=== PATIENT | female | born 1945 | race Caucasian/White ===

== ENCOUNTER 2024-04-27 20:01 | Inpatient (IN) | payer MEDICARE, OTHER, SELFPAY ==
[2024-04-27 20:09] VITALS: PULSE 136; RESP 18; O2SAT 96; BMI 25.0
[2024-04-27 20:11] VITALS: BP 181/94; PULSE 94; RESP 17; TEMP 37.2; O2SAT 99
--- NOTE | 2024-04-27 20:27 | XR_ITS ---
Examination: AP chest single view TECHNIQUE: AP portable chest single view. Examination time: April 27, 20242049 hours INDICATIONS: Shortness of breath today. FINDINGS: Normal heart size Mild hyperexpansion Accentuation of basilar bronchovascular markings Ectatic thoracic aorta. No lobar pneumonia or pulmonary edema Prominent osteopenia IMPRESSION: Basilar bronchitis pattern
--- NOTE | 2024-04-27 20:29 | PD.EDNV ---
Nausea/Vomit./Diarrhea-RME/HPI General Chief complaint: Nausea/Vomiting/Diarrhea Stated complaint: AFIB RVR Time Seen by Provider: 04/27/24 20:25 Source: patient and EMS Arrival date/time: 04/27/24 20:01 Mode of arrival: EMS Limitations: no limitations RME / HPI RME / HPI Narrative: Dr. Hoff?s Main ED Evaluation: The patient is a 78-year-old female with a medical history significant for cerebrovascular accident, peripheral neuropathy, hypertension, hypercholesterolemia, Crohn's disease, fibromyalgia, hypothyroidism, depression, anxiety, POTS, and lupus. She was brought to the emergency department by ambulance due to nausea, vomiting, and diarrhea, which began three days ago. The patient reports experiencing approximately four episodes of vomiting per day and notes associated generalized body aches. She has been unable to take her prescribed medications due to decreased oral intake and recurrent vomiting. She denies abdominal pain, chest pain, or any other symptoms at this time. EMS personnel reported that cardiac monitoring revealed atrial fibrillation with rapid ventricular response RVR, which the patient states is new to her. Related Data Home Medications ?Medication ?Instructions ?Recorded ?Confirmed gabapentin 100 mg capsule 600 mg PO BID PRN PAIN #0 caps 01/22/14 12/23/17 hydrocodone 10 mg-acetaminophen 1 tab PO TID PAIN #0 tabs 01/22/14 12/23/17 325 mg tablet raloxifene 60 mg tablet (Evista) 60 mg PO QDAY OSTEOPOROSIS #0 tabs 01/22/14 12/23/17 atorvastatin 20 mg tablet (Lipitor) 20 mg PO HS #0 tabs 02/26/17 12/23/17 duloxetine 60 mg capsule,delayed 60 mg PO QDAY #0 caps 02/26/17 12/23/17 release (Cymbalta) fludrocortisone 0.1 mg tablet 0.1 mg PO BID #0 tabs 02/26/17 12/23/17 hydroxychloroquine 200 mg tablet 400 mg PO QDAY #0 tabs 02/26/17 12/23/17 (Plaquenil) lisinopril 10 mg tablet 10 mg PO QDAY #0 tabs 02/26/17 12/23/17 metoprolol tartrate 25 mg tablet 25 mg PO BID #0 tabs 02/26/17 12/23/17 sertraline 100 mg tablet (Zoloft) 200 mg PO HS #0 tabs 02/26/17 12/23/17 azathioprine 50 mg tablet 25 mg PO QDAY 12/23/17 12/23/17 mesalamine 1.2 gram tablet,delayed 2.4 g PO QDAY 12/23/17 12/23/17 release (Lialda) sumatriptan succinate 100 mg tablet 100 mg PO Q2H PRN Migraine Headache 12/23/17 12/23/17 Previous Rx's ?Medication ?Instructions ?Recorded ondansetron HCl 8 mg tablet 8 mg PO TID PRN nausea and 10/07/18 (Zofran) vomiting #14 tabs loperamide 2 mg capsule (Imodium 2 mg PO Q4H PRN loose stool #20 05/12/21 A-D) caps Allergies Allergy/AdvReac Type Severity Reaction Status Date / Time Sulfa (Sulfonamide Allergy Severe FLUSHING, Verified 04/27/24 20:08 Antibiotics) VOMITING meloxicam Allergy Mild RASH Verified 04/27/24 20:08 Review of Systems Review of Systems Systems Reviewed: All systems reviewed, normal except as documented Past Medical History Past Medical History NEUROLOGIC: Positive Neurological Disorders, Cerebrovascular Accident, Peripheral Neuropathy and Migraine CARDIAC: Positive Cardiac Disorders, Hypercholesterolemia, Hypertension and Hypotension; Negative Congestive Heart Failure RESPIRATORY: Negative Chronic Obstructive Pulmonary Disease (COPD) GASTROINTESTINAL: Positive Crohn's Disease GENITOURINARY: Negative Renal Disease MUSCULOSKELETAL: Positive Fibromyalgia ENDOCRINE: Positive Hypothyroidism; Negative Diabetes Mellitus Type 1 or Diabetes Mellitus Type 2 PSYCHO/SOCIAL: Positive Psychiatric Problems, Depression and Anxiety Social History SMOKING STATUS: Never smoker SUBSTANCE USE: does not use ED Exam Narrative Physical exam: GENERAL APPEARANCE: alert and oriented x 4, well-developed, well-nourished, no acute distress VITALS: All vitals were reviewed and the pulse ox is 99% on room air, which is normal according to my interpretation. HEENT: Normocephalic, atraumatic; pupils equal, round, reactive to light; EOMI; mucous membranes pink, moist; oropharynx clear NECK: Supple LUNGS: CTABL; no wheezes, no rales, no rhonchi HEART: Regular rate, regular rhythm; normal S1, S2; no murmurs ABDOMEN: non distended; normal BS; soft, no tenderness, no guarding, no rebound; no masses, no organomegaly, no hernia BACK: no CVA tenderness EXTREMITIES: atraumatic; no edema NEUROLOGIC: awake; alert and oriented x4; cranial nerves II-XII grossly intact; no focal sensory or motor deficits PSYCHIATRIC: appropriate mood and affect SKIN: warm, dry, normal color; no rashes General Limitations: Present no limitations Course Course Course Narrative: CXR is ordered for determining etiology of shortness of breath. 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 Care 04/27/24 20:27 Active Continuous Pulse Oximetry STAT Care 04/27/24 20:27 Completed EKG (ED ONLY) *Do not use* NOW Care 04/27/24 20:16 Completed EKG (ED ONLY) *Do not use* NOW Care 04/28/24 00:28 Active Insert IV NOW Care 04/27/24 20:27 Active NPO STAT Care 04/27/24 20:27 Active Strict Intake and Output Routine Care 04/27/24 20:27 Ordered EKG (ED Only) Stat Exams 04/27/24 20:16 Ordered EKG (ED Only) Stat Exams 04/28/24 00:27 Ordered XR chest 1V portable Stat Exams 04/27/24 20:27 Completed Arterial Blood Gas Stat Lab 04/27/24 20:48 Completed B-Type Natriuretic Peptide Stat Lab 04/27/24 20:40 Completed CBC Stat Lab 04/27/24 20:40 Completed Comprehensive Metabolic Panel Stat Lab 04/27/24 20:40 Completed Free T4 (Free Thyroxine) Stat Lab 04/27/24 20:40 Completed LDH (Lactate Dehydrogenase) Stat Lab 04/27/24 20:40 Completed Lactate (Lactic Acid) Stat Lab 04/27/24 20:40 Completed Lipase Stat Lab 04/27/24 20:40 Completed Magnesium Stat Lab 04/27/24 20:40 Completed Partial Thromboplastin Time Stat Lab 04/27/24 20:40 Completed Phosphorous Stat Lab 04/27/24 20:40 Completed Procalcitonin Stat Lab 04/27/24 20:40 Completed Prothrombin Time with INR Stat Lab 04/27/24 20:40 Completed Troponin I Stat Lab 04/27/24 20:40 Completed Troponin I Stat Lab 04/28/24 00:40 Received Urinalysis Stat Lab 04/27/24 21:17 Completed Famotidine Inj [Pepcid Inj] Med 04/27/24 20:31 Discontinued 20 mg IVP X1 ONE Ondansetron Inj [Zofran Inj] Med 04/27/24 20:31 Discontinued 4 mg IV X1 ONE Ondansetron Inj [Zofran Inj] Med 04/27/24 20:31 Discontinued 4 mg IV X1 ONE POTASSIUM CHL 10 mEq IVPB [Kcl Ivpb] Med 04/27/24 22:16 Active 10 meq in 100 ml IV Q1H Potassium Chloride [K-Dur] Med 04/27/24 22:15 Discontinued 40 meq PO X1 ONE Sodium Chloride 0.9% 1000 ml [Ns] 1,779 ml Med 04/27/24 20:27 Discontinued IV 1,779 mls/hr Vital Signs Vital signs: Vital Signs Temperature 98.9 F 04/27/24 20:11 Pulse Rate 94 04/27/24 20:11 Respiratory Rate 17 04/27/24 20:11 Blood Pressure 181/94 H 04/27/24 20:11 Pulse Oximetry (%) 99 04/27/24 20:11 Oxygen Delivery Method Room Air 04/27/24 20:11 Nausea/Vomiting/Diarrhea MDM Narrative MDM Narrative:: Scribe Attestation: Duc Joe am scribing for and in the presence of Dr. Hoff. Provider Notation: Although this document has been carefully reviewed, there may still be some phonetic and other typographical errors. These errors are purely grammatical due to imperfections in the software program and should not be construed in any way to compromise the substance of the patient's medical care during this visit. Patient data External records reviewed:: [facility] previous records Clinical information provided by:: patient and EMS Social determinants that could affect healthcare access:: none Patient has the following chronic illnesses:: See PMH as above How is presenting disease/condition affected by chronic disease/condition?: caused by Evaluation data The following diagnostics were reviewed and interpreted by me:: lab results and EKG tracing(s) Lab and/or radiology exams considered but not ordered:: None Interpretation Summary: Patient's EKG at 20:23 demonstrates sinus tachycardia with a rate of 110 bpm, left axis deviation, and frequent premature atrial contractions (PACs). No evidence of acute ischemia is noted. QTc is 342. I personally reviewed the radiology data and agree with the radiologist's interpretation. Examination: AP chest single view TECHNIQUE: AP portable chest single view. Examination time: April 27, 2024 2050 hours INDICATIONS: Shortness of breath today. FINDINGS: Normal heart size Mild hyperexpansion Accentuation of basilar bronchovascular markings Ectatic thoracic aorta. No lobar pneumonia or pulmonary edema Prominent osteopenia IMPRESSION: Basilar bronchitis pattern Dictated By: Wallace Burden MD Medications / Prescriptions Medications / Prescriptions considered but not ordered:: None Medication administrations:: Medication Administration History Potassium Chloride (Kcl Ivpb) 10 meq in 100 mls @ 100 mls/hr IV Q1H ISAAC Stop: 04/28/24 01:15 Last Admin: 04/27/24 23:48 Dose: 100 mls/hr Documented By: Infusion: 04/27/24 23:37 Dose: Infused Documented By: Admin: 04/27/24 22:37 Dose: 100 mls/hr Documented By: KG Discontinued Medications Famotidine (Famotidine Inj 10 Mg/Ml Vial 2 Ml) 20 mg IVP X1 ONE Stop: 04/27/24 20:32 Last Admin: 04/27/24 20:38 Dose: 20 mg Documented By: MICAELA Sodium Chloride (Ns) 1,779 mls @ 1,779 mls/hr 30 ml/kg infuse over 60 min (1779 ml) IV .Q1H ONE Stop: 04/27/24 21:26 Last Infusion: 04/27/24 21:33 Dose: Infused Documented By: Admin: 04/27/24 20:38 Dose: 1,779 mls/hr Documented By: MICAELA Ondansetron HCl (Ondansetron Inj 2 Mg/Ml Inj 2 Ml) 4 mg IV X1 ONE; Protocol Stop: 04/27/24 20:32 Last Admin: 04/27/24 20:38 Dose: 4 mg Documented By: MICAELA Ondansetron HCl (Ondansetron Inj 2 Mg/Ml Inj 2 Ml) 4 mg IV X1 ONE; Protocol Stop: 04/27/24 20:32 Last Admin: 04/27/24 20:41 Dose: Not Given Documented By: GB Non-Admin Reason: Cancelled by Provider Potassium Chloride (Potassium Chloride 20 Meq Tabcr) 40 meq PO X1 ONE Stop: 04/27/24 22:16 As above, if any Consultations Consultation(s) initiated? (list below): Yes Consultation #1 (Physician, Specialty, Details): Discussed case with [Dr. Boss, attending Dr. Soriano] from Hospitalist service regarding admission. Discussed patients ED course, exam findings, labs, and radiology results. The Hospitalist [agrees] to accept the patient for admission. Time: 00:44 Diagnosis Nausea Differential Diagnosis: other (Viral gastroenteritis, DKA, hyperosmolar, Lupus crisis, sepsis, electrolyte abnormality) Most likely diagnosis given after review of the tests above:: See clinical impression below. Admission Indicated Admission indicated?: indicated Admission Request Was there a request for admission?: Yes Admission Attestation Admission request attestation: Discussed case with [] from Hospitalist service regarding admission. Discussed patients ED course, exam findings, labs, and radiology results. The Hospitalist [agrees,declines] to accept the patient for admission. Disposition Plan Disposition Plan: Admit Critical Care Time Critical Care Time Critical Care Time: Yes Total Critical Care Time (min.): 45 Attestation: The high probability of sudden, clinically significant deterioration in the patient?s condition required the highest level of my preparedness to intervene urgently. The services I provided to this patient were to treat and/or prevent clinically significant deterioration. Services included the following: chart data review, reviewing nursing notes and/or old charts, documentation time, forestry consultant collaboration regarding findings and treatment options, medication orders and management, direct patient care, vital sign assessments and ordering, interpreting and reviewing diagnostic studies and lab tests. Aggregate critical care time includes only time during which I was engaged in work directly related to the patient?s care, as described above, whether at bedside or elsewhere in the Emergency Department. It did not include time spent performing other reported procedures or the services of residents, students, nurses or physician assistants. Discharge Plan Plan Patient Disposition: Admit Acute Care w/in Hospital Prescriptions/Referrals Prescriptions/Med Rec: No Action hydrocodone-acetaminophen 10-325 mg Tablet 1 tab PO TID Qty: 0 raloxifene [Evista] 60 MG tablet 60 mg PO QDAY Qty: 0 gabapentin 100 MG capsule 600 mg PO BID PRN (Reason: PAIN) Qty: 0 atorvastatin [Lipitor] 20 MG tablet 20 mg PO HS Qty: 0 sertraline [Zoloft] 100 MG tablet 200 mg PO HS Qty: 0 lisinopril 10 MG tablet 10 mg PO QDAY Qty: 0 hydroxychloroquine [Plaquenil] 200 MG tablet 400 mg PO QDAY Qty: 0 fludrocortisone 0.1 mg Tablet 0.1 mg PO BID Qty: 0 metoprolol tartrate 25 MG tablet 25 mg PO BID Qty: 0 duloxetine [Cymbalta] 60 MG capsule,delayed release(DR/EC) 60 mg PO QDAY Qty: 0 azathioprine 50 mg Tablet 25 mg PO QDAY mesalamine [Lialda] 1.2 gram Tablet,Delayed Release (Dr/Ec) 2.4 g PO QDAY sumatriptan succinate 100 mg Tablet 100 mg PO Q2H PRN (Reason: Migraine Headache) ondansetron HCl [Zofran] 8 mg tablet 8 mg PO TID PRN (Reason: nausea and vomiting) Qty: 14 0RF loperamide [Imodium A-D] 2 mg capsule 2 mg PO Q4H PRN (Reason: loose stool) Qty: 20 0RF Rx Instructions: administer after each loose stool until symptoms controlled; do not exceed 8 mg per 24 hrs Referrals: No Primary/Family,Physician [Primary Care Provider] - In 1 week Problem List Clinical Impression: Acute hypokalemia, Non-ST elevation CA (NSTEMI) Patient/Caregiver Discharge Instructions Print Language: Togolese Stand Alone Forms: [facility] Award Info., Patient Portal Info Letter
[2024-04-27 20:30] VITALS: PULSE 110
[2024-04-27] MEDS: SODIUM CHLORIDE 0.9% 1000 ML 1,779 ML 1779 ML IV (20:38)
[2024-04-27] MEDS: FAMOTIDINE INJ 10 MG/ML VIAL 2 ML 20 MG IVP (20:38)
[2024-04-27] MEDS: ONDANSETRON INJ 2 MG/ML INJ 2 ML 4 MG IV (20:38)
[2024-04-27 20:51] LABS: Lactate (Lactic Acid) 1.7 mMol/L (0.4-2.0)
[2024-04-27 20:52] LABS: Base Excess 2 (-3-3); HCO3 24 mEq/L (20-26); Inspired Oxygen, FIO2 21 %; O2 Saturation 99 % (91-98); PCO2 28 mmHg (32.0-48.0); PO2 101 mmHg (83-108); Puncture Site Right Radial; pH, Arterial 7.54 (7.35-7.45)
[2024-04-27 20:53] LABS: Allen Test Performed/OK
[2024-04-27 21:02] LABS: Basophils % (Auto) 0 % (0-2.5); Eosinophils # (Auto) 0.1 Thou/mm3 (0.0-0.5); Eosinophils % (Auto) 1 % (0-10); Hematocrit 41.3 % (36.0-46.0); Immature Granulocytes % (Auto) 0 % (0-0); Immature Granulocytes Auto 0.01 Thou/mm3 (0.00-0.00); Lymphocytes # (Auto) 1.3 Thou/mm3 (1.0-4.8); Lymphocytes % (Auto) 19 % (10-50); Mean Corpuscular HGB Conc 33.9 g/dl (31.0-37.0); Mean Corpuscular Hemoglobin 30.8 pg (25.0-35.0); Mean Corpuscular Volume 91 fL (80-100); Monocytes # (Auto) 0.9 Thou/mm3 (0.0-0.8); Monocytes % (Auto) 13 % (0-12); Neutrophils # (Auto) 4.6 Thou/mm3 (1.8-7.7); Neutrophils % (Auto) 66 % (37-80); Nucleated Red Blood Cell % 0 /100 WBC (0); Platelet Count 233 Thou/mm3 (140-440); RDW Standard Deviation 46.3 fL (36.4-46.3); Red Blood Count 4.54 Miln/mm3 (4.00-5.20)
[2024-04-27 21:09] LABS: INR 1.1 (0.9-1.3); Partial Thromboplastin Time 27.6 Seconds (22.0-36.0); Prothrombin Time 11.6 Seconds (9.0-12.2)
[2024-04-27 21:21] LABS: Collection Type, Urine Clean Catch
[2024-04-27 21:22] LABS: Squamous Epithelial Cell,Urine 0 /hpf (0-5)
[2024-04-27 21:40] LABS: Bilirubin,Urine Negative (Negative); Blood,Urine Negative (Negative); Clarity,Urine Clear (Clear/Hazy); Color,Urine Colorless (Lt Yel-Yel); Glucose, Urine Negative (Negative); Ketones,Urine Trace (Negative); Leukocyte Esterase,Urine Negative (Negative); Nitrite,Urine Negative (Negative); Protein,Urine 1+ (Neg - Trace); RBC,Urine 1 /hpf (0-3); Specific Gravity,Urine 1.006 (1.001-1.035); Urobilinogen,Urine Negative mg/dL (0.0-1.0); WBC,Urine 4 /hpf (0-5)
[2024-04-27 21:51] LABS: B-Type Natriuretic Peptide 458 pg/mL (0-100)
[2024-04-27 21:53] LABS: Alanine Aminotransferase 20 U/L (10-49); Albumin, Serum 4.3 gm/dL (3.4-4.8); Albumin/Globulin Ratio 1.9 (1.2-2.2); Alkaline Phosphatase 73 U/L (46-116); Anion Gap 12 (7-16); Aspartate Amino Transferase 43 U/L (0-34); BUN/Creatinine Ratio 16 Ratio (12-20); Bilirubin,Total 0.5 mg/dL (0.3-1.2); Blood Urea Nitrogen 13 mg/dL (9-23); Calcium 9.6 mg/dL (8.3-10.6); Calcium (Corrected) 9.6 mg/dL (8.5-10.1); Carbon Dioxide 25.8 mMol/L (20.0-31.0); Chloride 105 mMol/L (98-107); Creatinine (Component) 0.8 mg/dL (0.6-1.3); Estimated Creatinine Clearance 55.1 mL/min (>60); Free T4 (Free Thyroxine) 1.48 ng/dL (0.89-1.76); Globulin 2.3 gm/dL (2.3-3.5); Glucose 109 mg/dL (74-106); LDH (Lactate Dehydrogenase) 335 U/L (120-246); Lipase 27 U/L (12-53); Magnesium 1.8 mg/dL (1.6-2.6); Osmolality,Calculated 286 (275-295); Phosphorous 2.8 mg/dL (2.4-5.1); Procalcitonin 0.09 ng/ml (0.0-0.49); Sodium 143 mMol/L (136-145); Total Protein 6.6 gm/dL (5.7-8.2); eGFR > 60 See Note
[2024-04-27 21:57] LABS: Potassium 2.6 mMol/L (3.4-5.1); Troponin I 0.142 ng/mL (0.0-0.045)
[2024-04-27] MEDS: POTASSIUM CHL 10 mEq IVPB 10 MEQ/100 ML BAG 100 MEQ IV ×2 (22:37→23:48)
[2024-04-27 22:45] VITALS: BP 170/89; PULSE 106; RESP 20; O2SAT 95
[2024-04-27 22:53] VITALS: BP 170/89; PULSE 105; RESP 20; O2SAT 94
[2024-04-28] VITALS (11 sets, daily range): BP systolic 130–179; BP diastolic 74–98; PULSE 63–114; RESP 17–96; TEMP 36.3–37.5; O2SAT 92–98
[2024-04-28] MEDS: POTASSIUM CHL 10 mEq IVPB 10 MEQ/100 ML BAG 100 MEQ IV ×5 (00:46→06:33)
--- NOTE | 2024-04-28 00:55 | XR_ITS ---
Examination: CT abdomen and pelvis without contrast. Coronal 3-D reconstructions. Sagittal 2-D reconstructions. Date and time of exam:April 28, 2024 0149 hours INDICATIONS: Nausea vomiting abdominal pain back pain beginning 4 days ago CTDI: vol (mGy): 6.90 DLP: (mGycm): 319 Technique: Axial images of the abdomen have been obtained, 3 mm slice thickness Intravenous contrast material has not been administered. Low dose protocols were performed. One or more of the following dose reduction techniques were used; automated exposure control, adjustment of the mA and/or KV according to patient size, use of iterative reconstruction technique. Findings: Accentuation interstitial markings at the lung bases Right lobe liver cysts No gallstones Spleen not enlarged No pancreatic mass No renal or ureteral calculi, no hydronephrosis Aortic calcification no aneurysmal dilatation Normal appendix Mild fluid distended small bowel loops Colonic diverticulosis, no diverticulitis Urinary bladder intact Diffuse advanced lumbar degenerative disc disease with prominent osteopenia IMPRESSION: Suspicious for basilar bronchitis pattern Mild small bowel ileus Normal appendix
[2024-04-28] MEDS: MORPHINE SULF INJ 10 MG/ML VIAL 2 MG IVP (01:43)
--- NOTE | 2024-04-28 02:01 | ESHP_ITS ---
<Statement entered by Alvarez Soriano MD - 04/28/24 14:01> I have discussed and was present for the essential components of the history, physical examination, diagnosis, and treatment plan with the resident. I agree with the patient's care as documented by the resident and amended herein by me. Alvarez Soriano MD FACP. Documentation for date of: 04/28/24 HPI History of Present Illness Chief complaint: Intractable Vomiting History of present illness: HPI: Patient is a 78-year-old female with a past medical history significant for essential hypertension, hyperlipidemia, Crohn's, fibromyalgia, migraines, hypothyroidism, lupus and POTS presenting with a chief complaint of vomiting. Follows up with program supervisor Dr. Keenan and inseam trimmer Dr. Lozoya. Patient stated that initially 5 days ago she had a migraine which was relieved after 2 rounds of sumatriptan. Subsequently the following day she began to experience irretractable vomiting. At least 10?15 episodes per day, initially food contents and eventually yellowish liquid. She also has not had any p.o. intake during this time. Denies any hematemesis, coffee-ground emesis, bile emesis, fecal emesis, melena, hematochezia and constipation. Of note patient also endorses a 2-day history of diarrhea prior to arrival approximately 6 episodes per day which has now subsided due to her not eating anything for the past 4 days. Patient's last colonoscopy was 2 years ago and reported by her as normal. Patient also had a nuclear stress test done last month and she reports that she had an adverse reaction to the dye. Currently she is still awaiting the results. ED course: BP 181/94, pulse 94, RR 17, temp 98.9 F, SpO2 99% on room air. Labs significant for NA 143, K2.6, Mg 1.8, Trop 0.142 --> 0.19, BNP 458. Urinalysis significant for 1+ protein and trace ketones EKG significant for sinus arrhythmia, rate 110, frequent PACs. No acute ST changes. Chest x-ray significant for hyperexpansion of lung watkins. Negative for consolidation, pulmonary edema or pleural effusion. In the ED patient received normal saline 1.7L IV fluid bolus, ondansetron 4 Mg IV x 1, famotidine 20 Mg IV x 1, KCl 30 mEq IV x 1 and morphine 2 Mg IV x 1. Patient will be admitted for workup and management of intractable vomiting and hypertensive urgency Review of Systems Review of Systems Narrative Review of Systems: GENERAL: Denies fever/chills or diaphoresis. HEENT: As Above Neuro: Denies unusual weakness or difficulty speaking. CARDIO: Denies chest pain or palpitations. PULM: Denies SOB, coughing or wheezing. GI: As above URO: Denies burning/itching/pain/urinary changes. MSK/EXT/SKIN: Denies joint/skeletal/muscle pain, issues/changes in upper or lower extremities, itchiness, or superficial pain. PSYCH: Cooperative, pleasant mood & affect. The rest of the review of systems is otherwise negative. Past Medical History Past Medical History Comments [facility] COMMENT: Past medical history: ? History of CVA 2013 ? Neuropathy ? Essential hypertension ? Hyperlipidemia ? Crohn's ? Fibromyalgia ? Hypothyroidism ? Migraines ? Depression ? Anxiety ? POTS ? Lupus Medication list: - Hydrocodone 7.5 Mg as needed ? Sertraline 200 Mg p.o. daily ? Atorvastatin 20 Mg p.o. at bedtime ? Hydroxy chloroquine 400 Mg p.o. daily ? Lyrica 75 Mg p.o. twice daily ? KCl 10 mEq p.o. twice daily ? Aspirin 81 Mg p.o. daily ? Levothyroxine 175 mcg p.o. daily ? Duloxetine 60 Mg p.o. daily ? Mesalamine 1.2 g p.o. daily ? Fludrocortisone 0.1 Mg p.o. daily ? Raloxifene 60 Mg p.o. daily ? Metoprolol tartrate 25 Mg p.o. twice daily ? Azathioprine 50 Mg p.o. daily ? Lisinopril 10 Mg p.o. daily ? Sumatriptan 100 Mg p.o. as needed Past surgical history: B/L knee replacement Left breast lumpectomy 40 years ago Allergies: Sulfa drugs?flushing, vomiting Meloxicam?rash Social history: Occupational History: Retired. 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 Education Level: Attended college Marital Status: Single. Has 3 kids Tobacco use: Denies. Exposure to second hand smoke from parents ETHO use: Denies Illicit drug use: Denies Social History Note: [place]. At Baseline patient ambulates with a cane and performs all ADLs independently Family History: Father?throat cancer Mother?COPD Brother?colorectal cancer Exam Vital Signs Temp Pulse Resp BP Pulse Ox O2 Del Method 98.9 F 105 H 20 170/89 H 94 L Room Air 04/27/24 20:11 04/27/24 22:53 04/27/24 22:53 04/27/24 22:53 04/27/24 22:53 04/27/24 22:53 Narrative Exam Constitutional Alert, oriented x 3 and comfortable. Elderly female HEENT Vision grossly intact. Patent nares. Trachea midline Respiratory Chest normal on inspection and decreased air entry at bases Cardiovascular S1 and S2 audible, RRR. No murmurs carotid bruit. No gross JVD. Abdominal Soft and tender to palpation in right upper quadrant and epigastrium. Bowel sounds present Genitourinary No bladder tenderness, no flank pain. Normal to palpation Musculoskeletal Extremities tone within normal limits. No LE edema. Neurological CN II - XII grossly intact. Extremity motor and sensation grossly intact. Skin Warm, dry and intact. No apparent lesions. Psychiatric Patient has good affect, is cooperative Results: Labs 04/27/24 20:40 04/27/24 20:40 Labs: Short CBC 04/27/24 Range/Units 20:40 WBC 7.0 (3.6-11.0) Thou/mm3 Hgb 14.0 (12.0-16.0) g/dL Hct 41.3 (36.0-46.0) % Plt Count 233 (140-440) Thou/mm3 BMP 04/27/24 20:40 Sodium 143 Potassium 2.6 L* Chloride 105 Carbon Dioxide 25.8 BUN 13 Creatinine 0.8 Glucose 109 H Calcium 9.6 Cardiac Enzymes 04/27/24 04/28/24 Range/Units 20:40 00:40 Troponin I 0.142 H* 0.190 H* (0.0-0.045) ng/mL Liver Function 04/27/24 Range/Units 20:40 Total Bilirubin 0.5 (0.3-1.2) mg/dL AST 43 H (0-34) U/L ALT 20 (10-49) U/L Alkaline Phosphatase 73 (46-116) U/L Albumin 4.3 (3.4-4.8) gm/dL Urine 04/27/24 Range/Units 21:17 Urine Color Colorless A (Lt Yel-Yel) Urine Clarity Clear (Clear/Hazy) Urine pH 7.0 (5.0-7.0) Ur Specific [place] 1.006 (1.001-1.035) Urine Protein 1+ A (Neg - Trace) Urine Glucose (UA) Negative (Negative) ABG Interpretation ABG results: 04/27/24 20:48 ABG pH 7.54 H ABG pCO2 28 L ABG pO2 101 ABG HCO3 24 ABG O2 Saturation 99 H ABG Base Excess 2 Quality Measures Quality Measures none Advance care planning discussed with:: patient Medications Home Medications and Allergies Home Medications ?Medication ?Instructions ?Recorded ?Confirmed ?Type gabapentin 100 mg capsule 600 mg PO BID PRN PAIN #0 ca ps 01/22/14 12/23/17 History hydrocodone 10 mg-acetaminophen 1 tab PO TID PAIN #0 t abs 01/22/14 12/23/17 History 325 mg tablet raloxifene 60 mg tablet (Evista) 60 mg PO QDAY OSTEOPO ROSIS #0 tabs 01/22/14 12/23/17 History atorvastatin 20 mg tablet (Lipitor) 20 mg PO HS #0 tab s 02/26/17 12/23/17 History duloxetine 60 mg capsule,delayed 60 mg PO QDAY #0 caps 02/26/17 12/23/17 History release (Cymbalta) fludrocortisone 0.1 mg tablet 0.1 mg PO BID #0 tabs 12/23/17 History hydroxychloroquine 200 mg tablet 400 mg PO QDAY #0 tab s 02/26/17 12/23/17 History (Plaquenil) lisinopril 10 mg tablet 10 mg PO QDAY #0 tabs 12/23/17 History metoprolol tartrate 25 mg tablet 25 mg PO BID #0 tabs 02/26/17 12/23/17 History sertraline 100 mg tablet (Zoloft) 200 mg PO HS #0 tabs 02/26/17 12/23/17 History azathioprine 50 mg tablet 25 mg PO QDAY 12/23/1712/23 History mesalamine 1.2 gram tablet,delayed 2.4 g PO QDAY 12/2312/23/17 History release (Lialda) sumatriptan succinate 100 mg tablet 100 mg PO Q2H PRN Migraine Headache 12/23/17 12/23/17 History Allergies Allergy/AdvReac Type Severity Reaction Status Date / Time Sulfa (Sulfonamide Allergy Severe FLUSHING, Verified 04/27/24 20:08 Antibiotics) VOMITING meloxicam Allergy Mild RASH Verified 04/27/24 20:08 Visit Medications Discontinued Medications Famotidine (Famotidine Inj 10 Mg/Ml Vial 2 Ml) 20 mg IVP X1 ONE Stop: 04/27/24 20:32 Last Admin: 04/27/24 20:38 Dose: 20 mg Sodium Chloride (Ns) 1,779 mls @ 1,779 mls/hr 30 ml/kg infuse over 60 min (1779 ml) IV .Q1H ONE Stop: 04/27/24 21:26 Last Infusion: 04/27/24 21:33 Dose: Infused Potassium Chloride (Kcl Ivpb) 10 meq in 100 mls @ 100 mls/hr IV Q1H ISAAC Stop: 04/28/24 01:15 Last Admin: 04/28/24 00:46 Dose: 100 mls/hr Morphine Sulfate (Morphine Sulf Inj 10 Mg/Ml Vial) 2 mg IVP X1 ONE Stop: 04/28/24 01:40 Last Admin: 04/28/24 01:43 Dose: 2 mg Ondansetron HCl (Ondansetron Inj 2 Mg/Ml Inj 2 Ml) 4 mg IV X1 ONE; Protocol Stop: 04/27/24 20:32 Last Admin: 04/27/24 20:38 Dose: 4 mg Ondansetron HCl (Ondansetron Inj 2 Mg/Ml Inj 2 Ml) 4 mg IV X1 ONE; Protocol Stop: 04/27/24 20:32 Last Admin: 04/27/24 20:41 Dose: Not Given Potassium Chloride (Potassium Chloride 20 Meq Tabcr) 40 meq PO X1 ONE Stop: 04/27/24 22:16 Assessment & Plan Plan Patient is a 78-year-old female with a past medical history significant for essential hypertension, hyperlipidemia, Crohn's, fibromyalgia, migraines, hypothyroidism, lupus and POTS presenting with a chief complaint of vomiting. Follows up with program supervisor Dr. Keenan and inseam trimmer Dr. Lozoya. Patient will be admitted for workup and management of intractable vomiting and hypertensive urgency. 1. Hypertensive urgency 2. Essential hypertension 3. Hyperlipidemia On admission BP 181/94 which reduced to 149/74 spontaneously Plan: ? Resumed home antihypertensive metoprolol tartrate 25 Mg p.o. twice daily ? Labetalol 10 Mg IV every 10 minutes for SBP greater than 180 ? Aim for 25% reduction of BP in first 24 hours 4. Intractable vomiting 5. Abdominal pain 6. Hypokalemia Patient presented with intractable vomiting for the past 3 days. On exam patient tender to palpation epigastrium and right upper quadrant. DDx: Cholecystitis, medication side effect, Crohn's/SLE flare, migraines, gastroparesis, SIBO Abdomen/pelvis CT pending K2.6, Mg 1.8 Plan: ? Clear liquid diet as tolerated ? Gallbladder ultrasound ? KCl 40 mEq IV x 1 ? Magnesium sulfate 2 g IV x 1 ? Ondansetron 4 Mg IV every 6 hourly as needed for nausea/vomiting ? Morphine 2 Mg IV Q4 hourly as needed for pain ? GI, Dr. Nevarez consulted and closely following the case. Appreciate recommendations 7. NSTEMI type I versus type II Patient denies any chest pain/pressure but has nausea and vomiting. Vomiting may present with atypical symptoms. EKG significant for sinus arrhythmia, rate 110, frequent PACs. No acute ST changes. Trop 0.142 --> 0.19, BNP 458 Plan: ? Telemetry monitoring ? Repeat troponin in the a.m. 8. Migraine headaches 9. Fibromyalgia Home medication sertraline 200 Mg p.o. daily, Lyrica 75 Mg p.o. twice daily, duloxetine 60 Mg p.o. daily Plan: ? Resumed home medication sertraline 200 Mg p.o. daily ? Resumed home medication Lyrica 75 Mg p.o. twice daily ? Resumed home medication duloxetine 60 Mg p.o. daily 10. Crohn's disease 11. Hypothyroidism 12. SLE Patient stated that her last colonoscopy was 2 years ago and reported that it was normal. Home medication mesalamine 1.2 g p.o. daily, azathioprine 50 Mg p.o. daily, hydroxychloroquine 400 Mg p.o. daily and levothyroxine 175 mcg p.o. daily. Plan: ? Resumed home medication mesalamine 1.2 g p.o. daily ? Resume home medication azathioprine 50 Mg p.o. daily ? Resumed home medication hydroxychloroquine to 500 Mg p.o. daily ? Resumed home medication L-thyroxine 125 Mg daily p.o. daily 13. POTS Home medication fludrocortisone 0.1 Mg p.o. daily Plan: ? Resume home medication fludrocortisone 0.1 Mg p.o. daily 14. History of CVA No residual deficits with patient reports memory problems since stroke in 2013 Plan: ? Resumed home medication aspirin 81 Mg p.o. daily Health maintenance: Disposition: IV antiemetics, blood pressure control, monitor gallbladder ultrasound. GI consult Diet: Clear liquid Lines: pIVs GI Prophylaxis: Pantoprazole Thrombo Prophylaxis: Heparin 5000 IU SC twice daily Code status: DNR Plan of care discussed with Attending Dr. oB Wilhelm MD PGY 1
[2024-04-28] MEDS: RINGERS LACTATED 1000 ML 1,000 ML 100 ML IV ×2 (03:00→16:58)
[2024-04-28] MEDS: Magnesium Sulfate 2 GM Ivpb 2 GM/50 ML BAG IV (03:00)
--- NOTE | 2024-04-28 03:11 | PRELIM_ITS ---
CT scan of the abdomen and pelvis without intravenous contrast (axial sections with sagittal and coronal reformats): April 28, 2024 at 0149 hours Clinical History: Nausea vomiting 4 days. Reference is made to the prior report dated October 12, 2018. Findings: There is heterogeneous attenuation of the visualized lungs with interstitial thickening. There is mild cardiomegaly. There are a few small cysts in the right lobe of the liver. The pancreas is unremarkable. The gallbladder, pancreas, spleen, kidneys and adrenals are unremarkable on this noncontrast study. There are fluid-filled small bowel loops, nonspecific. No evidence of bowel dilatation. The appendix is within normal limits. There are sigmoid colon diverticula without evidence of diverticulitis. Moderate amount of fecal material is present in the colon. The urinary bladder is unremarkable.There is no free fluid or free air. The aorta and its branches demonstrate atheromatous calcification without evidence of aneurysm. There is adenopathy. There are moderate degenerative changes in the hip joints and visualized spine. There is a mild degenerative anterolisthesis of L4 on L5. Impression: Findings suggestive of constipation. Chronic interstitial lung disease. No evidence of other acute intra-abdominal or pelvic pathology. Other findings as described above. Report Electronically Signed By: Alexander Pollock 04/28/2024 3:09:55 AM [EST]
[2024-04-28] MEDS: ONDANSETRON INJ 2 MG/ML INJ 2 ML 4 MG IV (03:47)
--- NOTE | 2024-04-28 04:26 | XR_ITS ---
Examination: Abdomen sonogram, Limited Date and time of exam: April 28, 2024 0733 hours INDICATIONS: Upper abdominal pain and vomiting beginning today Technique: Real-time hernandez scale transabdominal sonographic images of the upper abdomen obtained. Findings: Normal gallbladder Normal common bile duct 0.5 cm Pancreatic head 1.9 cm Liver 10.4 cm fatty infiltration no focal liver lesions Normal hepatopedal portal venous flow Patent IVC IMPRESSION: Normal gallbladder No common bile duct stones Liver 10.4 cm fatty infiltration no focal liver lesions
[2024-04-28 05:04] LABS: Basophils % (Auto) 1 % (0-2.5); Eosinophils # (Auto) 0.1 Thou/mm3 (0.0-0.5); Eosinophils % (Auto) 2 % (0-10); Hematocrit 35.6 % (36.0-46.0); Hemoglobin 11.6 g/dL (12.0-16.0); Immature Granulocytes % (Auto) 0 % (0-0); Immature Granulocytes Auto 0.02 Thou/mm3 (0.00-0.00); Lymphocytes # (Auto) 1.7 Thou/mm3 (1.0-4.8); Lymphocytes % (Auto) 26 % (10-50); Mean Corpuscular HGB Conc 32.6 g/dl (31.0-37.0); Mean Corpuscular Hemoglobin 30.8 pg (25.0-35.0); Mean Corpuscular Volume 94 fL (80-100); Monocytes # (Auto) 0.8 Thou/mm3 (0.0-0.8); Monocytes % (Auto) 13 % (0-12); Neutrophils # (Auto) 3.9 Thou/mm3 (1.8-7.7); Neutrophils % (Auto) 59 % (37-80); Nucleated Red Blood Cell % 0 /100 WBC (0); Platelet Count 193 Thou/mm3 (140-440); RDW Standard Deviation 48.7 fL (36.4-46.3); Red Blood Count 3.77 Miln/mm3 (4.00-5.20); White Blood Count 6.6 Thou/mm3 (3.6-11.0)
[2024-04-28 06:16] LABS: Alanine Aminotransferase 16 U/L (10-49); Albumin, Serum 3.6 gm/dL (3.4-4.8); Albumin/Globulin Ratio 1.6 (1.2-2.2); Alkaline Phosphatase 60 U/L (46-116); Anion Gap 9 (7-16); Aspartate Amino Transferase 34 U/L (0-34); BUN/Creatinine Ratio 17 Ratio (12-20); Bilirubin,Total 0.4 mg/dL (0.3-1.2); Blood Urea Nitrogen 12 mg/dL (9-23); Calcium 8.9 mg/dL (8.3-10.6); Calcium (Corrected) 9.2 mg/dL (8.5-10.1); Chloride 109 mMol/L (98-107); Creatinine (Component) 0.7 mg/dL (0.6-1.3); Globulin 2.2 gm/dL (2.3-3.5); Glucose 100 mg/dL (74-106); Magnesium 2.3 mg/dL (1.6-2.6); Osmolality,Calculated 290 (275-295); Potassium 3.3 mMol/L (3.4-5.1); Sodium 146 mMol/L (136-145); Thyroid Stimulating Hormone 4.02 uIU/mL (0.55-4.78); Total Protein 5.8 gm/dL (5.7-8.2); eGFR > 60 See Note
[2024-04-28] MEDS: LEVOTHYROXINE SODIUM 25 MCG TABLET 175 MCG PO (06:19)
[2024-04-28 06:20] LABS: Troponin I 0.171 ng/mL (0.0-0.045)
[2024-04-28] MEDS: HEPARIN SOD INJ 5000 UNIT/ML VIAL SC ×2 (08:38→20:39)
[2024-04-28] MEDS: ASPIRIN EC 81 MG TABEC PO (08:38)
[2024-04-28] MEDS: Lisinopril 2.5 MG TABLET 10 MG PO (08:39)
[2024-04-28] MEDS: FLUDROCORTISONE ACETATE 0.1 MG TABLET PO (08:39)
[2024-04-28] MEDS: METOPROLOL TARTRATE 25 MG TABLET PO ×2 (08:41→20:38)
[2024-04-28] MEDS: PREGABALIN 75 MG CAPSULE PO ×2 (08:41→20:38)
[2024-04-28] MEDS: HYDROXYCHLOROQUINE 200 MG TABLET 400 MG PO (08:42)
[2024-04-28] MEDS: DULoxetine HCL 30 MG CAPSULE 60 MG PO (08:43)
[2024-04-28] MEDS: MESALAMINE 400 MG CAPSULE.DR 1200 MG PO (08:44)
[2024-04-28] MEDS: PANTOPRAZOLE INJ 40 MG VIAL IVP (08:48)
--- NOTE | 2024-04-28 10:00 | PC.NURSE ---
SPOKE TO DR. VELIZ AND MADE AWARE PT TAKES NORCO AT HOME WITH DOSE OF 7.5/325. PT'S CURRENT NORCO ORDERS 5/325. RN CLARIFIED IF MD ABLE TO CHANGE ORDER FOR PT'S NORCO FROM 5/325 TO 7.5/325. PER DR. SHABAZZ, WILL CHANGE PT'S NORCO ORDERS SOON.
--- NOTE | 2024-04-28 10:05 | PC.NURSE ---
SPOKE TO DR. VELIZ AND CLARIFIED IF MD WANTS TO GIVE ADDITIONAL POTASSIUM IVPB MEDICATIONS; PT ALREADY RECEIVED 7 BAGS OF IV POTASSIUM WITH A TOTAL DOSE OF [address] VELIZ, HOLD OFF ON POTASSIUM FOR NOW AND REDRAW PT'S CMP PANEL.
--- NOTE | 2024-04-28 10:50 | PC.CC ---
Pt Maria Elena Damian is a 78 yr old female admitted to hospitalist services for hypertensive urgency, essential hypertension, intractable vomiting, abd pain and hypokalemia. ASW met with pt at bedside to complete initial assessment. At time of encounter pt is noted to be alert and oriented to person, place and situation. Pt expressed being hard of hearing. Pt expressed understanding admission order. Pt able to confirm all demographic information. Pt is from [address] Per pt she lives in her home alone. Pt identifies her daughter Shanelle Astorga [phone] as her surrogate DM. At baseline pt reports using a cane and 4-wheel rollator to support ambulation. Pt reports being independent with her ADLs. Pt reports she does not require any supplemental O2 in the home. Pt is not diabetic and is not on dialysis. Pt is followed by Dr. Rae in [place] for primary care. Pt also followed by specialty providers for rheumatology, GI and cardiology. At time of D/c pt reports she will return home with family supporting with transport. Pt is a DNR status.
[2024-04-28 10:52] LABS: Alanine Aminotransferase 18 U/L (10-49); Albumin, Serum 3.7 gm/dL (3.4-4.8); Albumin/Globulin Ratio 1.8 (1.2-2.2); Alkaline Phosphatase 63 U/L (46-116); Anion Gap 6 (7-16); Aspartate Amino Transferase 40 U/L (0-34); BUN/Creatinine Ratio 16 Ratio (12-20); Bilirubin,Total 0.5 mg/dL (0.3-1.2); Blood Urea Nitrogen 11 mg/dL (9-23); Calcium 8.9 mg/dL (8.3-10.6); Calcium (Corrected) 9.1 mg/dL (8.5-10.1); Carbon Dioxide 27.6 mMol/L (20.0-31.0); Chloride 111 mMol/L (98-107); Creatinine (Component) 0.7 mg/dL (0.6-1.3); Globulin 2.1 gm/dL (2.3-3.5); Glucose 101 mg/dL (74-106); Osmolality,Calculated 288 (275-295); Potassium 4.3 mMol/L (3.4-5.1); Sodium 145 mMol/L (136-145); Total Protein 5.8 gm/dL (5.7-8.2); eGFR > 60 See Note
[2024-04-28] MEDS: HYDROcodone/APAP 5/325 TABLET 1 TAB PO (11:30)
--- NOTE | 2024-04-28 12:30 | PC.NURSE ---
PT GIVEN LUNCH TRAY. PT EATING AT THIS TIME.
--- NOTE | 2024-04-28 13:11 | PC.NURSE ---
RN ATTEMPTED REPORT AT THIS TIME; FLOOR RN NOT AVAILABLE AT THIS TIME.
[2024-04-28] MEDS: METOCLOPRAMIDE INJ 5 MG/ML VIAL 2 ML IVP (15:20)
[2024-04-28] MEDS: predniSONE 20 MG TABLET 40 MG PO (15:21)
--- NOTE | 2024-04-28 15:33 | PD.RESPRO ---
Documentation for date of: 04/28/24 Senior resident attestation: Patient is a 78-year-old female past medical history of hypertension, hyperlipidemia Crohn's disease, fibromyalgia migraines and hypothyroidism, lupus, POTS, previously managed at [facility], who presented to ER with a chief complaint of intractable nausea and vomiting, unable to keep food or water, even medications down, admitted for IV fluids and IV antiemetics, GI consult Dr. Nevarez is placed. Noted hypokalemia hypomagnesemia initially, IV replacement of electrolytes ordered. #Intractable nausea vomiting ?IV ondansetron as needed, continue to have nausea, was given p.o. erythromycin but patient unable to tolerate, continue IV fluids. #Crohn's disease #SLE ? Resume home medications mesalamine, azathioprine, hydroxychloroquine, started on prednisone 40 mg daily for acute flareup of chronic disease. #History of POTS ? On fludrocortisone 0.1 mg/day, will hold fludrocortisone as patient started on prednisone 40 mg daily. Patient evaluated and examined at the bedside, plan of care discussed with rest of the team including my attending physician, except as noted. Quresh PGY2 Subjective Subjective Interval history: Patient seen at bedside fine awake, alert, oriented x 3. No overnight events reported. Continues to report abdominal pain. Patient fludrocortisone was switched to prednisone 40 mg daily. Abdominal pain likely secondary to Crohn's disease flare. Exam Vital Signs Temp Pulse Resp BP Pulse Ox O2 Del Method 99.5 F 82 18 156/85 H 92 L Room Air 04/28/24 10:13 04/28/24 14:31 04/28/24 14:31 04/28/24 14:31 04/28/24 14:31 04/28/24 14:31 Narrative Exam Physical Exam GENERAL: NAD, AAOx3 HEENT: Moist mucosa. Eyes open, symmetrical, & clear CARDIO: Heart RRR, no obvious murmurs PULM: No noted coughing/dyspnea CTA B/L, no R/W/R GI: Abdomen soft, nondistended, pain on palpation, bowel sounds noted SKIN/MSK/EXT: No wounds/rashes/edema/amputations, no pain on palpation. Pedal pulses present B/L NEURO: AAOx3, no focal neuro deficits, able to move all 4 extremities Objective Labs 04/28/24 04:34 04/28/24 10:20 Labs: Laboratory Results - last 24 hr 04/27/24 04/27/24 04/27/24 20:40 20:48 21:17 WBC 7.0 RBC 4.54 Hgb 14.0 Hct 41.3 MCV 91 MCH 30.8 MCHC 33.9 RDW Std Deviation 46.3 Plt Count 233 Neut % (Auto) 66 Lymph % (Auto) 19 [place] % (Auto) 13 H Eos % (Auto) 1 Baso % (Auto) 0 Neut # (Auto) 4.6 Lymph # (Auto) 1.3 [place] # (Auto) 0.9 H Eos # (Auto) 0.1 Baso # (Auto) 0.0 Immature Gran # (Auto) 0.01 H Absolute Nucleated RBC 0.00 Immature Gran % 0 Nucleated RBC % 0 PT 11.6 INR 1.1 APTT 27.6 Puncture Site Right Radial ABG pH 7.54 H ABG pCO2 28 L ABG pO2 101 ABG HCO3 24 ABG O2 Saturation 99 H ABG Base Excess 2 FiO2 21 Sodium 143 Potassium 2.6 L* Chloride 105 Carbon Dioxide 25.8 Anion Gap 12 BUN 13 Creatinine 0.8 Estim Creat Clear Calc 55.1 L eGFR > 60 BUN/Creatinine Ratio 16 Glucose 109 H Calculated Osmolality 286 Lactic Acid 1.7 Calcium 9.6 Corrected Calcium 9.6 Phosphorus 2.8 Magnesium 1.8 Total Bilirubin 0.5 AST 43 H ALT 20 Alkaline Phosphatase 73 Lactate Dehydrogenase 335 H Troponin I 0.142 H* B-Natriuretic Peptide 458 H* Total Protein 6.6 Albumin 4.3 Globulin 2.3 Albumin/Globulin Ratio 1.9 Lipase 27 Procalcitonin 0.09 TSH Free T4 1.48 Ur Collection Type Clean Catch Urine Color Colorless A Urine Clarity Clear Urine pH 7.0 Ur Specific [place] 1.006 Urine Protein 1+ A Urine Glucose (UA) Negative Urine Ketones Trace Urine Blood Negative Urine Nitrite Negative Urine Bilirubin Negative Urine Urobilinogen (Auto) Negative Ur Leukocyte Esterase Negative Urine RBC 1 Urine WBC 4 Ur Squamous Epith Cells 0 Urine Bacteria None 04/28/24 04/28/24 04/28/24 00:40 04:34 10:20 WBC 6.6 RBC 3.77 L Hgb 11.6 L D Hct 35.6 L MCV 94 MCH 30.8 MCHC 32.6 RDW Std Deviation 48.7 H Plt Count 193 D Neut % (Auto) 59 Lymph % (Auto) 26 [place] % (Auto) 13 H Eos % (Auto) 2 Baso % (Auto) 1 Neut # (Auto) 3.9 Lymph # (Auto) 1.7 [place] # (Auto) 0.8 Eos # (Auto) 0.1 Baso # (Auto) 0.0 Immature Gran # (Auto) 0.02 H Absolute Nucleated RBC 0.00 Immature Gran % 0 Nucleated RBC % 0 PT INR APTT Puncture Site ABG pH ABG pCO2 ABG pO2 ABG HCO3 ABG O2 Saturation ABG Base Excess FiO2 Sodium 146 H 145 Potassium 3.3 L D 4.3 D Chloride 109 H 111 H Carbon Dioxide 28.0 27.6 Anion Gap 9 6 L BUN 12 11 Creatinine 0.7 0.7 Estim Creat Clear Calc 63.0 63.0 eGFR > 60 > 60 BUN/Creatinine Ratio 17 16 Glucose 100 101 Calculated Osmolality 290 288 Lactic Acid Calcium 8.9 8.9 Corrected Calcium 9.2 9.1 Phosphorus Magnesium 2.3 Total Bilirubin 0.4 0.5 AST 34 40 H ALT 16 18 Alkaline Phosphatase 60 63 Lactate Dehydrogenase Troponin I 0.190 H* 0.171 H* B-Natriuretic Peptide Total Protein 5.8 5.8 Albumin 3.6 D 3.7 Globulin 2.2 L 2.1 L Albumin/Globulin Ratio 1.6 1.8 Lipase Procalcitonin TSH 4.02 Free T4 Ur Collection Type Urine Color Urine Clarity Urine pH Ur Specific [place] Urine Protein Urine Glucose (UA) Urine Ketones Urine Blood Urine Nitrite Urine Bilirubin Urine Urobilinogen (Auto) Ur Leukocyte Esterase Urine RBC Urine WBC Ur Squamous Epith Cells Urine Bacteria ABG Interpretation ABG results: 04/27/24 20:48 ABG pH 7.54 H ABG pCO2 28 L ABG pO2 101 ABG HCO3 24 ABG O2 Saturation 99 H ABG Base Excess 2 Quality Measures Quality Measures none Advance care planning discussed with:: patient Assessment & Plan Assessment Current Active Medications: Generic Name Dose Route Start Last Admin Trade Name Freq PRN Reason Stop Dose Admin Acetaminophen 650 mg 04/28/24 02:02 Acetaminophen 325 Mg Tablet PO 05/28/24 02:01 Q6H PRN Fever >100.3 or pain Hydrocodone Bitart/Acetaminophen 1 tab 04/28/24 02:07 04/28/24 11:30 Hydrocodone/Apap 5/325 Tablet PO 05/03/24 02:06 1 tab Q4HR PRN Administration PAIN SCALE 4-10(Mod-Sev Albuterol/Ipratropium 3 ml 04/28/24 02:02 Albuterol/Ipratropium (Duoneb) Rt Dorcas 3 Ml Nebu INH 05/28/24 02:01 Q4HR PRN SHORTNESS OF BREATH OR WHEEZE Aspirin 81 mg 04/28/24 09:00 04/28/24 08:38 Aspirin Ec 81 Mg Tabec PO 05/28/24 08:59 81 mg QDAY ISAAC Administration Atorvastatin Calcium 20 mg 04/28/24 21:00 Atorvastatin Calcium 20 Mg Tablet PO 05/28/24 20:59 HS ISAAC Azathioprine 50 mg 04/28/24 09:00 04/28/24 14:43 Azathioprine 50 Mg Tablet PO 05/28/24 08:59 Not Given DAILY ISAAC Duloxetine HCl 60 mg 04/28/24 09:00 04/28/24 08:43 Duloxetine Hcl 30 Mg Capsule PO 05/28/24 08:59 60 mg QDAY ISAAC Administration Fludrocortisone Acetate 0.1 mg 04/28/24 09:00 04/28/24 08:39 Fludrocortisone Acetate 0.1 Mg Tablet PO 05/28/24 08:59 0.1 mg QDAY ISAAC Administration Heparin Sodium (Porcine) 5,000 unit 04/28/24 21:00 Heparin Sod Inj 5000 Unit/Ml Vial SC 05/12/24 02:14 BID ISAAC Hydroxychloroquine Sulfate 400 mg 04/28/24 09:00 04/28/24 08:42 Hydroxychloroquine 200 Mg Tablet PO 05/05/24 08:59 400 mg QDAY ISAAC Administration Lactated Ringer's 1,000 mls @ 100 mls/hr 04/28/24 02:11 04/28/24 03:00 Lactated Ringers IV 05/28/24 02:10 100 mls/hr .Q10H ISAAC Administration Labetalol HCl 10 mg 04/28/24 02:19 Labetalol Inj 5 Mg/Ml Vial 20 Ml IVP 05/28/24 02:29 Q10MIN PRN SBP > 180 Levothyroxine Sodium 125 mcg/ 175 mcg 04/29/24 06:00 Levothyroxine Sodium 50 mcg PO 05/29/24 05:59 ACBR ISAAC Lisinopril 10 mg 04/28/24 09:00 04/28/24 08:39 Lisinopril 2.5 Mg Tablet PO 05/28/24 08:59 10 mg QDAY ISAAC Administration Mesalamine 1,200 mg 04/28/24 09:00 04/28/24 08:44 Mesalamine 400 Mg Capsule.Dr PO 05/28/24 08:59 1,200 mg DAILY ISAAC Administration Metoclopramide HCl 5 mg 04/28/24 11:15 04/28/24 15:20 Metoclopramide Inj 5 Mg/Ml Vial 2 Ml IVP 05/28/24 11:14 5 mg Q6H ISAAC Administration Protocol Metoprolol Tartrate 25 mg 04/28/24 09:00 04/28/24 08:41 Metoprolol Tartrate 25 Mg Tablet PO 05/28/24 08:59 25 mg BID ISAAC Administration Morphine Sulfate 2 mg 04/28/24 02:07 Morphine Sulf Inj 10 Mg/Ml Vial IVP 05/03/24 02:06 Q4HR PRN BREAKTHROUGH PAIN Ondansetron HCl 4 mg 04/28/24 02:02 04/28/24 03:47 Ondansetron Inj 2 Mg/Ml Inj 2 Ml IV 05/28/24 02:01 4 mg Q6H PRN Administration NAUSEA OR VOMITING Protocol Pantoprazole Sodium 40 mg 04/28/24 09:00 04/28/24 08:48 Pantoprazole Inj 40 Mg Vial IVP 05/28/24 08:59 40 mg QDAY ISAAC Administration Prednisone 40 mg 04/28/24 14:00 04/28/24 15:21 Prednisone 20 Mg Tablet PO 05/03/24 13:59 40 mg QDAY ISAAC Administration Pregabalin 75 mg 04/28/24 09:00 04/28/24 08:41 Pregabalin 75 Mg Capsule PO 05/28/24 08:59 75 mg BID ISAAC Administration Sertraline HCl 200 mg 04/28/24 21:00 Sertraline Hcl 25 Mg Tablet PO 05/28/24 20:59 HS ISAAC Plan 78-year-old female with a past medical history significant for essential hypertension, hyperlipidemia, Crohn's, fibromyalgia, migraines, hypothyroidism, lupus and POTS presenting with a chief complaint of vomiting. 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 Keenan and telephone sterilizer Dr. Lozoya. Patient will be admitted for workup and management of intractable vomiting and hypertensive urgency. #Hypertensive urgency-resolved #Essential hypertension #Hyperlipidemia On admission BP 181/94 which reduced to 149/74 spontaneously ? Resumed home antihypertensive metoprolol tartrate 25 Mg p.o. twice daily ? Labetalol 10 Mg IV every 10 minutes for SBP greater than 180 ? Aim for 25% reduction of BP in first 24 hours #Intractable vomiting #Abdominal pain #Hypokalemia-resolved Patient presented with intractable vomiting for the past 3 days. On exam patient tender to palpation epigastrium and right upper quadrant. DDx: Cholecystitis, medication side effect, Crohn's/SLE flare, migraines, gastroparesis, SIBO Abdomen/pelvis CT Suspicious for basilar bronchitis pattern, Mild small bowel ileus, Normal appendix K2.6, Mg 1.8 Gallbladder ultrasound showed Normal gallbladder, No common bile duct stones, Liver 10.4 cm fatty infiltration no focal liver lesions ? Clear liquid diet as tolerated ? Ondansetron 4 Mg IV every 6 hourly as needed for nausea/vomiting ? Morphine 2 Mg IV Q4 hourly as needed for pain ? GI, Dr. Nevarez consulted and closely following the case. Appreciate recommendations #NSTEMI type I versus type II Patient denies any chest pain/pressure but has nausea and vomiting. Vomiting may present with atypical symptoms. EKG significant for sinus arrhythmia, rate 110, frequent PACs. No acute ST changes. Trop 0.142 --> 0.19-->0.17, BNP 458 ?Troponins peaked no need to trend #Migraine headaches #Fibromyalgia Home medication sertraline 200 Mg p.o. daily, Lyrica 75 Mg p.o. twice daily, duloxetine 60 Mg p.o. daily ? Resumed home medication sertraline 200 Mg p.o. daily ? Resumed home medication Lyrica 75 Mg p.o. twice daily ? Resumed home medication duloxetine 60 Mg p.o. daily #Crohn's disease #Hypothyroidism #SLE Patient stated that her last colonoscopy was 2 years ago and reported that it was normal. Home medication mesalamine 1.2 g p.o. daily, azathioprine 50 Mg p.o. daily, hydroxychloroquine 400 Mg p.o. daily and levothyroxine 175 mcg p.o. daily. ? Resumed home medication mesalamine 1.2 g p.o. daily ? Resume home medication azathioprine 50 Mg p.o. daily ? Resumed home medication hydroxychloroquine to 500 Mg p.o. daily ? Resumed home medication L-thyroxine 125 Mg daily p.o. daily ? Prednisone 40 mg daily ?POTS Home medication fludrocortisone 0.1 Mg p.o. daily ?Fludrocortisone discontinued and started on prednisone 40 mg daily #History of CVA No residual deficits with patient reports memory problems since stroke in 2013 ? Resumed home medication aspirin 81 Mg p.o. daily Case discussed with my senior PGY-[address] Farhan Suero MD PGY-1 Disposition: Telemetry Fluids: None Feeding: Clear liquid Thrombo prophylaxis: Heparin Gastric Ulcer prophylaxis: Pantoprazole CODE STATUS: Full code Attending Provider Attestation/Addendum Aide Joe, DO, attest that I was physically present for the dawson portions of the service and evaluated the patient with the resident and I reviewed and discussed the case with the resident and agree with the resident's findings and plans of care as documented above Patient seen and eval this a.m. She states that she has been having pain in her shoulder and hips, along with ulcerations in her mouth. There are no visible ulcers on exam. However, patient states that she often has similar symptoms with her lupus flares. She has not had a flare since [place] time. She endorses having a lot of stress due to moving her home. She endorses having diarrhea as well. Patient was started on Reglan this morning and states that her nausea and vomiting has improved. However, she has been having her migraines which she endorses improvement with sumatriptan and. She also receives Botox injections for her headaches. Will give patient 1 dose of sumatriptan. Will continue with Reglan and start patient on steroids. Will hold fludrocortisone at this time. Will advance diet as tolerated.
[2024-04-28] MEDS: SUMAtriptan INJ 6 MG/0.5 ML VIAL SC (16:03)
--- NOTE | 2024-04-28 20:13 | PD.IMCONS ---
HPI Data of Consult Requesting Physician: Alvarez Soriano MD Primary Care Provider: Physician No Primary/Family Consult Narrative Reason for consult: Nausea vomiting diarrhea History of present illness: 78 years old female presented the emergency room with 2-day history of nausea vomiting and diarrhea at least 6-7 stools a day and about 4-6 episodes of vomiting Initially it was food contents then became bilious Patient does have a history of Crohn's disease and taking azathioprine and mesalamine No hematemesis melena or hematochezia CT scan of the abdomen pelvis without contrast showed ileus pattern no clear small bowel obstruction Patient does have a history of POTS syndrome previous CVA peripheral neuropathy hypertension hyperlipidemia fibromyalgia's hypothyroidism depression bilateral total knee replacement and left breast lump cc:: cc: Alvarez Soriano MD Review of Systems Review of Systems Systems Reviewed: All systems reviewed, normal except as documented Past Medical History Surgical History OTHER SURGICAL HX: As in the history of present illness Meds Home Medications and Allergies Home Medications ?Medication ?Instructions ?Recorded ?Confirmed ?Type gabapentin 100 mg capsule 600 mg PO BID PRN PAIN #0 caps 01/22/14 04/28/24 History hydrocodone 10 mg-acetaminophen 1 tab PO TID PAIN #0 tabs 01/22/14 04/28/24 History 325 mg tablet raloxifene 60 mg tablet (Evista) 60 mg PO QDAY OSTEOPOROSIS #0 tabs 01/22/14 04/28/24 History atorvastatin 20 mg tablet (Lipitor) 20 mg PO HS #0 tabs 02/26/17 04/28/24 History duloxetine 60 mg capsule,delayed 60 mg PO QDAY #0 caps 02/26/17 04/28/24 History release (Cymbalta) fludrocortisone 0.1 mg tablet 0.1 mg PO BID #0 tabs 02/26/17 04/28/24 History hydroxychloroquine 200 mg tablet 400 mg PO QDAY #0 tabs 02/26/17 04/28/24 History (Plaquenil) lisinopril 10 mg tablet 10 mg PO QDAY #0 tabs 02/26/17 04/28/24 History metoprolol tartrate 25 mg tablet 25 mg PO BID #0 tabs 02/26/17 04/28/24 History sertraline 100 mg tablet (Zoloft) 200 mg PO HS #0 tabs 02/26/17 04/28/24 History azathioprine 50 mg tablet 50 mg PO QDAY 12/23/17 04/28/24 History mesalamine 1.2 gram tablet,delayed 2.4 g PO QDAY 12/23/17 04/28/24 History release (Lialda) sumatriptan succinate 100 mg tablet 100 mg PO Q2H PRN Migraine Headache 12/23/17 04/28/24 History aspirin 81 mg tablet,delayed 81 mg PO DAILY 04/28/24 04/28/24 History release hydrocodone 7.5 mg-acetaminophen 1 tab PO Q6H PRN PAIN 04/28/24 04/28/24 History 325 mg tablet levothyroxine 175 mcg tablet 175 mcg PO DAILY 04/28/24 04/28/24 History Allergies Allergy/AdvReac Type Severity Reaction Status Date / Time Sulfa (Sulfonamide Allergy Severe FLUSHING, Verified 04/27/24 20:08 Antibiotics) VOMITING meloxicam Allergy Mild RASH Verified 04/27/24 20:08 Exam Vital Signs Temp Pulse Resp BP Pulse Ox O2 Del Method 98.1 F 81 18 130/85 H 95 Room Air 04/28/24 16:00 04/28/24 16:00 04/28/24 16:00 04/28/24 16:00 04/28/24 16:00 04/28/24 16:00 Constitutional Comments: Chronically ill-appearing Routine Respiratory Exam Comments: Normal to auscultation Routine Abdominal Exam Comments: Positive bowel sounds Results Labs 04/28/24 04:34 04/28/24 10:20 Labs: Short CBC 04/27/24 04/28/24 Range/Units 20:40 04:34 WBC 7.0 6.6 (3.6-11.0) Thou/mm3 Hgb 14.0 11.6 L D (12.0-16.0) g/dL Hct 41.3 35.6 L (36.0-46.0) % Plt Count 233 193 D (140-440) Thou/mm3 BMP 04/27/24 04/28/24 04/28/24 20:40 04:34 10:20 Sodium 143 146 H 145 Potassium 2.6 L* 3.3 L D 4.3 D Chloride 105 109 H 111 H Carbon Dioxide 25.8 28.0 27.6 BUN 13 12 11 Creatinine 0.8 0.7 0.7 Glucose 109 H 100 101 Calcium 9.6 8.9 8.9 Cardiac Enzymes 04/27/24 04/28/24 04/28/24 Range/Units 20:40 00:40 04:34 Troponin I 0.142 H* 0.190 H* 0.171 H* (0.0-0.045) ng/mL Liver Function 04/27/24 04/28/24 04/28/24 Range/Units 20:40 04:34 10:20 Total Bilirubin 0.5 0.4 0.5 (0.3-1.2) mg/dL AST 43 H 34 40 H (0-34) U/L ALT 20 16 18 (10-49) U/L Alkaline Phosphatase 73 60 63 (46-116) U/L Albumin 4.3 3.6 D 3.7 (3.4-4.8) gm/dL Urine 04/27/24 Range/Units 21:17 Urine Color Colorless A (Lt Yel-Yel) Urine Clarity Clear (Clear/Hazy) Urine pH 7.0 (5.0-7.0) Ur Specific [place] 1.006 (1.001-1.035) Urine Protein 1+ A (Neg - Trace) Urine Glucose (UA) Negative (Negative) ABG Interpretation ABG results: 04/27/24 20:48 ABG pH 7.54 H ABG pCO2 28 L ABG pO2 101 ABG HCO3 24 ABG O2 Saturation 99 H ABG Base Excess 2 Assessment and Plan Additional Assessment & Plan Additional Plan: # Nausea vomiting diarrhea most likely an acute exacerbation of the underlying Crohn's disease No evidence of small bowel obstruction Suggestions Fecal calprotectin ANCA antibody CRP Patient already on p.o. prednisone Start the mesalamine Colonoscopy 2 years ago was supposedly negative Will hold off doing any invasive GI workup Complete stool panel with C. difficile by PCR as well as culture and sensitivity and Gram stain Will follow the patient Other medical problems include Fibromyalgia's hypothyroidism CVA POTS Essential hypertension history of CVA A-fib with RVR Bilateral total knee replacement Left breast lumpectomy Thank you very much for the opportunity to participate in care of this patient
[2024-04-28] MEDS: ATORVASTATIN CALCIUM 20 MG TABLET PO (20:38)
[2024-04-28] MEDS: SERTRALINE HCL 25 MG TABLET 200 MG PO (20:38)
[2024-04-28] MEDS: ACETAMINOPHEN 325 MG TABLET 650 MG PO (20:46)
[2024-04-29] VITALS (13 sets, daily range): BP systolic 116–161; BP diastolic 74–81; PULSE 70–92; RESP 16–98; TEMP 36.1–36.7; O2SAT 95–98; BMI 26.2; BMI 26.0
[2024-04-29] MEDS: METOCLOPRAMIDE INJ 5 MG/ML VIAL 2 ML IVP ×5 (00:22→23:52)
[2024-04-29] MEDS: RINGERS LACTATED 1000 ML 1,000 ML 100 ML IV (03:24)
[2024-04-29] MEDS: LEVOTHYROXINE SODIUM 125 MCG, LEVOTHYROXINE SODIUM 50 MCG 175 MCG PO (05:16)
[2024-04-29 06:05] LABS: Basophils % (Auto) 0 % (0-2.5); Eosinophils % (Auto) 1 % (0-10); Hematocrit 32.8 % (36.0-46.0); Hemoglobin 10.8 g/dL (12.0-16.0); Immature Granulocytes % (Auto) 0 % (0-0); Immature Granulocytes Auto 0.01 Thou/mm3 (0.00-0.00); Lymphocytes % (Auto) 20 % (10-50); Mean Corpuscular HGB Conc 32.9 g/dl (31.0-37.0); Mean Corpuscular Hemoglobin 30.9 pg (25.0-35.0); Mean Corpuscular Volume 94 fL (80-100); Monocytes # (Auto) 0.5 Thou/mm3 (0.0-0.8); Monocytes % (Auto) 10 % (0-12); Neutrophils # (Auto) 3.5 Thou/mm3 (1.8-7.7); Neutrophils % (Auto) 69 % (37-80); Nucleated Red Blood Cell % 0 /100 WBC (0); Platelet Count 177 Thou/mm3 (140-440); RDW Standard Deviation 47.8 fL (36.4-46.3); White Blood Count 5.2 Thou/mm3 (3.6-11.0)
[2024-04-29 06:33] LABS: Alanine Aminotransferase 27 U/L (10-49); Albumin, Serum 3.3 gm/dL (3.4-4.8); Albumin/Globulin Ratio 1.7 (1.2-2.2); Alkaline Phosphatase 57 U/L (46-116); Anion Gap 8 (7-16); Aspartate Amino Transferase 40 U/L (0-34); BUN/Creatinine Ratio 16 Ratio (12-20); Bilirubin,Total 0.4 mg/dL (0.3-1.2); Blood Urea Nitrogen 11 mg/dL (9-23); C-Reactive Protein 1.2 mg/dL (0.0-0.9); Calcium 9.2 mg/dL (8.3-10.6); Calcium (Corrected) 9.8 mg/dL (8.5-10.1); Carbon Dioxide 28.8 mMol/L (20.0-31.0); Chloride 108 mMol/L (98-107); Creatinine (Component) 0.7 mg/dL (0.6-1.3); Estimated Creatinine Clearance 69.1 mL/min (>60); Glucose 96 mg/dL (74-106); Magnesium 1.9 mg/dL (1.6-2.6); Osmolality,Calculated 288 (275-295); Phosphorous 3.4 mg/dL (2.4-5.1); Potassium 3.7 mMol/L (3.4-5.1); Sodium 145 mMol/L (136-145); Total Protein 5.3 gm/dL (5.7-8.2); eGFR > 60 See Note
[2024-04-29 06:51] LABS: Sed Rate (ESR) 3 mm/hr (0-30)
[2024-04-29] MEDS: PANTOPRAZOLE INJ 40 MG VIAL IVP (08:46)
[2024-04-29] MEDS: HEPARIN SOD INJ 5000 UNIT/ML VIAL SC ×2 (08:46→20:16)
[2024-04-29] MEDS: METOPROLOL TARTRATE 25 MG TABLET PO ×2 (08:48→20:16)
[2024-04-29] MEDS: Lisinopril 2.5 MG TABLET 10 MG PO (08:49)
[2024-04-29] MEDS: ASPIRIN EC 81 MG TABEC PO (08:49)
[2024-04-29] MEDS: predniSONE 20 MG TABLET 40 MG PO (08:49)
[2024-04-29] MEDS: DULoxetine HCL 30 MG CAPSULE 60 MG PO (08:49)
[2024-04-29] MEDS: PREGABALIN 75 MG CAPSULE PO ×2 (09:35→20:16)
[2024-04-29] MEDS: Magnesium Sulfate 1 gm Ivpb 1 GM/100 ML BAG IV (09:35)
[2024-04-29] MEDS: POTASSIUM CHLORIDE 20 mEq TABCR 40 MEQ PO (09:35)
--- NOTE | 2024-04-29 10:19 | ESPR_ITS ---
<Statement entered by Vitaly Oconnell MD - 04/29/24 16:52> Agree with plan and examination finding on the note below. Patient seen and examined at bedside today. Labs and imaging reviewed. Patient care discussed with my attending and co-resident Dr. Wilhelm. Documentation for date of: 04/29/24 Subjective Subjective Interval history: Patient was seen and examined at bedside this AM. No acute exents overnight. Patient tolerating clear liquid diet, adequate urine output and mentation is at baseline. Patient endorses no further episodes of vomiting and has not had a bowel movement since admission. Will advance her diet to cardiac, low residue from lunch. Patient also endorses a postnasal drip, will start her on Flonase nasal spray. Of note patient said she had a DEXA scan done in the past which showed osteoporosis. Her home medication is raloxifene and calcium supplements. Patient's home dose of mesalamine is 2.4 g p.o. daily, currently she is on 1.2 g p.o. daily. Will increase to her home dose. Increased Lisinopril to 20mg po daily from 10mg po daily Day 2 prednisone 40 Mg p.o. daily Exam Vital Signs Temp Pulse Resp BP Pulse Ox O2 Del Method 98.0 F 80 20 144/74 H 97 Room Air 04/29/24 08:00 04/29/24 08:49 04/29/24 08:11 04/29/24 08:49 04/29/24 08:00 04/29/24 08:00 Narrative Exam Constitutional Alert, oriented x 3 and comfortable. Elderly female on room air HEENT Vision grossly intact. Patent nares. Trachea midline Respiratory Chest normal on inspection and clear auscultation bilaterally Cardiovascular S1 and S2 audible, RRR. No murmurs carotid bruit. No gross JVD. Abdominal Soft and non tender to palpation in all quadrants. BS + Genitourinary No bladder tenderness, no flank pain. Normal to palpation Musculoskeletal Extremities tone within normal limits. No LE edema. Neurological CN II - XII grossly intact. Extremity motor and sensation grossly intact. Skin Warm, dry and intact. No apparent lesions. Psychiatric Patient has good affect, is cooperative Objective Labs 04/29/24 05:01 04/29/24 05:01 Labs: Laboratory Results - last 24 hr 04/28/24 04/29/24 10:20 05:01 WBC 5.2 RBC 3.50 L Hgb 10.8 L Hct 32.8 L MCV 94 MCH 30.9 MCHC 32.9 RDW Std Deviation 47.8 H Plt Count 177 Neut % (Auto) 69 Lymph % (Auto) 20 [place] % (Auto) 10 Eos % (Auto) 1 Baso % (Auto) 0 Neut # (Auto) 3.5 Lymph # (Auto) 1.0 [place] # (Auto) 0.5 Eos # (Auto) 0.0 Baso # (Auto) 0.0 Immature Gran # (Auto) 0.01 H Absolute Nucleated RBC 0.00 Immature Gran % 0 Nucleated RBC % 0 ESR 3 Sodium 145 145 Potassium 4.3 D 3.7 D Chloride 111 H 108 H Carbon Dioxide 27.6 28.8 Anion Gap 6 L 8 BUN 11 11 Creatinine 0.7 0.7 Estim Creat Clear Calc 63.0 69.1 eGFR > 60 > 60 BUN/Creatinine Ratio 16 16 Glucose 101 96 Calculated Osmolality 288 288 Calcium 8.9 9.2 Corrected Calcium 9.1 9.8 Phosphorus 3.4 Magnesium 1.9 Total Bilirubin 0.5 0.4 AST 40 H 40 H ALT 18 27 Alkaline Phosphatase 63 57 C-Reactive Prot, Quant 1.2 H Total Protein 5.8 5.3 L Albumin 3.7 3.3 L Globulin 2.1 L 2.0 L Albumin/Globulin Ratio 1.8 1.7 ABG Interpretation ABG results: 04/27/24 20:48 ABG pH 7.54 H ABG pCO2 28 L ABG pO2 101 ABG HCO3 24 ABG O2 Saturation 99 H ABG Base Excess 2 Quality Measures Quality Measures none Advance care planning discussed with:: patient Assessment & Plan Assessment Current Active Medications: Generic Name Dose Route Start Last Admin Trade Name Freq PRN Reason Stop Dose Admin Acetaminophen 650 mg 04/29/24 09:25 Acetaminophen 325 Mg Tablet PO 05/28/24 02:01 Q6H PRN Fever >100.3 or pain 1-3 Hydrocodone Bitart/Acetaminophen 1 tab 04/28/24 02:07 04/28/24 11:30 Hydrocodone/Apap 5/325 Tablet PO 05/03/24 02:06 1 tab Q4HR PRN Administration PAIN SCALE 4-10(Mod-Sev Albuterol/Ipratropium 3 ml 04/28/24 02:02 Albuterol/Ipratropium (Duoneb) Rt Dorcas 3 Ml Nebu INH 05/28/24 02:01 Q4HR PRN SHORTNESS OF BREATH OR WHEEZE Aspirin 81 mg 04/28/24 09:00 04/29/24 08:49 Aspirin Ec 81 Mg Tabec PO 05/28/24 08:59 81 mg QDAY ISAAC Administration Atorvastatin Calcium 20 mg 04/28/24 21:00 04/28/24 20:38 Atorvastatin Calcium 20 Mg Tablet PO 05/28/24 20:59 20 mg HS ISAAC Administration Azathioprine 50 mg 04/28/24 09:00 04/28/24 14:43 Azathioprine 50 Mg Tablet PO 05/28/24 08:59 Not Given DAILY ISAAC Duloxetine HCl 60 mg 04/28/24 09:00 04/29/24 08:49 Duloxetine Hcl 30 Mg Capsule PO 05/28/24 08:59 60 mg QDAY ISAAC Administration Fludrocortisone Acetate 0.1 mg 04/28/24 09:00 04/28/24 08:39 Fludrocortisone Acetate 0.1 Mg Tablet PO 05/28/24 08:59 0.1 mg QDAY ISAAC Administration Fluticasone Propionate 1 spray 04/29/24 10:00 Fluticasone [place] 0.05% 16 Gm Btl NASAL 05/29/24 09:59 QDAY ISAAC Heparin Sodium (Porcine) 5,000 unit 04/28/24 21:00 04/29/24 08:46 Heparin Sod Inj 5000 Unit/Ml Vial SC 05/12/24 02:14 5,000 unit BID ISAAC Administration Hydroxychloroquine Sulfate 400 mg 04/28/24 09:00 04/28/24 08:42 Hydroxychloroquine 200 Mg Tablet PO 05/05/24 08:59 400 mg QDAY ISAAC Administration Labetalol HCl 10 mg 04/28/24 02:19 Labetalol Inj 5 Mg/Ml Vial 20 Ml IVP 05/28/24 02:29 Q10MIN PRN SBP > 180 Levothyroxine Sodium 125 mcg/ 175 mcg 04/29/24 06:00 04/29/24 05:16 Levothyroxine Sodium 50 mcg PO 05/29/24 05:59 175 mcg ACBR ISAAC Administration Lisinopril 20 mg 04/30/24 09:00 Lisinopril 20 Mg Tablet PO 05/30/24 08:59 QDAY ISAAC Mesalamine 1,200 mg 04/28/24 09:00 04/28/24 08:44 Mesalamine 400 Mg Capsule.Dr CHAVARRIA 05/28/24 08:59 1,200 mg DAILY ISAAC Administration Metoclopramide HCl 5 mg 04/28/24 11:15 04/29/24 05:16 Metoclopramide Inj 5 Mg/Ml Vial 2 Ml IVP 05/28/24 11:14 5 mg Q6H ISAAC Administration Protocol Metoprolol Tartrate 25 mg 04/28/24 09:00 04/29/24 08:48 Metoprolol Tartrate 25 Mg Tablet PO 05/28/24 08:59 25 mg BID ISAAC Administration Morphine Sulfate 2 mg 04/28/24 02:07 Morphine Sulf Inj 10 Mg/Ml Vial IVP 05/03/24 02:06 Q4HR PRN BREAKTHROUGH PAIN Ondansetron HCl 4 mg 04/28/24 02:02 04/28/24 03:47 Ondansetron Inj 2 Mg/Ml Inj 2 Ml IV 05/28/24 02:01 4 mg Q6H PRN Administration NAUSEA OR VOMITING Protocol Pantoprazole Sodium 40 mg 04/28/24 09:00 04/29/24 08:46 Pantoprazole Inj 40 Mg Vial IVP 05/28/24 08:59 40 mg QDAY ISAAC Administration Prednisone 40 mg 04/28/24 14:00 04/29/24 08:49 Prednisone 20 Mg Tablet PO 05/03/24 13:59 40 mg QDAY ISAAC Administration Pregabalin 75 mg 04/28/24 09:00 04/29/24 09:35 Pregabalin 75 Mg Capsule PO 05/28/24 08:59 75 mg BID ISAAC Administration Sertraline HCl 200 mg 04/28/24 21:00 04/28/24 20:38 Sertraline Hcl 25 Mg Tablet PO 05/28/24 20:59 200 mg HS ISAAC Administration Plan 78-year-old female with a past medical history significant for essential hypertension, hyperlipidemia, Crohn's, fibromyalgia, migraines, hypothyroidism, lupus and POTS presenting with a chief complaint of vomiting. Follows up with switch maker Dr. Keenan and basketballs and footballs reverser Dr. Lozoya at [facility]. Patient will be admitted for workup and management of intractable vomiting and hypertensive urgency. #Intractable vomiting likely secondary to Crohn's flare?resolved #Abdominal pain?resolved #Hypokalemia-resolved Patient presented with intractable vomiting for the past 3 days. On exam patient tender to palpation epigastrium and right upper quadrant. DDx: Cholecystitis, medication side effect, Crohn's/SLE flare, migraines, gastroparesis, SIBO Abdomen/pelvis CT Suspicious for basilar bronchitis pattern, Mild small bowel ileus, Normal appendix Gallbladder ultrasound showed Normal gallbladder, No common bile duct stones, Liver 10.4 cm fatty infiltration no focal liver lesions K3.7, Mg 1.9 ESR?3, CRP 1.2 Plan: ? Will advance diet to cardiac, low residue from lunch ? Discontinued Ringer's lactate IV fluids ? D2 prednisone 40 Mg p.o. daily ? Ondansetron 4 Mg IV every 6 hourly as needed for nausea/vomiting ? Morphine 2 Mg IV Q4 hourly as needed for pain - Customer Development Representative, Dr. Nevarez assessed the patient and agrees with diagnosis of Crohn's flare and treatment with steroids. ? GI, Dr. Nevarez consulted and closely following the case. Appreciate recommendations #Hypertensive urgency-resolved #Essential hypertension #Hyperlipidemia On admission BP 181/94 which reduced to 149/74 spontaneously Plan: ? Continue home antihypertensive metoprolol tartrate 25 Mg p.o. twice daily ? Labetalol 10 Mg IV every 10 minutes for SBP greater than 180 #NSTEMI type I versus type II Patient denies any chest pain/pressure but has nausea and vomiting. Vomiting may present with atypical symptoms. EKG significant for sinus arrhythmia, rate 110, frequent PACs. No acute ST changes. Trop 0.142 --> 0.19-->0.17, BNP 458 ?Troponins peaked no need to trend Likely type II NSTEMI due to severe vomiting. # History of migraine headaches #Fibromyalgia Home medication sertraline 200 Mg p.o. daily, Lyrica 75 Mg p.o. twice daily, duloxetine 60 Mg p.o. daily Plan: ? Continue home medication sertraline 200 Mg p.o. daily ? Continue home medication Lyrica 75 Mg p.o. twice daily ? Continue home medication duloxetine 60 Mg p.o. daily #Crohn's disease #Hypothyroidism #SLE Patient stated that her last colonoscopy was 2 years ago and reported that it was normal. Home medication mesalamine 2.4 g p.o. daily, azathioprine 50 Mg p.o. daily, hydroxychloroquine 400 Mg p.o. daily and levothyroxine 175 mcg p.o. daily. Plan: ? Continue home medication mesalamine 1.2 g p.o. daily ? Continue home medication azathioprine 50 Mg p.o. daily ? Continue home medication hydroxychloroquine to 500 Mg p.o. daily ? Continue home medication L-thyroxine 125 Mg daily p.o. daily ? D2 Prednisone 40 mg daily for Crohn's flare #POTS Home medication fludrocortisone 0.1 Mg p.o. daily Plan: ?Fludrocortisone discontinued as patinet on prednisone 40 mg daily #History of CVA No residual deficits with patient reports memory problems since stroke in 2013 Plan: ? Continue home medication aspirin 81 Mg p.o. daily #Osteoporosis Patient stated that she had a new DEXA scan done in the past which showed osteoporosis. Home medication raloxifene 60 Mg p.o. daily and calcium supplement Plan: ? Upon discharge resume home medication of raloxifene and calcium supplementations Health maintenance: Disposition: Advancing diet Diet: Cardiac/low residue Lines: pIVs GI Prophylaxis: Pantoprazole Thrombo Prophylaxis: Heparin 5000 IU SC twice daily Code status: DNR Plan of care discussed with Attending Dr. José Miguel Wilhelm MD PGY 1 Attending Provider Attestation/Addendum 78-year-old female with POTS, SLE, Crohn's disease, history of CVA, migraine, hypothyroidism was admitted for nausea vomiting diarrhea. Patient was seen by Dr. Nevarez from GI. Patient is being treated as Crohn's flare. Patient is on mesalamine,we will increase to her usual dose. The patient is also on azathioprine.
[2024-04-29] MEDS: HYDROXYCHLOROQUINE 200 MG TABLET 400 MG PO (10:24)
[2024-04-29] MEDS: MESALAMINE 400 MG CAPSULE.DR 1200 MG PO ×2 (10:25→17:06)
[2024-04-29] MEDS: azaTHIOprine 50 MG TABLET PO (10:25)
[2024-04-29] MEDS: FLUTICASONE NAS SPRAY 0.05% 16 GM BTL 1 SPRAY NASAL (12:02)
[2024-04-29] MEDS: HYDROcodone/APAP 5/325 TABLET 1 TAB PO ×2 (14:14→20:33)
--- NOTE | 2024-04-29 16:31 | ESPR_ITS ---
Documentation for date of: 04/29/24 Subjective Subjective Interval history: Patient evaluated hemoglobin hematocrit 10 point and 32.8 Exam Vital Signs Temp Pulse Resp BP Pulse Ox O2 Del Method 97.8 F 74 18 140/78 H 95 Room Air 04/29/24 12:00 04/29/24 12:00 04/29/24 12:00 04/29/24 12:00 04/29/24 12:00 04/29/24 12:00 Objective Labs 04/29/24 05:01 04/29/24 05:01 Labs: Laboratory Results - last 24 hr 04/29/24 05:01 WBC 5.2 RBC 3.50 L Hgb 10.8 L Hct 32.8 L MCV 94 MCH 30.9 MCHC 32.9 RDW Std Deviation 47.8 H Plt Count 177 Neut % (Auto) 69 Lymph % (Auto) 20 [place] % (Auto) 10 Eos % (Auto) 1 Baso % (Auto) 0 Neut # (Auto) 3.5 Lymph # (Auto) 1.0 [place] # (Auto) 0.5 Eos # (Auto) 0.0 Baso # (Auto) 0.0 Immature Gran # (Auto) 0.01 H Absolute Nucleated RBC 0.00 Immature Gran % 0 Nucleated RBC % 0 ESR 3 Sodium 145 Potassium 3.7 D Chloride 108 H Carbon Dioxide 28.8 Anion Gap 8 BUN 11 Creatinine 0.7 Estim Creat Clear Calc 69.1 eGFR > 60 BUN/Creatinine Ratio 16 Glucose 96 Calculated Osmolality 288 Calcium 9.2 Corrected Calcium 9.8 Phosphorus 3.4 Magnesium 1.9 Total Bilirubin 0.4 AST 40 H ALT 27 Alkaline Phosphatase 57 C-Reactive Prot, Quant 1.2 H Total Protein 5.3 L Albumin 3.3 L Globulin 2.0 L Albumin/Globulin Ratio 1.7 Impressions Impression: # Crohn's disease # nausea vomiting improving # Diarrhea secondary to acute exacerbation of the underlying Crohn's disease Continue current management ABG Interpretation ABG results: 04/27/24 20:48 ABG pH 7.54 H ABG pCO2 28 L ABG pO2 101 ABG HCO3 24 ABG O2 Saturation 99 H ABG Base Excess 2 Assessment & Plan A&P Narrative # Nausea vomiting diarrhea most likely an acute exacerbation of the underlying Crohn's disease No evidence of small bowel obstruction Suggestions Fecal calprotectin ANCA antibody CRP Patient already on p.o. prednisone Start the mesalamine Colonoscopy 2 years ago was supposedly negative Will hold off doing any invasive GI workup Complete stool panel with C. difficile by PCR as well as culture and sensitivity and Gram stain Will follow the patient Other medical problems include Fibromyalgia's hypothyroidism CVA POTS Essential hypertension history of CVA A-fib with RVR Bilateral total knee replacement Left breast lumpectomy Thank you very much for the opportunity to participate in care of this patient Time Spent With Patient Time: Total time spent is greater than 50% in coordination of care (as documented) at patient's floor/unit and/or counseling patient:
[2024-04-29] MEDS: ATORVASTATIN CALCIUM 20 MG TABLET PO (20:16)
[2024-04-29] MEDS: SERTRALINE HCL 25 MG TABLET 200 MG PO (20:17)
[2024-04-30] VITALS (10 sets, daily range): BP systolic 116–145; BP diastolic 64–91; PULSE 64–107; RESP 13–97; TEMP 36.1–37.1; O2SAT 92–98
[2024-04-30] MEDS: LEVOTHYROXINE SODIUM 125 MCG, LEVOTHYROXINE SODIUM 50 MCG 175 MCG PO (05:33)
[2024-04-30] MEDS: METOCLOPRAMIDE INJ 5 MG/ML VIAL 2 ML IVP ×3 (05:33→16:31)
[2024-04-30 06:07] LABS: Basophils % (Auto) 0 % (0-2.5); Eosinophils # (Auto) 0.2 Thou/mm3 (0.0-0.5); Eosinophils % (Auto) 3 % (0-10); Hematocrit 34.1 % (36.0-46.0); Hemoglobin 11.1 g/dL (12.0-16.0); Immature Granulocytes % (Auto) 0 % (0-0); Immature Granulocytes Auto 0.01 Thou/mm3 (0.00-0.00); Lymphocytes # (Auto) 2.2 Thou/mm3 (1.0-4.8); Lymphocytes % (Auto) 33 % (10-50); Mean Corpuscular HGB Conc 32.6 g/dl (31.0-37.0); Mean Corpuscular Hemoglobin 30.9 pg (25.0-35.0); Mean Corpuscular Volume 95 fL (80-100); Monocytes # (Auto) 0.5 Thou/mm3 (0.0-0.8); Monocytes % (Auto) 8 % (0-12); Neutrophils # (Auto) 3.8 Thou/mm3 (1.8-7.7); Neutrophils % (Auto) 56 % (37-80); Nucleated Red Blood Cell % 0 /100 WBC (0); Platelet Count 206 Thou/mm3 (140-440); RDW Standard Deviation 49.2 fL (36.4-46.3); Red Blood Count 3.59 Miln/mm3 (4.00-5.20); White Blood Count 6.8 Thou/mm3 (3.6-11.0)
[2024-04-30 06:40] LABS: Alanine Aminotransferase 33 U/L (10-49); Albumin, Serum 3.6 gm/dL (3.4-4.8); Albumin/Globulin Ratio 1.6 (1.2-2.2); Alkaline Phosphatase 64 U/L (46-116); Anion Gap 6 (7-16); Aspartate Amino Transferase 45 U/L (0-34); BUN/Creatinine Ratio 19 Ratio (12-20); Bilirubin,Total 0.4 mg/dL (0.3-1.2); Blood Urea Nitrogen 15 mg/dL (9-23); Calcium 9.1 mg/dL (8.3-10.6); Calcium (Corrected) 9.4 mg/dL (8.5-10.1); Carbon Dioxide 28.9 mMol/L (20.0-31.0); Chloride 107 mMol/L (98-107); Creatinine (Component) 0.8 mg/dL (0.6-1.3); Estimated Creatinine Clearance 61.3 mL/min (>60); Globulin 2.2 gm/dL (2.3-3.5); Glucose 92 mg/dL (74-106); Osmolality,Calculated 283 (275-295); Phosphorous 4.1 mg/dL (2.4-5.1); Sodium 142 mMol/L (136-145); Total Protein 5.8 gm/dL (5.7-8.2); eGFR > 60 See Note
[2024-04-30] MEDS: DULoxetine HCL 30 MG CAPSULE 60 MG PO (09:01)
[2024-04-30] MEDS: predniSONE 20 MG TABLET 40 MG PO (09:01)
[2024-04-30] MEDS: METOPROLOL TARTRATE 25 MG TABLET PO ×2 (09:02→20:41)
[2024-04-30] MEDS: ASPIRIN EC 81 MG TABEC PO (09:02)
[2024-04-30] MEDS: PANTOPRAZOLE INJ 40 MG VIAL IVP (09:02)
[2024-04-30] MEDS: Lisinopril 20 MG TABLET PO (09:02)
[2024-04-30] MEDS: HYDROXYCHLOROQUINE 200 MG TABLET 400 MG PO (09:03)
[2024-04-30] MEDS: PREGABALIN 75 MG CAPSULE PO ×2 (09:03→20:41)
[2024-04-30] MEDS: azaTHIOprine 50 MG TABLET PO (09:03)
[2024-04-30] MEDS: HEPARIN SOD INJ 5000 UNIT/ML VIAL SC ×2 (09:05→20:42)
[2024-04-30] MEDS: HYDROcodone/APAP 5/325 TABLET 1 TAB PO ×3 (09:25→19:30)
[2024-04-30] MEDS: FLUTICASONE NAS SPRAY 0.05% 16 GM BTL 1 SPRAY NASAL (09:51)
[2024-04-30] MEDS: MESALAMINE 400 MG CAPSULE.DR 2400 MG PO (09:52)
--- NOTE | 2024-04-30 12:59 | PC.SS ---
CLIPPER MACHINE met with pt for IMM and pt decided to appeal and called [facility]
--- NOTE | 2024-04-30 13:06 | PD.RESDS ---
Planned Discharge Date 04/30/24 DS: Providers Provider Date of admission: 04/28/24 02:02 Primary care physician: Physician No Primary/Family Admitting Provider: Alvarez Soriano MD Attending Provider on Admission: Alvarez Soriano MD Consults: 04/28/24 04:54 Consult to Gastroenterology Routine Comment: Intractable vomiting Consulting Provider: Maldonado Nevarez 04/28/24 15:44 Referral Registered Dietitian Routine Comment: Attending Provider on DC: Gerald Dwyer MD Discharging Provider: Gerald Dwyer MD DS: Diagnosis Problem List Completed Was Problem List Reviewed/Reconciled?: Yes Hospital Course Hospital Course Hospital course: 78-year-old female with past medical history of essential hypertension, hyperlipidemia, Crohn's, fibromyalgia, migraines, hypothyroidism, lupus, POTS presenting to the ED on 04/28 with chief complaint of intractable vomiting. In the ED, patient had electrolyte abnormalities along with a mildly elevated troponin, EKG showed sinus arrhythmia with frequent PACs but no acute ST changes. In the ED, patient received 1.7 L of IV fluids along with antiemetics, electrolyte replacement and IV morphine for pain management. Elevated troponin was likely secondary to NSTEMI type II due to excessive vomiting and hypovolemic status. Dr. Nevarez, gastroenterology, was consulted for possible Crohn's disease flare; CT scan of the abdomen showed ileus pattern with no small bowel obstruction. Recommendations by gastroenterology were to discharge the patient on a prednisone taper when she was clinically stable. On 04/30/2024, patient symptoms largely improved, she was tolerating diet and she will be discharged with the following strict instructions. Please take prednisone taper; start with 15mg PO BID (twice a week) for 1 week, followed by 10mg PO BID for 1 week, followed by 5mg PO BID for 1 week, followed by 5mg PO daily for 1 week. Please follow-up with your PCP within 1 week Please follow-up with Dr. Nevarez (Gastroenterology) within 2-3 weeks If your symptoms worsen or if you develop new shortness of breath, severe abdominal pain, bloody stools or vomiting please come back to the ED. Hospital Diagnosis: #Intractable vomiting likely secondary to Crohn's flare?resolved #Abdominal pain?resolved #Hypokalemia-resolved #Hypertensive urgency-resolved #Essential hypertension #Hyperlipidemia #NSTEMI type I versus type II #History of migraine headaches #Fibromyalgia #Crohn's disease #Hypothyroidism #SLE #POTS #History of CVA #Osteoporosis Gerald Dwyer, PGY-1 Senior resident attestation: Patient evaluated and examined at the bedside, plan of care discussed with rest of the team including my attending physician, except as noted. Quresh PGY2 Status at Discharge Overall status at discharge: patient is progressing back to baseline Time Spent with Patient Time attestation: Total time spent providing and/or coordinating discharge services: 45 minutes Exam Vital Signs Temp Pulse Resp BP Pulse Ox O2 Del Method 97.0 F 75 23 H 145/90 H 92 L Room Air 04/30/24 08:00 04/30/24 09:02 04/30/24 08:00 04/30/24 09:02 04/30/24 08:00 04/30/24 08:00 Narrative Exam Constitutional Alert, oriented x 3 and comfortable. Elderly female on room air HEENT Vision grossly intact. Patent nares. Trachea midline Respiratory Chest normal on inspection and clear auscultation bilaterally Cardiovascular S1 and S2 audible, RRR. No murmurs carotid bruit. No gross JVD. Abdominal Soft and non tender to palpation in all quadrants. BS + Genitourinary No bladder tenderness, no flank pain. Normal to palpation Musculoskeletal Extremities tone within normal limits. No LE edema. Neurological CN II - XII grossly intact. Extremity motor and sensation grossly intact. Skin Warm, dry and intact. No apparent lesions. Psychiatric Patient has good affect, is cooperative Discharge Plan Plan Patient Disposition: [place] [facility] [facility] [place] Patient condition on transfer: Stable Care Plan Goals: -You have been started on a steroid Taper. Take Prednisone 15 mg twice a day for 4 more days, Then 10 mg twice a day for 7 days , then 5mg twice a day for 7 days and then 5mg once a day for 7 days. Then Stop - Please take the rest of your Home medications as before. - Please Follow up with your PCP within 1 week,. - Please Follow up with Gi, Dr. Nevarez within 2-3 weeks of discharge. - If you experience any new, worsening or persistent symptoms either call your PCP, diall 911 or present to the emergency department Prescriptions/Referrals Prescriptions/Med Rec: New prednisone 20 mg tablet See Taper PO BID Qty: 49 0RF Taper: Prednisone Taper 15 mg TWICE A DAY for 7 Days and 0 Hour 10 mg TWICE A DAY for 7 Days and 0 Hour 5 mg TWICE A DAY for 7 Days and 0 Hour 5 mg DAILY for 7 Days Continued raloxifene [Evista] 60 MG tablet 60 mg PO QDAY Qty: 0 atorvastatin [Lipitor] 20 MG tablet 20 mg PO HS Qty: 0 sertraline [Zoloft] 100 MG tablet 200 mg PO HS Qty: 0 lisinopril 10 MG tablet 10 mg PO QDAY Qty: 0 hydroxychloroquine [Plaquenil] 200 MG tablet 400 mg PO QDAY Qty: 0 metoprolol tartrate 25 MG tablet 25 mg PO BID Qty: 0 duloxetine [Cymbalta] 60 MG capsule,delayed release(DR/EC) 60 mg PO QDAY Qty: 0 azathioprine 50 mg Tablet 50 mg PO QDAY mesalamine [Lialda] 1.2 gram Tablet,Delayed Release (Dr/Ec) 2.4 g PO QDAY sumatriptan succinate 100 mg Tablet 100 mg PO Q2H PRN (Reason: Migraine Headache) hydrocodone-acetaminophen 7.5-325 mg tablet 1 tab PO Q6H PRN (Reason: PAIN) levothyroxine 175 mcg tablet 175 mcg PO DAILY aspirin 81 mg tablet,delayed release (DR/EC) 81 mg PO DAILY potassium chloride [Klor-Con 10] 10 mEq tablet extended release 20 meq PO DAILY Patient Comments: TAKE 2 TABLETS BY MOUTH DAILY DIRECTED pregabalin 75 mg capsule 75 mg PO QDAY Discontinued hydrocodone-acetaminophen 10-325 mg Tablet 1 tab PO TID Qty: 0 gabapentin 100 MG capsule 600 mg PO BID PRN (Reason: PAIN) Qty: 0 fludrocortisone 0.1 mg Tablet 0.1 mg PO BID Qty: 0 Referrals: No Primary/Family,Physician [Primary Care Provider] - Patient/Caregiver Discharge Instructions Other Discharge Activity Instructions:: Please take prednisone taper; start with 15mg PO BID (twice a week) for 1 week, followed by 10mg PO BID for 1 week, followed by 5mg PO BID for 1 week, followed by 5mg PO daily for 1 week. Please follow-up with your PCP within 1 week Please follow-up with Dr. Nevaerz (Gastroenterology) within 2-3 weeks If your symptoms worsen or if you develop new shortness of breath, severe abdominal pain, bloody stools or vomiting please come back to the ED. Other Discharge Diet Instructions: AVOID High-fiber foods: raw fruits and vegetables, whole grains Fatty foods: fried foods, processed meats Spicy foods Caffeine and alcohol Dairy products OK TO EAT: Lean protein sources: chicken, fish, eggs. Fruits and vegetables: steamed, baked, or mashed Low-fiber grains: white rice, white bread, potatoes. Dairy products (if tolerated): yogurt, cheese Smooth, bland foods: applesauce, bananas Education Materials: What Is Crohn's Disease, Crohn Disease Lifestyle Manage Print Language: Maori Stand Alone Forms: Cherie Award Info., Patient Portal Info Letter Discharge Order Discharge Orders: Discharge (Routine); Ordered 05/02/24 Ordered By: Gerald Dwyer Quality Discharge Quality Measures VTE prophylaxis Attestestation Attestation I discussed with and supervised the resident physician who took care of this patient. I agree with the assessment and discharge plan as above.
--- NOTE | 2024-04-30 15:34 | PC.SS ---
SS submitted all appropriate documentation to [employer] via online portal.
--- NOTE | 2024-04-30 16:38 | PD.IMPROG ---
Documentation for date of: 04/30/24 Subjective Subjective Interval history: Patient evaluated Will follow the patient as an outpatient Case discussed with the internal medicine team Exam Vital Signs Temp Pulse Resp BP Pulse Ox O2 Del Method 98.8 F 68 19 116/66 98 Room Air 04/30/24 12:00 04/30/24 16:24 04/30/24 16:24 04/30/24 12:00 04/30/24 16:24 04/30/24 08:00 Objective Labs 04/30/24 05:44 04/30/24 05:44 Labs: Laboratory Results - last 24 hr 04/30/24 05:44 WBC 6.8 RBC 3.59 L Hgb 11.1 L Hct 34.1 L MCV 95 MCH 30.9 MCHC 32.6 RDW Std Deviation 49.2 H Plt Count 206 Neut % (Auto) 56 Lymph % (Auto) 33 [place] % (Auto) 8 Eos % (Auto) 3 Baso % (Auto) 0 Neut # (Auto) 3.8 Lymph # (Auto) 2.2 [place] # (Auto) 0.5 Eos # (Auto) 0.2 Baso # (Auto) 0.0 Immature Gran # (Auto) 0.01 H Absolute Nucleated RBC 0.00 Immature Gran % 0 Nucleated RBC % 0 Sodium 142 Potassium 4.0 Chloride 107 Carbon Dioxide 28.9 Anion Gap 6 L BUN 15 Creatinine 0.8 Estim Creat Clear Calc 61.3 eGFR > 60 BUN/Creatinine Ratio 19 Glucose 92 Calculated Osmolality 283 Calcium 9.1 Corrected Calcium 9.4 Phosphorus 4.1 Magnesium 2.0 Total Bilirubin 0.4 AST 45 H ALT 33 Alkaline Phosphatase 64 Total Protein 5.8 Albumin 3.6 Globulin 2.2 L Albumin/Globulin Ratio 1.6 Impressions Impression: # Acute exacerbation of the underlying inflammatory bowel disease/Crohn's disease/ulcerative colitis outpatient follow-up okay to discharge patient on the current medshome ABG Interpretation ABG results: 04/27/24 20:48 ABG pH 7.54 H ABG pCO2 28 L ABG pO2 101 ABG HCO3 24 ABG O2 Saturation 99 H ABG Base Excess 2 Assessment & Plan A&P Narrative # Nausea vomiting diarrhea most likely an acute exacerbation of the underlying Crohn's disease No evidence of small bowel obstruction Suggestions Fecal calprotectin ANCA antibody CRP Patient already on p.o. prednisone Start the mesalamine Colonoscopy 2 years ago was supposedly negative Will hold off doing any invasive GI workup Complete stool panel with C. difficile by PCR as well as culture and sensitivity and Gram stain Will follow the patient Other medical problems include Fibromyalgia's hypothyroidism CVA POTS Essential hypertension history of CVA A-fib with RVR Bilateral total knee replacement Left breast lumpectomy Thank you very much for the opportunity to participate in care of this patient Time Spent With Patient Time: Total time spent is greater than 50% in coordination of care (as documented) at patient's floor/unit and/or counseling patient:
--- NOTE | 2024-04-30 19:46 | PC.NURSE ---
PT STATING THAT SHE HAD DIFFICULTY FALLING ASLEEP LAST NIGHT AND IS REQUESTING A SLEEPING AID. STATES MELATONIN DOESN'T HELP HER. SHE OCCASIONALLY TAKES A LOW DOSE OF ANTI -ANXIETY MEDICATION . SPOKE WITH DR. ROMO REGARDING ISSUE. STATES HE WILL ORDER SEROQUEL FOR TONIGHT.
[2024-04-30] MEDS: SERTRALINE HCL 25 MG TABLET 200 MG PO (20:41)
[2024-04-30] MEDS: ATORVASTATIN CALCIUM 20 MG TABLET PO (20:41)
[2024-04-30] MEDS: QUEtiapine FUMARATE 25 MG TABLET PO (20:44)
[2024-05-01] VITALS (12 sets, daily range): BP systolic 122–165; BP diastolic 71–89; PULSE 66–96; RESP 14–21; TEMP 36–37.2; O2SAT 93–96
[2024-05-01] MEDS: LEVOTHYROXINE SODIUM 125 MCG, LEVOTHYROXINE SODIUM 50 MCG 175 MCG PO (05:56)
[2024-05-01] MEDS: METOCLOPRAMIDE INJ 5 MG/ML VIAL 2 ML IVP ×2 (05:56→16:58)
[2024-05-01] MEDS: HYDROcodone/APAP 5/325 TABLET 1 TAB PO (06:01)
[2024-05-01 06:16] LABS: Basophils % (Auto) 0 % (0-2.5); Eosinophils # (Auto) 0.1 Thou/mm3 (0.0-0.5); Eosinophils % (Auto) 1 % (0-10); Hematocrit 35.7 % (36.0-46.0); Hemoglobin 11.6 g/dL (12.0-16.0); Immature Granulocytes % (Auto) 0 % (0-0); Immature Granulocytes Auto 0.02 Thou/mm3 (0.00-0.00); Lymphocytes # (Auto) 2.3 Thou/mm3 (1.0-4.8); Lymphocytes % (Auto) 28 % (10-50); Mean Corpuscular HGB Conc 32.5 g/dl (31.0-37.0); Mean Corpuscular Volume 96 fL (80-100); Monocytes # (Auto) 0.6 Thou/mm3 (0.0-0.8); Monocytes % (Auto) 7 % (0-12); Neutrophils # (Auto) 5.3 Thou/mm3 (1.8-7.7); Neutrophils % (Auto) 64 % (37-80); Nucleated Red Blood Cell % 0 /100 WBC (0); Platelet Count 200 Thou/mm3 (140-440); RDW Standard Deviation 49.4 fL (36.4-46.3); Red Blood Count 3.74 Miln/mm3 (4.00-5.20); White Blood Count 8.4 Thou/mm3 (3.6-11.0)
[2024-05-01 06:50] LABS: Alanine Aminotransferase 31 U/L (10-49); Albumin, Serum 3.8 gm/dL (3.4-4.8); Albumin/Globulin Ratio 1.7 (1.2-2.2); Alkaline Phosphatase 66 U/L (46-116); Anion Gap 7 (7-16); Aspartate Amino Transferase 34 U/L (0-34); BUN/Creatinine Ratio 24 Ratio (12-20); Bilirubin,Total 0.4 mg/dL (0.3-1.2); Blood Urea Nitrogen 17 mg/dL (9-23); Calcium 9.3 mg/dL (8.3-10.6); Calcium (Corrected) 9.5 mg/dL (8.5-10.1); Carbon Dioxide 31.3 mMol/L (20.0-31.0); Chloride 108 mMol/L (98-107); Creatinine (Component) 0.7 mg/dL (0.6-1.3); Estimated Creatinine Clearance 70.2 mL/min (>60); Globulin 2.2 gm/dL (2.3-3.5); Glucose 90 mg/dL (74-106); Magnesium 1.9 mg/dL (1.6-2.6); Osmolality,Calculated 292 (275-295); Phosphorous 3.7 mg/dL (2.4-5.1); Potassium 3.6 mMol/L (3.4-5.1); Sodium 146 mMol/L (136-145); eGFR > 60 See Note
[2024-05-01] MEDS: predniSONE 20 MG TABLET 40 MG PO (08:08)
[2024-05-01] MEDS: DULoxetine HCL 30 MG CAPSULE 60 MG PO (08:08)
[2024-05-01] MEDS: PREGABALIN 75 MG CAPSULE PO ×2 (08:09→21:49)
[2024-05-01] MEDS: ASPIRIN EC 81 MG TABEC PO (08:09)
[2024-05-01] MEDS: POTASSIUM CHLORIDE 20 mEq TABCR 40 MEQ PO (08:09)
[2024-05-01] MEDS: Lisinopril 20 MG TABLET PO (08:09)
[2024-05-01] MEDS: FLUTICASONE NAS SPRAY 0.05% 16 GM BTL 1 SPRAY NASAL (08:10)
[2024-05-01] MEDS: PANTOPRAZOLE INJ 40 MG VIAL IVP (08:10)
[2024-05-01] MEDS: MESALAMINE 400 MG CAPSULE.DR 2400 MG PO (08:11)
[2024-05-01] MEDS: azaTHIOprine 50 MG TABLET PO (08:11)
[2024-05-01] MEDS: HYDROXYCHLOROQUINE 200 MG TABLET 400 MG PO (08:12)
[2024-05-01] MEDS: METOPROLOL TARTRATE 25 MG TABLET PO ×2 (08:13→21:49)
[2024-05-01] MEDS: HEPARIN SOD INJ 5000 UNIT/ML VIAL SC ×2 (08:13→21:50)
[2024-05-01] MEDS: MORPHINE SULF INJ 10 MG/ML VIAL 2 MG IVP ×2 (10:45→21:47)
--- NOTE | 2024-05-01 10:50 | ESPR_ITS ---
Documentation for date of: 05/01/24 Subjective Subjective Interval history: Clinically patient doing much better She wants to go to SNF to get stronger before she goes home MD internal medicine team is working on it Nausea vomiting diarrhea improved Exam Vital Signs Temp Pulse Resp BP Pulse Ox O2 Del Method 98.9 F 69 18 137/82 H 94 L Room Air 05/01/24 08:00 05/01/24 08:13 05/01/24 08:00 05/01/24 08:13 05/01/24 08:00 05/01/24 08:00 Constitutional Comments: Alert oriented Routine Respiratory Exam Comments: Normal to auscultation Routine Abdominal Exam Comments: Soft nontender positive bowel sounds Objective Labs 05/01/24 05:27 05/01/24 05:27 Labs: Laboratory Results - last 24 hr 05/01/24 05:27 WBC 8.4 RBC 3.74 L Hgb 11.6 L Hct 35.7 L MCV 96 MCH 31.0 MCHC 32.5 RDW Std Deviation 49.4 H Plt Count 200 Neut % (Auto) 64 Lymph % (Auto) 28 [place] % (Auto) 7 Eos % (Auto) 1 Baso % (Auto) 0 Neut # (Auto) 5.3 Lymph # (Auto) 2.3 [place] # (Auto) 0.6 Eos # (Auto) 0.1 Baso # (Auto) 0.0 Immature Gran # (Auto) 0.02 H Absolute Nucleated RBC 0.00 Immature Gran % 0 Nucleated RBC % 0 Sodium 146 H Potassium 3.6 Chloride 108 H Carbon Dioxide 31.3 H Anion Gap 7 BUN 17 Creatinine 0.7 Estim Creat Clear Calc 70.2 eGFR > 60 BUN/Creatinine Ratio 24 H Glucose 90 Calculated Osmolality 292 Calcium 9.3 Corrected Calcium 9.5 Phosphorus 3.7 Magnesium 1.9 Total Bilirubin 0.4 AST 34 ALT 31 Alkaline Phosphatase 66 Total Protein 6.0 Albumin 3.8 Globulin 2.2 L Albumin/Globulin Ratio 1.7 Impressions Impression: # Nausea vomiting improved # Acute exacerbation of the underlying inflammatory bowel disease Continue current management ABG Interpretation ABG results: 04/27/24 20:48 ABG pH 7.54 H ABG pCO2 28 L ABG pO2 101 ABG HCO3 24 ABG O2 Saturation 99 H ABG Base Excess 2 Assessment & Plan A&P Narrative # Nausea vomiting diarrhea most likely an acute exacerbation of the underlying Crohn's disease No evidence of small bowel obstruction Suggestions Fecal calprotectin ANCA antibody CRP Patient already on p.o. prednisone Start the mesalamine Colonoscopy 2 years ago was supposedly negative Will hold off doing any invasive GI workup Complete stool panel with C. difficile by PCR as well as culture and sensitivity and Gram stain Will follow the patient Other medical problems include Fibromyalgia's hypothyroidism CVA POTS Essential hypertension history of CVA A-fib with RVR Bilateral total knee replacement Left breast lumpectomy Thank you very much for the opportunity to participate in care of this patient Time Spent With Patient Time: Total time spent is greater than 50% in coordination of care (as documented) at patient's floor/unit and/or counseling patient:
--- NOTE | 2024-05-01 11:20 | PC.SS ---
PUBLIC HEALTH TEACHER met with patient at bedside. Patient informed PUBLIC HEALTH TEACHER of request for short term SNF placement due to current level of weakness. No preferred SNF identified. PUBLIC HEALTH TEACHER to submit referral on [employer] platform.
--- NOTE | 2024-05-01 11:27 | PC.SS ---
PASSR completed. Patient meets Level II criteria. PASSR follow up pending.
--- NOTE | 2024-05-01 11:33 | PC.SS ---
SNF referrals submitted on [employer] [facility] platform.
--- NOTE | 2024-05-01 14:14 | ESPR_ITS ---
Documentation for date of: 05/01/24 Subjective Subjective Interval history: Patient was seen and examined at bedside this AM. Overnight patient had insomnia and was given Seroquel 25 Mg p.o. x 1 Patient tolerating diet, adequate urine output and mentation is at baseline. Patient endorses improvement of her neck pain. Patient would wish to go to SNF upon discharge. Pending authorization currently. Patient was medically discharged yesterday but appealed. Exam Vital Signs Temp Pulse Resp BP Pulse Ox O2 Del Method 98.7 F 71 16 147/84 H 94 L Room Air 05/01/24 12:00 05/01/24 12:00 05/01/24 12:00 05/01/24 12:00 05/01/24 12:00 05/01/24 12:00 Narrative Exam Constitutional Alert, oriented x 3 and comfortable. Elderly female on room air HEENT Vision grossly intact. Patent nares. Trachea midline Respiratory Chest normal on inspection and clear auscultation bilaterally Cardiovascular S1 and S2 audible, RRR. No murmurs carotid bruit. No gross JVD. Abdominal Soft and non tender to palpation in all quadrants. BS + Genitourinary No bladder tenderness, no flank pain. Normal to palpation Musculoskeletal Extremities tone within normal limits. No LE edema. Neurological CN II - XII grossly intact. Extremity motor and sensation grossly intact. Skin Warm, dry and intact. No apparent lesions. Psychiatric Patient has good affect, is cooperative Objective Labs 05/02/24 04:46 05/02/24 04:46 Labs: Laboratory Results - last 24 hr 05/01/24 05:27 WBC 8.4 RBC 3.74 L Hgb 11.6 L Hct 35.7 L MCV 96 MCH 31.0 MCHC 32.5 RDW Std Deviation 49.4 H Plt Count 200 Neut % (Auto) 64 Lymph % (Auto) 28 [place] % (Auto) 7 Eos % (Auto) 1 Baso % (Auto) 0 Neut # (Auto) 5.3 Lymph # (Auto) 2.3 [place] # (Auto) 0.6 Eos # (Auto) 0.1 Baso # (Auto) 0.0 Immature Gran # (Auto) 0.02 H Absolute Nucleated RBC 0.00 Immature Gran % 0 Nucleated RBC % 0 Sodium 146 H Potassium 3.6 Chloride 108 H Carbon Dioxide 31.3 H Anion Gap 7 BUN 17 Creatinine 0.7 Estim Creat Clear Calc 70.2 eGFR > 60 BUN/Creatinine Ratio 24 H Glucose 90 Calculated Osmolality 292 Calcium 9.3 Corrected Calcium 9.5 Phosphorus 3.7 Magnesium 1.9 Total Bilirubin 0.4 AST 34 ALT 31 Alkaline Phosphatase 66 Total Protein 6.0 Albumin 3.8 Globulin 2.2 L Albumin/Globulin Ratio 1.7 ABG Interpretation ABG results: 04/27/24 20:48 ABG pH 7.54 H ABG pCO2 28 L ABG pO2 101 ABG HCO3 24 ABG O2 Saturation 99 H ABG Base Excess 2 Quality Measures Quality Measures VTE prophylaxis Advance care planning discussed with:: patient Assessment & Plan Assessment Current Active Medications: Generic Name Dose Route Start Last Admin Trade Name Freq PRN Reason Stop Dose Admin Acetaminophen 650 mg 04/29/24 09:25 Acetaminophen 325 Mg Tablet PO 05/28/24 02:01 Q6H PRN Fever >100.3 or pain 1-3 Hydrocodone Bitart/Acetaminophen 1 tab 04/28/24 02:07 05/01/24 06:01 Hydrocodone/Apap 5/325 Tablet PO 05/03/24 02:06 1 tab Q4HR PRN Administration PAIN SCALE 4-10(Mod-Sev Albuterol/Ipratropium 3 ml 04/28/24 02:02 Albuterol/Ipratropium (Duoneb) Rt Dorcas 3 Ml Nebu INH 05/28/24 02:01 Q4HR PRN SHORTNESS OF BREATH OR WHEEZE Aspirin 81 mg 04/28/24 09:00 05/01/24 08:09 Aspirin Ec 81 Mg Tabec PO 05/28/24 08:59 81 mg QDAY ISAAC Administration Atorvastatin Calcium 20 mg 04/28/24 21:00 04/30/24 20:41 Atorvastatin Calcium 20 Mg Tablet PO 05/28/24 20:59 20 mg HS ISAAC Administration Azathioprine 50 mg 04/28/24 09:00 05/01/24 08:11 Azathioprine 50 Mg Tablet PO 05/28/24 08:59 50 mg DAILY ISAAC Administration Duloxetine HCl 60 mg 04/28/24 09:00 05/01/24 08:08 Duloxetine Hcl 30 Mg Capsule PO 05/28/24 08:59 60 mg QDAY ISAAC Administration Fludrocortisone Acetate 0.1 mg 04/28/24 09:00 04/28/24 08:39 Fludrocortisone Acetate 0.1 Mg Tablet PO 05/28/24 08:59 0.1 mg QDAY ISAAC Administration Fluticasone Propionate 1 spray 04/29/24 10:00 05/01/24 08:10 Fluticasone Jose Anton 0.05% 16 Gm Btl NASAL 05/29/24 09:59 1 spray QDAY ISAAC Administration Heparin Sodium (Porcine) 5,000 unit 04/28/24 21:00 05/01/24 08:13 Heparin Sod Inj 5000 Unit/Ml Vial SC 05/12/24 02:14 5,000 unit BID ISAAC Administration Hydroxychloroquine Sulfate 400 mg 04/28/24 09:00 05/01/24 08:12 Hydroxychloroquine 200 Mg Tablet PO 05/05/24 08:59 400 mg QDAY ISAAC Administration Labetalol HCl 10 mg 04/28/24 02:19 Labetalol Inj 5 Mg/Ml Vial 20 Ml IVP 05/28/24 02:29 Q10MIN PRN SBP > 180 Levothyroxine Sodium 125 mcg/ 175 mcg 04/29/24 06:00 05/01/24 05:56 Levothyroxine Sodium 50 mcg PO 05/29/24 05:59 175 mcg ACBR ISAAC Administration Lisinopril 20 mg 04/30/24 09:00 05/01/24 08:09 Lisinopril 20 Mg Tablet PO 05/30/24 08:59 20 mg QDAY ISAAC Administration Mesalamine 2,400 mg 04/30/24 09:00 05/01/24 08:11 Mesalamine 400 Mg Capsule.Dr PO 05/30/24 08:59 2,400 mg DAILY ISAAC Administration Metoclopramide HCl 5 mg 04/28/24 11:15 05/01/24 11:47 Metoclopramide Inj 5 Mg/Ml Vial 2 Ml IVP 05/28/24 11:14 Not Given Q6H ISAAC Protocol Metoprolol Tartrate 25 mg 04/28/24 09:00 05/01/24 08:13 Metoprolol Tartrate 25 Mg Tablet PO 05/28/24 08:59 25 mg BID ISAAC Administration Morphine Sulfate 2 mg 05/01/24 10:15 05/01/24 10:45 Morphine Sulf Inj 10 Mg/Ml Vial IVP 05/03/24 02:06 2 mg Q4HR PRN Administration BREAKTHROUGH PAIN Protocol Ondansetron HCl 4 mg 04/28/24 02:02 04/28/24 03:47 Ondansetron Inj 2 Mg/Ml Inj 2 Ml IV 05/28/24 02:01 4 mg Q6H PRN Administration NAUSEA OR VOMITING Protocol Pantoprazole Sodium 40 mg 05/02/24 09:00 Pantoprazole 40 Mg Tablet PO 05/28/24 08:59 QDAY ISAAC Prednisone 40 mg 04/28/24 14:00 05/01/24 08:08 Prednisone 20 Mg Tablet PO 05/03/24 13:59 40 mg QDAY ISAAC Administration Pregabalin 75 mg 04/28/24 09:00 05/01/24 08:09 Pregabalin 75 Mg Capsule PO 05/28/24 08:59 75 mg BID ISAAC Administration Sertraline HCl 200 mg 04/28/24 21:00 04/30/24 20:41 Sertraline Hcl 25 Mg Tablet PO 05/28/24 20:59 200 mg HS ISAAC Administration Plan 78-year-old female with a past medical history significant for essential hypertension, hyperlipidemia, Crohn's, fibromyalgia, migraines, hypothyroidism, lupus and POTS presenting with a chief complaint of vomiting. Follows up with broadcast supervisor Dr. Keenan and coding specialist home health Dr. Lozoya at [facility]. Patient will be admitted for workup and management of intractable vomiting and hypertensive urgency. #Intractable vomiting likely secondary to Crohn's flare?resolved #Abdominal pain?resolved #Hypokalemia-resolved Patient presented with intractable vomiting for the past 3 days. On exam patient tender to palpation epigastrium and right upper quadrant. DDx: Cholecystitis, medication side effect, Crohn's/SLE flare, migraines, gastroparesis, SIBO Abdomen/pelvis CT Suspicious for basilar bronchitis pattern, Mild small bowel ileus, Normal appendix Gallbladder ultrasound showed Normal gallbladder, No common bile duct stones, Liver 10.4 cm fatty infiltration no focal liver lesions K3.7, Mg 1.9 ESR?3, CRP 1.2 Plan: ? Continue cardiac, low residue diet ? Ondansetron 4 Mg IV every 6 hourly as needed for nausea/vomiting ? Morphine 2 Mg IV Q4 hourly as needed for pain ? Discontinued prednisone 40 Mg p.o. daily and started on prednisone 15 Mg p.o. twice daily ? Upon discharge to start patient on 4-week prednisone taper as per GI recommendations ? GI, Dr. Nevarez consulted and closely following the case. Appreciate recommendations #Hypertensive urgency-resolved #Essential hypertension #Hyperlipidemia On admission BP 181/94 which reduced to 149/74 spontaneously Plan: ? Continue home antihypertensive metoprolol tartrate 25 Mg p.o. twice daily ? Labetalol 10 Mg IV every 10 minutes for SBP greater than 180 #NSTEMI type I versus type II Patient denies any chest pain/pressure but has nausea and vomiting. Vomiting may present with atypical symptoms. EKG significant for sinus arrhythmia, rate 110, frequent PACs. No acute ST changes. Trop 0.142 --> 0.19-->0.17, BNP 458 ?Troponins peaked no need to trend Likely type II NSTEMI due to severe vomiting. # History of migraine headaches #Fibromyalgia Home medication sertraline 200 Mg p.o. daily, Lyrica 75 Mg p.o. twice daily, duloxetine 60 Mg p.o. daily Plan: ? Continue home medication sertraline 200 Mg p.o. daily ? Continue home medication Lyrica 75 Mg p.o. twice daily ? Continue home medication duloxetine 60 Mg p.o. daily #Crohn's disease #Hypothyroidism #SLE Patient stated that her last colonoscopy was 2 years ago and reported that it was normal. Home medication mesalamine 2.4 g p.o. daily, azathioprine 50 Mg p.o. daily, hydroxychloroquine 400 Mg p.o. daily and levothyroxine 175 mcg p.o. daily. Plan: ? Continue home medication mesalamine 2.4 g p.o. daily ? Continue home medication azathioprine 50 Mg p.o. daily ? Continue home medication hydroxychloroquine to 500 Mg p.o. daily ? Continue home medication L-thyroxine 125 Mg daily p.o. daily #POTS Home medication fludrocortisone 0.1 Mg p.o. daily Plan: ?Fludrocortisone discontinued as patinet on prednisone 40 mg daily #History of CVA No residual deficits with patient reports memory problems since stroke in 2013 Plan: ? Continue home medication aspirin 81 Mg p.o. daily #Osteoporosis Patient stated that she had a new DEXA scan done in the past which showed osteoporosis. Home medication raloxifene 60 Mg p.o. daily and calcium supplement Plan: ? Upon discharge resume home medication of raloxifene and calcium supplementations Health maintenance: Disposition: Pending authorization for SNF Diet: Cardiac/low residue Lines: pIVs GI Prophylaxis: Pantoprazole Thrombo Prophylaxis: Heparin 5000 IU SC twice daily Code status: DNR Plan of care discussed with Attending Dr. Silke Wilhelm MD PGY 1 Attending Provider Attestation/Addendum I have discussed and was present for the essential components of the history, physical examination, diagnosis, and treatment plan with the resident. I agree with the patient's care as documented by the resident and amended herein by me. Bhaskar Edouard DO. Although this document has been carefully reviewed, there may still be some phonetic and other typographical errors. These errors are purely grammatical due to imperfections in the software program and should not be construed in any way to compromise the substance of the patient's medical care during this visit.
[2024-05-01] MEDS: SERTRALINE HCL 25 MG TABLET 200 MG PO (21:48)
[2024-05-01] MEDS: predniSONE 5 MG TABLET 15 MG PO (21:48)
[2024-05-01] MEDS: ATORVASTATIN CALCIUM 20 MG TABLET PO (21:49)
[2024-05-02] VITALS (7 sets, daily range): BP systolic 125–158; BP diastolic 67–87; PULSE 67–96; RESP 15–18; TEMP 36.2–37.2; O2SAT 95–98; BMI 27.0
[2024-05-02] MEDS: HYDROcodone/APAP 5/325 TABLET 1 TAB PO ×2 (00:04→09:50)
[2024-05-02] MEDS: METOCLOPRAMIDE INJ 5 MG/ML VIAL 2 ML IVP ×3 (00:04→12:25)
[2024-05-02] MEDS: LEVOTHYROXINE SODIUM 125 MCG, LEVOTHYROXINE SODIUM 50 MCG 175 MCG PO (05:11)
[2024-05-02 06:18] LABS: Basophils % (Auto) 0 % (0-2.5); Eosinophils % (Auto) 0 % (0-10); Hematocrit 36.7 % (36.0-46.0); Hemoglobin 11.9 g/dL (12.0-16.0); Immature Granulocytes % (Auto) 0 % (0-0); Immature Granulocytes Auto 0.03 Thou/mm3 (0.00-0.00); Lymphocytes # (Auto) 0.8 Thou/mm3 (1.0-4.8); Lymphocytes % (Auto) 11 % (10-50); Mean Corpuscular HGB Conc 32.4 g/dl (31.0-37.0); Mean Corpuscular Hemoglobin 31.2 pg (25.0-35.0); Mean Corpuscular Volume 96 fL (80-100); Monocytes # (Auto) 0.5 Thou/mm3 (0.0-0.8); Monocytes % (Auto) 7 % (0-12); Neutrophils # (Auto) 6.1 Thou/mm3 (1.8-7.7); Neutrophils % (Auto) 82 % (37-80); Nucleated Red Blood Cell % 0 /100 WBC (0); Platelet Count 222 Thou/mm3 (140-440); RDW Standard Deviation 49.4 fL (36.4-46.3); Red Blood Count 3.82 Miln/mm3 (4.00-5.20); White Blood Count 7.5 Thou/mm3 (3.6-11.0)
[2024-05-02 06:37] LABS: Alanine Aminotransferase 27 U/L (10-49); Albumin, Serum 3.9 gm/dL (3.4-4.8); Albumin/Globulin Ratio 1.8 (1.2-2.2); Alkaline Phosphatase 72 U/L (46-116); Anion Gap 8 (7-16); Aspartate Amino Transferase 30 U/L (0-34); BUN/Creatinine Ratio 25 Ratio (12-20); Bilirubin,Total 0.5 mg/dL (0.3-1.2); Blood Urea Nitrogen 20 mg/dL (9-23); Calcium 9.6 mg/dL (8.3-10.6); Calcium (Corrected) 9.7 mg/dL (8.5-10.1); Carbon Dioxide 29.6 mMol/L (20.0-31.0); Chloride 105 mMol/L (98-107); Creatinine (Component) 0.8 mg/dL (0.6-1.3); Estimated Creatinine Clearance 61.4 mL/min (>60); Globulin 2.2 gm/dL (2.3-3.5); Glucose 91 mg/dL (74-106); Magnesium 1.7 mg/dL (1.6-2.6); Osmolality,Calculated 287 (275-295); Phosphorous 4.5 mg/dL (2.4-5.1); Potassium 4.3 mMol/L (3.4-5.1); Sodium 143 mMol/L (136-145); Total Protein 6.1 gm/dL (5.7-8.2); eGFR > 60 See Note
[2024-05-02] MEDS: FLUTICASONE NAS SPRAY 0.05% 16 GM BTL 1 SPRAY NASAL ×2 (08:47→08:50)
[2024-05-02] MEDS: DULoxetine HCL 30 MG CAPSULE 60 MG PO (08:48)
[2024-05-02] MEDS: PREGABALIN 75 MG CAPSULE PO (08:48)
[2024-05-02] MEDS: predniSONE 5 MG TABLET 15 MG PO (08:48)
[2024-05-02] MEDS: Magnesium Sulfate 2 GM Ivpb 2 GM/50 ML BAG IV (08:49)
[2024-05-02] MEDS: ASPIRIN EC 81 MG TABEC PO (08:49)
[2024-05-02] MEDS: METOPROLOL TARTRATE 25 MG TABLET PO (08:49)
[2024-05-02] MEDS: PANTOPRAZOLE 40 MG TABLET PO (08:49)
[2024-05-02] MEDS: MESALAMINE 400 MG CAPSULE.DR 2400 MG PO (08:49)
[2024-05-02] MEDS: Lisinopril 20 MG TABLET PO (08:49)
[2024-05-02] MEDS: HEPARIN SOD INJ 5000 UNIT/ML VIAL SC (08:54)
[2024-05-02] MEDS: HYOSCYAMINE SULF 0.125 MG TAB.SUBL PO (09:41)
[2024-05-02] MEDS: azaTHIOprine 50 MG TABLET PO (09:41)
[2024-05-02] MEDS: HYDROXYCHLOROQUINE 200 MG TABLET 400 MG PO (09:42)
--- NOTE | 2024-05-02 10:42 | PC.SS ---
INTERNSHIP COORDINATOR contacted [facility] staff, [place]; to obtain update on patient's appeal. INTERNSHIP COORDINATOR informed that patient's appeal has been denied. INTERNSHIP COORDINATOR to update patient. Plan is for patient to d/c to SNF.
--- NOTE | 2024-05-02 10:43 | PC.SS ---
SCHOOL COMMISSIONER informed patient of [facility] denial. Patient confirmed d/c plan to transition to SNF. David preferred SNF. Patient pending PASSR closure.
--- NOTE | 2024-05-02 10:54 | PC.SS ---
CREDIT PRODUCT ANALYST conducted bedside contact with the patient to inform patient of [facility] denial. Patient acknowledged denial. Patient confirmed plan to d/c to SNF. Preferred choice [facility]. [facility]acement booked on [facility]
--- NOTE | 2024-05-02 10:55 | PC.SS ---
FRONT END SOFTWARE ENGINEER received call from PASSR staff, Willie Vance. PASSR Level II to be closed out. On line closure pending.
--- NOTE | 2024-05-02 13:53 | ESDS_ITS ---
<Statement entered by Vitaly Oconnell MD - 05/02/24 16:06> Agree with plan and examination finding on the note below. Patient seen and examined at bedside today. Labs and imaging reviewed. Patient care discussed with my attending and co-resident . Planned Discharge Date 05/02/24 DS: Providers Provider Date of admission: 04/28/24 02:02 Primary care physician: Physician No Primary/Family Admitting Provider: Alvarez Soriano MD Attending Provider on Admission: Nicola Edouard DO Consults: 04/28/24 04:54 Consult to Gastroenterology Routine Comment: Intractable vomiting Consulting Provider: Maldonado Nevarez 04/28/24 15:44 Referral Registered Dietitian Routine Comment: Attending Provider on DC: Teo Wilhelm MD Discharging Provider: Teo Wilhelm MD DS: Diagnosis Problem List Completed Was Problem List Reviewed/Reconciled?: Yes Hospital Course Hospital Course Hospital course: 78-year-old female with a past medical history significant for essential hypertension, hyperlipidemia, Crohn's, fibromyalgia, migraines, hypothyroidism, lupus and POTS presenting with a chief complaint of vomiting. Follows up with telecommunications facility examiner Dr. Keenan and supervisor hardboard Dr. Lozoya at [facility]. Patient will be admitted for workup and management of intractable vomiting and hypertensive urgency. With regards to her intractable vomiting etiology was determined to be likely secondary to a Crohn's flare. Faculty Head, Dr. Nevarez was consulted and recommended a high-dose prednisone taper over 4 weeks. Patient's hypokalemia was also repleted while in hospital. Upon discharge patient had no further episodes of vomiting or diarrhea and is tolerating a low residue diet. Patient is hypertensive urgency on admission of 181/94 spontaneously resolved. During hospitalization patient's blood pressures were elevated with SBP's ranging in the 150s?160s. Her home dose of lisinopril was increased to lisinopril 20 Mg daily from lisinopril 10 Mg p.o. daily. For her NSTEMI type I versus type II, etiology was deemed to be most likely type II secondary to severe vomiting. Troponin initially elevated at 0.142, peaked at 0.19 and down trended to 0.17. Patient denied any ACS symptoms. Patient was on home medication fludrocortisone 0.1 Mg p.o. daily for POTS which was subsequently put on hold due to treatment with high-dose prednisone. Patient will follow-up with a primary care for resumption after completing prednisone course. All patient's labs are now returning to baseline. Patient is now clinically stable and fit for discharge to SNF. Discharge diagnoses: 1. Intractable vomiting secondary to Crohn's flare?resolved 2. Abdominal pain 3. Hypokalemia?resolved 4. Hypertensive urgency?resolved 5. Essential hypertension 6. Hyperlipidemia 7. NSTEMI type II 8. History of migraine headaches 9. Fibromyalgia 10. Crohn's disease 11. Hypothyroidism 12. SLE 13. POTS 14. History of CVA 15. Osteoporosis Discharge plan: ? Please take prednisone taper; start with 15mg PO BID (twice a week) for 1 week, followed by 10mg PO BID for 1 week, followed by 5mg PO BID for 1 week, followed by 5mg PO daily for 1 week. ?Please follow-up with your PCP within 1 week ?Please follow-up with Dr. Nevarez (Gastroenterology) within 2-3 weeks ?If your symptoms worsen or if you develop new shortness of breath, severe abdominal pain, bloody stools or vomiting please come back to the ED. We are grateful to be able to participate in Ms. Damian's care. We wish her the best. Plan of care discussed with Attending Dr. Edouard and PGY3 Dr. Anish Wilhelm MD PGY 1 Time Spent with Patient Time attestation: Total time spent providing and/or coordinating discharge services: Time spent: Greater than 30 minutes (36) Exam Vital Signs Temp Pulse Resp BP Pulse Ox O2 Del Method 97.1 F 67 18 157/79 H 96 Ambu-Bag 05/02/24 12:00 05/02/24 12:05/02/24 12:00 05/02/24 12:00 05/02/24 12:05/02/24 12:00 Narrative Exam Constitutional Alert, oriented x 3 and comfortable. Elderly female on room air HEENT Vision grossly intact. Patent nares. Trachea midline Respiratory Chest normal on inspection and clear auscultation bilaterally Cardiovascular S1 and S2 audible, RRR. No murmurs carotid bruit. No gross JVD. Abdominal Soft and non tender to palpation in all quadrants. BS + Genitourinary No bladder tenderness, no flank pain. Normal to palpation Musculoskeletal Extremities tone within normal limits. No LE edema. Neurological CN II - XII grossly intact. Extremity motor and sensation grossly intact. Skin Warm, dry and intact. No apparent lesions. Psychiatric Patient has good affect, is cooperative Discharge Plan Plan Patient Disposition: Xfer Skilled Nsg Fac (SNF) Patient condition on transfer: Stable Care Plan Goals: -You have been started on a steroid Taper. Take Prednisone 15 mg twice a day for 4 more days, Then 10 mg twice a day for 7 days , then 5mg twice a day for 7 days and then 5mg once a day for 7 days. Then Stop - Please take the rest of your Home medications as before. - Please Follow up with your PCP within 1 week,. - Please Follow up with Gi, Dr. Nevaerz within 2-3 weeks of discharge. - If you experience any new, worsening or persistent symptoms either call your PCP, diall 911 or present to the emergency department Prescriptions/Referrals Prescriptions/Med Rec: New prednisone 20 mg tablet See Taper PO BID Qty: 49 0RF Taper: Prednisone Taper 15 mg TWICE A DAY for 7 Days and 0 Hour 10 mg TWICE A DAY for 7 Days and 0 Hour 5 mg TWICE A DAY for 7 Days and 0 Hour 5 mg DAILY for 7 Days Continued raloxifene [Evista] 60 MG tablet 60 mg PO QDAY Qty: 0 atorvastatin [Lipitor] 20 MG tablet 20 mg PO HS Qty: 0 sertraline [Zoloft] 100 MG tablet 200 mg PO HS Qty: 0 lisinopril 10 MG tablet 10 mg PO QDAY Qty: 0 hydroxychloroquine [Plaquenil] 200 MG tablet 400 mg PO QDAY Qty: 0 metoprolol tartrate 25 MG tablet 25 mg PO BID Qty: 0 duloxetine [Cymbalta] 60 MG capsule,delayed release(DR/EC) 60 mg PO QDAY Qty: 0 azathioprine 50 mg Tablet 50 mg PO QDAY mesalamine [Lialda] 1.2 gram Tablet,Delayed Release (Dr/Ec) 2.4 g PO QDAY sumatriptan succinate 100 mg Tablet 100 mg PO Q2H PRN (Reason: Migraine Headache) hydrocodone-acetaminophen 7.5-325 mg tablet 1 tab PO Q6H PRN (Reason: PAIN) levothyroxine 175 mcg tablet 175 mcg PO DAILY aspirin 81 mg tablet,delayed release (DR/EC) 81 mg PO DAILY potassium chloride [Klor-Con 10] 10 mEq tablet extended release 20 meq PO DAILY Patient Comments: TAKE 2 TABLETS BY MOUTH DAILY DIRECTED pregabalin 75 mg capsule 75 mg PO QDAY Discontinued hydrocodone-acetaminophen 10-325 mg Tablet 1 tab PO TID Qty: 0 gabapentin 100 MG capsule 600 mg PO BID PRN (Reason: PAIN) Qty: 0 fludrocortisone 0.1 mg Tablet 0.1 mg PO BID Qty: 0 Referrals: No Primary/Family,Physician [Primary Care Provider] - Patient/Caregiver Discharge Instructions Other Discharge Activity Instructions:: Please take prednisone taper; start with 15mg PO BID (twice a week) for 1 week, followed by 10mg PO BID for 1 week, followed by 5mg PO BID for 1 week, followed by 5mg PO daily for 1 week. Please follow-up with your PCP within 1 week Please follow-up with Dr. Nevarez (Gastroenterology) within 2-3 weeks If your symptoms worsen or if you develop new shortness of breath, severe abdominal pain, bloody stools or vomiting please come back to the ED. Other Discharge Diet Instructions: AVOID High-fiber foods: raw fruits and vegetables, whole grains Fatty foods: fried foods, processed meats Spicy foods Caffeine and alcohol Dairy products OK TO EAT: Lean protein sources: chicken, fish, eggs. Fruits and vegetables: steamed, baked, or mashed Low-fiber grains: white rice, white bread, potatoes. Dairy products (if tolerated): yogurt, cheese Smooth, bland foods: applesauce, bananas Education Materials: What Is Crohn's Disease, Crohn Disease Lifestyle Manage Print Language: Singaporean Stand Alone Forms: Cherie Award Info., Patient Portal Info Letter Discharge Order Discharge Orders: Discharge (Routine); Ordered 05/02/24 Ordered By: Gerald Dwyer Quality Discharge Quality Measures VTE prophylaxis (Heparin) Attestestation MD Attestation I have discussed and was present for the essential components of the discharge history, physical examination, diagnosis, and discharge treatment plan with the resident. I agree with the patient's discharge care as documented by the resident and amended herein by me. Bhaskar Edouard DO. The patient understood all discharge instructions, all questions were answered satisfactorily. The patient was instructed to return to the Emergency Department is symptoms worsened or persisted. Patient was stable, afebrile and tolerating p.o. intake at time of discharge. Patient will need a prednisone taper for gastroenterology listed above on discharge summary for suspected acute Crohn's flare., details on discharge instructions above. Patient will also need close follow-up with her PCP and supervisor hardboard upon discharge. Although this document has been carefully reviewed, there may still be some p honetic and other typographical errors. These errors are purely grammatical due to imperfections in the software program and should not be construed in any way to compromise the substance of the patient's medical care during this visit.
--- NOTE | 2024-05-02 15:05 | PC.SS ---
Transport via [facility] scheduled for 4:30 pm today. ASSEMBLY LINE ROBOT OPERATOR updated SNF, bedside nurse, patient and patient's daughter.
--- NOTE | 2024-05-02 23:15 | ESPR_ITS ---
Documentation for date of: 05/02/24 Subjective Subjective Interval history: Late entry for the note Case discussed with internal medicine team okay to discharge patient I will follow the patient as an outpatient Exam Vital Signs Temp Pulse Resp BP Pulse Ox O2 Del Method 98.9 F 73 18 125/67 95 Room Air 05/02/24 16:00 05/02/24 16:00 05/02/24 16:00 05/02/24 16:00 05/02/24 16:00 05/02/24 16:00 Objective Labs 05/02/24 04:46 05/02/24 04:46 Labs: Laboratory Results - last 24 hr 05/02/24 04:46 WBC 7.5 RBC 3.82 L Hgb 11.9 L Hct 36.7 MCV 96 MCH 31.2 MCHC 32.4 RDW Std Deviation 49.4 H Plt Count 222 Neut % (Auto) 82 H Lymph % (Auto) 11 [place] % (Auto) 7 Eos % (Auto) 0 Baso % (Auto) 0 Neut # (Auto) 6.1 Lymph # (Auto) 0.8 L [place] # (Auto) 0.5 Eos # (Auto) 0.0 Baso # (Auto) 0.0 Immature Gran # (Auto) 0.03 H Absolute Nucleated RBC 0.00 Immature Gran % 0 Nucleated RBC % 0 Sodium 143 Potassium 4.3 D Chloride 105 Carbon Dioxide 29.6 Anion Gap 8 BUN 20 Creatinine 0.8 Estim Creat Clear Calc 61.4 eGFR > 60 BUN/Creatinine Ratio 25 H Glucose 91 Calculated Osmolality 287 Calcium 9.6 Corrected Calcium 9.7 Phosphorus 4.5 Magnesium 1.7 Total Bilirubin 0.5 AST 30 ALT 27 Alkaline Phosphatase 72 Total Protein 6.1 Albumin 3.9 Globulin 2.2 L Albumin/Globulin Ratio 1.8 Impressions Impression: # Nausea vomiting improved # acute exacerbation of the underlying inflammatory bowel disease improving As under HPI ABG Interpretation ABG results: 04/27/24 20:48 ABG pH 7.54 H ABG pCO2 28 L ABG pO2 101 ABG HCO3 24 ABG O2 Saturation 99 H ABG Base Excess 2 Assessment & Plan A&P Narrative # Nausea vomiting diarrhea most likely an acute exacerbation of the underlying Crohn's disease No evidence of small bowel obstruction Suggestions Fecal calprotectin ANCA antibody CRP Patient already on p.o. prednisone Start the mesalamine Colonoscopy 2 years ago was supposedly negative Will hold off doing any invasive GI workup Complete stool panel with C. difficile by PCR as well as culture and sensitivity and Gram stain Will follow the patient Other medical problems include Fibromyalgia's hypothyroidism CVA POTS Essential hypertension history of CVA A-fib with RVR Bilateral total knee replacement Left breast lumpectomy Thank you very much for the opportunity to participate in care of this patient Time Spent With Patient Time: Total time spent is greater than 50% in coordination of care (as documented) at patient's floor/unit and/or counseling patient:
[2024-05-09 06:48] LABS: Myeloperoxidase Ab <1.0 AI (<1.0); Proteinase-3 Ab <1.0 AI (<1.0)
--- NOTE | 2024-05-10 16:10 | PC.SS ---
[employer] received phone call from discharged patient requesting information for meals on wheels. [employer] provided informiation. Patient discharged to SNF on 05-02-24 to SNF. Patient has since returned home. Patient's number [phone].
== END 2024-05-02 16:52 | disposition skilled nursing facility (03) | DRG 281 ==
LOC: SERX 04-28 00:45 → SERHOLD 04-28 02:41 → S2NX 04-28 14:57
PROVIDERS: Specialist; Student in an Organized Health Care Education/Training Program; Admitting Provider Internal Medicine; Emergency Provider Emergency Medicine; Visit Provider Student in an Organized Health Care Education/Training Program
DX: I16.0 Hypertensive urgency (principal); K50.918 Crohn's disease, unspecified, with other complication; I21.A1 Myocardial infarction type 2; I48.91 Unspecified atrial fibrillation; G62.9 Polyneuropathy, unspecified; F41.9 Anxiety disorder, unspecified; F32.A Depression, unspecified; G90.A Postural orthostatic tachycardia syndrome [POTS]; M32.9 Systemic lupus erythematosus, unspecified; M79.7 Fibromyalgia; E87.6 Hypokalemia; I10 Essential (primary) hypertension; E03.9 Hypothyroidism, unspecified; E78.5 Hyperlipidemia, unspecified; G43.909 Migraine, unspecified, not intractable, without status migrainosus; E83.42 Hypomagnesemia; E86.1 Hypovolemia; G47.00 Insomnia, unspecified; M81.0 Age-related osteoporosis without current pathological fracture; Z86.73 Personal history of transient ischemic attack (TIA), and cerebral infarction without residual deficits; Z66 Do not resuscitate; Z96.653 Presence of artificial knee joint, bilateral; Z79.52 Long term (current) use of systemic steroids; Z79.890 Hormone replacement therapy; Z79.82 Long term (current) use of aspirin; Z79.624 Long term (current) use of inhibitors of nucleotide synthesis; Z79.899 Other long term (current) drug therapy; Z88.2 Allergy status to sulfonamides; Z88.6 Allergy status to analgesic agent
CPT/HCPCS: 36415; 36600; 71045; 74176; 76705; 80053; 81001; 82803; 83605; 83615; 83690; 83735; 83880; 83993; 84100; 84145; 84439; 84443; 84484; 85025; 85610; 85652; 85730; 86021; 86036; 86140; 87015; 87045; 87046; 87205; 87329; 87400; 87493; 87811; 87899; 93005; 94664; 96361; 96365; 96367; 96368; 96372; 96375; 99291; J1643; J2270; J2405; J2470; J2765; J3030; J3475; J3480; J3490; J7030; J7120; J7500; J7512; A9270

== ENCOUNTER 2024-08-14 12:26 | Inpatient (IN) | payer MEDICARE, OTHER, SELFPAY ==
[2024-08-14] VITALS (12 sets, daily range): BP systolic 136–170; BP diastolic 64–105; PULSE 85–143; RESP 16–95; TEMP 36.4–37.8; O2SAT 94–99; BMI 24.2
--- NOTE | 2024-08-14 12:36 | EKG_ITS ---
[facility] Test Date: 2024-08-14 Pat Name: HARPER DIEGO Department: Room: - Gender: Female [employer] Internship: : 1945 Requested By: Sourav García Order Number: [id number] Reading MD: Sourav García Measurements Intervals [place] Rate: 131 P: [place]: QRS: -5 QRSD: 101 T: 140 QT: 336 QTc: 498 Interpretive Statements ATRIAL FIBRILLATION WITH RAPID VENTRICULAR RESPONSE POSSIBLE LEFT VENTRICULAR HYPERTROPHY [VOLTAGE CRITERIA PLUS LAE OR QRS WIDENING] ST DEVIATION AND MODERATE T-WAVE ABNORMALITY, CONSIDER LATERAL ISCHEMIA [-0.1+ mV T-WAVE IN I/aVL/V5/V6] Compared to ECG 12/23/2023 15:30:21 T-wave abnormality now present Possible ischemia now present Sinus rhythm no longer present Sinus arrhythmia no longer present ST (T wave) deviation no longer present /store/S0/[id number]
--- NOTE | 2024-08-14 12:37 | PD.EDADULT ---
ED General RME/HPI General Chief complaint: Abdominal Pain Stated complaint: ABD PAIN N/V Time Seen by Provider: 08/14/24 12:30 Arrival date/time: 08/14/24 12:26 CC: Epigastric pain HPI ongoing for the past 4 days admits to nausea vomiting and diarrhea states she has not been able to keep anything down. EMS report borderline tachycardia otherwise stable vital signs. Patient is writhing with closed eyes, no active vomiting. Patient in obvious discomfort, Related Data Home Medications ?Medication ?Instructions ?Recorded ?Confirmed raloxifene 60 mg tablet (Evista) 60 mg PO QDAY OSTEOPOROSIS #0 tabs 01/22/14 04/28/24 atorvastatin 20 mg tablet (Lipitor) 20 mg PO HS #0 tabs 02/26/17 08/14/24 duloxetine 60 mg capsule,delayed 60 mg PO QDAY #0 caps 02/26/17 08/14/24 release (Cymbalta) hydroxychloroquine 200 mg tablet 400 mg PO QDAY #0 tabs 02/26/17 04/28/24 (Plaquenil) lisinopril 10 mg tablet 10 mg PO QDAY #0 tabs 02/26/17 04/28/24 metoprolol tartrate 25 mg tablet 25 mg PO BID #0 tabs 02/26/17 04/28/24 sertraline 100 mg tablet (Zoloft) 200 mg PO HS #0 tabs 02/26/17 08/14/24 azathioprine 50 mg tablet 50 mg PO QDAY 12/23/17 04/28/24 mesalamine 1.2 gram tablet,delayed 2.4 g PO QDAY 12/23/17 04/28/24 release (Lialda) sumatriptan succinate 100 mg tablet 100 mg PO Q2H PRN Migraine Headache 12/23/17 04/28/24 aspirin 81 mg tablet,delayed 81 mg PO DAILY 04/28/24 08/14/24 release hydrocodone 7.5 mg-acetaminophen 1 tab PO Q6H PRN PAIN 04/28/24 04/28/24 325 mg tablet levothyroxine 175 mcg tablet 175 mcg PO DAILY 04/28/24 08/14/24 potassium chloride 10 mEq 20 meq PO DAILY 04/29/24 04/29/24 tablet,extended release (Klor-Con) pregabalin 75 mg capsule 75 mg PO QDAY 05/02/24 05/02/24 topiramate 25 mg tablet (Topamax) 25 mg PO BID MIGRAINE 08/14/24 08/14/24 Previous Rx's ?Medication ?Instructions ?Recorded prednisone 20 mg tablet See Taper PO BID #49 tabs 04/30/24 Allergies Allergy/AdvReac Type Severity Reaction Status Date / Time Sulfa (Sulfonamide Allergy Severe FLUSHING, Verified 04/27/24 20:08 Antibiotics) VOMITING meloxicam Allergy Mild RASH Verified 04/27/24 20:08 Review of Systems Review of Systems Narrative Review of Systems: GEN: No fever, no chills, no weight loss EYES: No discharge, no visual changes, no pain HEENT: No ear pain, no congestion, no sore throat PULM: No shortness of breath, no cough, no congestion CV: No chest pain, no dyspnea on exertion, no palpitations GI: + nausea, + vomiting, + diarrhea, + pain, no constipation : No frequency, no urgency, no dysuria MUSC/SKEL: No joint pain, no back pain SKIN: No rash PSYCH: No hallucinations, no depression HEME/LYMPH: No easy bleeding or bruising tendencies NEURO: No weakness, no headache ED Exam Narrative Physical exam: [General: Thin but not emaciated. In moderate discomfort but not in any acute distress Head normocephalic HEENT: Eyes: Pupils are PERRLA EOMs are intact. Mouth pale dry membranes. Uvula is midline swallow symmetrical normal phonation. All the subsystems of HEENT within acceptable limits Neck is supple nontender Chest equal chest rise nontender to palpation Respiratory: Clear to auscultation no wheezes crackles or rubs CV: Rate rhythm is regular no murmurs rubs or clicks Abdomen flat, soft, with exquisite tenderness in the epigastrium reflexive guarding no rebound tenderness. No lower abdominal tenderness Back: No CVA tenderness no spinous process tenderness from cervical spine thoracic and lumbar spine Skin: Intact no petechiae rash induration ulceration or crepitus Extremities: Moving all extremity against resistance cap refill less than 2 seconds neurosensory intact Neuro: Awake alert oriented x3 Glascow coma 15 no focal deficits] Course Course Course Narrative: At 1400 patient continues to be very anxious and admits that she is not taking any of her medications the last 3 to 4 days secondary to nausea and vomiting. Patient will be restarted on her antianxiety medicine gabapentin pain medication antihypertensives and depression medication. Patient needs to be admitted for transition out of hypokalemia without additional cardiac irritation would like to admit the patient I suspect this is all withdrawal symptoms and not related to Crohn's disease. Patient's case discussed at length with Dr. Rodgers of [place] who gave me an authorization number of [id number] for admission at this facility. At 1822, patient is noted to be continued tachycardic repeat EKG shows a flutter will administer labetalol to decrease the rate. Quality Measures none Orders Category Date Time Status Police Inspector Q4H START 00 Care 08/14/24 19:26 Active EKG (ED ONLY) *Do not use* NOW Care 08/14/24 12:36 Completed EKG (ED ONLY) *Do not use* NOW Care 08/14/24 17:57 Completed In and Out Catheter X1 Care 08/14/24 18:21 Completed Saline [Insert IV] NOW Care 08/14/24 12:[address] abdomen pelvis wo con Stat Exams 08/14/24 14:59 Completed EKG (ED Only) Stat Exams 08/14/24 12:36 Draft EKG (ED Only) Stat Exams 08/14/24 17:56 Draft B-Type Natriuretic Peptide Stat Lab 08/14/24 13:09 Completed CBC Stat Lab 08/14/24 13:09 Completed CMP [Comprehensive Metabolic Panel] Stat Lab 08/14/24 19:49 Completed Comprehensive Metabolic Panel Stat Lab 08/14/24 13:09 Completed Drug Screen,Urine Stat Lab 08/14/24 16:00 Completed Lipase Stat Lab 08/14/24 13:09 Completed Magnesium Stat Lab 08/14/24 13:09 Completed Partial Thromboplastin Time Stat Lab 08/14/24 13:09 Completed Prothrombin Time with INR Stat Lab 08/14/24 13:09 Completed Urinalysis Stat Lab 08/14/24 16:00 Completed Diltiazem Inj [Cardizem Inj] Med 08/14/24 20:33 Discontinued 15 mg IV X1 ONE Diltiazem Inj [Cardizem Inj] Med 08/14/24 18:20 Discontinued 20 mg IV X1 ONE KCL 10% Liq UDC 15 ML Med 08/14/24 14:16 Discontinued 20 meq PO X1 ONE KCL 10% Liq UDC 15 ML Med 08/14/24 14:11 Discontinued 40 meq GT X1 ONE KCL 10% Liq UDC 15 ML Med 08/14/24 14:19 Discontinued 40 meq PO X1 ONE LORazepam [Ativan Inj] Med 08/14/24 13:21 Discontinued 1 mg IVP X1 ONE LORazepam [Ativan Inj] Med 08/14/24 19:07 Discontinued 1 mg IVP X1 ONE Metoprolol Tartrate [Lopressor] Med 08/14/24 20:33 Discontinued 25 mg PO X1 ONE Ondansetron Inj [Zofran Inj] Med 08/14/24 12:36 Discontinued 4 mg IV X1 ONE POTASSIUM CHL 10 mEq IVPB [Kcl Ivpb] Med 08/14/24 14:12 Discontinued 10 meq in 100 ml IV Q1H Pantoprazole Inj [Protonix Inj] Med 08/14/24 12:36 Discontinued 40 mg IVP X1 ONE Sodium Chloride 0.9% 1000 ml [Ns] 1,000 ml Med 08/14/24 14:24 Active IV 40 mls/hr Sodium Chloride 0.9% 1000 ml [Ns] 1,000 ml Med 08/14/24 12:36 Discontinued IV 999 mls/hr hydrALAZINE INJ [Apresoline Inj] Med 08/14/24 14:46 Discontinued 10 mg IV X1 ONE Vital Signs Vital signs: Vital Signs Temperature 100.1 F 08/14/24 12:34 Pulse Rate 99 08/14/24 12:34 Respiratory Rate 19 08/14/24 12:34 Blood Pressure 155/86 H 08/14/24 12:34 Pulse Oximetry (%) 99 08/14/24 12:34 Oxygen Delivery Method Room Air 08/14/24 12:34 Discharge Plan Plan Patient Disposition: Other Care w/in Hosp ([facility]) Patient condition on transfer: Stable Problem List Clinical Impression: Hypertensive urgency, Abdominal pain, Nausea & vomiting, Tachycardia, Anxiety, Noncompliance with medication regimen LILIANA/ANGLE Supervising Physician LILIANA/COORDINATOR OF [employer]ARY [employer] Supervising Physician: Sourav Johnson ENP [facility] Clinical Information Provided by: patient and EMS Medical Records reviewed EMS Meds/Rx considered, not ordered None Labs/Rad/Tests considered, not ordered None Chronic Illness/Social Conditions Explain: Hypertension hypothyroidism hyperlipidemia Labs Lab(s) Interpretation(s): EKG performed at 1259 shows a ventricular 131 QRS 101 QTc of 413 this is multifocal atrial tachycardia. Second EKG performed at 1813 shows a ventricular rate of 139 QRS of 88 QTc of 375 this is a flutter tachycardia with RVR. Medication Administration(s) Medication Administration History Acetaminophen (Acetaminophen 325 Mg Tablet) 650 mg PO Q6H PRN PRN Reason: PAIN 1-3 OR FEVER > 101 Stop: 09/13/24 20:52 Hydrocodone Bitart/Acetaminophen (Hydrocodone/Apap 7.5/325 Tablet) 1 tab PO Q6H PRN PRN Reason: PAIN SCALE 4-10(Mod-Sev Stop: 08/19/24 21:02 Aspirin (Aspirin Ec 81 Mg Tabec) 81 mg PO DAILY ISAAC Stop: 09/14/24 08:59 Atorvastatin Calcium (Atorvastatin Calcium 20 Mg Tablet) 20 mg PO HS ISAAC Stop: 09/14/24 20:59 Duloxetine HCl (Duloxetine Hcl 30 Mg Capsule) 60 mg PO QDAY ISAAC Stop: 09/14/24 08:59 Hydroxychloroquine Sulfate (Hydroxychloroquine 200 Mg Tablet) 400 mg PO QDAY ISAAC Stop: 08/22/24 08:59 Sodium Chloride (Ns) 1,000 mls @ 40 mls/hr IV .Q24H ONE Stop: 08/15/24 14:23 Last Admin: 08/14/24 14:49 Dose: 40 mls/hr Documented By: NATALIA Levothyroxine Sodium (Levothyroxine Sodium 25 Mcg Tablet) 50 mcg PO ACBR ISAAC Stop: 09/14/24 05:59 Levothyroxine Sodium (Levothyroxine Sodium 125 Mcg Tablet) 125 mcg PO ACBR ISAAC Stop: 09/14/24 05:59 Metoprolol Tartrate (Metoprolol Tartrate 25 Mg Tablet) 25 mg PO BID ISAAC Stop: 09/14/24 08:59 Non-Formulary Medication (Mesalamine [Lialda]) 2.4 gm PO QDAY ISAAC Stop: 09/14/24 08:59 Ondansetron HCl (Ondansetron Inj 2 Mg/Ml Inj 2 Ml) 4 mg IV Q6H PRN; Protocol PRN Reason: NAUSEA OR VOMITING Stop: 09/13/24 20:52 Prednisone (Prednisone 20 Mg Tablet) 20 mg PO BID [facility] Stop: 09/14/24 08:59 Sennosides (Senna Tablet) 2 tab PO BID PRN; Protocol PRN Reason: CONSTIPATION Stop: 09/13/24 20:52 Sumatriptan Succinate (Sumatriptan 25 Mg Tablet) 100 mg PO Q2H PRN PRN Reason: Migraine Headache Stop: 09/13/24 21:02 Topiramate (Topiramate 25 Mg Tablet) 25 mg PO BID ISAAC Stop: 09/14/24 08:59 Discontinued Medications Diltiazem HCl (Diltiazem Inj 5 Mg/Ml Vial 5 Ml) 20 mg IV X1 ONE Stop: 08/14/24 18:21 Last Admin: 08/14/24 18:40 Dose: 20 mg Documented By: NATALIA Diltiazem HCl (Diltiazem Inj 5 Mg/Ml Vial 5 Ml) 15 mg IV X1 ONE Stop: 08/14/24 20:34 Last Admin: 08/14/24 21:09 Dose: 15 mg Documented By: ANA Hydralazine HCl (Hydralazine Inj 20 Mg/Ml Vial) 10 mg IV X1 ONE Stop: 08/14/24 14:47 Last Admin: 08/14/24 17:09 Dose: Not Given Documented By: NATALIA Non-Admin Reason: Change of Condition Comments: PER [employer]ESS TENDER ERIK, DAPHNEY MED Hydrocortisone Sodium Succinate (Hydrocortisone Sod Succ Inj 100 Mg Vial) 100 mg IV X1 ONE Stop: 08/14/24 21:16 Last Admin: 08/14/24 21:49 Dose: 100 mg Documented By: ANA Sodium Chloride (Ns) 1,000 mls @ 999 mls/hr IV .Q1H1M ONE Stop: 08/14/24 13:36 Last Infusion: 08/14/24 14:54 Dose: Infused Documented By: Admin: 08/14/24 13:34 Dose: 999 mls/hr Documented By: NATALIA Potassium Chloride (Kcl Ivpb) 10 meq in 100 mls @ 100 mls/hr IV Q1H ISAAC Stop: 08/14/24 18:11 Last Infusion: 08/14/24 21:15 Dose: Infused Documented By: Admin: 08/14/24 19:24 Dose: 80 mls/hr Documented By: Infusion: 08/14/24 19:23 Dose: Infused Documented By: Admin: 08/14/24 18:08 Dose: 80 mls/hr Documented By: Infusion: 08/14/24 18:04 Dose: Infused Documented By: Admin: 08/14/24 16:49 Dose: 80 mls/hr Documented By: Infusion: 08/14/24 16:45 Dose: Infused Documented By: Admin: 08/14/24 14:50 Dose: 100 mls/hr Documented By: NATALIA Lorazepam (Lorazepam 2 Mg/Ml Vial) 1 mg IVP X1 ONE Stop: 08/14/24 13:22 Last Admin: 08/14/24 13:29 Dose: 1 mg Documented By: NATALIA Lorazepam (Lorazepam 2 Mg/Ml Vial) 1 mg IVP X1 ONE Stop: 08/14/24 19:08 Last Admin: 08/14/24 19:22 Dose: 1 mg Documented By: ANA Metoprolol Tartrate (Metoprolol Tartrate 25 Mg Tablet) 25 mg PO X1 ONE Stop: 08/14/24 20:34 Last Admin: 08/14/24 21:09 Dose: 25 mg Documented By: ANA Ondansetron HCl (Ondansetron Inj 2 Mg/Ml Inj 2 Ml) 4 mg IV X1 ONE; Protocol Stop: 08/14/24 12:37 Last Admin: 08/14/24 13:31 Dose: 4 mg Documented By: NATALIA Pantoprazole Sodium (Pantoprazole Inj 40 Mg Vial) 40 mg IVP X1 ONE Stop: 08/14/24 12:37 Last Admin: 08/14/24 13:32 Dose: 40 mg Documented By: NATALIA Potassium Chloride (Potassium Chloride 10% 20 Meq/15 Ml Udc) 40 meq GT X1 ONE Stop: 08/14/24 14:12 Last Admin: 08/14/24 14:20 Dose: Not Given Documented By: NATALIA Non-Admin Reason: Cancelled by Provider Potassium Chloride (Potassium Chloride 10% 20 Meq/15 Ml Udc) 20 meq PO X1 ONE Stop: 08/14/24 14:17 Last Admin: 08/14/24 14:20 Dose: Not Given Documented By: NATALIA Non-Admin Reason: Cancelled by Provider Potassium Chloride (Potassium Chloride 10% 20 Meq/15 Ml Udc) 40 meq PO X1 ONE Stop: 08/14/24 14:20 Last Admin: 08/14/24 14:46 Dose: 40 meq Documented By: NATALIA
[2024-08-14 13:27] LABS: Basophils % (Auto) 1 % (0-2.5); Eosinophils # (Auto) 0.1 Thou/mm3 (0.0-0.5); Eosinophils % (Auto) 2 % (0-10); Hematocrit 42.9 % (36.0-46.0); Hemoglobin 15.3 g/dL (12.0-16.0); Immature Granulocytes % (Auto) 0 % (0-0); Immature Granulocytes Auto 0.01 Thou/mm3 (0.00-0.00); Lymphocytes # (Auto) 1.4 Thou/mm3 (1.0-4.8); Lymphocytes % (Auto) 21 % (10-50); Mean Corpuscular HGB Conc 35.7 g/dl (31.0-37.0); Mean Corpuscular Hemoglobin 31.2 pg (25.0-35.0); Mean Corpuscular Volume 87 fL (80-100); Monocytes # (Auto) 0.8 Thou/mm3 (0.0-0.8); Monocytes % (Auto) 13 % (0-12); Neutrophils % (Auto) 63 % (37-80); Nucleated Red Blood Cell % 0 /100 WBC (0); Platelet Count 206 Thou/mm3 (140-440); RDW Standard Deviation 44.7 fL (36.4-46.3); Red Blood Count 4.91 Miln/mm3 (4.00-5.20); White Blood Count 6.3 Thou/mm3 (3.6-11.0)
[2024-08-14] MEDS: LORazepam 2 MG/ML VIAL 1 MG IVP ×2 (13:29→19:22)
[2024-08-14] MEDS: ONDANSETRON INJ 2 MG/ML INJ 2 ML 4 MG IV (13:31)
[2024-08-14] MEDS: PANTOPRAZOLE INJ 40 MG VIAL IVP (13:32)
[2024-08-14] MEDS: SODIUM CHLORIDE 0.9% 1000 ML 1,000 ML 999 ML IV (13:34)
[2024-08-14 13:38] LABS: INR 1.1 (0.9-1.3); Partial Thromboplastin Time 26.8 Seconds (22.0-36.0); Prothrombin Time 11.6 Seconds (9.0-12.2)
[2024-08-14 13:59] LABS: Alanine Aminotransferase 21 U/L (10-49); Albumin, Serum 4.5 gm/dL (3.4-4.8); Albumin/Globulin Ratio 1.9 (1.2-2.2); Alkaline Phosphatase 99 U/L (46-116); Anion Gap 16 (7-16); Aspartate Amino Transferase 57 U/L (0-34); BUN/Creatinine Ratio 17 Ratio (12-20); Bilirubin,Total 0.8 mg/dL (0.3-1.2); Blood Urea Nitrogen 19 mg/dL (9-23); Calcium 9.8 mg/dL (8.3-10.6); Calcium (Corrected) 9.8 mg/dL (8.5-10.1); Carbon Dioxide 23.3 mMol/L (20.0-31.0); Chloride 100 mMol/L (98-107); Creatinine (Component) 1.1 mg/dL (0.6-1.3); Estimated Creatinine Clearance 40.1 mL/min (>60); Globulin 2.4 gm/dL (2.3-3.5); Glucose 123 mg/dL (74-106); Lipase 35 U/L (12-53); Magnesium 1.8 mg/dL (1.6-2.6); Osmolality,Calculated 280 (275-295); Sodium 139 mMol/L (136-145); Total Protein 6.9 gm/dL (5.7-8.2); eGFR 52 See Note
[2024-08-14 14:07] LABS: Potassium 2.6 mMol/L (3.4-5.1)
[2024-08-14 14:30] LABS: B-Type Natriuretic Peptide 550 pg/mL (0-100)
--- NOTE | 2024-08-14 14:36 | PC.CC ---
CARMINA Carver was informed by drum operator Guillaume that pt is a [facility] pt and that she will call [facility] to inform them that pt will be admitted. CARMINA Provided the [facility] phone number and updated RN of the questions that will be asked by [facility].
[2024-08-14] MEDS: POTASSIUM CHLORIDE 10% 20 MEQ/15 ML UDC 40 MEQ PO (14:46)
[2024-08-14] MEDS: SODIUM CHLORIDE 0.9% 1000 ML 1,000 ML 40 ML IV (14:49)
[2024-08-14] MEDS: POTASSIUM CHL 10 mEq IVPB 10 MEQ/100 ML BAG 100 MEQ IV (14:50)
--- NOTE | 2024-08-14 14:50 | PC.NURSE ---
[facility] CONTACTED. INFORMED THAT PT WILL NEED ADMISSION TO HOSPITAL. STATES THEY WILL CALL BACK WITH
--- NOTE | 2024-08-14 14:59 | XR_ITS ---
Examination: CT abdomen and pelvis without contrast. Coronal 3-D reconstructions. Sagittal 2-D reconstructions. Date and time of exam:August 14, 2024 1536 hours Comparison April 28, 2024 INDICATIONS: Generalized abdominal pain today CTDI: vol (mGy): 5.85 DLP: (mGycm): 294 Technique: Axial images of the abdomen have been obtained, 3 mm slice thickness Intravenous contrast material has not been administered. Low dose protocols were performed. One or more of the following dose reduction techniques were used; automated exposure control, adjustment of the mA and/or KV according to patient size, use of iterative reconstruction technique. Findings: No focal liver or splenic lesions excepting small benign liver cyst Normal gallbladder Normal pancreas Spleen not enlarged No renal or ureteral calculi, no hydronephrosis Normal appendix No bowel obstruction Colonic diverticulosis, no diverticulitis Air and stool distended rectum Contracted urinary bladder Diffuse advanced lumbar degenerative disc disease IMPRESSION: No renal or ureteral calculi, no hydronephrosis Normal appendix Colonic diverticulosis, no diverticulitis
[2024-08-14] MEDS: POTASSIUM CHL 10 mEq IVPB 10 MEQ/100 ML BAG 80 MEQ IV ×3 (16:49→19:24)
--- NOTE | 2024-08-14 17:17 | PC.NURSE ---
[facility] RETURNED CALL WITH APPROVAL #[id number]
--- NOTE | 2024-08-14 17:50 | EVENTNT_ITS ---
Documentation for date of: 08/14/24 Event Note Event Note: 08/14/2024: Called by ED for admission regarding 78F with past medical history of essential hypertension, hyperlipidemia, Crohn's, fibromyalgia, migraines, hypothyroidism, lupus and POTS presenting to the ED with abdominal pain and vomiting. Patient denies any fever/chills, sick contacts, changes to diet, hematemesis, melena or hematochezia. Patient also denies taking any new medications but does state that she has not been able keep food down. She was previously seen by a GI specialist for Crohn's but denies following up recently. On exam, vitals are pertinent for BP 140/80s, HR of 130-140s, satting 98 on room air. Patient does not have conjunctival pallor, heart and lung exam is unremarkable and abdomen is non-tender/non-distended with normal bowel sounds. Laboratory findings include WBC of 6.3, Hgb of 15.3, Potassium of 2.6, Cr 1.1, BUN 19, AST 57, ALT 21, ALk Phos 99, BNP 550. CT Abd/P shows Colonic diverticulosis, no diverticulitis. A/P #Dehydration due to vomiting #Sinus tachycardia #Electrolyte Abnormalities #Hypokalemia #Hypomagnesemia Plan: Recommendation is to complete IVF resusitation for dehydration secondary to emesis which is most likely contributing to the patient having tachycardia Replete electrolytes potassium and magnesium; as potassium will not improve without magnesium repletion Follow-up with repeat renal panel Discharge with anti-emetic and follow-up with PCP for referral to GI specialist If patient's electrolytes or tachycardia do not resolve after the following interventions; will reassess patient for possible admission Patient seen and discussed case with my attending Dr. Overton and senior resident Dr. Hai Dwyer, PGY-1 Patient was examined with the team including attending physician. Note reviewed, I agree with the recommendations as documented. - Chris Valles MD PGY2 Disclaimer: The document may contain phonetic/typographic errors due to voice recognition software. These errors are purely due to imperfections in the software program and should not be misconstrued in any way to compromise the substance of the patient's medical care during this visit.
--- NOTE | 2024-08-14 17:56 | EKG_ITS ---
[facility] Test Date: 2024-08-14 Pat Name: HARPER DIEGO Department: Room: - Gender: Female Personal Care Aid: : 1945 Requested By: Sourav García Order Number: [id number] Reading MD: Sourav García Measurements Intervals [place] Rate: 139 P: [place]: QRS: -8 QRSD: 88 T: 152 QT: 294 QTc: 448 Interpretive Statements ATRIAL FLUTTER/TACHYCARDIA WITH RAPID VENTRICULAR RESPONSE NONSPECIFIC ST & T-WAVE ABNORMALITY Compared to ECG 08/14/2024 12:59:20 Atrial fibrillation no longer present Possible ischemia no longer present T-wave abnormality still present /store/S0/[id number]
[2024-08-14 18:17] LABS: Collection Type, Urine Clean Catch; Squamous Epithelial Cell,Urine 0 /hpf (0-5)
[2024-08-14 18:26] LABS: Bilirubin,Urine Negative (Negative); Blood,Urine Negative (Negative); Clarity,Urine Clear (Clear/Hazy); Color,Urine Yellow (Lt Yel-Yel); Glucose, Urine Negative (Negative); Hyaline Casts,Urine < 1 /hpf (0-1); Ketones,Urine Trace (Negative); Leukocyte Esterase,Urine Negative (Negative); Nitrite,Urine Negative (Negative); PH,Urine 6.5 (5.0-7.0); Protein,Urine 1+ (Neg - Trace); RBC,Urine 1 /hpf (0-3); Specific Gravity,Urine 1.016 (1.001-1.035); Urobilinogen,Urine Negative mg/dL (0.0-1.0); WBC,Urine 2 /hpf (0-5)
[2024-08-14 18:36] LABS: Amphetamine/Methamp Scrn,U Negative (Negative); Barbiturate Screen,Urine Negative (Negative); Benzodiazepines Screen,Urine Positive (Negative); Benzoylecgonine Screen, Ur Negative (Negative); Fentanyl Screen,Urine Negative (Negative); Opiate Screen,Urine Positive (Negative); THC Screen,Urine Negative (Negative)
[2024-08-14] MEDS: DILTIAZEM INJ 5 MG/ML VIAL 5 ML 20 MG IV (18:40)
[2024-08-14 20:36] LABS: Alanine Aminotransferase 19 U/L (10-49); Albumin, Serum 3.9 gm/dL (3.4-4.8); Albumin/Globulin Ratio 1.9 (1.2-2.2); Alkaline Phosphatase 84 U/L (46-116); Anion Gap 10 (7-16); Aspartate Amino Transferase 54 U/L (0-34); BUN/Creatinine Ratio 16 Ratio (12-20); Bilirubin,Total 0.7 mg/dL (0.3-1.2); Blood Urea Nitrogen 16 mg/dL (9-23); Calcium 8.9 mg/dL (8.3-10.6); Chloride 106 mMol/L (98-107); Estimated Creatinine Clearance 44.1 mL/min (>60); Globulin 2.1 gm/dL (2.3-3.5); Glucose 111 mg/dL (74-106); Osmolality,Calculated 281 (275-295); Potassium 3.8 mMol/L (3.4-5.1); Sodium 140 mMol/L (136-145); eGFR 58 See Note
--- NOTE | 2024-08-14 20:53 | ESHP_ITS ---
<Statement entered by Alvarez Soriano MD - 08/15/24 13:25> I have discussed and was present for the essential components of the history, physical examination, diagnosis, and treatment plan with the resident. I agree with the patient's care as documented by the resident and amended herein by me. Alvarez Soriano MD FACP. Documentation for date of: 08/14/24 HPI History of Present Illness History of present illness: Patient is a 78-year-old female with a past medical history of POTS , atrial fibrillation/flutter, Crohn's disease, SLE, hyperlipidemia, hypertension, hypothyroidism and migraine who presents to the ER, accompanied by her daughter, complaining of vomiting and diarrhea. Associated with generalized weakness, the patient is unable to keep any food down for the past few days. Patient also ran out of her medications, she is trying to switch from [facility] to [facility], unable to refill her medications . Follows with GI in [place]. The patient denied any fever, chest pain or shortness of breath. Complaining of severe headache, states that is consistent with her migraines. In the ER patient was found to be hypokalemic, hypomagnesemic and tachycardic, heart rate in the 140s, A-fib RVR, in the ER patient received IV fluids and diltiazem ivp x 2, was given 1 dose of p.o. metoprolol [address] abdomen pelvis showed colonic diverticulosis, no diverticulitis. Past medical history: POTS, A-fib/flutter, Crohn's disease, SLE, hyperlipidemia, hypertension and hypothyroidism and migraine. Past surgical history: B/L knee replacement, Left breast lumpectomy 40 years ago Social history: denies smoking or drinking Review of Systems Review of Systems Systems Reviewed: All systems reviewed, normal except as documented Past Medical History Past Medical History NEUROLOGIC: Positive Neurological Disorders, Cerebrovascular Accident, Peripheral Neuropathy and Migraine; Negative Transient Ischemic Attacks (TIA), Dementia, Alzheimer's Disease, Parkinson's Disease, Brain Tumor, Meningitis, Seizures, Epilepsy, Multiple Sclerosis, Cerebral Palsy, Amyotrophic Lateral Sclerosis (ALS/Cari Gehrig's), Guillain-[place] Syndrome, Spina Bifida, Paralysis, Farrell's Palsy, Subdural Hematoma, Head Trauma, Spinal Cord Injury or Traumatic Brain Injury CARDIAC: Positive Cardiac Disorders, Atrial Fibrillation, Hypercholesterolemia, Hypertension and Hypotension; Negative Myocardial Infarction, Cardiac Arrhythmia, Angina, Heart Murmur, Coronary Artery Disease, Atherosclerotic Heart Disease, Peripheral Vascular Disease, Aneurysm, Congestive Heart Failure, Congenital Heart Disease, Valvular Heart Disease, Rheumatic Fever, Cardiomyopathy, Edema, Pericarditis, Cellulitis, Deep Vein Thrombosis or Varicose Veins RESPIRATORY: Positive Asthma, Bronchitis and Pneumonia; Negative Chronic Obstructive Pulmonary Disease (COPD), Emphysema, Pulmonary Fibrosis, Cystic Fibrosis, Tuberculosis, Pulmonary Embolism, Pulmonary Edema or Sleep Apnea GASTROINTESTINAL: Positive Gastrointestinal Disorders, Crohn's Disease and Gastroesophageal Reflux Disease; Negative Hepatitis, Cirrhosis, Pancreatitis, Celiac Disease, Gall Bladder Disease, Gastrointestinal Bleed, Esophageal Varices, Hurley's Esophagus, Colitis, Ulcerative Colitis, Diverticulitis, Diverticulosis, Ulcer, Colorectal Cancer, Irritable Bowel, Obstructive Bowel, Hiatal Hernia, Hemorrhoids or Obesity GENITOURINARY: Negative Genitourinary Disorders, Renal Disease, Kidney Stones, Polycystic Kidney Disease, Neurogenic Bladder, Inguinal Hernia, Dialysis or Prostate Cancer REPRODUCTIVE: Negative Breast Cancer, Endometriosis, Genital Herpes, Gonorrhea, Pelvic Inflammatory Disease, Previous Pregnancies, Syphilis or Uterine Prolapse MUSCULOSKELETAL: Positive Musculoskeletal Disorders, Arthritis, Degenerative Disk Disease, Fibromyalgia, Fractures and Degenerative Joint Disease; Negative Muscular Dystrophy, Myasthenia Gravis, Marfan's Syndrome, Bone Cancer, Osteoporosis, Carpal Tunnel Syndrome, Osteomyelitis or Poliovirus ENT: Negative Cataracts, Glaucoma, Blind, Ear Infection, Deafness, Head Trauma or Eye Prosthesis ENDOCRINE: Positive Endocrine Disorders, Hypothyroidism and Systemic Lupus Erythematosus; Negative Diabetes Mellitus Type 1, Diabetes Mellitus Type 2, Hypoglycemia, [place]'s Syndrome, Curtis's Disease, Hyperthyroidism, Parathyroid Disease, Pituitary Disease, Syndrome of Inappropriate Antidiuretic Hormone (SIADH), Adrenal Disease or Graves' Disease HEMATOLOGIC: Positive Blood Disorders and Anemia; Negative Leukemia, Hemophilia, Thalassemia, Sickle Cell Disease or Clotting Problems PSYCHO/SOCIAL: Positive Psychiatric Problems, Depression and Anxiety; Negative Schizophrenia, Recreational Drug Use, Bipolar Disorder, Behavior Problems, Self-Mutilation, Attention Deficit Disorder, Attention Deficit Hyperactivity Disorder, Depression, Post Traumatic Stress Disorder or Eating Disorder OTHER HISTORY: Positive Hospitalization, Falls, Measles and Mumps; Negative Autoimmune Disease, Down Syndrome, Autism, Developmental Delay, Shingles, Blood Transfusions, Blood Transfusion Reaction, Anesthesia Reactions, Organ Transplant, Chemotherapy, Radiation Therapy, Hyperbaric Therapy, MRSA, VRSA, Vancomycin-Resistant Enterococci, Human Immunodeficiency Virus (HIV), Chicken Pox, Rubella ([place] Measles), Pertussis, Clostridium Difficile, Breast Cancer, Cervical Cancer, Colorectal Cancer, Lung Cancer, Ovarian Cancer or Prostate Cancer Family History FAMILY HISTORY: Negative Family Psychiatric Problems, Family Respiratory Disorders, Family Cardiac Disorders, Family Gastrointestinal Problems, Family Cancer, Family Surgery or Family Anesthesia Reaction Surgical History SURGICAL: Positive Hysterectomy; Negative Cardiac Surgery, Open Heart Surgery, Coronary Artery Bypass Graft, Valve Replacement, Vascular Surgery, Coronary Stent, Cardiac Catheterization, Pacemaker, Angiogram, Auto Implanted Cardiovert Defib, Carotid Endarterectomy, Endocrine Surgery, Thyroidectomy, Ear Surgery, Tympanostomy Tube, Eye Surgery, Nose Surgery, Oral Surgery, Tonsillectomy, Adenoidectomy, Cochlear Implant, Corneal Transplant, Throat Surgery, Abdominal Surgery, Tracheostomy, Gastric Bypass Surgery, Gastrostomy, Bowel Surgery, Nephrectomy, Transurethral Resection, Joint Replacement, Amputation, Open Reduction Internal Fixation, Arthroscopy, Neurologic Surgery, Brain Shunt, Mastectomy, Lumpectomy, Tubal Ligation, Section or Organ Transplant Social History SMOKING STATUS: Never smoker SUBSTANCE USE: does not use Exam Vital Signs Temp Pulse Resp BP Pulse Ox O2 Del Method 99.4 F 113 H 22 H 144/64 H 96 Room Air 08/14/24 19:39 08/14/24 19:39 08/14/24 19:39 08/14/24 19:39 08/14/24 19:39 08/14/24 19:39 Narrative Exam Physical Exam GENERAL: NAD, AAOx3 , mildly anxious, HEENT: Moist mucosa. Eyes open, symmetrical, & clear CARDIO: Heart RRR, no obvious murmurs PULM: No noted coughing/dyspnea CTA B/L, no R/W/R GI: Abdomen soft, nondistended, pain on palpation, bowel sounds noted SKIN/MSK/EXT: No wounds/rashes/edema/amputations, no pain on palpation. Pedal pulses present B/L NEURO: AAOx3, no focal neuro deficits, able to move all 4 extremities Results: Labs 08/14/24 13:09 08/14/24 19:49 Labs: Short CBC 08/14/24 Range/Units 13:09 WBC 6.3 (3.6-11.0) Thou/mm3 Hgb 15.3 (12.0-16.0) g/dL Hct 42.9 (36.0-46.0) % Plt Count 206 (140-440) Thou/mm3 BMP 08/14/24 08/14/24 13:09 19:49 Sodium 139 140 Potassium 2.6 L* 3.8 D Chloride 100 106 Carbon Dioxide 23.3 24.0 BUN 19 16 Creatinine 1.1 1.0 Glucose 123 H 111 H Calcium 9.8 8.9 Liver Function 08/14/24 08/14/24 Range/Units 13:09 19:49 Total Bilirubin 0.8 0.7 (0.3-1.2) mg/dL AST 57 H 54 H (0-34) U/L ALT 21 19 (10-49) U/L Alkaline Phosphatase 99 84 (46-116) U/L Albumin 4.5 3.9 D (3.4-4.8) gm/dL Urine 08/14/24 Range/Units 16:00 Urine Color Yellow (Lt Yel-Yel) Urine Clarity Clear (Clear/Hazy) Urine pH 6.5 (5.0-7.0) Ur Specific Gerber 1.016 (1.001-1.035) Urine Protein 1+ A (Neg - Trace) Urine Glucose (UA) Negative (Negative) Quality Measures Quality Measures VTE prophylaxis Advance care planning discussed with:: patient Medications Home Medications and Allergies Home Medications ?Medication ?Instructions ?Recorded ?Confirmed ?Type raloxifene 60 mg tablet (Evista) 60 mg PO QDAY OSTEOPO ROSIS #0 tabs 01/22/14 04/28/24 History atorvastatin 20 mg tablet (Lipitor) 20 mg PO HS #0 tab s 02/26/17 08/14/24 History duloxetine 60 mg capsule,delayed 60 mg PO QDAY #0 caps 02/26/17 08/14/24 History release (Cymbalta) hydroxychloroquine 200 mg tablet 400 mg PO QDAY #0 tab s 02/26/17 04/28/24 History (Plaquenil) lisinopril 10 mg tablet 10 mg PO QDAY #0 tabs 04/28/24 History metoprolol tartrate 25 mg tablet 25 mg PO BID #0 tabs 02/26/17 04/28/24 History sertraline 100 mg tablet (Zoloft) 200 mg PO HS #0 tabs 02/26/17 08/14/24 History azathioprine 50 mg tablet 50 mg PO QDAY 12/23/1704/28 History mesalamine 1.2 gram tablet,delayed 2.4 g PO QDAY 12/2304/28/24 History release (Lialda) sumatriptan succinate 100 mg tablet 100 mg PO Q2H PRN Migraine Headache 12/23/17 04/28/24 History aspirin 81 mg tablet,delayed 81 mg PO DAILY 04/28/24 0 08/14/24 History release hydrocodone 7.5 mg-acetaminophen 1 tab PO Q6H PRN PAIN 04/28/24 04/28/24 History 325 mg tablet levothyroxine 175 mcg tablet 175 mcg PO DAILY 04/28/24 08/14/24 History potassium chloride 10 mEq 20 meq PO DAILY 04/29/2404/22 History tablet,extended release (Klor-Con) pregabalin 75 mg capsule 75 mg PO QDAY 05/02/2405/02 History topiramate 25 mg tablet (Topamax) 25 mg PO BID MIGRAIN E 08/14/24 08/14/24 History Allergies Allergy/AdvReac Type Severity Reaction Status Date / Time Sulfa (Sulfonamide Allergy Severe FLUSHING, Verified 04/27/24 20:08 Antibiotics) VOMITING meloxicam Allergy Mild RASH Verified 04/27/24 20:08 Visit Medications Sodium Chloride (Ns) 1,000 mls @ 40 mls/hr IV .Q24H ONE Stop: 08/15/24 14:23 Last Admin: 08/14/24 14:49 Dose: 40 mls/hr Discontinued Medications Diltiazem HCl (Diltiazem Inj 5 Mg/Ml Vial 5 Ml) 20 mg IV X1 ONE Stop: 08/14/24 18:21 Last Admin: 08/14/24 18:40 Dose: 20 mg Diltiazem HCl (Diltiazem Inj 5 Mg/Ml Vial 5 Ml) 15 mg IV X1 ONE Stop: 08/14/24 20:34 Hydralazine HCl (Hydralazine Inj 20 Mg/Ml Vial) 10 mg IV X1 ONE Stop: 08/14/24 14:47 Last Admin: 08/14/24 17:09 Dose: Not Given Sodium Chloride (Ns) 1,000 mls @ 999 mls/hr IV .Q1H1M ONE Stop: 08/14/24 13:36 Last Infusion: 08/14/24 14:54 Dose: Infused Potassium Chloride (Kcl Ivpb) 10 meq in 100 mls @ 100 mls/hr IV Q1H ISAAC Stop: 08/14/24 18:11 Last Admin: 08/14/24 19:24 Dose: 80 mls/hr Lorazepam (Lorazepam 2 Mg/Ml Vial) 1 mg IVP X1 ONE Stop: 08/14/24 13:22 Last Admin: 08/14/24 13:29 Dose: 1 mg Lorazepam (Lorazepam 2 Mg/Ml Vial) 1 mg IVP X1 ONE Stop: 08/14/24 19:08 Last Admin: 08/14/24 19:22 Dose: 1 mg Metoprolol Tartrate (Metoprolol Tartrate 25 Mg Tablet) 25 mg PO X1 ONE Stop: 08/14/24 20:34 Ondansetron HCl (Ondansetron Inj 2 Mg/Ml Inj 2 Ml) 4 mg IV X1 ONE; Protocol Stop: 08/14/24 12:37 Last Admin: 08/14/24 13:31 Dose: 4 mg Pantoprazole Sodium (Pantoprazole Inj 40 Mg Vial) 40 mg IVP X1 ONE Stop: 08/14/24 12:37 Last Admin: 08/14/24 13:32 Dose: 40 mg Potassium Chloride (Potassium Chloride 10% 20 Meq/15 Ml Udc) 40 meq GT X1 ONE Stop: 08/14/24 14:12 Last Admin: 08/14/24 14:20 Dose: Not Given Potassium Chloride (Potassium Chloride 10% 20 Meq/15 Ml Udc) 20 meq PO X1 ONE Stop: 08/14/24 14:17 Last Admin: 08/14/24 14:20 Dose: Not Given Potassium Chloride (Potassium Chloride 10% 20 Meq/15 Ml Udc) 40 meq PO X1 ONE Stop: 08/14/24 14:20 Last Admin: 08/14/24 14:46 Dose: 40 meq Assessment & Plan Plan Patient is a 78-year-old female with a past medical history of POTS , atrial fibrillation/flutter, Crohn's disease, SLE, hyperlipidemia, hypertension, hypothyroidism and migraine who presents to the ER, accompanied by her daughter, complaining of vomiting and diarrhea. #Vomiting #Diarrhea #History of POTS #History of Crohn's disease ? Zofran as needed ? Started on BRRAT diet ? IV fluids maintenance @ 75cc/hr - Stool culture, stool WBC #A-fib RVR Heart rate in the 140'2 intitally requiring Diltiazim ivp x2, hoem medication includes metoprolol , but unable to refill meds. CHADSVASC 2, HasBled 1 - Resume Metoprolol T 25mg BID for rate control - Resume Aspirin 81mg qday, consider anticoagulation for usp stroke prevention #Hypokalemia #Hypomagnesemia - replete as indicated . #History of Crohn's disease #History of SLE #History of hypothyroidism #History of hypertension #History of Migraine - resume home meds - Resume Prednisone 20mg BID, will give hydrocrtisone 100mg x1 to prevent addisonian crisis - Resume mesalamine Plan of care discussed with attending Dr. Bo Bowman PGY2
[2024-08-14] MEDS: DILTIAZEM INJ 5 MG/ML VIAL 5 ML 15 MG IV (21:09)
[2024-08-14] MEDS: METOPROLOL TARTRATE 25 MG TABLET PO (21:09)
[2024-08-14] MEDS: HYDROCORTISONE SOD SUCC INJ 100 MG VIAL IV (21:49)
[2024-08-14] MEDS: ACETAMINOPHEN 325 MG TABLET 650 MG PO (23:58)
[2024-08-15] VITALS (14 sets, daily range): BP systolic 126–158; BP diastolic 72–92; PULSE 70–94; RESP 14–99; TEMP 36.6–36.9; O2SAT 94–98; BMI 23.0
[2024-08-15] MEDS: SODIUM CHLORIDE 0.9% 1000 ML 1,000 ML 75 ML IV (04:46)
[2024-08-15] MEDS: LEVOTHYROXINE SODIUM 125 MCG TABLET PO (05:23)
[2024-08-15] MEDS: LEVOTHYROXINE SODIUM 25 MCG TABLET 50 MCG PO (05:24)
[2024-08-15 05:34] LABS: Basophils % (Auto) 0 % (0-2.5); Eosinophils % (Auto) 0 % (0-10); Hematocrit 35.9 % (36.0-46.0); Hemoglobin 12.3 g/dL (12.0-16.0); Immature Granulocytes % (Auto) 0 % (0-0); Immature Granulocytes Auto 0.01 Thou/mm3 (0.00-0.00); Lymphocytes # (Auto) 0.6 Thou/mm3 (1.0-4.8); Lymphocytes % (Auto) 12 % (10-50); Mean Corpuscular HGB Conc 34.3 g/dl (31.0-37.0); Mean Corpuscular Hemoglobin 31.3 pg (25.0-35.0); Mean Corpuscular Volume 91 fL (80-100); Monocytes # (Auto) 0.2 Thou/mm3 (0.0-0.8); Monocytes % (Auto) 4 % (0-12); Neutrophils # (Auto) 4.4 Thou/mm3 (1.8-7.7); Neutrophils % (Auto) 84 % (37-80); Nucleated Red Blood Cell % 0 /100 WBC (0); Platelet Count 166 Thou/mm3 (140-440); RDW Standard Deviation 48.8 fL (36.4-46.3); Red Blood Count 3.93 Miln/mm3 (4.00-5.20); White Blood Count 5.3 Thou/mm3 (3.6-11.0)
[2024-08-15 05:56] LABS: Alanine Aminotransferase 17 U/L (10-49); Albumin, Serum 3.7 gm/dL (3.4-4.8); Alkaline Phosphatase 79 U/L (46-116); Anion Gap 7 (7-16); Aspartate Amino Transferase 50 U/L (0-34); BUN/Creatinine Ratio 23 Ratio (12-20); Bilirubin,Direct 0.2 mg/dL (0.0-0.3); Bilirubin,Total 0.6 mg/dL (0.3-1.2); Blood Urea Nitrogen 18 mg/dL (9-23); Calcium 8.5 mg/dL (8.3-10.6); Carbon Dioxide 25.4 mMol/L (20.0-31.0); Cardiac Risk Estimate 2.6 RATIO (3.7-5.6); Chloride 111 mMol/L (98-107); Cholesterol 165 mg/dL (132-200); Creatinine (Component) 0.8 mg/dL (0.6-1.3); Estimated Creatinine Clearance 55.1 mL/min (>60); Glucose 135 mg/dL (74-106); HDL Cholesterol 63 mg/dL (40-60); LDL Cholesterol,Calculated 91 mg/dL (0-130); Magnesium 1.7 mg/dL (1.6-2.6); Osmolality,Calculated 288 (275-295); Phosphorous 3.1 mg/dL (2.4-5.1); Potassium 3.9 mMol/L (3.4-5.1); Sodium 143 mMol/L (136-145); Thyroid Stimulating Hormone 4.52 uIU/mL (0.55-4.78); Total Protein 5.7 gm/dL (5.7-8.2); Triglycerides 53 mg/dL (30-150); eGFR > 60 See Note
[2024-08-15 06:29] LABS: INR 1.1 (0.9-1.3); Prothrombin Time 11.5 Seconds (9.0-12.2)
--- NOTE | 2024-08-15 07:50 | PD.RESPRO ---
Documentation for date of: 08/15/24 Subjective Subjective Interval history: Patient was seen and examined at bedside this AM. No acute exents overnight. Patient tolerating diet, adequate urine output and mentation is at baseline. Patient endorses improvement of vomiting. Still has nausea but is able to tolerate liquids. On telemetry review rhythm fluctuates between sinus and A-fib overnight. Rates in the 80s?90s. K3.9, Mg 1.7. Patient treated with magnesium sulfate 4 g IV x 1 and KCl 20 Mg IV x 1 [id number] [age, sex, HTN, stroke, vascular] and HAS-Bled ; 3 points. Discussed risks versus benefits of anticoagulation with patient and daughter at bedside, she wishes to be started on Eliquis. Exam Vital Signs Temp Pulse Resp BP Pulse Ox O2 Del Method 97.8 F 78 16 146/85 H 98 Room Air 08/15/24 05:05 08/15/24 04:00 08/15/24 04:00 08/15/24 04:00 08/15/24 04:00 08/15/24 04:00 Narrative Exam Constitutional Alert, oriented x 3 and comfortable. Elderly female HEENT Vision grossly intact. Patent nares. Trachea midline Respiratory Chest normal on inspection and clear auscultation bilaterally Cardiovascular S1 and S2 audible, RRR. No murmurs carotid bruit. No gross JVD. Abdominal Soft and non tender to palpation in all quadrants. BS + Genitourinary No bladder tenderness, no flank pain. Normal to palpation Musculoskeletal Extremities tone within normal limits. No LE edema. Neurological CN II - XII grossly intact. Extremity motor and sensation grossly intact. Skin Warm, dry and intact. No apparent lesions. Psychiatric Patient has good affect, is cooperative Objective Labs 08/15/24 04:28 08/15/24 04:28 Labs: Laboratory Results - last 24 hr 08/14/24 08/14/24 08/14/24 13:09 16:00 19:49 WBC 6.3 RBC 4.91 Hgb 15.3 Hct 42.9 MCV 87 MCH 31.2 MCHC 35.7 RDW Std Deviation 44.7 Plt Count 206 Neut % (Auto) 63 Lymph % (Auto) 21 [place] % (Auto) 13 H Eos % (Auto) 2 Baso % (Auto) 1 Neut # (Auto) 4.0 Lymph # (Auto) 1.4 [place] # (Auto) 0.8 Eos # (Auto) 0.1 Baso # (Auto) 0.0 Immature Gran # (Auto) 0.01 H Absolute Nucleated RBC 0.00 Immature Gran % 0 Nucleated RBC % 0 PT 11.6 INR 1.1 APTT 26.8 Sodium 139 140 Potassium 2.6 L* 3.8 D Chloride 100 106 Carbon Dioxide 23.3 24.0 Anion Gap 16 10 BUN 19 16 Creatinine 1.1 1.0 Estim Creat Clear Calc 40.1 L 44.1 L eGFR 52 L 58 L BUN/Creatinine Ratio 17 16 Glucose 123 H 111 H Calculated Osmolality 280 281 Calcium 9.8 8.9 Corrected Calcium 9.8 9.0 Phosphorus Magnesium 1.8 Total Bilirubin 0.8 0.7 Direct Bilirubin AST 57 H 54 H ALT 21 19 Alkaline Phosphatase 99 84 B-Natriuretic Peptide 550 H* Total Protein 6.9 6.0 Albumin 4.5 3.9 D Globulin 2.4 2.1 L Albumin/Globulin Ratio 1.9 1.9 Triglycerides Cholesterol LDL Cholesterol, Calc HDL Cholesterol Cholesterol/HDL Ratio Lipase 35 TSH Ur Collection Type Clean Catch Urine Color Yellow Urine Clarity Clear Urine pH 6.5 Ur Specific [place] 1.016 Urine Protein 1+ A Urine Glucose (UA) Negative Urine Ketones Trace Urine Blood Negative Urine Nitrite Negative Urine Bilirubin Negative Urine Urobilinogen (Auto) Negative Ur Leukocyte Esterase Negative Urine RBC 1 Urine WBC 2 Ur Squamous Epith Cells 0 Urine Bacteria None Hyaline Casts < 1 Urine Opiates Screen Positive A Urine Fentanyl Screen Negative Ur Barbiturates Screen Negative U Amphetamin/Meth Scrn Negative U Benzodiazepines Scrn Positive A U Cocaine Metab Screen Negative U Marijuana (THC) Screen Negative 08/15/24 04:28 WBC 5.3 RBC 3.93 L Hgb 12.3 D Hct 35.9 L MCV 91 MCH 31.3 MCHC 34.3 RDW Std Deviation 48.8 H Plt Count 166 D Neut % (Auto) 84 H Lymph % (Auto) 12 [place] % (Auto) 4 Eos % (Auto) 0 Baso % (Auto) 0 Neut # (Auto) 4.4 Lymph # (Auto) 0.6 L [place] # (Auto) 0.2 Eos # (Auto) 0.0 Baso # (Auto) 0.0 Immature Gran # (Auto) 0.01 H Absolute Nucleated RBC 0.00 Immature Gran % 0 Nucleated RBC % 0 PT 11.5 INR 1.1 APTT Sodium 143 Potassium 3.9 Chloride 111 H Carbon Dioxide 25.4 Anion Gap 7 BUN 18 Creatinine 0.8 Estim Creat Clear Calc 55.1 L eGFR > 60 BUN/Creatinine Ratio 23 H Glucose 135 H Calculated Osmolality 288 Calcium 8.5 Corrected Calcium Phosphorus 3.1 Magnesium 1.7 Total Bilirubin 0.6 Direct Bilirubin 0.2 AST 50 H ALT 17 Alkaline Phosphatase 79 B-Natriuretic Peptide Total Protein 5.7 Albumin 3.7 Globulin Albumin/Globulin Ratio Triglycerides 53 Cholesterol 165 LDL Cholesterol, Calc 91 HDL Cholesterol 63 H Cholesterol/HDL Ratio 2.6 L Lipase TSH 4.52 Ur Collection Type Urine Color Urine Clarity Urine pH Ur Specific [place] Urine Protein Urine Glucose (UA) Urine Ketones Urine Blood Urine Nitrite Urine Bilirubin Urine Urobilinogen (Auto) Ur Leukocyte Esterase Urine RBC Urine WBC Ur Squamous Epith Cells Urine Bacteria Hyaline Casts Urine Opiates Screen Urine Fentanyl Screen Ur Barbiturates Screen U Amphetamin/Meth Scrn U Benzodiazepines Scrn U Cocaine Metab Screen U Marijuana (THC) Screen Quality Measures Quality Measures VTE prophylaxis Advance care planning discussed with:: patient Assessment & Plan Assessment Current Active Medications: Generic Name Dose Route Start Last Admin Trade Name Freq PRN Reason Stop Dose Admin Acetaminophen 650 mg 08/14/24 20:53 08/14/24 23:58 Acetaminophen 325 Mg Tablet PO 09/13/24 20:52 650 mg Q6H PRN Administration PAIN 1-3 OR FEVER > 101 Hydrocodone Bitart/Acetaminophen 1 tab 08/14/24 21:03 Hydrocodone/Apap 7.5/325 Tablet PO 08/19/24 21:02 Q6H PRN PAIN SCALE 4-10(Mod-Sev Aspirin 81 mg 08/15/24 09:00 Aspirin Ec 81 Mg Tabec PO 09/14/24 08:59 DAILY ISAAC Atorvastatin Calcium 20 mg 08/15/24 21:00 Atorvastatin Calcium 20 Mg Tablet PO 09/14/24 20:59 HS ISAAC Duloxetine HCl 60 mg 08/15/24 09:00 Duloxetine Hcl 30 Mg Capsule PO 09/14/24 08:59 QDAY ISAAC Enoxaparin Sodium 40 mg 08/15/24 09:00 Enoxaparin Sod Inj 40 Mg/0.4 Ml Syringe SC 08/29/24 08:59 QDAY [facility] Hydroxychloroquine Sulfate 400 mg 08/15/24 09:00 Hydroxychloroquine 200 Mg Tablet PO 08/22/24 08:59 QDAY ISAAC Magnesium Sulfate 4 gm in 50 mls @ 12.5 mls/hr 08/15/24 07:45 Magnesium Sulfate Ivpb IV 08/15/24 11:44 X1 ONE Levothyroxine Sodium 50 mcg 08/15/24 06:00 08/15/24 05:24 Levothyroxine Sodium 25 Mcg Tablet PO 09/14/24 05:59 50 mcg ACBR ISAAC Administration Levothyroxine Sodium 125 mcg 08/15/24 06:00 08/15/24 05:23 Levothyroxine Sodium 125 Mcg Tablet PO 09/14/24 05:59 125 mcg ACBR ISAAC Administration Metoprolol Tartrate 25 mg 08/15/24 09:00 Metoprolol Tartrate 25 Mg Tablet PO 09/14/24 08:59 BID ISAAC Non-Formulary Medication 2.4 gm 08/15/24 09:00 Mesalamine [Lialda] PO 09/14/24 08:59 QDAY ISAAC Ondansetron HCl 4 mg 08/14/24 20:53 Ondansetron Inj 2 Mg/Ml Inj 2 Ml IV 09/13/24 20:52 Q6H PRN NAUSEA OR VOMITING Protocol Prednisone 20 mg 08/15/24 09:00 Prednisone 20 Mg Tablet PO 09/14/24 08:59 BID ISAAC Sennosides 2 tab 08/14/24 20:53 Senna Tablet PO 09/13/24 20:52 BID PRN CONSTIPATION Protocol Sumatriptan Succinate 100 mg 08/14/24 21:03 Sumatriptan 25 Mg Tablet PO 09/13/24 21:02 Q2H PRN Migraine Headache Topiramate 25 mg 08/15/24 09:00 Topiramate 25 Mg Tablet PO 09/14/24 08:59 BID ISAAC Plan Patient is a 78-year-old female with a past medical history of POTS , atrial fibrillation/flutter, Crohn's disease, SLE, hyperlipidemia, hypertension, hypothyroidism and migraine who presents to the ER, accompanied by her daughter, complaining of vomiting and diarrhea. Intractable vomiting?resolving Diarrhea?resolving Patient presented with 1 week history of nausea and vomiting along with diarrhea. On exam abdomen nontender to palpation CT scan showed diverticulosis, negative for diverticulitis. DDx: Viral gastroenteritis, Crohn's flare Plan: ? Continue BRRAT diet ?Continue Zofran as needed ?Discontinue IV fluids maintenance as patient is now tolerating oral - Pending stool culture, C. difficile, stool for WBCs ? Gastroenterology, Dr. Nevarez consulted and closely following the case. Appreciate recommendations Atrial fibrillation?paroxysmal Patient diagnosed with A-fib in February at [facility]. 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 On admission patient was in A-fib with RVR heart rates in 130s from EKG. On telemetry review rhythm fluctuates between sinus and A-fib overnight. Rates in the 80s?90s. K3.9, Mg 1.7. Patient treated with magnesium sulfate 4 g IV x 1 and KCl 20 Mg IV x 1 [id number] [age, sex, HTN, stroke, vascular] and HAS-Bled ; 3 points. Discussed risks versus benefits of anticoagulation with patient and daughter at bedside, she wishes to be started on Eliquis. Plan: ? Continue telemetry every ? Continue rate control with metoprolol tartrate 25 Mg p.o. twice daily ? Discontinued enoxaparin 40 Mg SC daily ? Started on Eliquis 5 Mg p.o. twice daily from tomorrow as patient already received dose of enoxaparin today ? Continue aspirin 81 Mg p.o. daily for stroke prophylaxis ? Due to has bled of 3, patient is high risk of bleeding. Will consider risk versus benefit of continuing aspirin prior to discharge. ? Request to obtain medical records from [facility] regarding her echocardiogram results and GI notes made. History of Crohn's disease History of SLE History of hypothyroidism History of hypertension History of Migraine Currently stable on home medication. Will resume after med rec. Plan: ? Continue mesalamine 2.4 g p.o. daily ? Continue prednisone 20 Mg p.o. twice daily - Continue sumatriptan 100 Mg p.o. every 2 hourly as needed ? Continue levothyroxine 137 mcg p.o. AC BR ? To consider restarting fludrocortisone tomorrow ? Awaiting GI recommendations prior to restarting azathioprine ? Resumed home medication lisinopril 10 Mg p.o. daily Osteoporosis Patient on raloxifene at home. She states that her last DEXA scan however has been many years ago [greater than 2 years] Patient stated that 2 days ago she developed left jaw pain which has now subsided. Will consider x-ray of the jaw if symptoms return. Plan: ? Home medication, raloxifene on hold for now Health maintenance: Disposition: Pending stool cultures, C. difficile. GI consult Diet: BRRAT Lines: pIVs GI Prophylaxis: Pantoprazole Thrombo Prophylaxis: Apixaban Code status: FULL CODE Plan of care discussed with Attending Dr. Silke Wilhelm MD PGY 1 Disclaimer: This note was dictated by speech recognition. Minor errors in language asst may be present due to voice recognition software. Attending Provider Attestation/Addendum I have discussed and was present for the essential components of the history, physical examination, diagnosis, and treatment plan with the resident. I agree with the patient's care as documented by the resident and amended herein by me. Bhaskar Edouard, DO. Patient seen and evaluated this AM. No acute events overnight, vital signs stable, patient afebrile, CBC large unremarkable, BMP also largely unremarkable. Patient able to tolerate small sips of water this morning, gastroenterology was consulted for her intractable nausea and vomiting prior to admission in setting of Crohn's disease, recommendations appreciated. As far as the patient's atrial fibrillation with RVR is concerned, she was NSR at time of bedside visit however has been out of atrial fibrillation, she had an echo within 6 months she stated, last being at [facility] in [place] hence a records query has been placed. [id number] score 3, has bled 2 with the information we have at present however again we will follow-up with records from [place] and speak with the patient about possible anticoagulation.. Patient has been continued on her prednisone and mesalamine, will continue to monitor closely. Although this document has been carefully reviewed, there may still be some phonetic and other typographical errors. These errors are purely grammatical due to imperfections in the software program and should not be construed in any way to compromise the substance of the patient's medical care during this visit.
[2024-08-15] MEDS: Magnesium Sulfate 4 GM Ivpb 4 GM/50 ML BAG IV (09:17)
[2024-08-15] MEDS: POTASSIUM CHL 10 mEq IVPB 10 MEQ/100 ML BAG 100 MEQ IV ×2 (09:18→11:26)
[2024-08-15] MEDS: DULoxetine HCL 30 MG CAPSULE 60 MG PO (09:18)
[2024-08-15] MEDS: ASPIRIN EC 81 MG TABEC PO (09:19)
[2024-08-15] MEDS: HYDROXYCHLOROQUINE 200 MG TABLET 400 MG PO (09:19)
[2024-08-15] MEDS: TOPIRAMATE 25 MG TABLET PO ×2 (09:19→20:54)
[2024-08-15] MEDS: predniSONE 20 MG TABLET PO ×2 (09:19→20:54)
[2024-08-15] MEDS: METOPROLOL TARTRATE 25 MG TABLET PO ×2 (09:20→20:55)
[2024-08-15] MEDS: ENOXAPARIN SOD INJ 40 MG/0.4 ML SYRINGE SC (09:20)
--- NOTE | 2024-08-15 09:48 | PC.SS ---
Update: Patient is receiving IV medication at current time.
--- NOTE | 2024-08-15 10:23 | ECHO_ITS ---
Transthoracic Echo Report Ht (in): 66 Wt (lb): 142 Exam Location: Echo Lab Status: Inpatient Health Screener: Kellie Euceda Indications: Procedure Performed: BP: 155 / 87 HR: 77 Technical Quality: Technically difficult study MEASUREMENTS (Male / Female) Normal Values 2D ECHO LV Diastolic Diameter PLAX 4.4 cm 4.2 - 5.9 / 3.9 - 5.3 cm LV Systolic Diameter PLAX 3.6 cm IVS Diastolic Thickness 1.1 cm 0.6 - 1.0 / 0.6 - 0.9 cm LVPW Diastolic Thickness 1.1 cm 0.6 - 1.0 / 0.6 - 0.9 cm LV Relative Wall Thickness 0.5 LVOT Diameter 1.5 cm Aortic Root Diameter 2.5 cm LA Volume Index 36.2 cm?/m? 16 - 28 cm?/m? DOPPLER AV Peak Velocity 136.0 cm/s AV Peak Gradient 7.4 mmHg AV Mean Gradient 4.0 mmHg AV Velocity Time Integral 27.9 cm LVOT Peak Velocity 99.0 cm/s LVOT Peak Gradient 3.9 mmHg LVOT Velocity Time Integral 21.4 cm LVOT Cardiac Index 1677.3 cm?/min?m? AV Area Cont Eq vti 1.4 cm? AV Area Cont Eq pk 1.3 cm? MV Area PHT 4.2 cm? MR Peak Velocity 558.7 cm/s MR Peak Gradient 124.8 mmHg Mitral E Point Velocity 105.0 cm/s Mitral A Point Velocity 84.9 cm/s Mitral E to A Ratio 1.2 LV E' Lateral Velocity 6.7 cm/s Mitral E to LV E' Lateral Ratio 15.6 LV E' Septal Velocity 5.4 cm/s Mitral E to LV E' Septal Ratio 19.3 TR Peak Velocity 316.5 cm/s TR Peak Gradient 40.1 mmHg FINDINGS Left Ventricle Normal left ventricular size. Mild LVH.there is grade II diastolic dysfunction of the left ventricle (pseudonormal filling pattern). Global left ventricular systolic function is moderately decreased. The ejection fraction is visually estimated at 35-40%. Right Ventricle The right ventricle is normal in size and systolic function. The estimated right ventricular systolic pressure, 43 mmHg. RAP 15. Left Atrium Mildly increased left atrial volume 36.2 mL/m?. Right Atrium The right atrium is normal by two-dimensional imaging, color flow and Doppler imaging with no structural abnormalities, no thrombus formation present. Atrial Septum The interatrial septum appears normal with no evidence of a shunt. Aorta The aorta is normal by two-dimensional, color flow and Doppler interrogation. Mitral Valve [id number] mitral regurgitation. Aortic Valve The aortic valve is trileaflet and normal by two-dimensional, color flow and Doppler interrogation. There is no significant aortic valve regurgitation. Tricuspid Valve There is mild tricuspid valve regurgitation. Pulmonic Valve The pulmonic valve is not well visualized. There is no significant pulmonic valve regurgitation. Vessels The pulmonary artery appears normal. The inferior vena cava pulmonary and hepatic veins appear normal. Pericardium The pericardium is normal by two-dimensional imaging. There is no significant pericardial effusion. CONCLUSIONS Indication: Afib Normal LV size. Mild LVH.there is grade II diastolic dysfunction. Global LV systolic function is moderately decreased. Estimated EF 35-40%. The RV is normal in size and systolic function. Estimated RVSP moderately elevated, 43 mmHg. RAP 15. Mildly increased LA volume 36.2 mL/m?. [id number] MR. Mild TR. Moderate MAC Mild Aortic valve sclerosis without stenosis. No pericardial effusion. Jeremias Tellez (Electronically Signed) Final Date: 16 Aug 2024 07:13
[2024-08-15 11:07] LABS: Glucose Estimated Average 91 mg/dL (80-131); Hemoglobin A1C 4.8 % Hgb (4.8-6.0)
[2024-08-15 11:25] LABS: Collection Type, Urine Clean Catch
[2024-08-15] MEDS: ONDANSETRON INJ 2 MG/ML INJ 2 ML 4 MG IV (11:26)
[2024-08-15 11:31] LABS: Bilirubin,Urine Negative (Negative); Blood,Urine Negative (Negative); Clarity,Urine Clear (Clear/Hazy); Color,Urine Yellow (Lt Yel-Yel); Glucose, Urine Negative (Negative); Hyaline Casts,Urine < 1 /hpf (0-1); Ketones,Urine Negative (Negative); Leukocyte Esterase,Urine Positive (Negative); Nitrite,Urine Negative (Negative); Protein,Urine 1+ (Neg - Trace); RBC,Urine 1 /hpf (0-3); Specific Gravity,Urine 1.024 (1.001-1.035); Squamous Epithelial Cell,Urine < 1 /hpf (0-5); Urobilinogen,Urine Negative mg/dL (0.0-1.0); WBC,Urine 17 /hpf (0-5)
[2024-08-15] MEDS: SUMAtriptan 25 MG TABLET 100 MG PO (14:55)
--- NOTE | 2024-08-15 17:07 | PC.SS ---
PROTOHISTORIAN conducted bedside contact with the patient conduct initial assessment and to discuss discharge planning.? Patient confirmed demographic information.? Patient resides alone at home.? Patient has access to a private caregiver.? Patient utilizes a walker to assist with ambulation.? Patient does not utilize home oxygen.? Patient reports ability to complete ADL?s independently.? Patient identified daughter, Shanelle Maldonado ; as surrogate medical decision maker.? Patient?s PCP is Dr. Keenan, [facility].? Patient utilizes [facility] for medication services.? Patient identified barrier with optioning medications.? PROTOHISTORIAN will reach out to care integration pharmacist to discuss issue with patient.? Discharge plan is for the patient to return home.? If home health recommended patient receptive to resource.? No preferred agency identified.? Family will provide transportation on behalf of the patient. ?No further discharge needs identified by the patient.? No further intervention required at this time, social media assistant will be available to address any further concerns.? Next of Kin: Shanelle Anthonybrian D/C Plan: Home
--- NOTE | 2024-08-15 17:09 | PC.SS ---
EDUCATIONAL TECHNOLOGY COORDINATOR submitted request for care integration pharmacist to meet with patient in attempt to rectify barrier interfering with patient's ability to access prescribed medication . Patient utilizes [facility] for medication services.
--- NOTE | 2024-08-15 17:35 | PD.IMCONS ---
HPI Data of Consult Requesting Physician: Sahara Overton MD Primary Care Provider: Physician No Primary/Family Consult Narrative Reason for consult: Nausea vomiting, diarrhea weakness History of present illness: 78 years old female evaluated at the request of the ER physician/physician assistant professor in family studies With clinical presentation nausea vomiting and diarrhea for the last 4 days Her daughter brought her to the ER In the emergency room she was found to be hypokalemic hypomagnesemic atrial fibrillation flutter with a heart rate in the 140s received Cardizem as well as 1 dose of metoprolol and admitted to telemetry Patient does have history of Crohn's disease being followed by gastroenterology in [place] , Patient has a history of chronic atrial fibrillation SLE Crohn's disease hyperlipidemia hypertension hypothyroidism and migraine headaches cc:: cc: Sahara Overton MD Review of Systems Review of Systems Systems Reviewed: All systems reviewed, normal except as documented Past Medical History Surgical History OTHER SURGICAL HX: As in the history of present illness Meds Home Medications and Allergies Home Medications ?Medication ?Instructions ?Recorded ?Confirmed ?Type raloxifene 60 mg tablet (Evista) 60 mg PO QDAY OSTEOPOROSIS #0 tabs 01/22/14 08/15/24 History atorvastatin 20 mg tablet (Lipitor) 20 mg PO HS #0 tabs 02/26/17 08/14/24 History duloxetine 60 mg capsule,delayed 60 mg PO QDAY #0 caps 02/26/17 08/14/24 History release (Cymbalta) hydroxychloroquine 200 mg tablet 400 mg PO QDAY #0 tabs 02/26/17 08/15/24 History (Plaquenil) lisinopril 10 mg tablet 10 mg PO QDAY #0 tabs 02/26/17 08/15/24 History metoprolol tartrate 25 mg tablet 25 mg PO BID #0 tabs 02/26/17 08/15/24 History sertraline 100 mg tablet (Zoloft) 200 mg PO HS #0 tabs 02/26/17 08/14/24 History azathioprine 50 mg tablet 50 mg PO QDAY 12/23/17 08/15/24 History mesalamine 1.2 gram tablet,delayed 2.4 g PO QDAY 12/23/17 08/15/24 History release (Lialda) sumatriptan succinate 100 mg tablet 100 mg PO Q2H PRN Migraine Headache 12/23/17 08/15/24 History aspirin 81 mg tablet,delayed 81 mg PO DAILY 04/28/24 08/14/24 History release hydrocodone 7.5 mg-acetaminophen 1 tab PO Q6H PRN PAIN 04/28/24 08/15/24 History 325 mg tablet levothyroxine 175 mcg tablet 175 mcg PO DAILY 04/28/24 08/14/24 History pregabalin 75 mg capsule 75 mg PO BID 05/02/24 08/15/24 History topiramate 25 mg tablet (Topamax) 25 mg PO BID MIGRAINE 08/14/24 08/14/24 History fludrocortisone 0.1 mg tablet 0.1 mg PO BID 08/15/24 08/15/24 History Allergies Allergy/AdvReac Type Severity Reaction Status Date / Time Sulfa (Sulfonamide Allergy Severe FLUSHING, Verified 04/27/24 20:08 Antibiotics) VOMITING meloxicam Allergy Mild RASH Verified 04/27/24 20:08 Exam Vital Signs Temp Pulse Resp BP Pulse Ox O2 Del Method 97.9 F 94 22 H 158/90 H 97 Room Air 08/15/24 16:00 08/15/24 16:00 08/15/24 16:00 08/15/24 16:00 08/15/24 16:00 08/15/24 16:00 Constitutional Comments: Chronically ill-appearing Routine Respiratory Exam Comments: Normal to auscultation Routine Abdominal Exam Comments: Soft nontender Results Labs 08/15/24 04:28 08/15/24 04:28 Labs: Short CBC 08/15/24 Range/Units 04:28 WBC 5.3 (3.6-11.0) Thou/mm3 Hgb 12.3 D (12.0-16.0) g/dL Hct 35.9 L (36.0-46.0) % Plt Count 166 D (140-440) Thou/mm3 BMP 08/14/24 08/15/24 19:49 04:28 Sodium 140 143 Potassium 3.8 D 3.9 Chloride 106 111 H Carbon Dioxide 24.0 25.4 BUN 16 18 Creatinine 1.0 0.8 Glucose 111 H 135 H Calcium 8.9 8.5 Liver Function 08/14/24 08/15/24 Range/Units 19:49 04:28 Total Bilirubin 0.7 0.6 (0.3-1.2) mg/dL Direct Bilirubin 0.2 (0.0-0.3) mg/dL AST 54 H 50 H (0-34) U/L ALT 19 17 (10-49) U/L Alkaline Phosphatase 84 79 (46-116) U/L Albumin 3.9 D 3.7 (3.4-4.8) gm/dL Urine 08/14/24 08/15/24 Range/Units 16:00 11:10 Urine Color Yellow Yellow (Lt Yel-Yel) Urine Clarity Clear Clear (Clear/Hazy) Urine pH 6.5 6.0 (5.0-7.0) Ur Specific [place] 1.016 1.024 (1.001-1.035) Urine Protein 1+ A 1+ A (Neg - Trace) Urine Glucose (UA) Negative Negative (Negative) Assessment and Plan Additional Assessment & Plan Additional Plan: # Nausea vomiting with diarrhea With a CT scan of the abdomen pelvis without contrast showing only colonic diverticulosis It appears that most likely the cause of infectious enterocolitis and not an acute exacerbation of the underlying Crohn's disease which is being followed at gastroenterology group in [place] Suggestions Stool culture and sensitivity Stool ova and parasite Stool Gram stain Giardia antigen Fecal calprotectin Stool C. difficile Will follow the patient Not planning any invasive GI workup at least at the moment Other medical problems include A-fib RVR controlled with metoprolol POTS syndrome Crohn's disease SLE Hyperlipidemia Hypertension Migraine headaches Thank you very much for the opportunity to participate in the care of this patient
[2024-08-15] MEDS: ALPRazoLAM 0.25 MG TABLET 0.5 MG PO (18:08)
[2024-08-15] MEDS: PANTOPRAZOLE INJ 40 MG VIAL IVP (19:38)
[2024-08-15] MEDS: Lisinopril 2.5 MG TABLET 10 MG PO (19:39)
[2024-08-15] MEDS: SERTRALINE HCL 25 MG TABLET 200 MG PO (20:53)
[2024-08-15] MEDS: ACETAMINOPHEN 325 MG TABLET 650 MG PO (20:54)
[2024-08-15] MEDS: ATORVASTATIN CALCIUM 20 MG TABLET PO (20:54)
[2024-08-16] VITALS (11 sets, daily range): BP systolic 108–152; BP diastolic 72–85; PULSE 62–86; RESP 11–98; TEMP 36–36.6; O2SAT 95–98; BMI 24.0; BMI 13.0
[2024-08-16] MEDS: LEVOTHYROXINE SODIUM 25 MCG TABLET 50 MCG PO (05:08)
[2024-08-16] MEDS: LEVOTHYROXINE SODIUM 125 MCG TABLET PO (05:08)
[2024-08-16 05:56] LABS: Basophils % (Auto) 0 % (0-2.5); Eosinophils % (Auto) 0 % (0-10); Hematocrit 33.1 % (36.0-46.0); Hemoglobin 11.1 g/dL (12.0-16.0); Immature Granulocytes % (Auto) 0 % (0-0); Immature Granulocytes Auto 0.01 Thou/mm3 (0.00-0.00); Lymphocytes # (Auto) 0.5 Thou/mm3 (1.0-4.8); Lymphocytes % (Auto) 11 % (10-50); Mean Corpuscular HGB Conc 33.5 g/dl (31.0-37.0); Mean Corpuscular Hemoglobin 30.7 pg (25.0-35.0); Mean Corpuscular Volume 91 fL (80-100); Monocytes # (Auto) 0.2 Thou/mm3 (0.0-0.8); Monocytes % (Auto) 4 % (0-12); Neutrophils # (Auto) 4.1 Thou/mm3 (1.8-7.7); Neutrophils % (Auto) 85 % (37-80); Nucleated Red Blood Cell % 0 /100 WBC (0); Platelet Count 156 Thou/mm3 (140-440); RDW Standard Deviation 49.4 fL (36.4-46.3); Red Blood Count 3.62 Miln/mm3 (4.00-5.20); White Blood Count 4.8 Thou/mm3 (3.6-11.0)
[2024-08-16 06:15] LABS: Anion Gap 8 (7-16); BUN/Creatinine Ratio 19 Ratio (12-20); Blood Urea Nitrogen 15 mg/dL (9-23); C-Reactive Protein < 0.5 mg/dL (0.0-0.9); Calcium 8.5 mg/dL (8.3-10.6); Carbon Dioxide 26.9 mMol/L (20.0-31.0); Chloride 110 mMol/L (98-107); Creatinine (Component) 0.8 mg/dL (0.6-1.3); Estimated Creatinine Clearance 55.1 mL/min (>60); Glucose 121 mg/dL (74-106); Magnesium 2.2 mg/dL (1.6-2.6); Osmolality,Calculated 290 (275-295); Phosphorous 3.6 mg/dL (2.4-5.1); Potassium 4.3 mMol/L (3.4-5.1); Sodium 145 mMol/L (136-145); eGFR > 60 See Note
[2024-08-16 06:18] LABS: Sed Rate (ESR) 3 mm/hr (0-30)
[2024-08-16 08:15] LABS: Stool for WBCs Negative (Negative)
--- NOTE | 2024-08-16 08:48 | PC.SS ---
Update: Dr. Nevarez consulting. Cardiology clearance is pending.
[2024-08-16] MEDS: HYDROXYCHLOROQUINE 200 MG TABLET 400 MG PO (09:15)
[2024-08-16] MEDS: DULoxetine HCL 30 MG CAPSULE 60 MG PO (09:18)
[2024-08-16] MEDS: METOPROLOL TARTRATE 25 MG TABLET PO (09:18)
[2024-08-16] MEDS: Lisinopril 2.5 MG TABLET 10 MG PO (09:18)
[2024-08-16] MEDS: APIXABAN 2.5 MG TABLET 5 MG PO ×2 (09:18→20:42)
[2024-08-16] MEDS: TOPIRAMATE 25 MG TABLET PO ×2 (09:19→20:47)
[2024-08-16] MEDS: ASPIRIN EC 81 MG TABEC PO (09:19)
[2024-08-16] MEDS: predniSONE 20 MG TABLET PO ×2 (09:19→20:42)
[2024-08-16] MEDS: PANTOPRAZOLE INJ 40 MG VIAL IVP (09:20)
[2024-08-16] MEDS: Mesalamine [Lialda] 1.2 gram Tablet,Delayed Release PO (09:20)
[2024-08-16] MEDS: HYDROcodone/APAP 7.5/325 TABLET 1 TAB PO ×2 (09:24→18:40)
[2024-08-16 10:29] LABS: Clostridium Difficile PCR Negative (Negative)
--- NOTE | 2024-08-16 11:20 | PD.RESPRO ---
Documentation for date of: 08/16/24 Subjective Subjective Interval history: Patient was seen and examined at bedside today. She reported that she still has some episodes of diarrhea however she does not have any vomiting. She mentions that it is yellow stool with no blood. She also complaining of headache and right-sided jaw pain seems to be TMJ pain. Patient was given [place] I will continue to monitor. Today her vitals are within normal limits, labs no significant changes. Her stool studies are pending, Dr. Nevarez ordered for the patient ANCA, antiproteinase, antimyeloperoxidase, for pending stool study results to start the patient on Crohn's flare treatment. Echo was done that showed ejection fraction of 35% upon talking to the patient it appears that the patient is unaware of her having heart failure however in review of her medication it seems that she is in goal-directed medical therapy however it is missing spironolactone and SGLT. For that reason we consulted the commercial sales specialist Dr. Ovalles for further recommendations. Exam Vital Signs Temp Pulse Resp BP Pulse Ox O2 Del Method 97.7 F 67 19 137/72 H 95 Room Air 08/16/24 08:00 08/16/24 09:18 08/16/24 08:00 08/16/24 09:18 08/16/24 08:00 08/16/24 08:00 Narrative Exam GEN: AOx3, able to speak full sentences HEENT: NC/AC, PERRLA, oral mucosa moist, neck supple CVS: RRR, S1-S2 present, no murmurs appreciated RESP: CTAB GI: soft,non distended, mild discomfort on examination however no rigidity and no clear tenderness., NBS MSK: able to move all 4 limbs, no lower extremity edema SKIN: warm and dry CONTRACT IMPLEMENTATION ANALYST: CN II-XII and Sensation grossly intact. Objective Labs 08/16/24 05:07 08/16/24 05:07 Labs: Laboratory Results - last 24 hr 08/15/24 08/15/24 08/16/24 11:10 20:40 05:07 WBC 4.8 RBC 3.62 L Hgb 11.1 L Hct 33.1 L MCV 91 MCH 30.7 MCHC 33.5 RDW Std Deviation 49.4 H Plt Count 156 Neut % (Auto) 85 H Lymph % (Auto) 11 [place] % (Auto) 4 Eos % (Auto) 0 Baso % (Auto) 0 Neut # (Auto) 4.1 Lymph # (Auto) 0.5 L [place] # (Auto) 0.2 Eos # (Auto) 0.0 Baso # (Auto) 0.0 Immature Gran # (Auto) 0.01 H Absolute Nucleated RBC 0.00 Immature Gran % 0 Nucleated RBC % 0 ESR 3 Sodium 145 Potassium 4.3 Chloride 110 H Carbon Dioxide 26.9 Anion Gap 8 BUN 15 Creatinine 0.8 Estim Creat Clear Calc 55.1 L eGFR > 60 BUN/Creatinine Ratio 19 Glucose 121 H Calculated Osmolality 290 Calcium 8.5 Phosphorus 3.6 Magnesium 2.2 C-Reactive Prot, Quant < 0.5 Ur Collection Type Clean Catch Urine Color Yellow Urine Clarity Clear Urine pH 6.0 Ur Specific [place] 1.024 Urine Protein 1+ A Urine Glucose (UA) Negative Urine Ketones Negative Urine Blood Negative Urine Nitrite Negative Urine Bilirubin Negative Urine Urobilinogen (Auto) Negative Ur Leukocyte Esterase Positive Urine RBC 1 Urine WBC 17 H Ur Squamous Epith Cells < 1 Urine Bacteria None Hyaline Casts < 1 Stool for White Cells Negative Stl C. diff Tox B Gene Negative Quality Measures Quality Measures VTE prophylaxis Advance care planning discussed with:: patient Assessment & Plan Assessment Current Active Medications: Generic Name Dose Route Start Last Admin Trade Name Freq PRN Reason Stop Dose Admin Acetaminophen 650 mg 08/14/24 20:53 08/15/24 20:54 Acetaminophen 325 Mg Tablet PO 09/13/24 20:52 650 mg Q6H PRN Administration PAIN 1-3 OR FEVER > 101 Hydrocodone Bitart/Acetaminophen 1 tab 08/14/24 21:03 08/16/24 09:24 Hydrocodone/Apap 7.5/325 Tablet PO 08/19/24 21:02 1 tab Q6H PRN Administration PAIN SCALE 4-10(Mod-Sev Apixaban 5 mg 08/16/24 09:00 08/16/24 09:18 Apixaban 2.5 Mg Tablet PO 09/15/24 08:59 5 mg BID ISAAC Administration Aspirin 81 mg 08/15/24 09:00 08/16/24 09:19 Aspirin Ec 81 Mg Tabec PO 09/14/24 08:59 81 mg DAILY ISAAC Administration Atorvastatin Calcium 20 mg 08/15/24 21:00 08/15/24 20:54 Atorvastatin Calcium 20 Mg Tablet PO 09/14/24 20:59 20 mg HS ISAAC Administration Mesalamine [Lialda] 0 ea 08/16/24 09:00 08/16/24 09:20 1.2 Gram Tablet, PO 09/15/24 08:59 2 tablet Delayed Release QDAY ISAAC Administration Duloxetine HCl 60 mg 08/15/24 09:00 08/16/24 09:18 Duloxetine Hcl 30 Mg Capsule PO 09/14/24 08:59 60 mg QDAY ISAAC Administration Hydroxychloroquine Sulfate 400 mg 08/15/24 09:00 08/16/24 09:15 Hydroxychloroquine 200 Mg Tablet PO 08/22/24 08:59 400 mg QDAY ISAAC Administration Levothyroxine Sodium 50 mcg 08/15/24 06:00 08/16/24 05:08 Levothyroxine Sodium 25 Mcg Tablet PO 09/14/24 05:59 50 mcg ACBR ISAAC Administration Levothyroxine Sodium 125 mcg 08/15/24 06:00 08/16/24 05:08 Levothyroxine Sodium 125 Mcg Tablet PO 09/14/24 05:59 125 mcg ACBR ISAAC Administration Lisinopril 10 mg 08/15/24 18:30 08/16/24 09:18 Lisinopril 2.5 Mg Tablet PO 09/14/24 18:29 10 mg QDAY ISAAC Administration Metoprolol Tartrate 25 mg 08/15/24 09:00 08/16/24 09:18 Metoprolol Tartrate 25 Mg Tablet PO 09/14/24 08:59 25 mg BID ISAAC Administration Ondansetron HCl 4 mg 08/14/24 20:53 08/15/24 11:26 Ondansetron Inj 2 Mg/Ml Inj 2 Ml IV 09/13/24 20:52 4 mg Q6H PRN Administration NAUSEA OR VOMITING Protocol Pantoprazole Sodium 40 mg 08/17/24 09:00 Pantoprazole 40 Mg Tablet PO 09/16/24 08:59 QDAY ISAAC Protocol Prednisone 20 mg 08/15/24 09:00 08/16/24 09:19 Prednisone 20 Mg Tablet PO 09/14/24 08:59 20 mg BID ISAAC Administration Sennosides 2 tab 08/14/24 20:53 Senna Tablet PO 09/13/24 20:52 BID PRN CONSTIPATION Protocol Sertraline HCl 200 mg 08/15/24 21:00 08/15/24 20:53 Sertraline Hcl 25 Mg Tablet PO 09/14/24 20:59 200 mg HS ISAAC Administration Protocol Sumatriptan Succinate 100 mg 08/14/24 21:03 08/15/24 14:55 Sumatriptan 25 Mg Tablet PO 09/13/24 21:02 100 mg Q2H PRN Administration Migraine Headache Topiramate 25 mg 08/15/24 09:00 08/16/24 09:19 Topiramate 25 Mg Tablet PO 09/14/24 08:59 25 mg BID ISAAC Administration Plan Patient is a 78-year-old female with a past medical history of POTS , atrial fibrillation/flutter, Crohn's disease, SLE, hyperlipidemia, hypertension, hypothyroidism and migraine who presents to the ER, accompanied by her daughter, complaining of vomiting and diarrhea. Intractable vomiting?resolving Diarrhea?resolving Patient presented with 1 week history of nausea and vomiting along with diarrhea. On exam abdomen nontender to palpation CT scan showed diverticulosis, negative for diverticulitis. DDx: Viral gastroenteritis, Crohn's flare Plan: ? Continue BRRAT diet ?Continue Zofran as needed ?Discontinue IV fluids maintenance as patient is now tolerating oral - Pending stool culture, C. difficile, stool for WBCs, ?Follow-up on the ANCA, antiperoxidase, antimyeloperoxidase ? Gastroenterology, Dr. Nevarez consulted and closely following the case. Appreciate recommendations Atrial fibrillation?paroxysmal HFrEF ejection fraction of 35% Patient diagnosed with A-fib in February at [facility]. Had implantable loop recorder for 1 month which did not show any further episodes, therefore she stated her commercial sales specialist did not start her on anticoagulation. On admission patient was in A-fib with RVR heart rates in 130s from EKG. On telemetry review rhythm fluctuates between sinus and A-fib overnight. Rates in the 80s?90s. K3.9, Mg 1.7. Patient treated with magnesium sulfate 4 g IV x 1 and KCl 20 Mg IV x 1 [id number] [age, sex, HTN, stroke, vascular] and HAS-Bled ; 3 points. Discussed risks versus benefits of anticoagulation with patient and daughter at bedside, she wishes to be started on Eliquis. Echocardiogram was done which showed Mild LVH.there is grade II diastolic dysfunction. Global LV systolic function is moderately decreased. Estimated EF 35-40%. At this time patient does not seem to be fluid overloaded, no JVD, no lower extremity edema, no orthopnea. Patient has multiple episodes of diarrhea for that reason we will not start the patient at this time on diuretics unless recommended by the commercial sales specialist. Plan: ?Consult cardiology for further recommendations ? Continue telemetry every ? Continue patient on lisinopril 10 mg p.o. daily ? Strict in and out ?Cardiac diet ? Consider starting the patient on Lasix as fluid overloaded ? Continue rate control with metoprolol tartrate 25 Mg p.o. twice daily ? Discontinued enoxaparin 40 Mg SC daily ? Started on Eliquis 5 Mg p.o. twice daily from tomorrow as patient already received dose of enoxaparin today ? Continue aspirin 81 Mg p.o. daily for stroke prophylaxis ? Due to has bled of 3, patient is high risk of bleeding. Will consider risk versus benefit of continuing aspirin prior to discharge. History of Crohn's disease History of SLE History of hypothyroidism History of hypertension History of Migraine Currently stable on home medication. Will resume after med rec. Plan: ? Continue mesalamine 2.4 g p.o. daily ? Continue prednisone 20 Mg p.o. twice daily - Continue sumatriptan 100 Mg p.o. every 2 hourly as needed ? Continue levothyroxine 137 mcg p.o. AC BR ? To consider restarting fludrocortisone tomorrow ? Awaiting GI recommendations prior to restarting azathioprine ? Resumed home medication lisinopril 10 Mg p.o. daily Osteoporosis Patient on raloxifene at home. She states that her last DEXA scan however has been many years ago [greater than 2 years] Patient stated that 2 days ago she developed left jaw pain which has now subsided. Will consider x-ray of the jaw if symptoms return. Plan: ? Home medication, raloxifene on hold for now Health maintenance: Disposition: Pending stool cultures, C. difficile. GI consult Diet: BRRAT Lines: pIVs GI Prophylaxis: Pantoprazole Thrombo Prophylaxis: Apixaban Code status: FULL CODE - Patient's plan and care discussed with my attending, Dr. Silke Acosta MD Internal Medicine PGY-2 Disclaimer: This note was dictated by speech recognition. Minor errors in card room manager may be present due to voice recognition software. Attending Provider Attestation/Addendum I have discussed and was present for the essential components of the history, physical examination, diagnosis, and treatment plan with the resident. I agree with the patient's care as documented by the resident and amended herein by me. Bhaskar Edouard DO. Patient seen and evaluated this AM. No acute events overnight, patient is still had several episodes of diarrhea however her vital signs of remained stable., CBC largely unremarkable, BMP okay. Patient did have an echocardiogram performed on 08/15 which demonstrated normal LV size, mild LVH, grade 2 diastolic dysfunction, moderate global LV systolic dysfunction and an estimated EF of 35 to 40%. RVSP 43, right atrial pressure 15. The patient had no idea if she had heart failure, she follows with her primary doctor and stated she followed with a commercial sales specialist in the past done at [address] however this was new information for her. She is on metoprolol tartrate and BAILEY at home. Cardiology has been consulted for further recommendations considering heart failure is in setting of atrial fibrillation. The patient has been started on Eliquis 5 mg p.o. twice daily considering high chads Vasc. Gastroenterology also consulted for the patient's nausea vomiting and diarrhea, patient scheduled for EGD later today. Will continue to monitor closely while she is here. Although this document has been carefully reviewed, there may still be some phonetic and other typographical errors. These errors are purely grammatical due to imperfections in the software program and should not be construed in any way to compromise the substance of the patient's medical care during this visit.
--- NOTE | 2024-08-16 11:31 | PC.CC ---
Addendum entered and electronically signed by Soumya Eubanks [facility] 08/16/24 14:54: Met w/ patient at bedside. She reports she is having difficulty obtaining [place], which she uses for dorsalgia and migraine. She has [employer] insurance and is restricted to their providers and pharmacies. There are several barriers including medication availability, poor communication with the pharmacy and distance/transportation. She also has difficulty obtaining pregabalin for similar reasons. Cautioned patient that problematic [place] availability is a persistent issue and is widespread. Recommended patient confirm that her prescription is ready to be picked up before leaving home, as well as requesting her fills of [place] and pregabalin to be synced. Also provided possible alternatives to [place] including APAP/codeine, Percocet and Oxy IR that she may discuss with her provider. Upon discussion with patient, made aware Eliquis was initiated for AFib. Provided Eliquis Free Trial card to patient in anticipation of Rx at discharge. Original Note: Request from CLARITA Wiseman, to s/w patient RE medication she has been unable to obtain. Attempted to see patient, however, she was asleep. Will follow-up.
--- NOTE | 2024-08-16 14:28 | PC.SS ---
Update: GI recommendations are pending.
--- NOTE | 2024-08-16 18:15 | PD.RESCONSUL ---
HPI Data of Consult Requesting Physician: Nicola Edouard DO Admitting Provider: Alvarez Soriano MD Attending Provider: Nicola Edouard DO Primary Care Provider: Physician No Primary/Family Consult Narrative History of present illness: 78-year-old female with PMHx of A-fib/flutter, HLD, HTN, hypothyroidism, SLE, Crohn's disease, POTS syndrome, and migraines presenting to the ER with a chief complaint of vomiting and diarrhea. Reports few days of generalized weakness, inability food down secondary to nausea and vomiting. She has [place] [facility] in [facility], currently in the process of switching insurances, has been unable to fill her medications. She has a GI doctor in [place] which she follows regularly, currently trying to switch to a provider in [place]. In addition, she complained of severe headache, and she has a history of migraine, headache is consistent with her migraine episodes, same intensity and characteristic. Denied fever, chills, visual changes, dizziness, lightheadedness, LOC, syncope or presyncope, fall or trauma, chest pain, palpitation, shortness of breath, cough, abdominal pain, dysuria, hematuria or changes in urinary frequency or urgency. On presentation, Tmax 100.1, BP 155/86, HR 95, satting 99% on room air. CHEM panel significant for potassium 2.6, CR 1.1 (baseline 0.8), BUN 19, GLUCOSE 123, AST 57, ALT 21, BNP 550. Magnesium was 1.8. Abdominal CT showed colonic diverticulosis, no diverticulitis, no renal or ureteral calculi, no hydronephrosis, normal appendix. EKG showed atrial fibrillation with RVR, heart rate 131,, possible LVH, ST deviation and moderate T wave abnormalities suggesting possible lateral ischemia. She remained hemodynamically stable, without complaints of chest pain or shortness of breath or palpitations. Echo was done showing EF 35-40%, normal LV size, mild LVH, grade 2 diastolic dysfunction, global LV systolic function moderately decreased, normal RV size and function, estimated RVSP moderately elevated at 43 mmHg, RAP 15, mildly increased LA volume of 36.2, moderate to mild MR, mild TR, moderate MAC, mild aortic sclerosis without stenosis, no pericardial effusion. She follows up with cardiology at [place] however unaware of having heart failure. Past medical history: POTS, A-fib/flutter, Crohn's disease, SLE, hyperlipidemia, hypertension and hypothyroidism and migraine. Past surgical history: B/L knee replacement, Left breast lumpectomy 40 years ago. 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 Denies smoking or drinking. She was admitted for management of intractable vomiting and diarrhea, GI team is following. Cardiology was consulted for atrial fibrillation and heart failure management. Currently she is not showing any signs of CHF exacerbation, no lower extremity edema, on room air satting well, no lung crackles bilaterally. Although BNP is elevated, echo showing EF 35-40%, finding suggestive of acute CHF in settings of A-fib. Denies symptoms of shortness of breath, orthopnea, or lower extremity swelling. Will continue with ELIQUIS based on her [id number] being high, continue METOPROLOL SUCCINATE 50 mg daily, discontinued LISINOPRIL. Will initiate ENTRESTO to start 36 hours after stopping LISINOPRIL. No indication for diuresis at this time given euvolemic status. Will need complete GDMT optimization. cc:: cc: Nicola Edouard, DO Review of Systems Review of Systems Narrative Review of Systems: 12 point system review negative except for above mentioned. Exam Vital Signs Temp Pulse Resp BP Pulse Ox O2 Del Method 97.8 F 67 17 140/73 H 97 Room Air 08/16/24 16:00 08/16/24 16:00 08/16/24 16:00 08/16/24 16:00 08/16/24 16:00 08/16/24 16:00 Narrative Exam GENERAL Normal appearing elderly female, NAD, on room air, satting well HEENT NCAT.?HAILEY. Oral mucosa is moist. Patent Nares NECK Supple, nontender, no thyromegaly, no meningismus, no JVD, no step offs CHEST RRR, 3/6 aortic and mitral systolic murmur, no gallops or rubs. CTAB, no w/r/r. Symmetrical chest rise. No intercostal subcostal retraction Atraumatic, nontender, no crepitus, symmetrical expansion. ABDOMEN Soft, flat, nontender. No guarding/rebound tenderness/masses. Bowel sounds presents EXTREMITIES No edema/cyanosis.? SKIN Warm and dry, no jaundice/rashes. NEUROMUSCULAR No lumbar or midline, no CVA, no paraspinal muscle spasm or tenderness. Moves all 4 extremities well, with full ROM and good CSM. PEREZ x4, CN II-XII grossly intact. No focal neurologic deficits. PSYCHIATRY Normal mood and affect, cooperative, no SI or HI or hallucinations. Results Labs 08/16/24 05:07 08/16/24 05:07 Labs: Short CBC 08/16/24 Range/Units 05:07 WBC 4.8 (3.6-11.0) Thou/mm3 Hgb 11.1 L (12.0-16.0) g/dL Hct 33.1 L (36.0-46.0) % Plt Count 156 (140-440) Thou/mm3 BMP 08/16/24 05:07 Sodium 145 Potassium 4.3 Chloride 110 H Carbon Dioxide 26.9 BUN 15 Creatinine 0.8 Glucose 121 H Calcium 8.5 Quality Measures Quality Measures VTE prophylaxis Advance care planning discussed with:: patient Medications Home Medications and Allergies Home Medications ?Medication ?Instructions ?Recorded ?Confirmed ?Type raloxifene 60 mg tablet (Evista) 60 mg PO QDAY OSTEOPOROSIS #0 tabs 01/22/14 08/15/24 History atorvastatin 20 mg tablet (Lipitor) 20 mg PO HS #0 tabs 02/26/17 08/14/24 History duloxetine 60 mg capsule,delayed 60 mg PO QDAY #0 caps 02/26/17 08/14/24 History release (Cymbalta) hydroxychloroquine 200 mg tablet 400 mg PO QDAY #0 tabs 02/26/17 08/15/24 History (Plaquenil) lisinopril 10 mg tablet 10 mg PO QDAY #0 tabs 02/26/17 08/15/24 History metoprolol tartrate 25 mg tablet 25 mg PO BID #0 tabs 02/26/17 08/15/24 History sertraline 100 mg tablet (Zoloft) 200 mg PO HS #0 tabs 02/26/17 08/14/24 History azathioprine 50 mg tablet 50 mg PO QDAY 12/23/17 08/15/24 History mesalamine 1.2 gram tablet,delayed 2.4 g PO QDAY 12/23/17 08/15/24 History release (Lialda) sumatriptan succinate 100 mg tablet 100 mg PO Q2H PRN Migraine Headache 12/23/17 08/15/24 History aspirin 81 mg tablet,delayed 81 mg PO DAILY 04/28/24 08/14/24 History release hydrocodone 7.5 mg-acetaminophen 1 tab PO Q6H PRN PAIN 04/28/24 08/15/24 History 325 mg tablet levothyroxine 175 mcg tablet 175 mcg PO DAILY 04/28/24 08/14/24 History pregabalin 75 mg capsule 75 mg PO BID 05/02/24 08/15/24 History topiramate 25 mg tablet (Topamax) 25 mg PO BID MIGRAINE 08/14/24 08/14/24 History fludrocortisone 0.1 mg tablet 0.1 mg PO BID 08/15/24 08/15/24 History Allergies Allergy/AdvReac Type Severity Reaction Status Date / Time Sulfa (Sulfonamide Allergy Severe FLUSHING, Verified 04/27/24 20:08 Antibiotics) VOMITING meloxicam Allergy Mild RASH Verified 04/27/24 20:08 Visit Medications Acetaminophen (Acetaminophen 325 Mg Tablet) 650 mg PO Q6H PRN PRN Reason: PAIN 1-3 OR FEVER > 101 Stop: 09/13/24 20:52 Last Admin: 08/15/24 20:54 Dose: 650 mg Hydrocodone Bitart/Acetaminophen (Hydrocodone/Apap 7.5/325 Tablet) 1 tab PO Q6H PRN PRN Reason: PAIN SCALE 4-10(Mod-Sev Stop: 08/19/24 21:02 Last Admin: 08/16/24 09:24 Dose: 1 tab Apixaban (Apixaban 2.5 Mg Tablet) 5 mg PO BID ISACA Stop: 09/15/24 08:59 Last Admin: 08/16/24 09:18 Dose: 5 mg Aspirin (Aspirin Ec 81 Mg Tabec) 81 mg PO DAILY ISAAC Stop: 09/14/24 08:59 Last Admin: 08/16/24 09:19 Dose: 81 mg Atorvastatin Calcium (Atorvastatin Calcium 20 Mg Tablet) 20 mg PO HS ISAAC Stop: 09/14/24 20:59 Last Admin: 08/15/24 20:54 Dose: 20 mg Mesalamine [Lialda] 1.2 Gram Tablet, Delayed Release 0 ea PO QDAY ISAAC Stop: 09/15/24 08:59 Last Admin: 08/16/24 09:20 Dose: 2 tablet Duloxetine HCl (Duloxetine Hcl 30 Mg Capsule) 60 mg PO QDAY [facility] Stop: 09/14/24 08:59 Last Admin: 08/16/24 09:18 Dose: 60 mg Hydroxychloroquine Sulfate (Hydroxychloroquine 200 Mg Tablet) 400 mg PO QDAY [facility] Stop: 08/22/24 08:59 Last Admin: 08/16/24 09:15 Dose: 400 mg Levothyroxine Sodium (Levothyroxine Sodium 25 Mcg Tablet) [facility]cg [facility] Stop: 09/14/24 05:59 Last Admin: 08/16/24 05:08 Dose: 50 mcg Levothyroxine Sodium (Levothyroxine Sodium 125 Mcg Tablet) 125 mcg PO [facility] Stop: 09/14/24 05:59 Last Admin: 08/16/24 05:08 Dose: 125 mcg Metoprolol Succinate (Metoprolol Succinate Xl 25 Mg Tabcr) 50 mg PO [facility] Stop: 09/15/24 20:59 Ondansetron HCl (Ondansetron Inj 2 Mg/Ml Inj 2 Ml) 4 mg IV Q6H PRN; Protocol PRN Reason: NAUSEA OR VOMITING Stop: 09/13/24 20:52 Last Admin: 08/15/24 11:26 Dose: 4 mg Pantoprazole Sodium (Pantoprazole 40 Mg Tablet) 40 mg PO QDAY [facility]; Protocol Stop: 09/16/24 08:59 Prednisone (Prednisone 20 Mg Tablet) 20 mg PO BID [facility] Stop: 09/14/24 08:59 Last Admin: 08/16/24 09:19 Dose: 20 mg Sacubitril/Valsartan (Sacubitril 24 Mg/Valsartan 26 Mg Tablet) 1 tab PO BID [facility] Stop: 09/16/24 20:59 Sennosides (Senna Tablet) 2 tab PO BID PRN; Protocol PRN Reason: CONSTIPATION Stop: 09/13/24 20:52 Sertraline HCl (Sertraline Hcl 25 Mg Tablet) 200 mg PO [facility]; Protocol Stop: 09/14/24 20:59 Last Admin: 08/15/24 20:53 Dose: 200 mg Sumatriptan Succinate (Sumatriptan 25 Mg Tablet) 100 mg PO Q2H PRN PRN Reason: Migraine Headache Stop: 09/13/24 21:02 Last Admin: 08/15/24 14:55 Dose: 100 mg Topiramate (Topiramate 25 Mg Tablet) 25 mg PO BID ISAAC Stop: 09/14/24 08:59 Last Admin: 08/16/24 09:19 Dose: 25 mg Discontinued Medications Alprazolam (Alprazolam 0.25 Mg Tablet) 0.5 mg PO X1 ONE Stop: 08/15/24 17:28 Last Admin: 08/15/24 18:08 Dose: 0.5 mg Diltiazem HCl (Diltiazem Inj 5 Mg/Ml Vial 5 Ml) 20 mg IV X1 ONE Stop: 08/14/24 18:21 Last Admin: 08/14/24 18:40 Dose: 20 mg Diltiazem HCl (Diltiazem Inj 5 Mg/Ml Vial 5 Ml) 15 mg IV X1 ONE Stop: 08/14/24 20:34 Last Admin: 08/14/24 21:09 Dose: 15 mg Enoxaparin Sodium (Enoxaparin Sod Inj 40 Mg/0.4 Ml Syringe) 40 mg SC QDAY ISAAC Stop: 08/29/24 08:59 Last Admin: 08/15/24 09:20 Dose: 40 mg Hydralazine HCl (Hydralazine Inj 20 Mg/Ml Vial) 10 mg IV X1 ONE Stop: 08/14/24 14:47 Last Admin: 08/14/24 17:09 Dose: Not Given Hydrocortisone Sodium Succinate (Hydrocortisone Sod Succ Inj 100 Mg Vial) 100 mg IV X1 ONE Stop: 08/14/24 21:16 Last Admin: 08/14/24 21:49 Dose: 100 mg Sodium Chloride (Ns) 1,000 mls @ 999 mls/hr IV .Q1H1M ONE Stop: 08/14/24 13:36 Last Infusion: 08/14/24 14:54 Dose: Infused Potassium Chloride (Kcl Ivpb) 10 meq in 100 mls @ 100 mls/hr IV Q1H ISAAC Stop: 08/14/24 18:11 Last Infusion: 08/14/24 21:15 Dose: Infused Sodium Chloride (Ns) 1,000 mls @ 40 mls/hr IV .Q24H ONE Stop: 08/15/24 14:23 Last Admin: 08/14/24 14:49 Dose: 40 mls/hr Sodium Chloride (Ns) 1,000 mls @ 75 mls/hr IV .[id number] ONE Stop: 08/15/24 03:43 Last Admin: 08/15/24 04:46 Dose: 75 mls/hr Magnesium Sulfate (Magnesium Sulfate Ivpb) 4 gm in 50 mls @ 12.5 mls/hr IV X1 ONE Stop: 08/15/24 11:44 Last Admin: 08/15/24 09:17 Dose: 12.5 mls/hr Potassium Chloride (Kcl Ivpb) 10 meq in 100 mls @ 100 mls/hr IV Q1H ISAAC Stop: 08/15/24 10:03 Last Admin: 08/15/24 11:26 Dose: 100 mls/hr Lisinopril (Lisinopril 2.5 Mg Tablet) 10 mg PO QDAY ISAAC Stop: 09/14/24 18:29 Last Admin: 08/16/24 09:18 Dose: 10 mg Lorazepam (Lorazepam 2 Mg/Ml Vial) 1 mg IVP X1 ONE Stop: 08/14/24 13:22 Last Admin: 08/14/24 13:29 Dose: 1 mg Lorazepam (Lorazepam 2 Mg/Ml Vial) 1 mg IVP X1 ONE Stop: 08/14/24 19:08 Last Admin: 08/14/24 19:22 Dose: 1 mg Metoprolol Tartrate (Metoprolol Tartrate 25 Mg Tablet) 25 mg PO X1 ONE Stop: 08/14/24 20:34 Last Admin: 08/14/24 21:09 Dose: 25 mg Metoprolol Tartrate (Metoprolol Tartrate 25 Mg Tablet) 25 mg PO BID ISAAC Stop: 09/14/24 08:59 Last Admin: 08/16/24 09:18 Dose: 25 mg Ondansetron HCl (Ondansetron Inj 2 Mg/Ml Inj 2 Ml) 4 mg IV X1 ONE; Protocol Stop: 08/14/24 12:37 Last Admin: 08/14/24 13:31 Dose: 4 mg Pantoprazole Sodium (Pantoprazole Inj 40 Mg Vial) 40 mg IVP X1 ONE Stop: 08/14/24 12:37 Last Admin: 08/14/24 13:32 Dose: 40 mg Pantoprazole Sodium (Pantoprazole Inj 40 Mg Vial) 40 mg IVP QDAY ISAAC Stop: 09/14/24 18:44 Last Admin: 08/16/24 09:20 Dose: 40 mg Mesalamine [Lialda] 1.2 Gram Tablet, Delayed Release 2 ea PO QDAY ISAAC Stop: 09/14/24 08:59 Last Admin: 08/15/24 09:24 Dose: Not Given Potassium Chloride (Potassium Chloride 10% 20 Meq/15 Ml Udc) 40 meq GT X1 ONE Stop: 08/14/24 14:12 Last Admin: 08/14/24 14:20 Dose: Not Given Potassium Chloride (Potassium Chloride 10% 20 Meq/15 Ml Udc) 20 meq PO X1 ONE Stop: 08/14/24 14:17 Last Admin: 08/14/24 14:20 Dose: Not Given Potassium Chloride (Potassium Chloride 10% 20 Meq/15 Ml Udc) 40 meq PO X1 ONE Stop: 08/14/24 14:20 Last Admin: 08/14/24 14:46 Dose: 40 meq Assessment & Plan Plan 78-year-old female with PMHx of A-fib/flutter, HLD, HTN, hypothyroidism, SLE, Crohn's disease, POTS syndrome, and migraines presenting to the ER with a chief complaint of vomiting and diarrhea, admitted for workup, GI team is following. Cardiology was consulted for management of acute CHF in settings of A-fib with RVR. A-fib with RVR Likely paroxysmal A-fib EKG showed atrial fibrillation with RVR, heart rate 131,, possible LVH, ST deviation and moderate T wave abnormalities suggesting possible lateral ischemia. Heart rate controlled after DILTIAZEM pushes. She is on home METOPROLOL, tartrate 25 BID, not anticoagulated.. Currently rate controlled. [id number] high 4.0, HASBLED 1 low. Cholesterol 165, LDL 91, HDL 63, TG 53. TSH 4.52, A1c 4.8. ? Continue METOPROLOL 50 mg XL daily ? Continue ELIQUIS ? Continue home ASPIRIN 81 mg daily ? Maintain K > 4.0 and Mg > 2.0 HFrEF, EF 35-40% No previous echo on file. Unaware of having history of CHF. Not on home DIURETICS. Denies symptoms of SOB, orthopnea, or lower extremity swelling. No findings of volume overload on exam. Lab findings suggestive of low volume status given borderline elevated sodium and chloride, along with history of vomiting and poor oral intake. Echo showed EF 35-40%, detailed exam as above. BMP 550 and chronically elevated, BNP 458 from 04/27/2024. Most likely she has new onset CHF in settings of A-fib with RVR. ? Will need GDMT on or after discharge. ? Will need repeat echo in 3 months to reevaluate heart function. ? No indication for diuresis at this time, asymptomatic, without signs of fluid overload. ? Discontinued home LISINOPRIL ? Will initiate ENTRESTO daily, scheduled to start 36 hours after stopping LISINOPRIL. ? Will continue with METOPROLOL XL as above ? Recommending maintaining euglycemic state Vomiting Diarrhea History of POTS History of Crohn's disease Hypokalemia Hypomagnesemia History of Crohn's disease History of SLE History of hypothyroidism History of hypertension History of Migraine Management of rest of the medical conditions as per primary team and other consultants. Thank you for the consult and allowing me to participate in the care of the patient. Cardiology will continue to follow. Case was discussed with attending, Dr. Tellez. Naila Anglin DO PGYI
--- NOTE | 2024-08-16 19:31 | ESPR_ITS ---
Documentation for date of: 08/16/24 Subjective Subjective Interval history: No nausea vomiting Diarrhea has improved A lot of other issues at this patient Exam Vital Signs Temp Pulse Resp BP Pulse Ox O2 Del Method 97.8 F 67 17 140/73 H 97 Room Air 08/16/24 16:00 08/16/24 16:00 08/16/24 16:00 08/16/24 16:00 08/16/24 16:00 08/16/24 16:00 Objective Labs 08/16/24 05:07 08/16/24 05:07 Labs: Laboratory Results - last 24 hr 08/15/24 08/16/24 20:40 05:07 WBC 4.8 RBC 3.62 L Hgb 11.1 L Hct 33.1 L MCV 91 MCH 30.7 MCHC 33.5 RDW Std Deviation 49.4 H Plt Count 156 Neut % (Auto) 85 H Lymph % (Auto) 11 [place] % (Auto) 4 Eos % (Auto) 0 Baso % (Auto) 0 Neut # (Auto) 4.1 Lymph # (Auto) 0.5 L [place] # (Auto) 0.2 Eos # (Auto) 0.0 Baso # (Auto) 0.0 Immature Gran # (Auto) 0.01 H Absolute Nucleated RBC 0.00 Immature Gran % 0 Nucleated RBC % 0 ESR 3 Sodium 145 Potassium 4.3 Chloride 110 H Carbon Dioxide 26.9 Anion Gap 8 BUN 15 Creatinine 0.8 Estim Creat Clear Calc 55.1 L eGFR > 60 BUN/Creatinine Ratio 19 Glucose 121 H Calculated Osmolality 290 Calcium 8.5 Phosphorus 3.6 Magnesium 2.2 C-Reactive Prot, Quant < 0.5 Stool for White Cells Negative Stl C. diff Tox B Gene Negative Impressions Impression: Nausea vomiting resolved Diarrhea in the setting of Crohn's disease improved Lab workup pending Will continue to monitor Assessment & Plan A&P Narrative # Nausea vomiting with diarrhea With a CT scan of the abdomen pelvis without contrast showing only colonic diverticulosis It appears that most likely the cause of infectious enterocolitis and not an acute exacerbation of the underlying Crohn's disease which is being followed at gastroenterology group in [facility] Stool culture and sensitivity Stool ova and parasite Stool Gram stain Giardia antigen Fecal calprotectin Stool C. difficile Will follow the patient Not planning any invasive GI workup at least at the moment Other medical problems include A-fib RVR controlled with metoprolol POTS syndrome Crohn's disease SLE Hyperlipidemia Hypertension Migraine headaches Thank you very much for the opportunity to participate in the care of this patient Time Spent With Patient Time: Total time spent is greater than 50% in coordination of care (as documented) at patient's floor/unit and/or counseling patient:
[2024-08-16] MEDS: ATORVASTATIN CALCIUM 20 MG TABLET PO (20:42)
[2024-08-16] MEDS: SERTRALINE HCL 25 MG TABLET 200 MG PO (20:43)
[2024-08-16] MEDS: METOPROLOL SUCCINATE XL 25 MG TABCR 50 MG PO (20:45)
[2024-08-17] VITALS (10 sets, daily range): BP systolic 121–144; BP diastolic 47–76; PULSE 63–89; RESP 16–98; TEMP 36.1–36.8; O2SAT 97–99; BMI 23.6
[2024-08-17] MEDS: HYDROcodone/APAP 7.5/325 TABLET 1 TAB PO ×3 (00:24→20:36)
[2024-08-17 05:55] LABS: Basophils % (Auto) 0 % (0-2.5); Eosinophils % (Auto) 0 % (0-10); Hematocrit 35.5 % (36.0-46.0); Immature Granulocytes % (Auto) 1 % (0-0); Immature Granulocytes Auto 0.05 Thou/mm3 (0.00-0.00); Lymphocytes # (Auto) 0.5 Thou/mm3 (1.0-4.8); Lymphocytes % (Auto) 9 % (10-50); Mean Corpuscular HGB Conc 33.8 g/dl (31.0-37.0); Mean Corpuscular Hemoglobin 31.3 pg (25.0-35.0); Mean Corpuscular Volume 92 fL (80-100); Monocytes # (Auto) 0.2 Thou/mm3 (0.0-0.8); Monocytes % (Auto) 4 % (0-12); Neutrophils # (Auto) 4.8 Thou/mm3 (1.8-7.7); Neutrophils % (Auto) 86 % (37-80); Nucleated Red Blood Cell % 0 /100 WBC (0); Platelet Count 165 Thou/mm3 (140-440); RDW Standard Deviation 49.1 fL (36.4-46.3); Red Blood Count 3.84 Miln/mm3 (4.00-5.20); White Blood Count 5.6 Thou/mm3 (3.6-11.0)
[2024-08-17] MEDS: LEVOTHYROXINE SODIUM 25 MCG TABLET 50 MCG PO (05:58)
[2024-08-17] MEDS: LEVOTHYROXINE SODIUM 125 MCG TABLET PO (05:58)
[2024-08-17 06:12] LABS: Anion Gap 10 (7-16); BUN/Creatinine Ratio 16 Ratio (12-20); Blood Urea Nitrogen 13 mg/dL (9-23); Carbon Dioxide 25.7 mMol/L (20.0-31.0); Chloride 106 mMol/L (98-107); Creatinine (Component) 0.8 mg/dL (0.6-1.3); Estimated Creatinine Clearance 55.1 mL/min (>60); Glucose 125 mg/dL (74-106); Osmolality,Calculated 284 (275-295); Phosphorous 3.7 mg/dL (2.4-5.1); Potassium 4.4 mMol/L (3.4-5.1); Sodium 142 mMol/L (136-145); eGFR > 60 See Note
[2024-08-17] MEDS: PANTOPRAZOLE 40 MG TABLET PO (08:13)
[2024-08-17] MEDS: DULoxetine HCL 30 MG CAPSULE 60 MG PO (08:14)
[2024-08-17] MEDS: predniSONE 20 MG TABLET PO ×2 (08:14→20:34)
[2024-08-17] MEDS: TOPIRAMATE 25 MG TABLET PO ×2 (08:14→20:33)
[2024-08-17] MEDS: APIXABAN 2.5 MG TABLET 5 MG PO ×2 (08:16→20:34)
[2024-08-17] MEDS: HYDROXYCHLOROQUINE 200 MG TABLET 400 MG PO (08:16)
[2024-08-17] MEDS: Mesalamine [Lialda] 1.2 gram Tablet,Delayed Release PO (08:17)
[2024-08-17] MEDS: PREGABALIN 75 MG CAPSULE PO ×2 (09:32→20:34)
[2024-08-17] MEDS: FLUDROCORTISONE ACETATE 0.1 MG TABLET PO ×2 (09:32→20:33)
[2024-08-17] MEDS: azaTHIOprine 50 MG TABLET PO (09:32)
--- NOTE | 2024-08-17 11:37 | PC.SS ---
Addendum entered by CLARITA Young 08/17/24 15:53: SS follow up: patient d/c was cancelled. Per patient, her daughter Shanelle currently at hospital in [place] and patient informs she will be unable to get into her home today as her daughter has her home keys. Bed side nurse and medical team updated. Original Note: SS follow up: met with patient at bed side to confirm the d/c plan home. Patient agreeable with home health service. No preferred agency. Patient provided with community resource handout and pharmacy free trial provided with pharmacist. Patient was receptive to the information and resources. Patient is aware she is a possible discharge for today and informs her daughter, Shanelle will transport home at time of discharge as her daughter has her home keys.
[2024-08-17] MEDS: ONDANSETRON INJ 2 MG/ML INJ 2 ML 4 MG IV (12:15)
--- NOTE | 2024-08-17 14:19 | PD.RESDS ---
Planned Discharge Date 08/17/24 DS: Providers Provider Date of admission: 08/14/24 20:53 Primary care physician: Physician No Primary/Family Admitting Provider: Alvarez Soriano MD Attending Provider on Admission: Nicola Edouard DO Consults: 08/15/24 10:23 Consult to Gastroenterology Routine Comment: crohns Consulting Provider: Maldonado Nevarez 08/15/24 18:37 Health Equity Referral - Utilities Routine Comment: Positive screening for utility assistance needs. 08/16/24 12:02 Referral Physical Therapy Routine Comment: Physician Instructions: 08/16/24 12:28 Consult to Cardiology Stat Comment: EF of 35% this admission Consulting Provider: Jeremias Tellez Attending Provider on DC: Nicola Edouard DO Discharging Provider: Teo Wilhelm MD Hospital Course Hospital Course Hospital course: No nausea vomiting Diarrhea has improved A lot of other issues at this patient Time Spent with Patient Time attestation: Total time spent providing and/or coordinating discharge services: Home Health Home Health Referral Orders: 08/15/24 20:02 Home Health Referral Routine Reason For Exam: debility Home-Bound The patient must either because of illness or injury, need the aid of supportive devices such as crutches, canes, wheelchairs, and walkers; the use of special transportation; or the assistance of another person in order to leave their place of residence; OR have a condition such that leaving his or her home is medically contraindicated. In addition, the patient also meets the following criteria: patient is normally unable to leave the home and leaving home requires considerable taxing effort. Addendum to Home Health Certification Practitioner's Certification: I certify that the patient has been under my care in the hospital and the care of attending physician (see below). We had a [id number] encounter on (see date below). My clinical findings indicate that the patient is home bound per the above criteria and the Home Health Services noted in these orders are medically necessary. The primary reason for the [id number] encounter is related to the fact that the patient requires home health services. Date Certifying Srfu-lu-Gitu Physician Encounter: 08/14/24 Physician's Name who will Assume Oversight for HH Services: Zhang Keenan Physician's Phone No.who will Assume Oversight Service: ALHAJI PLODDING OPERATOR - Community Resources: No PT to Evaluate: No PT to evaluate and provide a treatmnet plan to increase patient's mobility and strength. Wound Care: No IV Therapy: No Discontinue PICC Line Once Treatment Complete: No RN Safety Evaluation: Yes RN to evaluate and create a plan of care that will produce positive outcomes. Palliative Treatment: No Palliative treatment and evaluate the need for hospice. Home Health Aide - Personal Care: No Home Health Aide to assist with any ADL's. Exam Vital Signs Temp Pulse Resp BP Pulse Ox O2 Del Method 97.0 F 71 19 144/73 H 99 Room Air 08/17/24 12:00 08/17/24 12:00 08/17/24 12:00 08/17/24 12:08/17/24 12:00 08/17/24 12:00 Discharge Plan Plan Patient Disposition: Home w/HOME HEALTH Patient condition on transfer: Stable and Benefits outweigh risks Care Plan Goals: ? You have been started on a medication Eliquis to prevent strokes from your atrial fibrillation. Take 1 tablet twice a day. ? Monitor for any signs of bleeding including bleeding gums, blood in the urine and stool and bruising over your body. If you experience any of these immediately call your PCP for further steps. ? We have discontinued your medication lisinopril. If you have any extra close at home please discard. ? We have stopped your medication metoprolol tartrate. ? We have put a hold on new medication raloxifene until you see your primary care doctor. If you still experience left jaw pain, present to the emergency department or urgent care for an x-ray. ? You have been started on a medication Entresto. Take the first dose tonight and 1 tablet twice a day from tomorrow. ? Open started on a medication metoprolol succinate. Take 2 tablets once a day at night. ? You have been started on medication pantoprazole for nausea/acid reflux. Take 1 tablet once a day. ? Continue the rest of your home medication as before. ? You will have to restrict your daily liquid intake to 1.5 Litres / 50 ounces per day. This includes water, teas, coffees and soups. ? You will have to follow a low salt diet for the rest of your life. This means no [place] food or fast food. ? You will have to take your weight daily. If your weight increases by more than3-5 pounds in 1-2 days, take an extra water pill that day. ? You will have to measure your blood pressure daily. If the top number is less than 100, do not take your blood pressure medications that day. ? Keep a log of your blood pressures to take to your primary doctor and project control manager. - Follow up with your project control manager or project control manager, Dr. Tellez outpatient. His office number is [phone]. Please see a project control manager within 1-2 weeks of discharge - Follow up with your primary care physician within 1 week of discharge. If you do not have a primary care physician, please follow up with the [facility] clinic ([phone]) ? If you experience any new, worsening or persistent symptoms either call your primary doctor, or dial 911 or present to the emergency department. Prescriptions/Referrals Prescriptions/Med Rec: New Eliquis 2.5 mg Tablet 5 mg PO BID 30 Days Qty: 120 0RF Entresto 24-26 mg Tablet 1 tab PO BID 14 Days Qty: 28 0RF pantoprazole 40 mg Tablet,Delayed Release (Dr/Ec) 40 mg PO QDAY 30 Days Qty: 30 0RF metoprolol succinate 25 mg Tablet Extended Release 24 Hr 50 mg PO HS 30 Days Qty: 60 0RF hydrocodone-acetaminophen 7.5-325 mg tablet 1 tab PO Q6H MDD PRN (Reason: pain) 5 Days Qty: 20 0RF Continued atorvastatin [Lipitor] 20 MG tablet 20 mg PO HS Qty: 0 sertraline [Zoloft] 100 MG tablet 200 mg PO HS Qty: 0 hydroxychloroquine [Plaquenil] 200 MG tablet 400 mg PO QDAY Qty: 0 duloxetine [Cymbalta] 60 MG capsule,delayed release(DR/EC) 60 mg PO QDAY Qty: 0 azathioprine 50 mg Tablet 50 mg PO QDAY mesalamine [Lialda] 1.2 gram Tablet,Delayed Release (Dr/Ec) 2.4 g PO QDAY sumatriptan succinate 100 mg Tablet 100 mg PO Q2H PRN (Reason: Migraine Headache) levothyroxine 175 mcg tablet 175 mcg PO DAILY aspirin 81 mg tablet,delayed release (DR/EC) 81 mg PO DAILY prednisone 20 mg tablet See Taper PO BID Qty: 49 0RF Taper: Prednisone Taper 15 mg TWICE A DAY for 7 Days and 0 Hour 10 mg TWICE A DAY for 7 Days and 0 Hour 5 mg TWICE A DAY for 7 Days and 0 Hour 5 mg DAILY for 7 Days topiramate [Topamax] 25 mg tablet 25 mg PO BID Patient Comments: TAKE 2 TAB PO IN THE MORNING AND 3 TAB IN THE EVENINGS FOR MIGRAINE PREVENTION fludrocortisone 0.1 mg tablet 0.1 mg PO BID hydrocodone-acetaminophen 7.5-325 mg tablet 1 tab PO Q6H PRN (Reason: PAIN) 5 Days Qty: 20 0RF pregabalin 75 mg capsule 75 mg PO BID 30 Days Qty: 60 2RF Held raloxifene [Evista] 60 MG tablet 60 mg PO QDAY Qty: 0 Hold Instructions: Resume on 08/24/24. Hold until you see your PCP. If you continue to have jaw pain, call your PCP or go to urgent care for an Xray Discontinued lisinopril 10 MG tablet 10 mg PO QDAY Qty: 0 metoprolol tartrate 25 MG tablet 25 mg PO BID Qty: 0 Referrals: Jeremias Tellez MD [Physician] - Maldonado Nevarez MD [Physician] - No Primary/Family,Physician [Primary Care Provider] - Teo Wilhelm MD [Resident] - Patient/Caregiver Discharge Instructions Education Materials: Eliquis Oral Tablet 2.5 mg, ED Atrial Fibrillation, ED Vomiting (Adult) Print Language: Iraqi Stand Alone Forms: Cherie Award Info., Patient Portal Info Letter Discharge Order Discharge Orders: Discharge (Routine); Ordered 08/17/24 Ordered By: Teo Wilhelm
--- NOTE | 2024-08-17 14:35 | ESPR_ITS ---
Documentation for date of: 08/17/24 Subjective Subjective Interval history: No acute overnight events. Denies new symptoms or worsening of symptoms. Denies fever, chills, headaches, chest pain, sob, cough, GI or urinary symptoms. BP 144/73, HR 71, satting well on room air. Neurology unremarkable. WBC 5.6, Hgb 12.0, PLT 165. Will continue METOPROLOL XL 50 mg daily, LISINOPRIL was discontinued yesterday, ENTRESTO to start at 9 PM today which will likely improve her blood pressure. Recommended follow-up with cardiology within 1 week of discharge, repeat echocardiogram after 3 months. Exam Vital Signs Temp Pulse Resp BP Pulse Ox O2 Del Method 97.0 F 71 19 144/73 H 99 Room Air 08/17/24 12:00 08/17/24 12:00 08/17/24 12:00 08/17/24 12:00 08/17/24 12:00 08/17/24 12:00 Narrative Exam GENERAL * Normal appearing elderly female, NAD, on room air, satting well HEENT * NCAT.?HAILEY. Oral mucosa is moist. Patent Nares NECK * Supple, nontender, no thyromegaly, no meningismus, no JVD, no step offs CHEST * RRR, 3/6 aortic and mitral systolic murmur, no gallops or rubs. * CTAB, no w/r/r. Symmetrical chest rise. No intercostal subcostal retraction * Atraumatic, nontender, no crepitus, symmetrical expansion. ABDOMEN * Soft, flat, nontender. No guarding/rebound tenderness/masses. * Bowel sounds presents EXTREMITIES * No edema/cyanosis.? SKIN * Warm and dry, no jaundice/rashes. NEUROMUSCULAR * No lumbar or midline, no CVA, no paraspinal muscle spasm or tenderness. * Moves all 4 extremities well, with full ROM and good CSM. * PEREZ x4, CN II-XII grossly intact. * No focal neurologic deficits. PSYCHIATRY * Normal mood and affect, cooperative, no SI or HI or hallucinations. Objective Labs 08/17/24 05:14 08/17/24 05:14 Labs: Laboratory Results - last 24 hr 08/17/24 05:14 WBC 5.6 RBC 3.84 L Hgb 12.0 Hct 35.5 L MCV 92 MCH 31.3 MCHC 33.8 RDW Std Deviation 49.1 H Plt Count 165 Neut % (Auto) 86 H Lymph % (Auto) 9 L [place] % (Auto) 4 Eos % (Auto) 0 Baso % (Auto) 0 Neut # (Auto) 4.8 Lymph # (Auto) 0.5 L [place] # (Auto) 0.2 Eos # (Auto) 0.0 Baso # (Auto) 0.0 Immature Gran # (Auto) 0.05 H Absolute Nucleated RBC 0.00 Immature Gran % 1 H Nucleated RBC % 0 Sodium 142 Potassium 4.4 Chloride 106 Carbon Dioxide 25.7 Anion Gap 10 BUN 13 Creatinine 0.8 Estim Creat Clear Calc 55.1 L eGFR > 60 BUN/Creatinine Ratio 16 Glucose 125 H Calculated Osmolality 284 Calcium 9.0 Phosphorus 3.7 Magnesium 2.0 Quality Measures Quality Measures VTE prophylaxis Advance care planning discussed with:: patient Assessment & Plan Assessment Current Active Medications: Generic Name Dose Route Start Last Admin Trade Name Freq PRN Reason Stop Dose Admin Acetaminophen 650 mg 08/14/24 20:53 08/15/24 20:54 Acetaminophen 325 Mg Tablet PO 09/13/24 20:52 650 mg Q6H PRN Administration PAIN 1-3 OR FEVER > 101 Hydrocodone Bitart/Acetaminophen 1 tab 08/14/24 21:03 08/17/24 12:14 Hydrocodone/Apap 7.5/325 Tablet PO 08/19/24 21:02 1 tab Q6H PRN Administration PAIN SCALE 4-10(Mod-Sev Apixaban 5 mg 08/16/24 09:00 08/17/24 08:16 Apixaban 2.5 Mg Tablet PO 09/15/24 08:59 5 mg BID ISAAC Administration Aspirin 81 mg 08/15/24 09:00 08/17/24 08:16 Aspirin Ec 81 Mg Tabec PO 09/14/24 08:59 Not Given DAILY ISAAC Atorvastatin Calcium 20 mg 08/15/24 21:00 08/16/24 20:42 Atorvastatin Calcium 20 Mg Tablet PO 09/14/24 20:59 20 mg HS ISAAC Administration Azathioprine 50 mg 08/17/24 09:00 08/17/24 09:32 Azathioprine 50 Mg Tablet PO 09/16/24 08:59 50 mg QDAY ISAAC Administration Mesalamine [Lialda] 0 ea 08/16/24 09:00 08/17/24 08:17 1.2 Gram Tablet, PO 09/15/24 08:59 1 tablet Delayed Release QDAY ISAAC Administration Duloxetine HCl 60 mg 08/15/24 09:00 08/17/24 08:14 Duloxetine Hcl 30 Mg Capsule PO 09/14/24 08:59 60 mg QDAY ISAAC Administration Fludrocortisone Acetate 0.1 mg 08/17/24 09:00 08/17/24 09:32 Fludrocortisone Acetate 0.1 Mg Tablet PO 09/16/24 08:59 0.1 mg BID ISAAC Administration Hydroxychloroquine Sulfate 400 mg 08/15/24 09:00 08/17/24 08:16 Hydroxychloroquine 200 Mg Tablet PO 08/22/24 08:59 400 mg QDAY ISAAC Administration Levothyroxine Sodium 50 mcg 08/15/24 06:00 08/17/24 05:58 Levothyroxine Sodium 25 Mcg Tablet PO 09/14/24 05:59 50 mcg ACBR ISAAC Administration Levothyroxine Sodium 125 mcg 08/15/24 06:00 08/17/24 05:58 Levothyroxine Sodium 125 Mcg Tablet PO 09/14/24 05:59 125 mcg ACBR ISAAC Administration Metoprolol Succinate 50 mg 08/16/24 21:00 08/16/24 20:45 Metoprolol Succinate Xl 25 Mg Tabcr PO 09/15/24 20:59 50 mg HS ISAAC Administration Ondansetron HCl 4 mg 08/14/24 20:53 08/17/24 12:15 Ondansetron Inj 2 Mg/Ml Inj 2 Ml IV 09/13/24 20:52 4 mg Q6H PRN Administration NAUSEA OR VOMITING Protocol Pantoprazole Sodium 40 mg 08/17/24 09:00 08/17/24 08:13 Pantoprazole 40 Mg Tablet PO 09/16/24 08:59 40 mg QDAY ISAAC Administration Protocol Prednisone 20 mg 08/15/24 09:00 08/17/24 08:14 Prednisone 20 Mg Tablet PO 09/14/24 08:59 20 mg BID ISAAC Administration Pregabalin 75 mg 08/17/24 09:00 08/17/24 09:32 Pregabalin 75 Mg Capsule PO 09/16/24 08:59 75 mg BID ISAAC Administration Sacubitril/Valsartan 1 tab 08/17/24 21:00 Sacubitril 24 Mg/Valsartan 26 Mg Tablet PO 09/16/24 20:59 BID ISAAC Sennosides 2 tab 08/14/24 20:53 Senna Tablet PO 09/13/24 20:52 BID PRN CONSTIPATION Protocol Sertraline HCl 200 mg 08/15/24 21:00 08/16/24 20:43 Sertraline Hcl 25 Mg Tablet PO 09/14/24 20:59 200 mg HS ISAAC Administration Protocol Sumatriptan Succinate 100 mg 08/14/24 21:03 08/15/24 14:55 Sumatriptan 25 Mg Tablet PO 09/13/24 21:02 100 mg Q2H PRN Administration Migraine Headache Topiramate 25 mg 08/15/24 09:00 08/17/24 08:14 Topiramate 25 Mg Tablet PO 09/14/24 08:59 25 mg BID ISAAC Administration Plan 78-year-old female with PMHx of A-fib/flutter, HLD, HTN, hypothyroidism, SLE, Crohn's disease, POTS syndrome, and migraines presenting to the ER with a chief complaint of vomiting and diarrhea, admitted for workup, GI team is following. Cardiology was consulted for management of acute CHF in settings of A-fib with RVR. A-fib with RVR Likely paroxysmal A-fib EKG showed atrial fibrillation with RVR, heart rate 131,, possible LVH, ST deviation and moderate T wave abnormalities suggesting possible lateral ischemia. Heart rate controlled after DILTIAZEM pushes. She is on home METOPROLOL, tartrate 25 BID, not anticoagulated.. Currently rate controlled. [id number] high 4.0, HASBLED 1 low. Cholesterol 165, LDL 91, HDL 63, TG 53. TSH 4.52, A1c 4.8. ? Continue METOPROLOL 50 mg XL daily ? Continue ELIQUIS ? Continue home ASPIRIN 81 mg daily ? Maintain K > 4.0 and Mg > 2.0 HFrEF, EF 35-40% No previous echo on file. Unaware of having history of CHF. Not on home DIURETICS. Denies symptoms of SOB, orthopnea, or lower extremity swelling. No findings of volume overload on exam. Lab findings suggestive of low volume status given borderline elevated sodium and chloride, along with history of vomiting and poor oral intake. Echo showed EF 35-40%, detailed exam as above. BMP 550 and chronically elevated, BNP 458 from 04/27/2024. Most likely she has new onset CHF in settings of A-fib with RVR. ? Will need GDMT on or after discharge. ? Will need repeat echo in 3 months to reevaluate heart function. ? No indication for diuresis at this time, asymptomatic, without signs of fluid overload. ? Discontinued home LISINOPRIL ? ENTRESTO to start today at 21:00 which is 36 hours after stopping LISINOPRIL. ? Will continue with METOPROLOL XL as above ? Recommended maintaining euglycemic state ? Recommended cardiology follow-up withing 1 week of discharge. HTN BP slightly elevated after d/c LISINOPRIL. Anticipate will improve after ENTRESTO. Vomiting Diarrhea History of POTS History of Crohn's disease Hypokalemia Hypomagnesemia History of Crohn's disease History of SLE History of hypothyroidism History of hypertension History of Migraine Management of rest of the medical conditions as per primary team and other consultants. Thank you for the consult and allowing me to participate in the care of the patient. Cardiology will continue to follow. Case was discussed with attending, Dr. Tellez. Naila Anglin, DO PGYI Attending Provider Attestation/Addendum I have personally seen and examined the patient separately on the above date of service and discussed the plan of care with the resident. I reviewed the resident Dr. Naila Anglin consultation progress note and agree with the resident findings and plan in the note above and have also edited the documentation to reflect my findings and plan. Jeremias Tellez M.D. Interventional Cardiology
--- NOTE | 2024-08-17 15:45 | ESPR_ITS ---
Documentation for date of: 08/17/24 Subjective Subjective Interval history: Patient was seen and examined at bedside this AM. No acute exents overnight. Patient tolerating diet, adequate urine output and mentation is at baseline. Patient endorses improvement of nausea. Currently tolerating meals without any seizures. On Patient currently on GDMT with metoprolol, Entresto to start from tonight. Recommended by cardiology to follow-up for repeat echo in 3 months. Patient clinically stable for discharge, however her daughter is currently hospitalized at [facility] and she has the patient's house keys. Will hold on discharge for today. Exam Vital Signs Temp Pulse Resp BP Pulse Ox O2 Del Method 97.0 F 71 19 144/73 H 99 Room Air 08/17/24 12:00 08/17/24 12:00 08/17/24 12:00 08/17/24 12:00 08/17/24 12:00 08/17/24 12:00 Narrative Exam Constitutional Alert, oriented x 3 and comfortable. Elderly female HEENT Vision grossly intact. Patent nares. Trachea midline Respiratory Chest normal on inspection and clear auscultation bilaterally Cardiovascular S1 and S2 audible, RRR. No murmurs carotid bruit. No gross JVD. Abdominal Soft and non tender to palpation in all quadrants. BS + Genitourinary No bladder tenderness, no flank pain. Normal to palpation Musculoskeletal Extremities tone within normal limits. No LE edema. Neurological CN II - XII grossly intact. Extremity motor and sensation grossly intact. Skin Warm, dry and intact. No apparent lesions. Psychiatric Patient has good affect, is cooperative Objective Labs 08/17/24 05:14 08/17/24 05:14 Labs: Laboratory Results - last 24 hr 08/17/24 05:14 WBC 5.6 RBC 3.84 L Hgb 12.0 Hct 35.5 L MCV 92 MCH 31.3 MCHC 33.8 RDW Std Deviation 49.1 H Plt Count 165 Neut % (Auto) 86 H Lymph % (Auto) 9 L [place] % (Auto) 4 Eos % (Auto) 0 Baso % (Auto) 0 Neut # (Auto) 4.8 Lymph # (Auto) 0.5 L [place] # (Auto) 0.2 Eos # (Auto) 0.0 Baso # (Auto) 0.0 Immature Gran # (Auto) 0.05 H Absolute Nucleated RBC 0.00 Immature Gran % 1 H Nucleated RBC % 0 Sodium 142 Potassium 4.4 Chloride 106 Carbon Dioxide 25.7 Anion Gap 10 BUN 13 Creatinine 0.8 Estim Creat Clear Calc 55.1 L eGFR > 60 BUN/Creatinine Ratio 16 Glucose 125 H Calculated Osmolality 284 Calcium 9.0 Phosphorus 3.7 Magnesium 2.0 Quality Measures Quality Measures VTE prophylaxis Advance care planning discussed with:: patient Assessment & Plan Assessment Current Active Medications: Generic Name Dose Route Start Last Admin Trade Name Freq PRN Reason Stop Dose Admin Acetaminophen 650 mg 08/14/24 20:53 08/15/24 20:54 Acetaminophen 325 Mg Tablet PO 09/13/24 20:52 650 mg Q6H PRN Administration PAIN 1-3 OR FEVER > 101 Hydrocodone Bitart/Acetaminophen 1 tab 08/14/24 21:03 08/17/24 12:14 Hydrocodone/Apap 7.5/325 Tablet PO 08/19/24 21:02 1 tab Q6H PRN Administration PAIN SCALE 4-10(Mod-Sev Apixaban 5 mg 08/16/24 09:00 08/17/24 08:16 Apixaban 2.5 Mg Tablet PO 09/15/24 08:59 5 mg BID ISAAC Administration Aspirin 81 mg 08/15/24 09:00 08/17/24 08:16 Aspirin Ec 81 Mg Tabec PO 09/14/24 08:59 Not Given DAILY ISAAC Atorvastatin Calcium 20 mg 08/15/24 21:00 08/16/24 20:42 Atorvastatin Calcium 20 Mg Tablet PO 09/14/24 20:59 20 mg HS ISAAC Administration Azathioprine 50 mg 08/17/24 09:00 08/17/24 09:32 Azathioprine 50 Mg Tablet PO 09/16/24 08:59 50 mg QDAY ISAAC Administration Mesalamine [Lialda] 0 ea 08/16/24 09:00 08/17/24 08:17 1.2 Gram Tablet, PO 09/15/24 08:59 1 tablet Delayed Release QDAY ISAAC Administration Duloxetine HCl 60 mg 08/15/24 09:00 08/17/24 08:14 Duloxetine Hcl 30 Mg Capsule PO 09/14/24 08:59 60 mg QDAY ISAAC Administration Fludrocortisone Acetate 0.1 mg 08/17/24 09:00 08/17/24 09:32 Fludrocortisone Acetate 0.1 Mg Tablet PO 09/16/24 08:59 0.1 mg BID ISAAC Administration Hydroxychloroquine Sulfate 400 mg 08/15/24 09:00 08/17/24 08:16 Hydroxychloroquine 200 Mg Tablet PO 08/22/24 08:59 400 mg QDAY ISAAC Administration Levothyroxine Sodium 50 mcg 08/15/24 06:00 08/17/24 05:58 Levothyroxine Sodium 25 Mcg Tablet PO 09/14/24 05:59 50 mcg ACBR ISAAC Administration Levothyroxine Sodium 125 mcg 08/15/24 06:00 08/17/24 05:58 Levothyroxine Sodium 125 Mcg Tablet PO 09/14/24 05:59 125 mcg ACBR ISAAC Administration Metoprolol Succinate 50 mg 08/16/24 21:00 08/16/24 20:45 Metoprolol Succinate Xl 25 Mg Tabcr PO 09/15/24 20:59 50 mg HS ISAAC Administration Ondansetron HCl 4 mg 08/14/24 20:53 08/17/24 12:15 Ondansetron Inj 2 Mg/Ml Inj 2 Ml IV 09/13/24 20:52 4 mg Q6H PRN Administration NAUSEA OR VOMITING Protocol Pantoprazole Sodium 40 mg 08/17/24 09:00 08/17/24 08:13 Pantoprazole 40 Mg Tablet PO 09/16/24 08:59 40 mg QDAY ISAAC Administration Protocol Prednisone 20 mg 08/15/24 09:00 08/17/24 08:14 Prednisone 20 Mg Tablet PO 09/14/24 08:59 20 mg BID ISAAC Administration Pregabalin 75 mg 08/17/24 09:00 08/17/24 09:32 Pregabalin 75 Mg Capsule PO 09/16/24 08:59 75 mg BID ISAAC Administration Sacubitril/Valsartan 1 tab 08/17/24 21:00 Sacubitril 24 Mg/Valsartan 26 Mg Tablet PO 09/16/24 20:59 BID ISAAC Sennosides 2 tab 08/14/24 20:53 Senna Tablet PO 09/13/24 20:52 BID PRN CONSTIPATION Protocol Sertraline HCl 200 mg 08/15/24 21:00 08/16/24 20:43 Sertraline Hcl 25 Mg Tablet PO 09/14/24 20:59 200 mg HS ISAAC Administration Protocol Sumatriptan Succinate 100 mg 08/14/24 21:03 08/15/24 14:55 Sumatriptan 25 Mg Tablet PO 09/13/24 21:02 100 mg Q2H PRN Administration Migraine Headache Topiramate 25 mg 08/15/24 09:00 08/17/24 08:14 Topiramate 25 Mg Tablet PO 09/14/24 08:59 25 mg BID ISAAC Administration Plan Patient is a 78-year-old female with a past medical history of POTS , atrial fibrillation/flutter, Crohn's disease, SLE, hyperlipidemia, hypertension, hypothyroidism and migraine who presents to the ER, accompanied by her daughter, complaining of vomiting and diarrhea. Atrial fibrillation?paroxysmal HFrEF ejection fraction of 35% Patient diagnosed with A-fib in February at [facility]. Had implantable loop recorder for 1 month which did not show any further episodes, therefore she stated her out and out cigar maker hand did not start her on anticoagulation. On admission patient was in A-fib with RVR heart rates in 130s from EKG. On telemetry review rhythm fluctuates between sinus and sinus arrythmia. Rates in the 70s-80s K4.4, Mg 2. [id number] [age, sex, HTN, stroke, vascular] and HAS-Bled ; 3 points. Discussed risks versus benefits of anticoagulation with patient and daughter at bedside, she wishes to be started on Eliquis. Echocardiogram was done which showed Mild LVH.there is grade II diastolic dysfunction. Global LV systolic function is moderately decreased. Estimated EF 35-40%. At this time patient does not seem to be fluid overloaded, no JVD, no lower extremity edema, no orthopnea. Patient has multiple episodes of diarrhea for that reason we will not start the patient at this time on diuretics unless recommended by the out and out cigar maker hand. Plan: ?Consult cardiology for further recommendations ? Continue telemetry every ? Strict in and out ? Cardiac diet ? Consider starting the patient on Lasix as fluid overloaded ? Continue rate control with metoprolol succinate 50 Mg p.o. daily - Continue apixaban 5 Mg p.o. twice daily ? Continue aspirin 81 Mg p.o. daily for stroke prophylaxis ? To start Entresto 1 tab p.o. twice daily from [facility]. This will be 36 hours after discontinuing lisinopril ? Risk versus benefit of aspirin and Eliquis therapy discussed with the patient. She agrees to continue on treatment with both agents. Intractable vomiting?resolving Diarrhea?resolving Patient presented with 1 week history of nausea and vomiting along with diarrhea. On exam abdomen nontender to palpation CT scan showed diverticulosis, negative for diverticulitis. DDx: Viral gastroenteritis, Crohn's flare Stool for WBCs and C. difficile negative. Currently pending stool culture and calprotectin Plan: ? Continue BRRAT diet ? Continue Zofran as needed - Pending stool culture, and calprotectin ? Follow-up on the ANCA, antiperoxidase, antimyeloperoxidase ? Patient clinically stable for discharge. However patient's daughter currently hospitalized at [facility] and she has the patient's house keys. Will hold on discharge for today ? Gastroenterology, Dr. Nevarez consulted and closely following the case. Appreciate recommendations History of Crohn's disease History of SLE History of hypothyroidism History of hypertension History of Migraine Currently stable on home medication. Will resume after med rec. Plan: ? Continue mesalamine 2.4 g p.o. daily ? Continue prednisone 20 Mg p.o. twice daily - Continue sumatriptan 100 Mg p.o. every 2 hourly as needed ? Continue levothyroxine 137 mcg p.o. AC BR ? Restarted home dose fludrocortisone ? Restarted home dose azathioprine Osteoporosis Patient on raloxifene at home. She states that her last DEXA scan however has been many years ago [greater than 2 years] Patient stated that 2 days ago she developed left jaw pain which has now subsided. Will consider x-ray of the jaw if symptoms return. Plan: ? Home medication, raloxifene on hold for now Health maintenance: Disposition: Medically cleared for discharge. Will keep patient for 1 more night due to social issues Diet: BRRAT Lines: pIVs GI Prophylaxis: Pantoprazole Thrombo Prophylaxis: Apixaban Code status: FULL CODE Plan of care discussed with Attending Dr. Silke Wilhelm MD PGY 1 Disclaimer: This note was dictated by speech recognition. Minor errors in roofing technician may be present due to voice recognition software. Attending Provider Attestation/Addendum I have discussed and was present for the essential components of the history, physical examination, diagnosis, and treatment plan with the resident. I agree with the patient's care as documented by the resident and amended herein by me. Bhaskar Edouard DO. Patient cleared for discharge today from a GI, cardiology and our standpoint however apparently the patient's daughter had the patient's house keys and is now admitted to outside hospital hence the patient cannot get into her house hence we will keep overnight and reevaluate discharge plan tomorrow. Entresto has been added to the patient's medication regimen as well as Eliquis, patient will need cardiology follow-up and repeat echo in 3 months per cardiology recommendations. Although this document has been carefully reviewed, there may still be some phonetic and other typographical errors. These errors are purely grammatical due to imperfections in the software program and should not be construed in any way to compromise the substance of the patient's medical care during this visit.
[2024-08-17] MEDS: SERTRALINE HCL 25 MG TABLET 200 MG PO (20:33)
[2024-08-17] MEDS: SACUBITRIL 24 MG/VALSARTAN 26 MG TABLET 1 TAB PO (20:34)
[2024-08-17] MEDS: ATORVASTATIN CALCIUM 20 MG TABLET PO (20:34)
[2024-08-17] MEDS: METOPROLOL SUCCINATE XL 25 MG TABCR 50 MG PO (20:34)
--- NOTE | 2024-08-17 21:59 | ESPR_ITS ---
Documentation for date of: 08/17/24 Subjective Subjective Interval history: Case discussed with internal medicine team Okay to discharge patient home to be followed by the [place] [facility] Exam Vital Signs Temp Pulse Resp BP Pulse Ox O2 Del Method 97.7 F 73 19 121/74 99 Room Air 08/17/24 20:00 08/17/24 20:34 08/17/24 20:00 08/17/24 20:34 08/17/24 20:00 08/17/24 20:00 Objective Labs 08/17/24 05:14 08/17/24 05:14 Labs: Laboratory Results - last 24 hr 08/17/24 05:14 WBC 5.6 RBC 3.84 L Hgb 12.0 Hct 35.5 L MCV 92 MCH 31.3 MCHC 33.8 RDW Std Deviation 49.1 H Plt Count 165 Neut % (Auto) 86 H Lymph % (Auto) 9 L [place] % (Auto) 4 Eos % (Auto) 0 Baso % (Auto) 0 Neut # (Auto) 4.8 Lymph # (Auto) 0.5 L [place] # (Auto) 0.2 Eos # (Auto) 0.0 Baso # (Auto) 0.0 Immature Gran # (Auto) 0.05 H Absolute Nucleated RBC 0.00 Immature Gran % 1 H Nucleated RBC % 0 Sodium 142 Potassium 4.4 Chloride 106 Carbon Dioxide 25.7 Anion Gap 10 BUN 13 Creatinine 0.8 Estim Creat Clear Calc 55.1 L eGFR > 60 BUN/Creatinine Ratio 16 Glucose 125 H Calculated Osmolality 284 Calcium 9.0 Phosphorus 3.7 Magnesium 2.0 Impressions Impression: Crohn's disease relatively stable Follow-up with the [place] [facility] upon discharge Assessment & Plan A&P Narrative # Nausea vomiting with diarrhea With a CT scan of the abdomen pelvis without contrast showing only colonic diverticulosis It appears that most likely the cause of infectious enterocolitis and not an acute exacerbation of the underlying Crohn's disease which is being followed at gastroenterology group in [place] Suggestions Stool culture and sensitivity Stool ova and parasite Stool Gram stain Giardia antigen Fecal calprotectin Stool C. difficile Will follow the patient Not planning any invasive GI workup at least at the moment Other medical problems include A-fib RVR controlled with metoprolol POTS syndrome Crohn's disease SLE Hyperlipidemia Hypertension Migraine headaches Thank you very much for the opportunity to participate in the care of this patient Time Spent With Patient Time: Total time spent is greater than 50% in coordination of care (as documented) at patient's floor/unit and/or counseling patient:
[2024-08-18] VITALS (9 sets, daily range): BP systolic 104–138; BP diastolic 56–78; PULSE 59–91; RESP 13–98; TEMP 36.1–36.4; O2SAT 94–99; BMI 24.0
[2024-08-18] MEDS: LEVOTHYROXINE SODIUM 25 MCG TABLET 50 MCG PO (05:26)
[2024-08-18] MEDS: LEVOTHYROXINE SODIUM 125 MCG TABLET PO (05:27)
[2024-08-18 06:42] LABS: Magnesium 1.7 mg/dL (1.6-2.6); Phosphorous 3.6 mg/dL (2.4-5.1)
[2024-08-18] MEDS: FLUDROCORTISONE ACETATE 0.1 MG TABLET PO ×2 (08:55→21:03)
[2024-08-18] MEDS: PREGABALIN 75 MG CAPSULE PO ×2 (08:55→21:03)
[2024-08-18] MEDS: PANTOPRAZOLE 40 MG TABLET PO (08:56)
[2024-08-18] MEDS: TOPIRAMATE 25 MG TABLET PO ×2 (08:56→21:12)
[2024-08-18] MEDS: DULoxetine HCL 30 MG CAPSULE 60 MG PO (08:56)
[2024-08-18] MEDS: APIXABAN 2.5 MG TABLET 5 MG PO ×2 (08:56→21:04)
[2024-08-18] MEDS: predniSONE 20 MG TABLET PO ×2 (08:56→21:04)
[2024-08-18] MEDS: SACUBITRIL 24 MG/VALSARTAN 26 MG TABLET 1 TAB PO ×2 (08:56→21:13)
[2024-08-18] MEDS: ASPIRIN EC 81 MG TABEC PO (08:57)
[2024-08-18] MEDS: azaTHIOprine 50 MG TABLET PO (08:57)
[2024-08-18] MEDS: Mesalamine [Lialda] 1.2 gram Tablet,Delayed Release PO (08:57)
[2024-08-18] MEDS: HYDROXYCHLOROQUINE 200 MG TABLET 400 MG PO (09:46)
--- NOTE | 2024-08-18 10:44 | PC.SS ---
SS and Dr. Edouard met with pt to discuss d/c plan. Pt is requesting to stay at the hospital for few days. Dr. Edouard has explained she is ready for d/c. Dr. Edouard and SS offered pt d/c options for SNF or return home with HH. Pt states she has been at [facility] in the past and refuses to return. SS offered pt a different SNF and she still refused. Pt states she feels unsafe returning home due to being alone. SS offered pt other d/c options ex. staying with friends or [facility] and pt still refused. Pt is requesting to appeal through Medicare. SS has explained inquiry will be sent to [employer] once she appeals. Joyce OTTO is aware.
--- NOTE | 2024-08-18 11:56 | PC.SS ---
Addendum entered by CLARITA Young 08/18/24 14:17: [employer] Appeal submitted. Case control ID: [id number] Appeal outcome pending. Original Note: SS follow up: the patient informs she is not ready for d/c home today. Patient aware of Medicare Rights, IMM signed at bed side. Patient initiated [employer] Appeal. Bed side nurse and medical team notified.
--- NOTE | 2024-08-18 15:25 | PD.RESPRO ---
Documentation for date of: 08/18/24 Subjective Subjective Interval history: Patient was seen and examined at bedside. Patient vitally stable, CBC and CMP at baseline, patient felt discharge yesterday because there was nobody at her home as her daughter was admitted to another hospital and she has the keys to her house. Today we explained to the patient that she is cleared from medical standpoint to be discharged however she mentions that she will appeal as she does not feel safe at home. We discharged the patient on home with home health however patient kept refusing discharge and decided to appeal. No new recommendations today we will follow-up with the social managers for a plan for discharge. ?Patient is cleared from medical standpoint for discharge Exam Vital Signs Temp Pulse Resp BP Pulse Ox O2 Del Method O2 Flow Rate 97.2 F 91 18 138/70 H 96 Room Air 0 08/18/24 12:00 08/18/24 12:00 08/18/24 12:00 08/18/24 12:00 08/18/24 12:00 08/18/24 12:00 08/18/24 12:00 FiO2 97 08/18/24 12:00 Narrative Exam GEN: AOx3, able to speak full sentences HEENT: NC/AC, oral mucosa moist, neck supple CVS: RRR, S1-S2 present, no murmurs appreciated RESP: CTAB GI: soft,non distended, non tender, NBS MSK: able to move all 4 limbs, no lower extremity edema SKIN: warm and dry PRODUCT MANAGER MEDICAL DEVICE: CN II-XII and Sensation grossly intact. Objective Labs 08/17/24 05:14 08/17/24 05:14 Labs: Laboratory Results - last 24 hr 08/18/24 05:04 Phosphorus 3.6 Magnesium 1.7 Quality Measures Quality Measures VTE prophylaxis Advance care planning discussed with:: patient Assessment & Plan Assessment Current Active Medications: Generic Name Dose Route Start Last Admin Trade Name Freq PRN Reason Stop Dose Admin Acetaminophen 650 mg 08/14/24 20:53 08/15/24 20:54 Acetaminophen 325 Mg Tablet PO 09/13/24 20:52 650 mg Q6H PRN Administration PAIN 1-3 OR FEVER > 101 Hydrocodone Bitart/Acetaminophen 1 tab 08/14/24 21:03 08/17/24 20:36 Hydrocodone/Apap 7.5/325 Tablet PO 08/19/24 21:02 1 tab Q6H PRN Administration PAIN SCALE 4-10(Mod-Sev Apixaban 5 mg 08/16/24 09:00 08/18/24 08:56 Apixaban 2.5 Mg Tablet PO 09/15/24 08:59 5 mg BID ISAAC Administration Aspirin 81 mg 08/15/24 09:00 08/18/24 08:57 Aspirin Ec 81 Mg Tabec PO 09/14/24 08:59 81 mg DAILY ISAAC Administration Atorvastatin Calcium 20 mg 08/15/24 21:00 08/17/24 20:34 Atorvastatin Calcium 20 Mg Tablet PO 09/14/24 20:59 20 mg HS ISAAC Administration Azathioprine 50 mg 08/17/24 09:00 08/18/24 08:57 Azathioprine 50 Mg Tablet PO 09/16/24 08:59 50 mg QDAY ISAAC Administration Mesalamine [Lialda] 0 ea 08/16/24 09:00 08/18/24 08:57 1.2 Gram Tablet, PO 09/15/24 08:59 1 tablet Delayed Release QDAY ISAAC Administration Duloxetine HCl 60 mg 08/15/24 09:00 08/18/24 08:56 Duloxetine Hcl 30 Mg Capsule PO 09/14/24 08:59 60 mg QDAY ISAAC Administration Fludrocortisone Acetate 0.1 mg 08/17/24 09:00 08/18/24 08:55 Fludrocortisone Acetate 0.1 Mg Tablet PO 09/16/24 08:59 0.1 mg BID ISAAC Administration Hydroxychloroquine Sulfate 400 mg 08/15/24 09:00 08/18/24 09:46 Hydroxychloroquine 200 Mg Tablet PO 08/22/24 08:59 400 mg QDAY ISAAC Administration Levothyroxine Sodium 50 mcg 08/15/24 06:00 08/18/24 05:26 Levothyroxine Sodium 25 Mcg Tablet PO 09/14/24 05:59 50 mcg ACBR ISAAC Administration Levothyroxine Sodium 125 mcg 08/15/24 06:00 08/18/24 05:27 Levothyroxine Sodium 125 Mcg Tablet PO 09/14/24 05:59 125 mcg ACBR ISAAC Administration Metoprolol Succinate 50 mg 08/16/24 21:00 08/17/24 20:34 Metoprolol Succinate Xl 25 Mg Tabcr PO 09/15/24 20:59 50 mg HS ISAAC Administration Ondansetron HCl 4 mg 08/14/24 20:53 08/17/24 12:15 Ondansetron Inj 2 Mg/Ml Inj 2 Ml IV 09/13/24 20:52 4 mg Q6H PRN Administration NAUSEA OR VOMITING Protocol Pantoprazole Sodium 40 mg 08/17/24 09:00 08/18/24 08:56 Pantoprazole 40 Mg Tablet PO 09/16/24 08:59 40 mg QDAY ISAAC Administration Protocol Prednisone 20 mg 08/15/24 09:00 08/18/24 08:56 Prednisone 20 Mg Tablet PO 09/14/24 08:59 20 mg BID ISAAC Administration Pregabalin 75 mg 08/17/24 09:00 08/18/24 08:55 Pregabalin 75 Mg Capsule PO 09/16/24 08:59 75 mg BID ISAAC Administration Sacubitril/Valsartan 1 tab 08/17/24 21:00 08/18/24 08:56 Sacubitril 24 Mg/Valsartan 26 Mg Tablet PO 09/16/24 20:59 1 tab BID ISAAC Administration Sennosides 2 tab 08/14/24 20:53 Senna Tablet PO 09/13/24 20:52 BID PRN CONSTIPATION Protocol Sertraline HCl 200 mg 08/15/24 21:00 08/17/24 20:33 Sertraline Hcl 25 Mg Tablet PO 09/14/24 20:59 200 mg HS ISAAC Administration Protocol Sumatriptan Succinate 100 mg 08/14/24 21:03 08/15/24 14:55 Sumatriptan 25 Mg Tablet PO 09/13/24 21:02 100 mg Q2H PRN Administration Migraine Headache Topiramate 25 mg 08/15/24 09:00 08/18/24 08:56 Topiramate 25 Mg Tablet PO 09/14/24 08:59 25 mg BID ISAAC Administration Plan Patient is a 78-year-old female with a past medical history of POTS , atrial fibrillation/flutter, Crohn's disease, SLE, hyperlipidemia, hypertension, hypothyroidism and migraine who presents to the ER, accompanied by her daughter, complaining of vomiting and diarrhea. Atrial fibrillation?paroxysmal HFrEF ejection fraction of 35% Patient diagnosed with A-fib in February at [facility]. Had implantable loop recorder for 1 month which did not show any further episodes, therefore she stated her log processor operator did not start her on anticoagulation. On admission patient was in A-fib with RVR heart rates in 130s from EKG. On telemetry review rhythm fluctuates between sinus and sinus arrythmia. Rates in the 70s-80s K4.4, Mg 2. [id number] [age, sex, HTN, stroke, vascular] and HAS-Bled ; 3 points. Discussed risks versus benefits of anticoagulation with patient and daughter at bedside, she wishes to be started on Eliquis. Echocardiogram was done which showed Mild LVH.there is grade II diastolic dysfunction. Global LV systolic function is moderately decreased. Estimated EF 35-40%. At this time patient does not seem to be fluid overloaded, no JVD, no lower extremity edema, no orthopnea. Patient has multiple episodes of diarrhea for that reason we will not start the patient at this time on diuretics unless recommended by the log processor operator. Plan: ? Patient is cleared from medical standpoint for discharge ? Strict in and out ? Cardiac diet ? Consider starting the patient on Lasix as fluid overloaded ? Continue rate control with metoprolol succinate 50 Mg p.o. daily - Continue apixaban 5 Mg p.o. twice daily ? Continue aspirin 81 Mg p.o. daily for stroke prophylaxis ? To start Entresto 1 tab p.o. twice daily from [facility]. This will be 36 hours after discontinuing lisinopril ? Risk versus benefit of aspirin and Eliquis therapy discussed with the patient. She agrees to continue on treatment with both agents. Intractable vomiting?resolving Diarrhea?resolving Patient presented with 1 week history of nausea and vomiting along with diarrhea. On exam abdomen nontender to palpation CT scan showed diverticulosis, negative for diverticulitis. DDx: Viral gastroenteritis, Crohn's flare Stool for WBCs and C. difficile negative. Currently pending stool culture and calprotectin Plan: ? Continue BRRAT diet ? Continue Zofran as needed - Pending stool culture, and calprotectin ? Follow-up on the ANCA, antiperoxidase, antimyeloperoxidase in outpatient setting ? Patient clinically stable for discharge. However patient's daughter currently hospitalized at [facility] and she has the patient's house keys. Will hold on discharge for today ? Gastroenterology, Dr. Nevarez consulted and closely following the case. Appreciate recommendations History of Crohn's disease History of SLE History of hypothyroidism History of hypertension History of Migraine Currently stable on home medication. Will resume after med rec. Plan: ? Continue mesalamine 2.4 g p.o. daily ? Continue prednisone 20 Mg p.o. twice daily - Continue sumatriptan 100 Mg p.o. every 2 hourly as needed ? Continue levothyroxine 137 mcg p.o. AC BR ? Restarted home dose fludrocortisone ? Restarted home dose azathioprine Osteoporosis Patient on raloxifene at home. She states that her last DEXA scan however has been many years ago [greater than 2 years] Patient stated that 2 days ago she developed left jaw pain which has now subsided. Will consider x-ray of the jaw if symptoms return. Plan: ? Home medication, raloxifene on hold for now Health maintenance: Disposition: Medically cleared for discharge to home with home health however the patient has appealed Diet: BRRAT Lines: pIVs GI Prophylaxis: Pantoprazole Thrombo Prophylaxis: Apixaban Code status: FULL CODE - Patient's plan and care discussed with my attending, Dr. Silke Acosta MD Internal Medicine PGY-2 Attending Provider Attestation/Addendum I have discussed and was present for the essential components of the history, physical examination, diagnosis, and treatment plan with the resident. I agree with the patient's care as documented by the resident and amended herein by me. Bhaskar Edouard DO. Patient cleared for discharge however she protested the discharge today. Patient much improved since admission, cleared for DC by gastroenterology, has been started on GDMT for heart failure the patient states that she does not feel safe to go home at this time and she adamantly does not want to go to SNF. transfer and line up worker is discussing other SNF options with the patient, we will revisit tomorrow. Apparently the patient's daughter has been admitted to [facility] and is not in the position to help the patient at home. Although this document has been carefully reviewed, there may still be some phonetic and other typographical errors. These errors are purely grammatical due to imperfections in the software program and should not be construed in any way to compromise the substance of the patient's medical care during this visit.
[2024-08-18] MEDS: ALPRazoLAM 0.25 MG TABLET PO (15:52)
--- NOTE | 2024-08-18 19:31 | PD.IMPROG ---
Documentation for date of: 08/18/24 Subjective Subjective Interval history: From a GI viewpoint patient is stable She has appealed the decision not to go home at this moment Exam Vital Signs Temp Pulse Resp BP Pulse Ox O2 Del Method O2 Flow Rate 97.0 F 62 15 125/78 94 L Room Air 0 08/18/24 16:00 08/18/24 16:00 08/18/24 16:00 08/18/24 16:00 08/18/24 16:00 08/18/24 16:00 08/18/24 16:00 FiO2 97 08/18/24 16:00 Objective Labs 08/17/24 05:14 08/17/24 05:14 Labs: Laboratory Results - last 24 hr 08/18/24 05:04 Phosphorus 3.6 Magnesium 1.7 Impressions Impression: Inflammatory bowel disease/Crohn disease symptomatically stable Continue current management Assessment & Plan A&P Narrative # Nausea vomiting with diarrhea With a CT scan of the abdomen pelvis without contrast showing only colonic diverticulosis It appears that most likely the cause of infectious enterocolitis and not an acute exacerbation of the underlying Crohn's disease which is being followed at gastroenterology group in [place] Suggestions Stool culture and sensitivity Stool ova and parasite Stool Gram stain Giardia antigen Fecal calprotectin Stool C. difficile Will follow the patient Not planning any invasive GI workup at least at the moment Other medical problems include A-fib RVR controlled with metoprolol POTS syndrome Crohn's disease SLE Hyperlipidemia Hypertension Migraine headaches Thank you very much for the opportunity to participate in the care of this patient Time Spent With Patient Time: Total time spent is greater than 50% in coordination of care (as documented) at patient's floor/unit and/or counseling patient:
[2024-08-18] MEDS: HYDROcodone/APAP 7.5/325 TABLET 1 TAB PO (20:06)
--- NOTE | 2024-08-18 20:22 | ESPR_ITS ---
Documentation for date of: 08/18/24 Subjective Subjective Interval history: No acute overnight events. Feels well today. Denies fever, chills, headaches, chest pain, sob, cough, GI or urinary symptoms. Vitals WNL. No new labs today. Labs from yesterday reviewed and WNL. Tolerating ENTRESTO well. Will continue with current management. Primary team planning on discharging today, she is clear from cardiology's perspective. However currently pending home health arrangement. Recommended cardiology follow-up within 1 week, repeat echo in 3 months. Exam Vital Signs Temp Pulse Resp BP Pulse Ox O2 Del Method O2 Flow Rate 97.0 F 62 15 125/78 94 L Room Air 0 08/18/24 16:00 08/18/24 16:00 08/18/24 16:00 08/18/24 16:00 08/18/24 16:00 08/18/24 16:00 08/18/24 16:00 FiO2 97 08/18/24 16:00 Narrative Exam GENERAL * Normal appearing elderly female, NAD, on room air, satting well HEENT * NCAT.?HAILEY. Oral mucosa is moist. Patent Nares NECK * Supple, nontender, no thyromegaly, no meningismus, no JVD, no step offs CHEST * RRR, 3/6 aortic and mitral systolic murmur, no gallops or rubs. * CTAB, no w/r/r. Symmetrical chest rise. No intercostal subcostal retraction * Atraumatic, nontender, no crepitus, symmetrical expansion. ABDOMEN * Soft, flat, nontender. No guarding/rebound tenderness/masses. * Bowel sounds presents EXTREMITIES * No edema/cyanosis.? SKIN * Warm and dry, no jaundice/rashes. NEUROMUSCULAR * No lumbar or midline, no CVA, no paraspinal muscle spasm or tenderness. * Moves all 4 extremities well, with full ROM and good CSM. * PEREZ x4, CN II-XII grossly intact. * No focal neurologic deficits. PSYCHIATRY * Normal mood and affect, cooperative, no SI or HI or hallucinations. Objective Labs 08/17/24 05:14 08/17/24 05:14 Labs: Laboratory Results - last 24 hr 08/18/24 05:04 Phosphorus 3.6 Magnesium 1.7 Quality Measures Quality Measures VTE prophylaxis Advance care planning discussed with:: patient Assessment & Plan Assessment Current Active Medications: Generic Name Dose Route Start Last Admin Trade Name Freq PRN Reason Stop Dose Admin Acetaminophen 650 mg 08/14/24 20:53 08/15/24 20:54 Acetaminophen 325 Mg Tablet PO 09/13/24 20:52 650 mg Q6H PRN Administration PAIN 1-3 OR FEVER > 101 Hydrocodone Bitart/Acetaminophen 1 tab 08/14/24 21:03 08/18/24 20:06 Hydrocodone/Apap 7.5/325 Tablet PO 08/19/24 21:02 1 tab Q6H PRN Administration PAIN SCALE 4-10(Mod-Sev Apixaban 5 mg 08/16/24 09:00 08/18/24 08:56 Apixaban 2.5 Mg Tablet PO 09/15/24 08:59 5 mg BID ISAAC Administration Aspirin 81 mg 08/15/24 09:00 08/18/24 08:57 Aspirin Ec 81 Mg Tabec PO 09/14/24 08:59 81 mg DAILY ISAAC Administration Atorvastatin Calcium 20 mg 08/15/24 21:00 08/17/24 20:34 Atorvastatin Calcium 20 Mg Tablet PO 09/14/24 20:59 20 mg HS ISAAC Administration Azathioprine 50 mg 08/17/24 09:00 08/18/24 08:57 Azathioprine 50 Mg Tablet PO 09/16/24 08:59 50 mg QDAY ISAAC Administration Mesalamine [Lialda] 0 ea 08/16/24 09:00 08/18/24 08:57 1.2 Gram Tablet, PO 09/15/24 08:59 1 tablet Delayed Release QDAY ISAAC Administration Duloxetine HCl 60 mg 08/15/24 09:00 08/18/24 08:56 Duloxetine Hcl 30 Mg Capsule PO 09/14/24 08:59 60 mg QDAY ISAAC Administration Fludrocortisone Acetate 0.1 mg 08/17/24 09:00 08/18/24 08:55 Fludrocortisone Acetate 0.1 Mg Tablet PO 09/16/24 08:59 0.1 mg BID ISAAC Administration Hydroxychloroquine Sulfate 400 mg 08/15/24 09:00 08/18/24 09:46 Hydroxychloroquine 200 Mg Tablet PO 08/22/24 08:59 400 mg QDAY ISAAC Administration Levothyroxine Sodium 50 mcg 08/15/24 06:00 08/18/24 05:26 Levothyroxine Sodium 25 Mcg Tablet PO 09/14/24 05:59 50 mcg ACBR ISAAC Administration Levothyroxine Sodium 125 mcg 08/15/24 06:00 08/18/24 05:27 Levothyroxine Sodium 125 Mcg Tablet PO 09/14/24 05:59 125 mcg ACBR ISAAC Administration Metoprolol Succinate 50 mg 08/16/24 21:00 08/17/24 20:34 Metoprolol Succinate Xl 25 Mg Tabcr PO 09/15/24 20:59 50 mg HS ISAAC Administration Ondansetron HCl 4 mg 08/14/24 20:53 08/17/24 12:15 Ondansetron Inj 2 Mg/Ml Inj 2 Ml IV 09/13/24 20:52 4 mg Q6H PRN Administration NAUSEA OR VOMITING Protocol Pantoprazole Sodium 40 mg 08/17/24 09:00 08/18/24 08:56 Pantoprazole 40 Mg Tablet PO 09/16/24 08:59 40 mg QDAY ISAAC Administration Protocol Prednisone 20 mg 08/15/24 09:00 08/18/24 08:56 Prednisone 20 Mg Tablet PO 09/14/24 08:59 20 mg BID ISAAC Administration Pregabalin 75 mg 08/17/24 09:00 08/18/24 08:55 Pregabalin 75 Mg Capsule PO 09/16/24 08:59 75 mg BID ISAAC Administration Sacubitril/Valsartan 1 tab 08/17/24 21:00 08/18/24 08:56 Sacubitril 24 Mg/Valsartan 26 Mg Tablet PO 09/16/24 20:59 1 tab BID ISAAC Administration Sennosides 2 tab 08/14/24 20:53 Senna Tablet PO 09/13/24 20:52 BID PRN CONSTIPATION Protocol Sertraline HCl 200 mg 08/15/24 21:00 08/17/24 20:33 Sertraline Hcl 25 Mg Tablet PO 09/14/24 20:59 200 mg HS ISAAC Administration Protocol Sumatriptan Succinate 100 mg 08/14/24 21:03 08/15/24 14:55 Sumatriptan 25 Mg Tablet PO 09/13/24 21:02 100 mg Q2H PRN Administration Migraine Headache Topiramate 25 mg 08/15/24 09:00 08/18/24 08:56 Topiramate 25 Mg Tablet PO 09/14/24 08:59 25 mg BID ISAAC Administration Plan 78-year-old female with PMHx of A-fib/flutter, HLD, HTN, hypothyroidism, SLE, Crohn's disease, POTS syndrome, and migraines presenting to the ER with a chief complaint of vomiting and diarrhea, admitted for workup, GI team is following. Cardiology was consulted for management of acute CHF in settings of A-fib with RVR. A-fib with RVR Likely paroxysmal A-fib EKG showed atrial fibrillation with RVR, heart rate 131,, possible LVH, ST deviation and moderate T wave abnormalities suggesting possible lateral ischemia. Heart rate controlled after DILTIAZEM pushes. She is on home METOPROLOL, tartrate 25 BID, not anticoagulated.. Currently rate controlled. [id number] high 4.0, HASBLED 1 low. Cholesterol 165, LDL 91, HDL 63, TG 53. TSH 4.52, A1c 4.8. ? Continue METOPROLOL 50 mg XL daily ? Continue ELIQUIS ? Continue home ASPIRIN 81 mg daily ? Maintain K > 4.0 and Mg > 2.0 HFrEF, EF 35-40% No previous echo on file. Unaware of having history of CHF. Not on home DIURETICS. Denies symptoms of SOB, orthopnea, or lower extremity swelling. No findings of volume overload on exam. Lab findings suggestive of low volume status given borderline elevated sodium and chloride, along with history of vomiting and poor oral intake. Echo showed EF 35-40%, detailed exam as above. BMP 550 and chronically elevated, BNP 458 from 04/27/2024. Most likely she has new onset CHF in settings of A-fib with RVR. ? Will need GDMT on or after discharge. ? Will need repeat echo in 3 months to reevaluate heart function. ? No indication for diuresis at this time, asymptomatic, without signs of fluid overload. ? Discontinued home LISINOPRIL ? Continue ENTRESTO, tolerating well, BP and HR WNL. ? Continue METOPROLOL XL as above ? Recommended maintaining euglycemic state ? Recommended cardiology follow-up withing 1 week of discharge. HTN On ENTRESTO as above, BP and HR WNL. Vomiting Diarrhea History of POTS History of Crohn's disease Hypokalemia Hypomagnesemia History of Crohn's disease History of SLE History of hypothyroidism History of hypertension History of Migraine Management of rest of the medical conditions as per primary team and other consultants. Thank you for the consult and allowing me to participate in the care of the patient. Cardiology will continue to follow. Case was discussed with attending, Dr. Tellez. Naila Anglin, DO PGYI Attending Provider Attestation/Addendum I have personally seen and examined the patient separately on the above date of service and discussed the plan of care with the resident. I reviewed the resident Dr. Naila Anglin consultation progress note and agree with the resident findings and plan in the note above and have also edited the documentation to reflect my findings and plan. Jeremias Tellez M.D. Interventional Cardiology
[2024-08-18] MEDS: METOPROLOL SUCCINATE XL 25 MG TABCR 50 MG PO (21:00)
[2024-08-18] MEDS: ATORVASTATIN CALCIUM 20 MG TABLET PO (21:04)
[2024-08-18] MEDS: SERTRALINE HCL 25 MG TABLET 200 MG PO (21:13)
[2024-08-19] VITALS (8 sets, daily range): BP systolic 102–129; BP diastolic 63–82; PULSE 58–74; RESP 13–97; TEMP 36.1–36.4; O2SAT 95–99; BMI 23.9
[2024-08-19] MEDS: LEVOTHYROXINE SODIUM 25 MCG TABLET 50 MCG PO (05:39)
[2024-08-19] MEDS: LEVOTHYROXINE SODIUM 125 MCG TABLET PO (05:39)
[2024-08-19 06:35] LABS: Magnesium 1.7 mg/dL (1.6-2.6); Phosphorous 3.1 mg/dL (2.4-5.1)
[2024-08-19] MEDS: SACUBITRIL 24 MG/VALSARTAN 26 MG TABLET 1 TAB PO ×2 (08:31→20:50)
[2024-08-19] MEDS: FLUDROCORTISONE ACETATE 0.1 MG TABLET PO ×2 (08:32→20:47)
[2024-08-19] MEDS: DULoxetine HCL 30 MG CAPSULE 60 MG PO (08:32)
[2024-08-19] MEDS: PANTOPRAZOLE 40 MG TABLET PO (08:32)
[2024-08-19] MEDS: APIXABAN 2.5 MG TABLET 5 MG PO ×2 (08:32→20:48)
[2024-08-19] MEDS: TOPIRAMATE 25 MG TABLET PO ×2 (08:32→20:48)
[2024-08-19] MEDS: PREGABALIN 75 MG CAPSULE PO ×2 (08:32→20:48)
[2024-08-19] MEDS: ASPIRIN EC 81 MG TABEC PO (08:33)
[2024-08-19] MEDS: azaTHIOprine 50 MG TABLET PO (08:33)
[2024-08-19] MEDS: HYDROXYCHLOROQUINE 200 MG TABLET 400 MG PO (08:33)
[2024-08-19] MEDS: predniSONE 20 MG TABLET PO ×2 (08:33→20:48)
[2024-08-19] MEDS: Mesalamine [Lialda] 1.2 gram Tablet,Delayed Release PO (08:35)
--- NOTE | 2024-08-19 09:34 | ESPR_ITS ---
Documentation for date of: 08/19/24 Subjective Subjective Interval history: No acute overnight events. Doing well today. Denies new symptoms or worsening of symptoms. BP 129/76, HR 62, satting well on room air. No new labs, last labs reviewed from 08/17 and were WNL. Currently pending home health arrangement. Continue with current medications. Recommended cardiology follow-up within 1 week, repeat echo in 3 months. Exam Vital Signs Temp Pulse Resp BP Pulse Ox O2 Del Method O2 Flow Rate 97.3 F 62 18 129/76 95 Room Air 0 08/19/24 08:00 08/19/24 08:00 08/19/24 08:00 08/19/24 08:00 08/19/24 08:00 08/19/24 08:00 08/19/24 08:00 FiO2 97 08/18/24 16:00 Narrative Exam GENERAL * Normal appearing elderly female, NAD, on room air, satting well HEENT * NCAT.?HAILEY. Oral mucosa is moist. Patent Nares NECK * Supple, nontender, no thyromegaly, no meningismus, no JVD, no step offs CHEST * RRR, 3/6 aortic and mitral systolic murmur, no gallops or rubs. * CTAB, no w/r/r. Symmetrical chest rise. No intercostal subcostal retraction * Atraumatic, nontender, no crepitus, symmetrical expansion. ABDOMEN * Soft, flat, nontender. No guarding/rebound tenderness/masses. * Bowel sounds presents EXTREMITIES * No edema/cyanosis.? SKIN * Warm and dry, no jaundice/rashes. NEUROMUSCULAR * No lumbar or midline, no CVA, no paraspinal muscle spasm or tenderness. * Moves all 4 extremities well, with full ROM and good CSM. * PEREZ x4, CN II-XII grossly intact. * No focal neurologic deficits. PSYCHIATRY * Normal mood and affect, cooperative, no SI or HI or hallucinations. Objective Labs 08/17/24 05:14 08/17/24 05:14 Labs: Laboratory Results - last 24 hr 08/19/24 05:35 Phosphorus 3.1 Magnesium 1.7 Quality Measures Quality Measures VTE prophylaxis Advance care planning discussed with:: patient Assessment & Plan Assessment Current Active Medications: Generic Name Dose Route Start Last Admin Trade Name Freq PRN Reason Stop Dose Admin Acetaminophen 650 mg 08/14/24 20:53 08/15/24 20:54 Acetaminophen 325 Mg Tablet PO 09/13/24 20:52 650 mg Q6H PRN Administration PAIN 1-3 OR FEVER > 101 Hydrocodone Bitart/Acetaminophen 1 tab 08/14/24 21:03 08/18/24 20:06 Hydrocodone/Apap 7.5/325 Tablet PO 08/19/24 21:02 1 tab Q6H PRN Administration PAIN SCALE 4-10(Mod-Sev Apixaban 5 mg 08/16/24 09:00 08/19/24 08:32 Apixaban 2.5 Mg Tablet PO 09/15/24 08:59 5 mg BID ISAAC Administration Aspirin 81 mg 08/15/24 09:00 08/19/24 08:33 Aspirin Ec 81 Mg Tabec PO 09/14/24 08:59 81 mg DAILY ISAAC Administration Atorvastatin Calcium 20 mg 08/15/24 21:00 08/18/24 21:04 Atorvastatin Calcium 20 Mg Tablet PO 09/14/24 20:59 20 mg HS ISAAC Administration Azathioprine 50 mg 08/17/24 09:00 08/19/24 08:33 Azathioprine 50 Mg Tablet PO 09/16/24 08:59 50 mg QDAY ISAAC Administration Mesalamine [Lialda] 0 ea 08/16/24 09:00 08/19/24 08:35 1.2 Gram Tablet, PO 09/15/24 08:59 1 tablet Delayed Release QDAY ISAAC Administration Duloxetine HCl 60 mg 08/15/24 09:00 08/19/24 08:32 Duloxetine Hcl 30 Mg Capsule PO 09/14/24 08:59 60 mg QDAY ISAAC Administration Fludrocortisone Acetate 0.1 mg 08/17/24 09:00 08/19/24 08:32 Fludrocortisone Acetate 0.1 Mg Tablet PO 09/16/24 08:59 0.1 mg BID ISAAC Administration Hydroxychloroquine Sulfate 400 mg 08/15/24 09:00 08/19/24 08:33 Hydroxychloroquine 200 Mg Tablet PO 08/22/24 08:59 400 mg QDAY ISAAC Administration Levothyroxine Sodium 50 mcg 08/15/24 06:00 08/19/24 05:39 Levothyroxine Sodium 25 Mcg Tablet PO 09/14/24 05:59 50 mcg ACBR ISAAC Administration Levothyroxine Sodium 125 mcg 08/15/24 06:00 08/19/24 05:39 Levothyroxine Sodium 125 Mcg Tablet PO 09/14/24 05:59 125 mcg ACBR ISAAC Administration Metoprolol Succinate 50 mg 08/16/24 21:00 08/18/24 21:00 Metoprolol Succinate Xl 25 Mg Tabcr PO 09/15/24 20:59 50 mg HS ISAAC Administration Ondansetron HCl 4 mg 08/14/24 20:53 08/17/24 12:15 Ondansetron Inj 2 Mg/Ml Inj 2 Ml IV 09/13/24 20:52 4 mg Q6H PRN Administration NAUSEA OR VOMITING Protocol Pantoprazole Sodium 40 mg 08/17/24 09:00 08/19/24 08:32 Pantoprazole 40 Mg Tablet PO 09/16/24 08:59 40 mg QDAY ISAAC Administration Protocol Prednisone 20 mg 08/15/24 09:00 08/19/24 08:33 Prednisone 20 Mg Tablet PO 09/14/24 08:59 20 mg BID ISAAC Administration Pregabalin 75 mg 08/17/24 09:00 08/19/24 08:32 Pregabalin 75 Mg Capsule PO 09/16/24 08:59 75 mg BID ISAAC Administration Sacubitril/Valsartan 1 tab 08/17/24 21:00 08/19/24 08:31 Sacubitril 24 Mg/Valsartan 26 Mg Tablet PO 09/16/24 20:59 1 tab BID ISAAC Administration Sennosides 2 tab 08/14/24 20:53 Senna Tablet PO 09/13/24 20:52 BID PRN CONSTIPATION Protocol Sertraline HCl 200 mg 08/15/24 21:00 08/18/24 21:13 Sertraline Hcl 25 Mg Tablet PO 09/14/24 20:59 200 mg HS ISAAC Administration Protocol Sumatriptan Succinate 100 mg 08/14/24 21:03 08/15/24 14:55 Sumatriptan 25 Mg Tablet PO 09/13/24 21:02 100 mg Q2H PRN Administration Migraine Headache Topiramate 25 mg 08/15/24 09:00 08/19/24 08:32 Topiramate 25 Mg Tablet PO 09/14/24 08:59 25 mg BID ISAAC Administration Plan 78-year-old female with PMHx of A-fib/flutter, HLD, HTN, hypothyroidism, SLE, Crohn's disease, POTS syndrome, and migraines presenting to the ER with a chief complaint of vomiting and diarrhea, admitted for workup, GI team is following. Cardiology was consulted for management of acute CHF in settings of A-fib with RVR. A-fib with RVR Likely paroxysmal A-fib EKG showed atrial fibrillation with RVR, heart rate 131,, possible LVH, ST deviation and moderate T wave abnormalities suggesting possible lateral ischemia. Heart rate controlled after DILTIAZEM pushes. She is on home METOPROLOL, tartrate 25 BID, not anticoagulated.. Currently rate controlled. [id number] high 4.0, HASBLED 1 low. Cholesterol 165, LDL 91, HDL 63, TG 53. TSH 4.52, A1c 4.8. ? Continue METOPROLOL 50 mg XL daily ? Continue ELIQUIS ? Continue home ASPIRIN 81 mg daily ? Maintain K > 4.0 and Mg > 2.0 HFrEF, EF 35-40% No previous echo on file. Unaware of having history of CHF. Not on home DIURETICS. Denies symptoms of SOB, orthopnea, or lower extremity swelling. No findings of volume overload on exam. Lab findings suggestive of low volume status given borderline elevated sodium and chloride, along with history of vomiting and poor oral intake. Echo showed EF 35-40%, detailed exam as above. BMP 550 and chronically elevated, BNP 458 from 04/27/2024. Most likely she has new onset CHF in settings of A-fib with RVR. ? Will need GDMT on or after discharge. ? Will need repeat echo in 3 months to reevaluate heart function. ? No indication for diuresis at this time, asymptomatic, without signs of fluid overload. ? Discontinued home LISINOPRIL ? Continue ENTRESTO, tolerating well, BP and HR WNL. ? Continue METOPROLOL XL as above ? Recommended maintaining euglycemic state ? Recommended cardiology follow-up withing 1 week of discharge. HTN On ENTRESTO as above, BP and HR continued WNL. Vomiting Diarrhea History of POTS History of Crohn's disease Hypokalemia Hypomagnesemia History of Crohn's disease History of SLE History of hypothyroidism History of hypertension History of Migraine Management of rest of the medical conditions as per primary team and other consultants. Thank you for the consult and allowing me to participate in the care of the patient. Cardiology will continue to follow. Case was discussed with attending, Dr. Tellez. Naila Anglin DO PGYI Attending Provider Attestation/Addendum I have personally seen and examined the patient separately on the above date of service and discussed the plan of care with the resident. I reviewed the resident Dr. Naila Anglin consultation progress note and agree with the resident findings and plan in the note above and have also edited the documentation to reflect my findings and plan. Jeremias Tellez M.D. Interventional Cardiology
--- NOTE | 2024-08-19 10:25 | PC.SS ---
Addendum entered by Karla To 08/19/24 16:11: As of 1608 appeal decision remains pending. SS informed by [facility] is requesting SNF placement, [facility]. SS met with patient at bedside to confirm discharge plan, patient confirmed she would like to discharge [facility]. SS to submit SNF referrals. Original Note: Appeal decision is pending. As of 08/19/24 1022, financial liability is still pending. SS to inform team and patient once decision has been made by [facility].
--- NOTE | 2024-08-19 10:47 | PD.IMPROG ---
Documentation for date of: 08/19/24 Subjective Subjective Interval history: Patient evaluated No vomiting no diarrhea Exam Vital Signs Temp Pulse Resp BP Pulse Ox O2 Del Method O2 Flow Rate 97.3 F 62 18 129/76 95 Room Air 0 08/19/24 08:00 08/19/24 08:00 08/19/24 08:00 08/19/24 08:00 08/19/24 08:00 08/19/24 08:00 08/19/24 08:00 FiO2 97 08/18/24 16:00 Objective Labs 08/17/24 05:14 08/17/24 05:14 Labs: Laboratory Results - last 24 hr 08/19/24 05:35 Phosphorus 3.1 Magnesium 1.7 Impressions Impression: Crohn's disease doing well Continue current management Assessment & Plan A&P Narrative # Nausea vomiting with diarrhea With a CT scan of the abdomen pelvis without contrast showing only colonic diverticulosis It appears that most likely the cause of infectious enterocolitis and not an acute exacerbation of the underlying Crohn's disease which is being followed at gastroenterology group in [place] Suggestions Stool culture and sensitivity Stool ova and parasite Stool Gram stain Giardia antigen Fecal calprotectin Stool C. difficile Will follow the patient Not planning any invasive GI workup at least at the moment Other medical problems include A-fib RVR controlled with metoprolol POTS syndrome Crohn's disease SLE Hyperlipidemia Hypertension Migraine headaches Thank you very much for the opportunity to participate in the care of this patient Time Spent With Patient Time: Total time spent is greater than 50% in coordination of care (as documented) at patient's floor/unit and/or counseling patient:
--- NOTE | 2024-08-19 11:56 | PD.RESDS ---
Planned Discharge Date 08/19/24 DS: Providers Provider Date of admission: 08/14/24 20:53 Primary care physician: Physician No Primary/Family Admitting Provider: Alvarez Soriano MD Attending Provider on Admission: Nicola Edouard DO Consults: 08/15/24 10:23 Consult to Gastroenterology Routine Comment: crohns Consulting Provider: Maldonado Nevarez 08/15/24 18:37 Health Equity Referral - Utilities Routine Comment: Positive screening for utility assistance needs. 08/16/24 12:02 Referral Physical Therapy Routine Comment: Physician Instructions: 08/16/24 12:28 Consult to Cardiology Stat Comment: EF of 35% this admission Consulting Provider: Jeremias Tellez Attending Provider on DC: Drea Acosta MD Discharging Provider: Drea Acosta MD DS: Diagnosis Problem List Completed Was Problem List Reviewed/Reconciled?: Yes Hospital Course Hospital Course Hospital course: A 78-year-old female patient with past medical history of POTS, A-fib/flutter, Crohn's disease, SLE, hyperlipidemia, hypertension, hypothyroidism, recurrent migraines, came to the ED due to vomiting and diarrhea associated with generalized weakness. Patient was admitted for possible Crohn's disease flare. Stool white cells and C. difficile were within normal limits, stool culture and sensitivity was also negative, patient mentioned that she switched his insurance as she was not able to refill her medications. The GI specialist Dr. Nevarez was consulted in which she recommended to resume the patient home medications. I do believe that it was of infectious source most likely viral. Patient symptoms continue to improve over time and she was able to tolerate oral feeds. During her stay patient was noticed that she has A-fib with RVR, she was not sure about her cardiac history for that reason we ordered for the patient echo [facility] came with ejection fraction of 35%, so we consulted the personal finance instructor Dr. Jeremias Bowie in which she recommended to start the patient on goal-directed medical therapy metoprolol, Entresto, 100 started the patient on aspirin and Lasix. For her A-fib we will continue the patient on apixaban. Patient was treated for her hypothyroidism with the same dose of levothyroxine 137 mcg p.o. daily. Patient was recommended to follow-up in outpatient settings. Patient was supposed to be discharged 2 days ago however because her daughter was admitted to the hospital which is the primary care provider patient appealed her discharge. At this time patient deemed to be clinically stable to be discharged home with home health. Discharge diagnosis #HFrEF ejection fraction of 35% on July 2024 #A-fib/A-flutter on Eliquis #Chron's disease #Gastroenteritis most likely viral #SLE #Osteoporosis #Hypothyroidism #Hyperlipidemia #Hypertension #POTS #Migraine disorder - Patient's plan and care discussed with my attending, Dr. Silke Acosta MD Internal Medicine PGY-2 Time Spent with Patient Time attestation: Total time spent providing and/or coordinating discharge services: Time spent: Greater than 30 minutes Home Health Home Health Referral Orders: 08/18/24 15:40 Home Health Referral Routine Reason For Exam: debility Home-Bound The patient must either because of illness or injury, need the aid of supportive devices such as crutches, canes, wheelchairs, and walkers; the use of special transportation; or the assistance of another person in order to leave their place of residence; OR have a condition such that leaving his or her home is medically contraindicated. In addition, the patient also meets the following criteria: patient is normally unable to leave the home and leaving home requires considerable taxing effort. Addendum to Home Health Certification Practitioner's Certification: I certify that the patient has been under my care in the hospital and the care of attending physician (see below). We had a [id number] encounter on (see date below). My clinical findings indicate that the patient is home bound per the above criteria and the Home Health Services noted in these orders are medically necessary. The primary reason for the [id number] encounter is related to the fact that the patient requires home health services. Date Certifying [id number] Physician Encounter: 08/14/24 Physician's Name who will Assume Oversight for Services: Zhang Keenan Physician's Phone No.who will Assume Oversight for Service: [facility] - Community Resources: No PT to Evaluate: Yes PT to evaluate and provide a treatmnet plan to increase patient's mobility and strength. Wound Care: No IV Therapy: No Discontinue PICC Line Once Treatment Complete: No RN Safety Evaluation: Yes RN to evaluate and create a plan of care that will produce positive outcomes. Palliative Treatment: No Palliative treatment and evaluate the need for hospice. Home Health Aide - Personal Care: No Home Health Aide to assist with any ADL's. Exam Vital Signs Temp Pulse Resp BP Pulse Ox O2 Del Method O2 Flow Rate 97.3 F 62 18 129/76 95 Room Air 0 08/19/24 08:00 08/19/24 08:00 08/19/24 08:00 08/19/24 08:00 08/19/24 08:00 08/19/24 08:00 08/19/24 08:00 FiO2 97 08/18/24 16:00 Narrative Exam GEN: AOx3, able to speak full sentences HEENT: NC/AC, PERRLA, oral mucosa moist, neck supple CVS: RRR, S1-S2 present, no murmurs appreciated RESP: CTAB GI: soft,non distended, non tender, NBS MSK: able to move all 4 limbs, no lower extremity edema SKIN: warm and dry BACKPACKERS MANAGER: CN II-XII and Sensation grossly intact. Discharge Plan Plan Patient Disposition: Home w/HOME HEALTH Patient condition on transfer: Stable and Benefits outweigh risks Care Plan Goals: ? You have been started on a medication Eliquis to prevent strokes from your atrial fibrillation. Take 1 tablet twice a day. ? Monitor for any signs of bleeding including bleeding gums, blood in the urine and stool and bruising over your body. If you experience any of these immediately call your PCP for further steps. ? We have discontinued your medication lisinopril. If you have any extra close at home please discard. ? We have stopped your medication metoprolol tartrate. ? We have put a hold on new medication raloxifene until you see your primary care doctor. If you still experience left jaw pain, present to the emergency department or urgent care for an x-ray. ? You have been started on a medication Entresto. Take the first dose tonight and 1 tablet twice a day from tomorrow. ? Open started on a medication metoprolol succinate. Take 2 tablets once a day at night. ? You have been started on medication pantoprazole for nausea/acid reflux. Take 1 tablet once a day. ? Continue the rest of your home medication as before. ? You will have to restrict your daily liquid intake to 1.5 Litres / 50 ounces per day. This includes water, teas, coffees and soups. ? You will have to follow a low salt diet for the rest of your life. This means no [place]ic food or fast food. ? You will have to take your weight daily. If your weight increases by more than3-5 pounds in 1-2 days, take an extra water pill that day. ? You will have to measure your blood pressure daily. If the top number is less than 100, do not take your blood pressure medications that day. ? Keep a log of your blood pressures to take to your primary doctor and personal finance instructor. - Follow up with your personal finance instructor or personal finance instructor, Dr. Tellez outpatient. His office number is [phone]. Please see a personal finance instructor within 1-2 weeks of discharge - Follow up with your primary care physician within 1 week of discharge. If you do not have a primary care physician, please follow up with the [facility] Residents clinic ([phone]) ? If you experience any new, worsening or persistent symptoms either call your primary doctor, or dial 911 or present to the emergency department. Prescriptions/Referrals Prescriptions/Med Rec: New Eliquis 2.5 mg Tablet 5 mg PO BID 30 Days Qty: 120 0RF Entresto 24-26 mg Tablet 1 tab PO BID 14 Days Qty: 28 0RF pantoprazole 40 mg Tablet,Delayed Release (Dr/Ec) 40 mg PO QDAY 30 Days Qty: 30 0RF hydrocodone-acetaminophen 7.5-325 mg tablet 1 tab PO Q6H MDD PRN (Reason: pain) 5 Days Qty: 20 0RF metoprolol succinate 50 mg tablet extended release 24 hr 50 mg PO QDAY 14 Days Qty: 14 0RF Continued atorvastatin [Lipitor] 20 MG tablet 20 mg PO HS Qty: 0 sertraline [Zoloft] 100 MG tablet 200 mg PO HS Qty: 0 hydroxychloroquine [Plaquenil] 200 MG tablet 400 mg PO QDAY Qty: 0 duloxetine [Cymbalta] 60 MG capsule,delayed release(DR/EC) 60 mg PO QDAY Qty: 0 azathioprine 50 mg Tablet 50 mg PO QDAY mesalamine [Lialda] 1.2 gram Tablet,Delayed Release (Dr/Ec) 2.4 g PO QDAY sumatriptan succinate 100 mg Tablet 100 mg PO Q2H PRN (Reason: Migraine Headache) levothyroxine 175 mcg tablet 175 mcg PO DAILY aspirin 81 mg tablet,delayed release (DR/EC) 81 mg PO DAILY prednisone 20 mg tablet See Taper PO BID Qty: 49 0RF Taper: Prednisone Taper 15 mg TWICE A DAY for 7 Days and 0 Hour 10 mg TWICE A DAY for 7 Days and 0 Hour 5 mg TWICE A DAY for 7 Days and 0 Hour 5 mg DAILY for 7 Days topiramate [Topamax] 25 mg tablet 25 mg PO BID Patient Comments: TAKE 2 TAB PO IN THE MORNING AND 3 TAB IN THE EVENINGS FOR MIGRAINE PREVENTION fludrocortisone 0.1 mg tablet 0.1 mg PO BID hydrocodone-acetaminophen 7.5-325 mg tablet 1 tab PO Q6H PRN (Reason: PAIN) 5 Days Qty: 20 0RF pregabalin 75 mg capsule 75 mg PO BID 30 Days Qty: 60 2RF Held raloxifene [Evista] 60 MG tablet 60 mg PO QDAY Qty: 0 Hold Instructions: Resume on 08/24/24. Hold until you see your PCP. If you continue to have jaw pain, call your PCP or go to urgent care for an Xray Discontinued lisinopril 10 MG tablet 10 mg PO QDAY Qty: 0 metoprolol tartrate 25 MG tablet 25 mg PO BID Qty: 0 Referrals: Jeremias Tellez MD [Physician] - Maldonado Nevarez MD [Physician] - No Primary/Family,Physician [Primary Care Provider] - Teo Wilhelm MD [Resident] - Patient/Caregiver Discharge Instructions Education Materials: Eliquis Oral Tablet 2.5 mg, Heart Disease Women, ED Atrial Fibrillation, ED Vomiting (Adult) Print Language: Malay Stand Alone Forms: Cherie Award Info., Patient Portal Info Letter Discharge Order Discharge Orders: Discharge (Routine); Ordered 08/20/24 Ordered By: rDea Acosta Quality Discharge Quality Measures VTE prophylaxis Attestestation MD Attestation Discharge is been appealed, will not discharge today as planned.
--- NOTE | 2024-08-19 13:29 | PD.RESPRO ---
Documentation for date of: 08/19/24 Subjective Subjective Interval history: Patient was seen and examined at bedside. Patient denied any new symptoms. Vitals and labs all at baseline. Patient appears her discharge yesterday she reported that she does not feel safe at home as her daughter just got discharged from the hospital and she was unable to walk to assist her with her living. Patient refuses SNF. Exam Vital Signs Temp Pulse Resp BP Pulse Ox O2 Del Method O2 Flow Rate 97.1 F 68 18 115/68 95 Room Air 0 08/19/24 12:00 08/19/24 12:00 08/19/24 12:00 08/19/24 12:00 08/19/24 12:00 08/19/24 12:00 08/19/24 12:00 FiO2 97 08/19/24 12:00 Narrative Exam GEN: AOx3, able to speak full sentences HEENT: NC/AC, PERRLA, oral mucosa moist, neck supple CVS: RRR, S1-S2 present, no murmurs appreciated RESP: CTAB GI: soft,non distended, non tender, NBS MSK: able to move all 4 limbs, no lower extremity edema SKIN: warm and dry LINE HAUL OWNER OPERATOR: CN II-XII and Sensation grossly intact. Objective Labs 08/17/24 05:14 08/17/24 05:14 Labs: Laboratory Results - last 24 hr 08/19/24 05:35 Phosphorus 3.1 Magnesium 1.7 Quality Measures Quality Measures VTE prophylaxis Advance care planning discussed with:: patient Assessment & Plan Assessment Current Active Medications: Generic Name Dose Route Start Last Admin Trade Name Freq PRN Reason Stop Dose Admin Acetaminophen 650 mg 08/14/24 20:53 08/15/24 20:54 Acetaminophen 325 Mg Tablet PO 09/13/24 20:52 650 mg Q6H PRN Administration PAIN 1-3 OR FEVER > 101 Hydrocodone Bitart/Acetaminophen 1 tab 08/14/24 21:03 08/18/24 20:06 Hydrocodone/Apap 7.5/325 Tablet PO 08/19/24 21:02 1 tab Q6H PRN Administration PAIN SCALE 4-10(Mod-Sev Apixaban 5 mg 08/16/24 09:00 08/19/24 08:32 Apixaban 2.5 Mg Tablet PO 09/15/24 08:59 5 mg BID ISAAC Administration Aspirin 81 mg 08/15/24 09:00 08/19/24 08:33 Aspirin Ec 81 Mg Tabec PO 09/14/24 08:59 81 mg DAILY ISAAC Administration Atorvastatin Calcium 20 mg 08/15/24 21:00 08/18/24 21:04 Atorvastatin Calcium 20 Mg Tablet PO 09/14/24 20:59 20 mg HS ISAAC Administration Azathioprine 50 mg 08/17/24 09:00 08/19/24 08:33 Azathioprine 50 Mg Tablet PO 09/16/24 08:59 50 mg QDAY ISAAC Administration Mesalamine [Lialda] 0 ea 08/16/24 09:00 08/19/24 08:35 1.2 Gram Tablet, PO 09/15/24 08:59 1 tablet Delayed Release QDAY ISAAC Administration Duloxetine HCl 60 mg 08/15/24 09:00 08/19/24 08:32 Duloxetine Hcl 30 Mg Capsule PO 09/14/24 08:59 60 mg QDAY ISAAC Administration Fludrocortisone Acetate 0.1 mg 08/17/24 09:00 08/19/24 08:32 Fludrocortisone Acetate 0.1 Mg Tablet PO 09/16/24 08:59 0.1 mg BID ISAAC Administration Hydroxychloroquine Sulfate 400 mg 08/15/24 09:00 08/19/24 08:33 Hydroxychloroquine 200 Mg Tablet PO 08/22/24 08:59 400 mg QDAY ISAAC Administration Levothyroxine Sodium 50 mcg 08/15/24 06:00 08/19/24 05:39 Levothyroxine Sodium 25 Mcg Tablet PO 09/14/24 05:59 50 mcg ACBR ISAAC Administration Levothyroxine Sodium 125 mcg 08/15/24 06:00 08/19/24 05:39 Levothyroxine Sodium 125 Mcg Tablet PO 09/14/24 05:59 125 mcg ACBR ISAAC Administration Metoprolol Succinate 50 mg 08/16/24 21:00 08/18/24 21:00 Metoprolol Succinate Xl 25 Mg Tabcr PO 09/15/24 20:59 50 mg HS ISAAC Administration Ondansetron HCl 4 mg 08/14/24 20:53 08/17/24 12:15 Ondansetron Inj 2 Mg/Ml Inj 2 Ml IV 09/13/24 20:52 4 mg Q6H PRN Administration NAUSEA OR VOMITING Protocol Pantoprazole Sodium 40 mg 08/17/24 09:00 08/19/24 08:32 Pantoprazole 40 Mg Tablet PO 09/16/24 08:59 40 mg QDAY ISAAC Administration Protocol Prednisone 20 mg 08/15/24 09:00 08/19/24 08:33 Prednisone 20 Mg Tablet PO 09/14/24 08:59 20 mg BID ISAAC Administration Pregabalin 75 mg 08/17/24 09:00 08/19/24 08:32 Pregabalin 75 Mg Capsule PO 09/16/24 08:59 75 mg BID ISAAC Administration Sacubitril/Valsartan 1 tab 08/17/24 21:00 08/19/24 08:31 Sacubitril 24 Mg/Valsartan 26 Mg Tablet PO 09/16/24 20:59 1 tab BID ISAAC Administration Sennosides 2 tab 08/14/24 20:53 Senna Tablet PO 09/13/24 20:52 BID PRN CONSTIPATION Protocol Sertraline HCl 200 mg 08/15/24 21:00 08/18/24 21:13 Sertraline Hcl 25 Mg Tablet PO 09/14/24 20:59 200 mg HS ISAAC Administration Protocol Sumatriptan Succinate 100 mg 08/14/24 21:03 08/15/24 14:55 Sumatriptan 25 Mg Tablet PO 09/13/24 21:02 100 mg Q2H PRN Administration Migraine Headache Topiramate 25 mg 08/15/24 09:00 08/19/24 08:32 Topiramate 25 Mg Tablet PO 09/14/24 08:59 25 mg BID ISAAC Administration Plan Patient is a 78-year-old female with a past medical history of POTS , atrial fibrillation/flutter, Crohn's disease, SLE, hyperlipidemia, hypertension, hypothyroidism and migraine who presents to the ER, accompanied by her daughter, complaining of vomiting and diarrhea. Atrial fibrillation?paroxysmal HFrEF ejection fraction of 35% Patient diagnosed with A-fib in February at [facility]. Had implantable loop recorder for 1 month which did not show any further episodes, therefore she stated her supply chain assistant did not start her on anticoagulation. On admission patient was in A-fib with RVR heart rates in 130s from EKG. On telemetry review rhythm fluctuates between sinus and sinus arrythmia. Rates in the 70s-80s K4.4, Mg 2. [id number] [age, sex, HTN, stroke, vascular] and HAS-Bled ; 3 points. Discussed risks versus benefits of anticoagulation with patient and daughter at bedside, she wishes to be started on Eliquis. Echocardiogram was done which showed Mild LVH.there is grade II diastolic dysfunction. Global LV systolic function is moderately decreased. Estimated EF 35-40%. At this time patient does not seem to be fluid overloaded, no JVD, no lower extremity edema, no orthopnea. Patient has multiple episodes of diarrhea for that reason we will not start the patient at this time on diuretics unless recommended by the supply chain assistant. Plan: ? Patient is cleared from medical standpoint for discharge ? Strict in and out ? Cardiac diet ? Consider starting the patient on Lasix as fluid overloaded ? Continue rate control with metoprolol succinate 50 Mg p.o. daily - Continue apixaban 5 Mg p.o. twice daily ? Continue aspirin 81 Mg p.o. daily for stroke prophylaxis ? To start Entresto 1 tab p.o. twice daily from [facility]. This will be 36 hours after discontinuing lisinopril ? Risk versus benefit of aspirin and Eliquis therapy discussed with the patient. She agrees to continue on treatment with both agents. Intractable vomiting?resolved Diarrhea?resolved Patient presented with 1 week history of nausea and vomiting along with diarrhea. On exam abdomen nontender to palpation CT scan showed diverticulosis, negative for diverticulitis. DDx: Viral gastroenteritis, Crohn's flare Stool for WBCs and C. difficile negative. Pending calprotectin Plan: ? Continue BRRAT diet ? Continue Zofran as needed - Pending stool culture, and calprotectin ? Follow-up on the ANCA, antiperoxidase, antimyeloperoxidase in outpatient setting ? Patient clinically stable for discharge. However patient's daughter currently hospitalized at [facility] and she has the patient's house keys. Will hold on discharge for today ? Gastroenterology, Dr. Nevarez consulted and closely following the case. Appreciate recommendations History of Crohn's disease History of SLE History of hypothyroidism History of hypertension History of Migraine Currently stable on home medication. Will resume after med rec. Plan: ? Continue mesalamine 2.4 g p.o. daily ? Continue prednisone 20 Mg p.o. twice daily - Continue sumatriptan 100 Mg p.o. every 2 hourly as needed ? Continue levothyroxine 137 mcg p.o. AC BR ? Restarted home dose fludrocortisone ? Restarted home dose azathioprine Osteoporosis Patient on raloxifene at home. She states that her last DEXA scan however has been many years ago [greater than 2 years] Patient stated that 2 days ago she developed left jaw pain which has now subsided. Will consider x-ray of the jaw if symptoms return. Plan: ? Home medication, raloxifene on hold for now Health maintenance: Disposition: Medically cleared for discharge to home with home health however the patient has appealed Diet: BRRAT Lines: pIVs GI Prophylaxis: Pantoprazole Thrombo Prophylaxis: Apixaban Code status: FULL CODE - Patient's plan and care discussed with my attending, Dr. Silke Acosta MD Internal Medicine PGY-2 Attending Provider Attestation/Addendum I have discussed and was present for the essential components of the history, physical examination, diagnosis, and treatment plan with the resident. I agree with the patient's care as documented by the resident and amended herein by me. Bhaskar Edouard, DO. Patient seen and evaluated this AM. No acute events overnight. Patient appealed discharge, decision pending. Patient continues to states she will go home and she adamantly does not want to go to SNF and stated she is willing to pay for her hospital stay [id number] if it should come to that. I did explain we will discuss options further once the appeal decision returns. Patient is stable cleared for discharge from gastroenterology standpoint and from our standpoint. Although this document has been carefully reviewed, there may still be some phonetic and other typographical errors. These errors are purely grammatical due to imperfections in the software program and should not be construed in any way to compromise the substance of the patient's medical care during this visit.
[2024-08-19] MEDS: HYDROcodone/APAP 7.5/325 TABLET 1 TAB PO ×2 (14:06→21:10)
[2024-08-19] MEDS: METOPROLOL SUCCINATE XL 25 MG TABCR 50 MG PO (20:47)
[2024-08-19] MEDS: ATORVASTATIN CALCIUM 20 MG TABLET PO (20:48)
[2024-08-19] MEDS: SERTRALINE HCL 25 MG TABLET 200 MG PO (20:50)
--- NOTE | 2024-08-19 21:24 | PC.NURSE ---
ALOK REACHED STOP DATE AND TIME. PT RECEIVED DOSE AT 2109. DR. SKYLER ZAMUDIOREQUESTED FOR RENEWAL ORDER. STATES SHE WILL LOOK INTO IT BUT CAN CALL HER BACK FOR ADDITIONAL DOSE IF PT REQUESTS ANOTHER DOSE.
[2024-08-20] VITALS (8 sets, daily range): BP systolic 102–129; BP diastolic 60–73; PULSE 56–74; RESP 14–24; TEMP 36.1–36.6; O2SAT 95–98; BMI 23.9
[2024-08-20] MEDS: LEVOTHYROXINE SODIUM 25 MCG TABLET 50 MCG PO (05:06)
[2024-08-20] MEDS: LEVOTHYROXINE SODIUM 125 MCG TABLET PO (05:06)
[2024-08-20 05:57] LABS: Basophils % (Auto) 0 % (0-2.5); Eosinophils % (Auto) 0 % (0-10); Hematocrit 42.1 % (36.0-46.0); Immature Granulocytes % (Auto) 0 % (0-0); Immature Granulocytes Auto 0.03 Thou/mm3 (0.00-0.00); Lymphocytes # (Auto) 0.7 Thou/mm3 (1.0-4.8); Lymphocytes % (Auto) 10 % (10-50); Mean Corpuscular HGB Conc 33.3 g/dl (31.0-37.0); Mean Corpuscular Hemoglobin 31.2 pg (25.0-35.0); Mean Corpuscular Volume 94 fL (80-100); Monocytes # (Auto) 0.4 Thou/mm3 (0.0-0.8); Monocytes % (Auto) 5 % (0-12); Neutrophils % (Auto) 84 % (37-80); Nucleated Red Blood Cell % 0 /100 WBC (0); Platelet Count 219 Thou/mm3 (140-440); Red Blood Count 4.49 Miln/mm3 (4.00-5.20); White Blood Count 7.2 Thou/mm3 (3.6-11.0)
[2024-08-20 06:28] LABS: Alanine Aminotransferase 16 U/L (10-49); Albumin, Serum 3.6 gm/dL (3.4-4.8); Albumin/Globulin Ratio 1.9 (1.2-2.2); Alkaline Phosphatase 95 U/L (46-116); Anion Gap 9 (7-16); Aspartate Amino Transferase 19 U/L (0-34); BUN/Creatinine Ratio 29 Ratio (12-20); Bilirubin,Total 0.2 mg/dL (0.3-1.2); Blood Urea Nitrogen 26 mg/dL (9-23); Calcium 8.8 mg/dL (8.3-10.6); Calcium (Corrected) 9.1 mg/dL (8.5-10.1); Carbon Dioxide 28.2 mMol/L (20.0-31.0); Chloride 105 mMol/L (98-107); Creatinine (Component) 0.9 mg/dL (0.6-1.3); Globulin 1.9 gm/dL (2.3-3.5); Glucose 127 mg/dL (74-106); Osmolality,Calculated 289 (275-295); Potassium 4.1 mMol/L (3.4-5.1); Sodium 142 mMol/L (136-145); Total Protein 5.5 gm/dL (5.7-8.2); eGFR > 60 See Note
--- NOTE | 2024-08-20 08:31 | PC.SS ---
Addendum entered by Karla To 08/20/24 10:41: Vita HERRON stated informed of patient's request. Vita stated patient's SNF referral is pending review by [facility], updates will be provided to SS. [facility] level 2 cleared and closed, [employer] [phone] was contacted. Original Note: SNF referrals submitted via [facility], responses pending. Patient prefers [facility]. [facility] level 2 clearance pending.
[2024-08-20] MEDS: Mesalamine [Lialda] 1.2 gram Tablet,Delayed Release PO (09:11)
[2024-08-20] MEDS: HYDROXYCHLOROQUINE 200 MG TABLET 400 MG PO (09:12)
[2024-08-20] MEDS: azaTHIOprine 50 MG TABLET PO (09:13)
[2024-08-20] MEDS: SACUBITRIL 24 MG/VALSARTAN 26 MG TABLET 1 TAB PO ×2 (09:14→21:14)
[2024-08-20] MEDS: APIXABAN 2.5 MG TABLET 5 MG PO ×2 (09:14→21:14)
[2024-08-20] MEDS: PANTOPRAZOLE 40 MG TABLET PO (09:14)
[2024-08-20] MEDS: ASPIRIN EC 81 MG TABEC PO (09:14)
[2024-08-20] MEDS: DULoxetine HCL 30 MG CAPSULE 60 MG PO (09:14)
[2024-08-20] MEDS: predniSONE 20 MG TABLET PO ×2 (09:15→21:14)
[2024-08-20] MEDS: TOPIRAMATE 25 MG TABLET PO ×2 (09:15→21:14)
[2024-08-20] MEDS: PREGABALIN 75 MG CAPSULE PO ×2 (09:15→21:14)
[2024-08-20] MEDS: FLUDROCORTISONE ACETATE 0.1 MG TABLET PO ×2 (09:15→21:14)
--- NOTE | 2024-08-20 09:43 | PD.IMPROG ---
Documentation for date of: 08/20/24 Subjective Subjective Interval history: Stable from a Crohn's disease viewpoint Exam Vital Signs Temp Pulse Resp BP Pulse Ox O2 Del Method O2 Flow Rate 97.8 F 61 24 H 123/67 95 Room Air 0 08/20/24 08:00 08/20/24 08:00 08/20/24 08:00 08/20/24 08:00 08/20/24 08:00 08/20/24 08:00 08/20/24 00:00 FiO2 97 08/20/24 00:00 Objective Labs 08/21/24 06:22 08/21/24 06:22 Labs: Laboratory Results - last 24 hr 08/20/24 05:20 WBC 7.2 RBC 4.49 Hgb 14.0 D Hct 42.1 MCV 94 MCH 31.2 MCHC 33.3 RDW Std Deviation 50.0 H Plt Count 219 D Neut % (Auto) 84 H Lymph % (Auto) 10 [place] % (Auto) 5 Eos % (Auto) 0 Baso % (Auto) 0 Neut # (Auto) 6.0 Lymph # (Auto) 0.7 L [place] # (Auto) 0.4 Eos # (Auto) 0.0 Baso # (Auto) 0.0 Immature Gran # (Auto) 0.03 H Absolute Nucleated RBC 0.00 Immature Gran % 0 Nucleated RBC % 0 Sodium 142 Potassium 4.1 Chloride 105 Carbon Dioxide 28.2 Anion Gap 9 BUN 26 H Creatinine 0.9 Estim Creat Clear Calc 49.0 L eGFR > 60 BUN/Creatinine Ratio 29 H Glucose 127 H Calculated Osmolality 289 Calcium 8.8 Corrected Calcium 9.1 Total Bilirubin 0.2 L AST 19 ALT 16 Alkaline Phosphatase 95 Total Protein 5.5 L Albumin 3.6 Globulin 1.9 L Albumin/Globulin Ratio 1.9 Impressions Impression: Crohn's disease No diarrhea Continue current management Assessment & Plan A&P Narrative # Nausea vomiting with diarrhea With a CT scan of the abdomen pelvis without contrast showing only colonic diverticulosis It appears that most likely the cause of infectious enterocolitis and not an acute exacerbation of the underlying Crohn's disease which is being followed at gastroenterology group in [facility] Stool culture and sensitivity Stool ova and parasite Stool Gram stain Giardia antigen Fecal calprotectin Stool C. difficile Will follow the patient Not planning any invasive GI workup at least at the moment Other medical problems include A-fib RVR controlled with metoprolol POTS syndrome Crohn's disease SLE Hyperlipidemia Hypertension Migraine headaches Thank you very much for the opportunity to participate in the care of this patient Time Spent With Patient Time: Total time spent is greater than 50% in coordination of care (as documented) at patient's floor/unit and/or counseling patient:
[2024-08-20] MEDS: SENNA TABLET 2 TAB PO (09:44)
--- NOTE | 2024-08-20 09:54 | ESPR_ITS ---
Documentation for date of: 08/20/24 Subjective Subjective Interval history: No acute overnight events. Denies fever, chills, headaches, chest pain, sob, cough, GI or urinary symptoms. Normotensive, HR WNL, satting well on room air. CR 0.9, BUN 26, remainder CHEM panel relatively normal. CBC relatively unremarkable. Continue with current medications. Recommended cardiology follow-up within 1 week, repeat echo in 3 months. Exam Vital Signs Temp Pulse Resp BP Pulse Ox O2 Del Method O2 Flow Rate 97.8 F 61 24 H 123/67 95 Room Air 0 08/20/24 08:00 08/20/24 08:00 08/20/24 08:00 08/20/24 08:00 08/20/24 08:00 08/20/24 08:00 08/20/24 00:00 FiO2 97 08/20/24 00:00 Objective Labs 08/20/24 05:20 08/20/24 05:20 Labs: Laboratory Results - last 24 hr 08/20/24 05:20 WBC 7.2 RBC 4.49 Hgb 14.0 D Hct 42.1 MCV 94 MCH 31.2 MCHC 33.3 RDW Std Deviation 50.0 H Plt Count 219 D Neut % (Auto) 84 H Lymph % (Auto) 10 Mcminn % (Auto) 5 Eos % (Auto) 0 Baso % (Auto) 0 Neut # (Auto) 6.0 Lymph # (Auto) 0.7 L Mcminn # (Auto) 0.4 Eos # (Auto) 0.0 Baso # (Auto) 0.0 Immature Gran # (Auto) 0.03 H Absolute Nucleated RBC 0.00 Immature Gran % 0 Nucleated RBC % 0 Sodium 142 Potassium 4.1 Chloride 105 Carbon Dioxide 28.2 Anion Gap 9 BUN 26 H Creatinine 0.9 Estim Creat Clear Calc 49.0 L eGFR > 60 BUN/Creatinine Ratio 29 H Glucose 127 H Calculated Osmolality 289 Calcium 8.8 Corrected Calcium 9.1 Total Bilirubin 0.2 L AST 19 ALT 16 Alkaline Phosphatase 95 Total Protein 5.5 L Albumin 3.6 Globulin 1.9 L Albumin/Globulin Ratio 1.9 Quality Measures Quality Measures VTE prophylaxis Advance care planning discussed with:: patient Assessment & Plan Assessment Current Active Medications: Generic Name Dose Route Start Last Admin Trade Name Freq PRN Reason Stop Dose Admin Acetaminophen 650 mg 08/14/24 20:53 08/15/24 20:54 Acetaminophen 325 Mg Tablet PO 09/13/24 20:52 650 mg Q6H PRN Administration PAIN 1-3 OR FEVER > 101 Hydrocodone Bitart/Acetaminophen 1 tab 08/20/24 09:48 Hydrocodone/Apap 5/325 Tablet PO 08/25/24 09:47 Q8HR PRN Pain 4-8 Apixaban 5 mg 08/16/24 09:00 08/20/24 09:14 Apixaban 2.5 Mg Tablet PO 09/15/24 08:59 5 mg BID ISAAC Administration Aspirin 81 mg 08/15/24 09:00 08/20/24 09:14 Aspirin Ec 81 Mg Tabec PO 09/14/24 08:59 81 mg DAILY ISAAC Administration Atorvastatin Calcium 20 mg 08/15/24 21:00 08/19/24 20:48 Atorvastatin Calcium 20 Mg Tablet PO 09/14/24 20:59 20 mg HS ISAAC Administration Azathioprine 50 mg 08/17/24 09:00 08/20/24 09:13 Azathioprine 50 Mg Tablet PO 09/16/24 08:59 50 mg QDAY ISAAC Administration Mesalamine [Lialda] 0 ea 08/16/24 09:00 08/20/24 09:11 1.2 Gram Tablet, PO 09/15/24 08:59 1 tablet Delayed Release QDAY ISAAC Administration Duloxetine HCl 60 mg 08/15/24 09:00 08/20/24 09:14 Duloxetine Hcl 30 Mg Capsule PO 09/14/24 08:59 60 mg QDAY ISAAC Administration Fludrocortisone Acetate 0.1 mg 08/17/24 09:00 08/20/24 09:15 Fludrocortisone Acetate 0.1 Mg Tablet PO 09/16/24 08:59 0.1 mg BID ISAAC Administration Hydroxychloroquine Sulfate 400 mg 08/15/24 09:00 08/20/24 09:12 Hydroxychloroquine 200 Mg Tablet PO 08/22/24 08:59 400 mg QDAY ISAAC Administration Levothyroxine Sodium 50 mcg 08/15/24 06:00 08/20/24 05:06 Levothyroxine Sodium 25 Mcg Tablet PO 09/14/24 05:59 50 mcg ACBR ISAAC Administration Levothyroxine Sodium 125 mcg 08/15/24 06:00 08/20/24 05:06 Levothyroxine Sodium 125 Mcg Tablet PO 09/14/24 05:59 125 mcg ACBR ISAAC Administration Metoprolol Succinate 50 mg 08/16/24 21:00 08/19/24 20:47 Metoprolol Succinate Xl 25 Mg Tabcr PO 09/15/24 20:59 50 mg HS ISAAC Administration Ondansetron HCl 4 mg 08/14/24 20:53 08/17/24 12:15 Ondansetron Inj 2 Mg/Ml Inj 2 Ml IV 09/13/24 20:52 4 mg Q6H PRN Administration NAUSEA OR VOMITING Protocol Pantoprazole Sodium 40 mg 08/17/24 09:00 08/20/24 09:14 Pantoprazole 40 Mg Tablet PO 09/16/24 08:59 40 mg QDAY ISAAC Administration Protocol Prednisone 20 mg 08/15/24 09:00 08/20/24 09:15 Prednisone 20 Mg Tablet PO 09/14/24 08:59 20 mg BID ISAAC Administration Pregabalin 75 mg 08/17/24 09:00 08/20/24 09:15 Pregabalin 75 Mg Capsule PO 09/16/24 08:59 75 mg BID ISAAC Administration Sacubitril/Valsartan 1 tab 08/17/24 21:00 08/20/24 09:14 Sacubitril 24 Mg/Valsartan 26 Mg Tablet PO 09/16/24 20:59 1 tab BID ISAAC Administration Sennosides 2 tab 08/14/24 20:53 08/20/24 09:44 Senna Tablet PO 09/13/24 20:52 2 tab BID PRN Administration CONSTIPATION Protocol Sertraline HCl 200 mg 08/15/24 21:00 08/19/24 20:50 Sertraline Hcl 25 Mg Tablet PO 09/14/24 20:59 200 mg HS ISAAC Administration Protocol Sumatriptan Succinate 100 mg 08/14/24 21:03 08/15/24 14:55 Sumatriptan 25 Mg Tablet PO 09/13/24 21:02 100 mg Q2H PRN Administration Migraine Headache Topiramate 25 mg 08/15/24 09:00 08/20/24 09:15 Topiramate 25 Mg Tablet PO 09/14/24 08:59 25 mg BID ISAAC Administration Plan 78-year-old female with PMHx of A-fib/flutter, HLD, HTN, hypothyroidism, SLE, Crohn's disease, POTS syndrome, and migraines presenting to the ER with a chief complaint of vomiting and diarrhea, admitted for workup, GI team is following. Cardiology was consulted for management of acute CHF in settings of A-fib with RVR. A-fib with RVR Likely paroxysmal A-fib EKG showed atrial fibrillation with RVR, heart rate 131,, possible LVH, ST deviation and moderate T wave abnormalities suggesting possible lateral ischemia. Heart rate controlled after DILTIAZEM pushes. She is on home METOPROLOL, tartrate 25 BID, not anticoagulated.. Currently rate controlled. [id number] high 4.0, HASBLED 1 low. Cholesterol 165, LDL 91, HDL 63, TG 53. TSH 4.52, A1c 4.8. ? Continue METOPROLOL 50 mg XL daily ? Continue ELIQUIS ? Continue home ASPIRIN 81 mg daily ? Maintain K > 4.0 and Mg > 2.0 HFrEF, EF 35-40% No previous echo on file. Unaware of having history of CHF. Not on home DIURETICS. Denies symptoms of SOB, orthopnea, or lower extremity swelling. No findings of volume overload on exam. Lab findings suggestive of low volume status given borderline elevated sodium and chloride, along with history of vomiting and poor oral intake. Echo showed EF 35-40%, detailed exam as above. BMP 550 and chronically elevated, BNP 458 from 04/27/2024. Most likely she has new onset CHF in settings of A-fib with RVR. ? Will need GDMT on or after discharge. ? Will need repeat echo in 3 months to reevaluate heart function. ? No indication for diuresis at this time, asymptomatic, without signs of fluid overload. ? Discontinued home LISINOPRIL ? Continue ENTRESTO, tolerating well, BP and HR WNL. ? Continue METOPROLOL XL as above ? Recommended maintaining euglycemic state ? Recommended cardiology follow-up withing 1 week of discharge. HTN On ENTRESTO as above, BP and HR continued WNL. Vomiting Diarrhea History of POTS History of Crohn's disease Hypokalemia Hypomagnesemia History of Crohn's disease History of SLE History of hypothyroidism History of hypertension History of Migraine Management of rest of the medical conditions as per primary team and other consultants. Thank you for the consult and allowing me to participate in the care of the patient. Cardiology will continue to follow. Case was discussed with attending, Dr. Tellez. Naila Anglin, DO PGYI Attending Provider Attestation/Addendum I have personally seen and examined the patient separately on the above date of service and discussed the plan of care with the resident. I reviewed the resident Dr. Naila Anglin consultation progress note and agree with the resident findings and plan in the note above and have also edited the documentation to reflect my findings and plan. Jeremias Tellez M.D. Interventional Cardiology
[2024-08-20] MEDS: POLYETHYLENE GLYCOL 17 GM PACKET PO (10:26)
[2024-08-20] MEDS: HYDROcodone/APAP 5/325 TABLET 1 TAB PO ×2 (10:26→21:14)
--- NOTE | 2024-08-20 13:36 | PD.RESDS ---
Planned Discharge Date 08/20/24 DS: Providers Provider Date of admission: 08/14/24 20:53 Primary care physician: Physician No Primary/Family Admitting Provider: Alvarez Soriano MD Attending Provider on Admission: Nicola Edouard DO Consults: 08/15/24 10:23 Consult to Gastroenterology Routine Comment: crohns Consulting Provider: Maldonado Nevarez 08/15/24 18:37 [employer] Referral - Utilities Routine Comment: Positive screening for utility assistance needs. 08/16/24 12:02 Referral Physical Therapy Routine Comment: Physician Instructions: 08/16/24 12:28 Consult to Cardiology Stat Comment: EF of 35% this admission Consulting Provider: Jeremias Tellez Attending Provider on DC: Drea Acosta MD Discharging Provider: Drea Acosta MD DS: Diagnosis Problem List Completed Was Problem List Reviewed/Reconciled?: Yes Hospital Course Hospital Course Hospital course: A 78-year-old female patient with past medical history of POTS, A-fib/flutter, Crohn's disease, SLE, hyperlipidemia, hypertension, hypothyroidism, recurrent migraines, came to the ED due to vomiting and diarrhea associated with generalized weakness. Patient was admitted for possible Crohn's disease flare. Stool white cells and C. difficile were within normal limits, stool culture and sensitivity was also negative, patient mentioned that she switched his insurance as she was not able to refill her medications. The GI specialist Dr. Nevarez was consulted in which she recommended to resume the patient home medications. I do believe that it was of infectious source most likely viral. Patient symptoms continue to improve over time and she was able to tolerate oral feeds. During her stay patient was noticed that she has A-fib with RVR, she was not sure about her cardiac history for that reason we ordered for the patient echo [facility] came with ejection fraction of 35%, so we consulted the senior etl developer Dr. Jeremias Bowie in which she recommended to start the patient on goal-directed medical therapy metoprolol, Entresto, 100 started the patient on aspirin and Lasix. For her A-fib we will continue the patient on apixaban. Patient was treated for her hypothyroidism with the same dose of levothyroxine 137 mcg p.o. daily. Patient was recommended to follow-up in outpatient settings. Patient was supposed to be discharged 2 days ago however because her daughter was admitted to the hospital which is the primary care provider patient appealed her discharge. Eventually today on 20 Aug 2024 patient agreed to go to a senior care facility. No overnight updates, pending an accepting facility at this time, however, patient is cleared from medical standpoint to be discharged Discharge diagnosis #HFrEF ejection fraction of 35% on July 2024 #A-fib/A-flutter on Eliquis #Chron's disease #Gastroenteritis most likely viral #SLE #Osteoporosis #Hypothyroidism #Hyperlipidemia #Hypertension #POTS #Migraine disorder - Patient's plan and care discussed with my attending, Dr. Silke Acosta MD Internal Medicine PGY-2 Time Spent with Patient Time attestation: Total time spent providing and/or coordinating discharge services: Time spent: Greater than 30 minutes Exam Vital Signs Temp Pulse Resp BP Pulse Ox O2 Del Method O2 Flow Rate 97.5 F 62 19 116/67 97 Room Air 0 08/20/24 12:00 08/20/24 12:08/20/24 12:00 08/20/24 12:00 08/20/24 12:08/20/24 12:08/20/24 12:00 FiO2 97 08/20/24 00:00 Narrative Exam GEN: AOx3, able to speak full sentences HEENT: NC/AC, PERRLA, oral mucosa moist, neck supple CVS: RRR, S1-S2 present, no murmurs appreciated RESP: CTAB GI: soft,non distended, non tender, NBS MSK: able to move all 4 limbs, no lower extremity edema SKIN: warm and dry [employer]CH[employer]IC: CN II-XII and Sensation grossly intact. Discharge Plan Plan Patient Disposition: Xfer Skilled [facility] (SNF) Patient condition on transfer: Stable and Benefits outweigh risks Care Plan Goals: ? You have been started on a medication Eliquis to prevent strokes from your atrial fibrillation. Take 1 tablet twice a day. ? Monitor for any signs of bleeding including bleeding gums, blood in the urine and stool and bruising over your body. If you experience any of these immediately call your PCP for further steps. ? We have discontinued your medication lisinopril. If you have any extra at home please discard. ? We have stopped your medication metoprolol tartrate. ? We have put a hold on new medication raloxifene until you see your primary care doctor. If you still experience left jaw pain, present to the emergency department or urgent care for an x-ray. ? You have been started on a medication Entresto. Take 1 tablet twice a day. ? Open started on a medication metoprolol succinate. Take 1 tablets once a day at night. ? You have been started on medication pantoprazole for nausea/acid reflux. Take 1 tablet once a day. ? Continue the rest of your home medication as before. ? You will have to restrict your daily liquid intake to 1.5 Litres / 50 ounces per day. This includes water, teas, coffees and soups. ? You will have to follow a low salt diet for the rest of your life. This means no Danish food or fast food. ? Keep a log of your blood pressures to take to your primary doctor and senior etl developer. - Follow up with your senior etl developer or senior etl developer, Dr. Tellez outpatient. His office number is [phone]. Please see a senior etl developer within 1-2 weeks of discharge - Follow up with your primary care physician within 1 week of discharge. If you do not have a primary care physician, please follow up with the [facility] Residents clinic ([phone]) ? If you experience any new, worsening or persistent symptoms either call your primary doctor, or dial 911 or present to the emergency department. Prescriptions/Referrals Prescriptions/Med Rec: New Eliquis 2.5 mg Tablet 5 mg PO BID 30 Days Qty: 120 0RF Entresto 24-26 mg Tablet 1 tab PO BID 14 Days Qty: 28 0RF pantoprazole 40 mg Tablet,Delayed Release (Dr/Ec) 40 mg PO QDAY 30 Days Qty: 30 0RF hydrocodone-acetaminophen 7.5-325 mg tablet 1 tab PO Q6H MDD PRN (Reason: pain) 5 Days Qty: 20 0RF metoprolol succinate 50 mg tablet extended release 24 hr 50 mg PO QDAY 14 Days Qty: 14 0RF Continued atorvastatin [Lipitor] 20 MG tablet 20 mg PO HS Qty: 0 sertraline [Zoloft] 100 MG tablet 200 mg PO HS Qty: 0 hydroxychloroquine [Plaquenil] 200 MG tablet 400 mg PO QDAY Qty: 0 duloxetine [Cymbalta] 60 MG capsule,delayed release(DR/EC) 60 mg PO QDAY Qty: 0 azathioprine 50 mg Tablet 50 mg PO QDAY mesalamine [Lialda] 1.2 gram Tablet,Delayed Release (Dr/Ec) 2.4 g PO QDAY sumatriptan succinate 100 mg Tablet 100 mg PO Q2H PRN (Reason: Migraine Headache) levothyroxine 175 mcg tablet 175 mcg PO DAILY aspirin 81 mg tablet,delayed release (DR/EC) 81 mg PO DAILY prednisone 20 mg tablet See Taper PO BID Qty: 49 0RF Taper: Prednisone Taper 15 mg TWICE A DAY for 7 Days and 0 Hour 10 mg TWICE A DAY for 7 Days and 0 Hour 5 mg TWICE A DAY for 7 Days and 0 Hour 5 mg DAILY for 7 Days topiramate [Topamax] 25 mg tablet 25 mg PO BID Patient Comments: TAKE 2 TAB PO IN THE MORNING AND 3 TAB IN THE EVENINGS FOR MIGRAINE PREVENTION fludrocortisone 0.1 mg tablet 0.1 mg PO BID hydrocodone-acetaminophen 7.5-325 mg tablet 1 tab PO Q6H PRN (Reason: PAIN) 5 Days Qty: 20 0RF pregabalin 75 mg capsule 75 mg PO BID 30 Days Qty: 60 2RF Held raloxifene [Evista] 60 MG tablet 60 mg PO QDAY Qty: 0 Hold Instructions: Resume on 08/24/24. Hold until you see your PCP. If you continue to have jaw pain, call your PCP or go to urgent care for an Xray Discontinued lisinopril 10 MG tablet 10 mg PO QDAY Qty: 0 metoprolol tartrate 25 MG tablet 25 mg PO BID Qty: 0 Referrals: Jeremias Tellez MD [Physician] - Maldonado Nevarez MD [Physician] - No Primary/Family,Physician [Primary Care Provider] - Teo Wilhelm MD [Resident] - Patient/Caregiver Discharge Instructions Discharge Activity: activity as tolerated Education Materials: Eliquis Oral Tablet 2.5 mg, Heart Disease Women, ED Atrial Fibrillation, ED Vomiting (Adult) Print Language: Lao Stand Alone Forms: Cherie Award Info., Patient Portal Info Letter Discharge Order Discharge Orders: Discharge (Routine); Ordered 08/21/24 Ordered By: Drea Acosta Quality Discharge Quality Measures VTE prophylaxis MD Attestestation MD Attestation Patient not discharged on 20 August as expected, see discharge summary for 21 August
[2024-08-20] MEDS: NALOXEGOL OXALATE 25 MG TABLET (NON-FORMULARY) 12.5 MG PO (15:38)
--- NOTE | 2024-08-20 17:00 | PC.CC ---
Informed by [facility] and , pt going to SNF, waiting for auth. Left open in [facility] until pt is discharged to SNF.
[2024-08-20] MEDS: ATORVASTATIN CALCIUM 20 MG TABLET PO (21:14)
[2024-08-20] MEDS: SERTRALINE HCL 25 MG TABLET 200 MG PO (21:14)
[2024-08-20] MEDS: METOPROLOL SUCCINATE XL 25 MG TABCR 50 MG PO (21:14)
[2024-08-21] VITALS: BP 126/66; PULSE 59; PULSE 60; RESP 18; TEMP 36.1; O2SAT 98
[2024-08-21 04:00] VITALS: BP 126/71; PULSE 63; RESP 17; TEMP 36.1; O2SAT 96
[2024-08-21] MEDS: LEVOTHYROXINE SODIUM 125 MCG TABLET PO (05:33)
[2024-08-21] MEDS: LEVOTHYROXINE SODIUM 25 MCG TABLET 50 MCG PO (05:33)
[2024-08-21 05:41] VITALS: BMI 23.9
[2024-08-21 07:07] LABS: Basophils % (Auto) 0 % (0-2.5); Eosinophils % (Auto) 0 % (0-10); Hematocrit 41.4 % (36.0-46.0); Hemoglobin 13.7 g/dL (12.0-16.0); Immature Granulocytes % (Auto) 0 % (0-0); Immature Granulocytes Auto 0.03 Thou/mm3 (0.00-0.00); Lymphocytes # (Auto) 0.8 Thou/mm3 (1.0-4.8); Lymphocytes % (Auto) 9 % (10-50); Mean Corpuscular HGB Conc 33.1 g/dl (31.0-37.0); Mean Corpuscular Hemoglobin 30.7 pg (25.0-35.0); Mean Corpuscular Volume 93 fL (80-100); Monocytes # (Auto) 0.5 Thou/mm3 (0.0-0.8); Monocytes % (Auto) 6 % (0-12); Neutrophils # (Auto) 6.9 Thou/mm3 (1.8-7.7); Neutrophils % (Auto) 84 % (37-80); Nucleated Red Blood Cell % 0 /100 WBC (0); Platelet Count 258 Thou/mm3 (140-440); RDW Standard Deviation 49.9 fL (36.4-46.3); Red Blood Count 4.46 Miln/mm3 (4.00-5.20); White Blood Count 8.2 Thou/mm3 (3.6-11.0)
[2024-08-21 07:17] LABS: Alanine Aminotransferase 20 U/L (10-49); Albumin, Serum 3.6 gm/dL (3.4-4.8); Alkaline Phosphatase 83 U/L (46-116); Anion Gap 8 (7-16); Aspartate Amino Transferase 21 U/L (0-34); BUN/Creatinine Ratio 34 Ratio (12-20); Bilirubin,Total 0.3 mg/dL (0.3-1.2); Blood Urea Nitrogen 27 mg/dL (9-23); Calcium (Corrected) 9.3 mg/dL (8.5-10.1); Carbon Dioxide 29.3 mMol/L (20.0-31.0); Chloride 106 mMol/L (98-107); Creatinine (Component) 0.8 mg/dL (0.6-1.3); Estimated Creatinine Clearance 55.1 mL/min (>60); Globulin 1.8 gm/dL (2.3-3.5); Glucose 129 mg/dL (74-106); Osmolality,Calculated 292 (275-295); Potassium 4.4 mMol/L (3.4-5.1); Sodium 143 mMol/L (136-145); Total Protein 5.4 gm/dL (5.7-8.2); eGFR > 60 See Note
[2024-08-21] MEDS: ACETAMINOPHEN 325 MG TABLET 650 MG PO (07:50)
[2024-08-21 07:59] VITALS: BP 139/81; PULSE 63; RESP 18; TEMP 36.2; O2SAT 97
[2024-08-21 08:00] VITALS: PULSE 70
[2024-08-21] MEDS: APIXABAN 2.5 MG TABLET 5 MG PO (09:03)
[2024-08-21] MEDS: ASPIRIN EC 81 MG TABEC PO (09:03)
[2024-08-21] MEDS: DULoxetine HCL 30 MG CAPSULE 60 MG PO (09:03)
[2024-08-21] MEDS: Mesalamine [Lialda] 1.2 gram Tablet,Delayed Release PO (09:03)
[2024-08-21] MEDS: PREGABALIN 75 MG CAPSULE PO (09:04)
[2024-08-21] MEDS: TOPIRAMATE 25 MG TABLET PO (09:04)
[2024-08-21] MEDS: FLUDROCORTISONE ACETATE 0.1 MG TABLET PO (09:04)
[2024-08-21] MEDS: SACUBITRIL 24 MG/VALSARTAN 26 MG TABLET 1 TAB PO (09:04)
[2024-08-21 09:06] LABS: Magnesium 1.8 mg/dL (1.6-2.6)
[2024-08-21] MEDS: predniSONE 20 MG TABLET PO (09:06)
[2024-08-21] MEDS: PANTOPRAZOLE 40 MG TABLET PO (09:06)
[2024-08-21] MEDS: Magnesium Sulfate 2 GM Ivpb 2 GM/50 ML BAG IV (09:56)
[2024-08-21] MEDS: HYDROXYCHLOROQUINE 200 MG TABLET 400 MG PO (09:56)
[2024-08-21] MEDS: azaTHIOprine 50 MG TABLET PO (09:56)
--- NOTE | 2024-08-21 10:32 | PC.SS ---
Addendum entered by Karla To 08/21/24 13:09: SS contacted patient's daughter Shanelle to inform her of ETA 1445 for transport. Patient was also informed of [facility] 14[facility] SS informed [facility] of ETA 1445. [facility] informed of ETA for pickup. Original Note: SS informed by Nessa Edwards patient can be accepted today. SS met with patient at bedside to inform her of discharge today. Patient requesting an additional day due to not having belongings and ID. SS informed patient bed may not be available if she waits an additional day and there is no medical need to continue staying. Patient inquired about appeal result, SS explained [facility]'s doctor's decision to discharge patient was upheld by Lissy. Patient agreeable to discharge to . Patient stated she is unable to afford transportation to SNF and her daughter is currently hospitalized and unable to transport. SS consulted with [facility] and confirmed patient is appropriate for wheelchair transportation. [facility] was contacted, transport availability pending.
--- NOTE | 2024-08-21 11:17 | PD.RESDS ---
Planned Discharge Date 08/21/24 DS: Providers Provider Date of admission: 08/14/24 20:53 Primary care physician: Physician No Primary/Family Admitting Provider: Alvarez Soriano MD Attending Provider on Admission: Nicola Edouard DO Consults: 08/15/24 10:23 Consult to Gastroenterology Routine Comment: crohns Consulting Provider: Maldonado Nevarez 08/15/24 18:37 [facility] Referral - Utilities Routine Comment: Positive screening for utility assistance needs. 08/16/24 12:02 Referral Physical Therapy Routine Comment: Physician Instructions: 08/16/24 12:28 Consult to Cardiology Stat Comment: EF of 35% this admission Consulting Provider: Jeremias Tellez Attending Provider on DC: Nicola Edouard DO Discharging Provider: Teo Wilhelm MD DS: Diagnosis Problem List Completed Was Problem List Reviewed/Reconciled?: Yes Hospital Course Hospital Course Hospital course: A 78-year-old female patient with past medical history of POTS, A-fib/flutter, Crohn's disease, SLE, hyperlipidemia, hypertension, hypothyroidism, recurrent migraines, came to the ED due to vomiting and diarrhea associated with generalized weakness. Patient was admitted for possible Crohn's disease flare. Stool white cells and C. difficile were within normal limits, stool culture and sensitivity was also negative, patient mentioned that she switched his insurance as she was not able to refill her medications. The GI specialist Dr. Nevarez was consulted in which she recommended to resume the patient home medications. I do believe that it was of infectious source most likely viral. Patient symptoms continue to improve over time and she was able to tolerate oral feeds. During her stay patient was noticed that she has A-fib with RVR, she was not sure about her cardiac history for that reason we ordered for the patient echo [facility] came with ejection fraction of 35%, so we consulted the display designer Dr. Jeremias Bowie in which she recommended to start the patient on goal-directed medical therapy metoprolol, Entresto, 100 started the patient on aspirin and Lasix. For her A-fib we will continue the patient on apixaban. Patient was treated for her hypothyroidism with the same dose of levothyroxine 137 mcg p.o. daily. Patient was recommended to follow-up in outpatient settings. Patient was supposed to be discharged 2 days ago however because her daughter was admitted to the hospital which is the primary care provider patient appealed her discharge. Eventually today on 20 Aug 2024 patient agreed to go to a long-term facility. All patient's labs are now returning to baseline. Patient is now clinically stable and fit for discharge to SNF. Discharge diagnosis: #HFrEF ejection fraction of 35% on July 2024 #A-fib/A-flutter on Eliquis #Chron's disease #Gastroenteritis most likely viral #SLE #Osteoporosis #Hypothyroidism #Hyperlipidemia #Hypertension #POTS #Migraine disorder Discharge Plan: ? You have been started on a medication Eliquis to prevent strokes from your atrial fibrillation. Take 1 tablet twice a day. ? Monitor for any signs of bleeding including bleeding gums, blood in the urine and stool and bruising over your body. If you experience any of these immediately call your PCP for further steps. ? We have discontinued your medication lisinopril. If you have any extra close at home please discard. ? We have stopped your medication metoprolol tartrate. ? We have put a hold on new medication raloxifene until you see your primary care doctor. If you still experience left jaw pain, present to the emergency department or urgent care for an x-ray. ? You have been started on a medication Entresto. Take 1 tablet twice a day. ? Open started on a medication metoprolol succinate. Take 2 tablets once a day at night. ? You have been started on medication pantoprazole for nausea/acid reflux. Take 1 tablet once a day. ? Continue the rest of your home medication as before. ? You will have to restrict your daily liquid intake to 1.5 Litres / 50 ounces per day. This includes water, teas, coffees and soups. ? You will have to follow a low salt diet for the rest of your life. This means no Lebanese food or fast food. ? You will have to take your weight daily. If your weight increases by more than3-5 pounds in 1-2 days, take an extra water pill that day. ? You will have to measure your blood pressure daily. If the top number is less than 100, do not take your blood pressure medications that day. ? Keep a log of your blood pressures to take to your primary doctor and display designer. - Follow up with your display designer or display designer, Dr. Tellez outpatient. His office number is [phone]. Please see a display designer within 1-2 weeks of discharge - Follow up with your primary care physician within 1 week of discharge. If you do not have a primary care physician, please follow up with the [facility] Residents clinic ([phone]) ? If you experience any new, worsening or persistent symptoms either call your primary doctor, or dial 911 or present to the emergency department. We are grateful to be able to participate in Ms. Damian's care. We wish her the best. Plan of care discussed with Attending Dr. Silke Wilhelm MD PGY 1 Disclaimer: This note was dictated by speech recognition. Minor errors in director for [employer] may be present due to voice recognition software. Time Spent with Patient Time attestation: Total time spent providing and/or coordinating discharge services: Time spent: Greater than 30 minutes (43) Exam Vital Signs Temp Pulse Resp BP Pulse Ox O2 Del Method O2 Flow Rate 97.2 F 63 18 139/81 H 97 Room Air 0 08/21/24 07:59 08/21/24 07:59 08/21/24 07:59 08/21/24 07:59 08/21/24 07:59 08/21/24 07:59 08/20/24 12:00 FiO2 97 08/20/24 00:00 Narrative Exam GEN: AOx3, able to speak full sentences HEENT: NC/AC, PERRLA, oral mucosa moist, neck supple CVS: RRR, S1-S2 present, no murmurs appreciated RESP: CTAB GI: soft,non distended, non tender, NBS MSK: able to move all 4 limbs, no lower extremity edema SKIN: warm and dry STUNT DOUBLE: CN II-XII and Sensation grossly intact. Discharge Plan Plan Patient Disposition: Xfer Skilled Nsg Fac (SNF) Patient condition on transfer: Stable and Benefits outweigh risks Care Plan Goals: ? You have been started on a medication Eliquis to prevent strokes from your atrial fibrillation. Take 1 tablet twice a day. ? Monitor for any signs of bleeding including bleeding gums, blood in the urine and stool and bruising over your body. If you experience any of these immediately call your PCP for further steps. ? We have discontinued your medication lisinopril. If you have any extra at home please discard. ? We have stopped your medication metoprolol tartrate. ? We have put a hold on new medication raloxifene until you see your primary care doctor. If you still experience left jaw pain, present to the emergency department or urgent care for an x-ray. ? You have been started on a medication Entresto. Take 1 tablet twice a day. ? Open started on a medication metoprolol succinate. Take 1 tablets once a day at night. ? You have been started on medication pantoprazole for nausea/acid reflux. Take 1 tablet once a day. ? Continue the rest of your home medication as before. ? You will have to restrict your daily liquid intake to 1.5 Litres / 50 ounces per day. This includes water, teas, coffees and soups. ? You will have to follow a low salt diet for the rest of your life. This means no Lebanese food or fast food. ? Keep a log of your blood pressures to take to your primary doctor and display designer. - Follow up with your display designer or display designer, Dr. Tellez outpatient. His office number is [phone]. Please see a display designer within 1-2 weeks of discharge - Follow up with your primary care physician within 1 week of discharge. If you do not have a primary care physician, please follow up with the [facility] Residents clinic ([phone]) ? If you experience any new, worsening or persistent symptoms either call your primary doctor, or dial 911 or present to the emergency department. Prescriptions/Referrals Prescriptions/Med Rec: New Eliquis 2.5 mg Tablet 5 mg PO BID 30 Days Qty: 120 0RF Entresto 24-26 mg Tablet 1 tab PO BID 14 Days Qty: 28 0RF pantoprazole 40 mg Tablet,Delayed Release (Dr/Ec) 40 mg PO QDAY 30 Days Qty: 30 0RF hydrocodone-acetaminophen 7.5-325 mg tablet 1 tab PO Q6H MDD PRN (Reason: pain) 5 Days Qty: 20 0RF metoprolol succinate 50 mg tablet extended release 24 hr 50 mg PO QDAY 14 Days Qty: 14 0RF Continued atorvastatin [Lipitor] 20 MG tablet 20 mg PO HS Qty: 0 sertraline [Zoloft] 100 MG tablet 200 mg PO HS Qty: 0 hydroxychloroquine [Plaquenil] 200 MG tablet 400 mg PO QDAY Qty: 0 duloxetine [Cymbalta] 60 MG capsule,delayed release(DR/EC) 60 mg PO QDAY Qty: 0 azathioprine 50 mg Tablet 50 mg PO QDAY mesalamine [Lialda] 1.2 gram Tablet,Delayed Release (Dr/Ec) 2.4 g PO QDAY sumatriptan succinate 100 mg Tablet 100 mg PO Q2H PRN (Reason: Migraine Headache) levothyroxine 175 mcg tablet 175 mcg PO DAILY aspirin 81 mg tablet,delayed release (DR/EC) 81 mg PO DAILY prednisone 20 mg tablet See Taper PO BID Qty: 49 0RF Taper: Prednisone Taper 15 mg TWICE A DAY for 7 Days and 0 Hour 10 mg TWICE A DAY for 7 Days and 0 Hour 5 mg TWICE A DAY for 7 Days and 0 Hour 5 mg DAILY for 7 Days topiramate [Topamax] 25 mg tablet 25 mg PO BID Patient Comments: TAKE 2 TAB PO IN THE MORNING AND 3 TAB IN THE EVENINGS FOR MIGRAINE PREVENTION fludrocortisone 0.1 mg tablet 0.1 mg PO BID hydrocodone-acetaminophen 7.5-325 mg tablet 1 tab PO Q6H PRN (Reason: PAIN) 5 Days Qty: 20 0RF pregabalin 75 mg capsule 75 mg PO BID 30 Days Qty: 60 2RF Held raloxifene [Evista] 60 MG tablet 60 mg PO QDAY Qty: 0 Hold Instructions: Resume on 08/24/24. Hold until you see your PCP. If you continue to have jaw pain, call your PCP or go to urgent care for an Xray Discontinued lisinopril 10 MG tablet 10 mg PO QDAY Qty: 0 metoprolol tartrate 25 MG tablet 25 mg PO BID Qty: 0 Referrals: Jeremias Tellez MD [Physician] - Maldonado Nevarez MD [Physician] - No Primary/Family,Physician [Primary Care Provider] - Teo Wilhelm MD [Resident] - Patient/Caregiver Discharge Instructions Discharge Activity: activity as tolerated Education Materials: Eliquis Oral Tablet 2.5 mg, Heart Disease Women, ED Atrial Fibrillation, ED Vomiting (Adult) Print Language: Slovenian Stand Alone Forms: Cherie Award Info., Patient Portal Info Letter Discharge Order Discharge Orders: Discharge (Routine); Ordered 08/21/24 Ordered By: Drea Acosta Quality Discharge Quality Measures VTE prophylaxis Attestestation MD Attestation I have discussed and was present for the essential components of the discharge history, physical examination, diagnosis, and discharge treatment plan with the resident. I agree with the patient's discharge care as documented by the resident and amended herein by me. Bhaskar Edouard DO. The patient understood all discharge instructions, all questions were answered satisfactorily. The patient was instructed to return to the Emergency Department is symptoms worsened or persisted. Patient was stable, afebrile, tolerating p.o. intake at time of discharge to SNF. Although this document has been carefully reviewed, there may still be some phonetic and other typographical errors. These errors are purely grammatical due to imperfections in the software program and should not be construed in any way to compromise the substance of the patient's medical care during this visit.
[2024-08-21 12:00] VITALS: BP 153/85; PULSE 60; RESP 19; TEMP 36.1; O2SAT 97
--- NOTE | 2024-08-21 13:12 | PC.CC ---
Complete Home Health referrals sent via [facility], awaiting responses at this time.
[2024-08-21] MEDS: HYDROcodone/APAP 5/325 TABLET 1 TAB PO (13:39)
[2024-08-21 14:58] VITALS: BP 128/66; PULSE 70; RESP 14; TEMP 36.4; O2SAT 97
--- NOTE | 2024-08-21 15:22 | PD.IMPROG ---
Documentation for date of: 08/21/24 Subjective Subjective Interval history: Doing okay No nausea vomiting Exam Vital Signs Temp Pulse Resp BP Pulse Ox O2 Del Method O2 Flow Rate 97.6 F 70 14 128/66 97 Room Air 0 08/21/24 14:58 08/21/24 14:58 08/21/24 14:58 08/21/24 14:58 08/21/24 14:58 08/21/24 14:58 08/20/24 12:00 FiO2 97 08/20/24 00:00 Objective Labs 08/21/24 06:22 08/21/24 06:22 Labs: Laboratory Results - last 24 hr 08/21/24 06:22 WBC 8.2 RBC 4.46 Hgb 13.7 Hct 41.4 MCV 93 MCH 30.7 MCHC 33.1 RDW Std Deviation 49.9 H Plt Count 258 D Neut % (Auto) 84 H Lymph % (Auto) 9 L [place] % (Auto) 6 Eos % (Auto) 0 Baso % (Auto) 0 Neut # (Auto) 6.9 Lymph # (Auto) 0.8 L [place] # (Auto) 0.5 Eos # (Auto) 0.0 Baso # (Auto) 0.0 Immature Gran # (Auto) 0.03 H Absolute Nucleated RBC 0.00 Immature Gran % 0 Nucleated RBC % 0 Sodium 143 Potassium 4.4 Chloride 106 Carbon Dioxide 29.3 Anion Gap 8 BUN 27 H Creatinine 0.8 Estim Creat Clear Calc 55.1 L eGFR > 60 BUN/Creatinine Ratio 34 H Glucose 129 H Calculated Osmolality 292 Calcium 9.0 Corrected Calcium 9.3 Magnesium 1.8 Total Bilirubin 0.3 AST 21 ALT 20 Alkaline Phosphatase 83 Total Protein 5.4 L Albumin 3.6 Globulin 1.8 L Albumin/Globulin Ratio 2.0 Impressions Impression: Crohn's disease Continue current management Assessment & Plan A&P Narrative # Nausea vomiting with diarrhea With a CT scan of the abdomen pelvis without contrast showing only colonic diverticulosis It appears that most likely the cause of infectious enterocolitis and not an acute exacerbation of the underlying Crohn's disease which is being followed at gastroenterology group in [place] Suggestions Stool culture and sensitivity Stool ova and parasite Stool Gram stain Giardia antigen Fecal calprotectin Stool C. difficile Will follow the patient Not planning any invasive GI workup at least at the moment Other medical problems include A-fib RVR controlled with metoprolol POTS syndrome Crohn's disease SLE Hyperlipidemia Hypertension Migraine headaches Thank you very much for the opportunity to participate in the care of this patient Time Spent With Patient Time: Total time spent is greater than 50% in coordination of care (as documented) at patient's floor/unit and/or counseling patient:
[2024-08-22 06:59] LABS: Giardia Result NOT DETECTED
[2024-08-22 07:03] LABS: Calprotectin, Stool* 57 mcg/g
--- NOTE | 2024-08-22 09:01 | PC.CC ---
pt discharged to [facility]. HH referral is canceled.
[2024-08-28 07:24] LABS: ANCA Screen POSITIVE (NEGATIVE); Myeloperoxidase Ab <1.0 AI (<1.0); Proteinase-3 Ab <1.0 AI (<1.0)
== END 2024-08-21 15:00 | disposition skilled nursing facility (03) | DRG 386 ==
LOC: SERX 15:38 → SERHOLD 21:26 → S2NX 23:36
PROVIDERS: Registered Nurse General Practice; Specialist; Student in an Organized Health Care Education/Training Program; Admitting Provider Internal Medicine; Emergency Provider Emergency Medicine; Visit Provider Student in an Organized Health Care Education/Training Program
DX: K50.90 Crohn's disease, unspecified, without complications (principal); I48.92 Unspecified atrial flutter; I50.22 Chronic systolic (congestive) heart failure; G90.A Postural orthostatic tachycardia syndrome [POTS]; I48.91 Unspecified atrial fibrillation; E78.5 Hyperlipidemia, unspecified; G43.909 Migraine, unspecified, not intractable, without status migrainosus; E03.9 Hypothyroidism, unspecified; M32.9 Systemic lupus erythematosus, unspecified; E87.6 Hypokalemia; E86.0 Dehydration; M79.7 Fibromyalgia; I11.0 Hypertensive heart disease with heart failure; E83.42 Hypomagnesemia; K57.30 Diverticulosis of large intestine without perforation or abscess without bleeding; Z79.82 Long term (current) use of aspirin; Z79.890 Hormone replacement therapy; Z79.899 Other long term (current) drug therapy; Z96.653 Presence of artificial knee joint, bilateral; Z88.2 Allergy status to sulfonamides; Z88.8 Allergy status to other drugs, medicaments and biological substances
CPT/HCPCS: 36415; 74176; 80048; 80053; 80061; 80076; 80307; 81001; 83036; 83690; 83735; 83880; 83993; 84100; 84443; 85025; 85610; 85652; 85730; 86021; 86036; 86140; 87015; 87045; 87046; 87081; 87205; 87329; 87493; 87811; 87899; 93005; 93306; 96361; 96365; 96366; 96375; 97162; 99285; J1650; J1720; J2060; J2405; J2470; J3475; J3480; J3490; J7030; J7500; J7512; A9270

== ENCOUNTER 2024-09-10 07:35 | Emergency (ER) | payer MEDICARE, OTHER, SELFPAY ==
[2024-09-10 07:37] VITALS: BMI 24.2
[2024-09-10 07:46] VITALS: BP 137/81; PULSE 89; RESP 17; TEMP 37.1; O2SAT 96
[2024-09-10 07:52] VITALS: BP 159/97; PULSE 81; RESP 15; TEMP 37.1; O2SAT 97
--- NOTE | 2024-09-10 07:55 | PC.NURSE ---
PT COMING IN FROM ED LOBBY; PER PT, I WAS IN BED; I WANTED TO GET MY BOOK SO I SQUATTED AND LOST MY BALANCE. PT C/O R WRIST PAIN AND SWELLING. PT STATES ICING AT HOME AND PT BROUGHT ICE PACK WITH HER UPON ARRIVAL TO ED. BRUISING AND SWELLING NOTED TO R WRIST. PT DENIES HITTING HER HEAD OR LOC. PT REPORTS TAKING BLOOD THINNERS BUT UNABLE TO STATE NAME OF MEDICATIONS. PT A&OX4, GCS 15. PT CONNECTED TO MONITORS AT THIS TIME.
--- NOTE | 2024-09-10 08:04 | PD.EDHAND ---
Upper Extremity Injury RME/HPI General Chief Complaint: Hand/Wrist Problems Stated Complaint: FELL ONTO R) WRIST 20 MIN AGO; DEFORMITY Time Seen by Provider: 09/10/24 07:39 Arrival date/time: 09/10/24 07:35 Limitations: no limitations RME / HPI RME / HPI narrative: 78 year old female with history of atrial fibrillation, on Eliquis and Aspirin, Crohn's disease, leukemia, hypertension, hyperlipidemia, hypothyroidism presents to the ED for evaluation of right wrist pain after fall today. States she was squatting beside her bed reaching for a book when she lost her balance and fell backwards. States she caught herself with right arm extended. Immediately followed by pain to the right wrist, rated 9/10 in severity. Pain aggravated with palpating the area and movements. Denies taking any medications at home. Denies head injury or LOC. No other injuries or complaints reported. Related Data Home Medications ?Medication ?Instructions ?Recorded ?Confirmed raloxifene 60 mg tablet (Evista) 60 mg PO QDAY OSTEOPOROSIS #0 tabs 01/22/14 08/15/24 Held on 08/17/24. Instructions: Resume on 08/24/24. Hold until you see your PCP. If you continue to have jaw pain, call your PCP or go to urgent care for an Xray atorvastatin 20 mg tablet (Lipitor) 20 mg PO HS #0 tabs 02/26/17 08/14/24 duloxetine 60 mg capsule,delayed 60 mg PO QDAY #0 caps 02/26/17 08/14/24 release (Cymbalta) hydroxychloroquine 200 mg tablet 400 mg PO QDAY #0 tabs 02/26/17 08/15/24 (Plaquenil) sertraline 100 mg tablet (Zoloft) 200 mg PO HS #0 tabs 02/26/17 08/14/24 azathioprine 50 mg tablet 50 mg PO QDAY 12/23/17 08/15/24 mesalamine 1.2 gram tablet,delayed 2.4 g PO QDAY 12/23/17 08/15/24 release (Lialda) sumatriptan succinate 100 mg tablet 100 mg PO Q2H PRN Migraine Headache 12/23/17 08/15/24 aspirin 81 mg tablet,delayed 81 mg PO DAILY 04/28/24 08/14/24 release levothyroxine 175 mcg tablet 175 mcg PO DAILY 04/28/24 08/14/24 topiramate 25 mg tablet (Topamax) 25 mg PO BID MIGRAINE 08/14/24 08/14/24 fludrocortisone 0.1 mg tablet 0.1 mg PO BID 08/15/24 08/15/24 Previous Rx's ?Medication ?Instructions ?Recorded prednisone 20 mg tablet See Taper PO BID #49 tabs 04/30/24 apixaban 2.5 mg tablet (Eliquis) 5 mg (2 x 2.5 mg) PO BID 1 month 08/17/24 #120 tabs hydrocodone 7.5 mg-acetaminophen 1 tab PO Q6H PRN PAIN 5 days #20 08/17/24 325 mg tablet tabs pantoprazole 40 mg tablet,delayed 40 mg PO QDAY 30 days #30 tabs 08/17/24 release pregabalin 75 mg capsule 75 mg PO BID 30 days #60 caps 08/17/24 hydrocodone 5 mg-acetaminophen 325 1 tab PO Q8H PRN pain #14 tabs 09/10/24 mg tablet Allergies Allergy/AdvReac Type Severity Reaction Status Date / Time Sulfa (Sulfonamide Allergy Severe FLUSHING, Verified 09/10/24 07:40 Antibiotics) VOMITING meloxicam Allergy Mild RASH Verified 09/10/24 07:40 Review of Systems Review of Systems Systems Reviewed: All systems reviewed, normal except as documented Past Medical History Past Medical History NEUROLOGIC: Positive Neurological Disorders, Cerebrovascular Accident, Peripheral Neuropathy and Migraine CARDIAC: Positive Cardiac Disorders, Atrial Fibrillation, Hypercholesterolemia, Congestive Heart Failure, Hypertension and Hypotension RESPIRATORY: Positive Asthma, Bronchitis and Pneumonia GASTROINTESTINAL: Positive Gastrointestinal Disorders, Crohn's Disease and Gastroesophageal Reflux Disease MUSCULOSKELETAL: Positive Musculoskeletal Disorders, Arthritis, Degenerative Disk Disease, Fibromyalgia, Fractures and Degenerative Joint Disease ENDOCRINE: Positive Endocrine Disorders, Hypothyroidism and Systemic Lupus Erythematosus HEMATOLOGIC: Positive Blood Disorders and Anemia PSYCHO/SOCIAL: Positive Psychiatric Problems, Depression and Anxiety OTHER HISTORY: Positive Hospitalization, Falls, Measles and Mumps Surgical History SURGICAL: Positive Hysterectomy Social History SMOKING STATUS: Never smoker SUBSTANCE USE: does not use ED Exam General Limitations: Present no limitations General appearance: Present alert and in no apparent distress Head Head exam: Present atraumatic, normocephalic and normal inspection Eye Eye exam: Present normal appearance, PERRL and EOMI ENT ENT exam: Present normal exam, normal oropharynx and mucous membranes moist Neck Neck exam: Present normal inspection, full ROM and trachea midline Chest Chest inspection: Present normal inspection and symmetric chest wall rise Respiratory Respiratory exam: Present normal lung sounds bilaterally Cardiovascular Cardiovascular exam: Present regular rate, normal rhythm and normal heart sounds Abdominal Exam Abdominal exam: Present soft and normal bowel sounds Extremities Exam Extremities exam: Present other (mild deformity of the right wrist, neurosensory intact ) Back Exam Back exam: Present normal inspection and full ROM Neurological Exam Neurological exam: Present alert, oriented X3 and CN II-XII intact Psychiatric Psychiatric exam: Present normal affect and normal mood Skin Skin exam: Present warm, dry, intact and normal color Course Quality Measures none Orders Category Date Time Status XR wrist comp RT min 3V Stat Exams 09/10/24 08:04 Completed Acetaminophen Tab [Tylenol Tab] Med 09/10/24 08:04 Discontinued 650 mg PO X1 ONE Vital Signs Vital signs: Vital Signs Temperature 98.7 F 09/10/24 07:46 Pulse Rate 89 09/10/24 07:46 Respiratory Rate 17 09/10/24 07:46 Blood Pressure 137/81 H 09/10/24 07:46 Pulse Oximetry (%) 96 09/10/24 07:46 Oxygen Delivery Method Room Air 09/10/24 07:46 Pulse ox is 96% on room air which is adequate. Procedures -ED Splint Fabrication: Clinician Made Type: Double Sugar Tong Reason for Splint: Optimal Positioning and Minimize Deformities Circulation Distal to Splint: Yes Movement Distal to Splint: Yes Senation Distal to Splint: Yes Tolerance: Tolerates Well Extremity Injury MDM Narrative MDM Narrative:: Ellen Joe am scribing for and in the presence of Dr. Reynaga. Patient data External records reviewed:: [facility] previous records (I reviewed admission from 08/14/2024 through 08/21/2024 ) Clinical information provided by:: patient Social determinants that could affect healthcare access:: none Patient has the following chronic illnesses:: atrial fibrillation, on Eliquis and Aspirin, Crohn's disease, leukemia, hypertension, hyperlipidemia, hypothyroidism How is presenting disease/condition affected by chronic disease/condition?: exacerbated by Evaluation data The following diagnostics were reviewed and interpreted by me:: radiology exam(s) Lab and/or radiology exams considered but not ordered:: None Interpretation Summary: Ordering Physician: Surya Reynaga MD Date of Service: 09/10/24 Procedure(s): XR wrist comp RT min 3V Accession Number(s): [id number] cc: Surya Reynaga MD; Wallace Burden MD; NO PRIMARY/FAMILY,PHYSICIAN~ Examination: Wrist, right 3 views Technique: Wrist AP, oblique, lateral 3 views Date and time of exam: September 10, 2024, 0817 hrs. Indications: Ground-level fall today with injury to the wrist, wrist pain. Findings: Acute impacted intra-articular fracture distal radial metaphysis, at least 15 mm offset on the oblique view of the distal fracture fragment Severe osteopenia Advanced osteoarthritis first carpometacarpal joint Impression: Acute comminuted intra-articular displaced fracture distal radial metaphysis Dictated By: Wallace Burden MD Signed By: <Electronically signed by Wallace Burden MD in [place]> 09/10/24 0901 Medications / Prescriptions Medications or Prescriptions considered but not ordered:: None Medication administrations:: Medication Administration History Discontinued Medications Acetaminophen (Acetaminophen 325 Mg Tablet) 650 mg PO X1 ONE Stop: 09/10/24 08:05 Last Admin: 09/10/24 08:11 Dose: 650 mg Documented By: GM See above Consultations Consultation(s) initiated? (list below): No Diagnosis Upper Extremity Injury Differential Diagnosis: sprain and strain of wrist, fracture of wrist and fracture of hand Most likely diagnosis given after review of the tests above:: Right wrist fracture s/p fall Admission Indicated Admission indicated?: not indicated Admission Request Was there a request for admission?: No Disposition Plan Disposition Plan: Discharge Discharge Attestation Discharge Attestation: The patient and all family members were given an opportunity to ask questions and understood the discharge instructions. Discharge instructions specifically effects, indications for sooner follow up or return to the emergency department, and the expected course of current diagnosis. Patient condition: Stable Discharge Plan Plan Patient Disposition: HOME (Self Care) Prescriptions/Referrals Prescriptions/Med Rec: New hydrocodone-acetaminophen 5-325 mg tablet 1 tab PO Q8H MDD 4 PRN (Reason: pain) Qty: 14 0RF No Action raloxifene [Evista] 60 MG tablet 60 mg PO QDAY Qty: 0 atorvastatin [Lipitor] 20 MG tablet 20 mg PO HS Qty: 0 sertraline [Zoloft] 100 MG tablet 200 mg PO HS Qty: 0 hydroxychloroquine [Plaquenil] 200 MG tablet 400 mg PO QDAY Qty: 0 duloxetine [Cymbalta] 60 MG capsule,delayed release(DR/EC) 60 mg PO QDAY Qty: 0 azathioprine 50 mg Tablet 50 mg PO QDAY mesalamine [Lialda] 1.2 gram Tablet,Delayed Release (Dr/Ec) 2.4 g PO QDAY sumatriptan succinate 100 mg Tablet 100 mg PO Q2H PRN (Reason: Migraine Headache) levothyroxine 175 mcg tablet 175 mcg PO DAILY aspirin 81 mg tablet,delayed release (DR/EC) 81 mg PO DAILY prednisone 20 mg tablet See Taper PO BID Qty: 49 0RF Taper: Prednisone Taper 15 mg TWICE A DAY for 7 Days and 0 Hour 10 mg TWICE A DAY for 7 Days and 0 Hour 5 mg TWICE A DAY for 7 Days and 0 Hour 5 mg DAILY for 7 Days topiramate [Topamax] 25 mg tablet 25 mg PO BID Patient Comments: TAKE 2 TAB PO IN THE MORNING AND 3 TAB IN THE EVENINGS FOR MIGRAINE PREVENTION fludrocortisone 0.1 mg tablet 0.1 mg PO BID Eliquis 2.5 mg Tablet 5 mg PO BID 30 Days Qty: 120 0RF pantoprazole 40 mg Tablet,Delayed Release (Dr/Ec) 40 mg PO QDAY 30 Days Qty: 30 0RF hydrocodone-acetaminophen 7.5-325 mg tablet 1 tab PO Q6H PRN (Reason: PAIN) 5 Days Qty: 20 0RF pregabalin 75 mg capsule 75 mg PO BID 30 Days Qty: 60 2RF Referrals: No Primary/Family,Physician [Primary Care Provider] - In 1 week Problem List Clinical Impression: Fracture of right wrist, Status post fall Patient/Caregiver Discharge Instructions Education Materials: ED Fracture, Wrist, General Additional Instructions: Follow-up with your primary care doctor in tomorrow for referral to orthopedics. You can return to the emergency department sooner if symptoms worsen or if you notice any new, concerning issues. For pain, take both 1-2 Tylenol 500mg tablets every 6 hours AND 2 Advil Gel 200mg capsules every 6 hours. IF you need additional pain control, take the [place]. Print Language: Cuban Stand Alone Forms: Cherie Award Info., Patient Portal Info Letter
[2024-09-10] MEDS: ACETAMINOPHEN 325 MG TABLET 650 MG PO (08:11)
[2024-09-10 09:09] VITALS: BP 160/95; PULSE 72; RESP 17; TEMP 37.2; O2SAT 97
== END 2024-09-10 09:12 | disposition home or self-care (01) ==
PROVIDERS: Emergency Provider Emergency Medicine
DX: S52.571A Other intraarticular fracture of lower end of right radius, initial encounter for closed fracture (principal); W19.XXXA Unspecified fall, initial encounter
CPT/HCPCS: 29125; 73110; 99283; A4565; A9270

== ENCOUNTER 2024-09-14 12:58 | Inpatient (IN) | payer MEDICARE, OTHER, SELFPAY ==
[2024-09-14] VITALS (11 sets, daily range): BP systolic 121–170; BP diastolic 44–99; PULSE 73–114; RESP 12–96; TEMP 36.6–37.3; O2SAT 94–100; BMI 24.2
--- NOTE | 2024-09-14 13:15 | EDNOTE_ITS ---
Upper Respiratory Inf. RME/HPI General Chief Complaint: Flu Like Symptoms Stated Complaint: HEADACHE WITH COUGH Time Seen by Provider: 09/14/24 13:39 Arrival date/time: 09/14/24 12:58 RME / HPI RME / HPI Narrative: DR. MEJIA MAIN ED EVALUATION: This section includes all my notes and documentations, including HPI, PE, and ED course.? Andres Mejia MD HPI: 78 year old female with past medical history significant for lupus, atrial fibrillation on Eliquis and Aspirin, Crohn's disease, leukemia, hypertension, hyperlipidemia, and hypothyroidism presents to the Emergency Department BIBA with cough and dyspnea since this morning, about 12 hours ago. Broke her right wrist a few days ago. Missed her [place] appointment with orthopedic surgeon today. Can move and feel the fingers normally. No other complaints. ROS: All negative except as documented in HPI. Physical Exam: General:? Alert and oriented.? No acute distress when remaining still.? Eyes:? Conjunctivae and lids clear. ENT:? No nasal congestion.? ? Neck:? Supple. Heart:? RRR. Lungs:? No respiratory distress.? Good air movement.? No rhonchi, wheezing, rales.? Abdomen:? Soft and nontender.? Legs:? No clubbing, cyanosis, edema. Skin:? Warm and dry.? Neuro:? Alert and oriented X 3.? RUE: Long-arm splint intact. Fingers are edematous with ecchymoses. No NVT in jury. I reviewed all diagnostic test results. My interpretation of the EKG is:?Sinus rhythm (102 bpm) with nonspecific ST-T changes. My interpretation of the chest x-ray is NAD. My interpretation of the wrist x-ray is distal radial fracture. Blood tests and urine tests remarkable for troponin 0.178 and K 3.1. At this point, diagnoses include Non-ST elevation ND (NSTEMI). Treatment here included Lovenox and oral KCl. Patient remained stable. I discussed the case with our performance analyst and our hospitalist.? About the presentation and exam and diagnostics and treatments here.? And need of further care in the hospital. Will accept the patient. Andres Mejia MD Related Data Home Medications ?Medication ?Instructions ?Recorded ?Confirmed raloxifene 60 mg tablet (Evista) 60 mg PO QDAY OSTEOPO ROSIS #0 tabs 01/22/14 09/15/24 Held on 08/17/24. Instructions: Resume on 08/24/24. Hold until you see your PCP. If you continue to have jaw pain, call your PCP or go to urgent care for an Xray atorvastatin 20 mg tablet (Lipitor) 20 mg PO HS #0 tab s 02/26/17 09/15/24 duloxetine 60 mg capsule,delayed 60 mg PO QDAY #0 caps 02/26/17 09/15/24 release (Cymbalta) hydroxychloroquine 200 mg tablet 400 mg PO QDAY #0 tab s 02/26/17 09/15/24 (Plaquenil) sertraline 100 mg tablet (Zoloft) 200 mg PO HS #0 tabs 02/26/17 09/15/24 azathioprine 50 mg tablet 50 mg PO QDAY 12/23/1709/15 mesalamine 1.2 gram tablet,delayed 2.4 g PO QDAY 12/2309/15/24 release (Lialda) sumatriptan succinate 100 mg tablet 100 mg PO Q2H PRN Migraine Headache 12/23/17 09/15/24 aspirin 81 mg tablet,delayed 81 mg PO DAILY 04/28/24 0 09/15/24 release levothyroxine 175 mcg tablet 175 mcg PO DAILY 04/28/24 09/15/24 topiramate 25 mg tablet (Topamax) 25 mg PO BID MIGRAIN E 08/14/24 09/15/24 fludrocortisone 0.1 mg tablet 0.1 mg PO BID 08/15/24 0 09/15/24 Previous Rx's ?Medication ?Instructions ?Recorded prednisone 20 mg tablet See Taper PO BID #49 tabs apixaban 2.5 mg tablet (Eliquis) 5 mg (2 x 2.5 mg) PO BID 1 month 08/17/24 #120 tabs hydrocodone 7.5 mg-acetaminophen 1 tab PO Q6H PRN PAIN 5 days #20 08/17/24 325 mg tablet tabs pantoprazole 40 mg tablet,delayed 40 mg PO QDAY 30 day s #30 tabs 08/17/24 release pregabalin 75 mg capsule 75 mg PO BID 30 days #60 cap s 08/17/24 hydrocodone 5 mg-acetaminophen 325 1 tab PO Q8H PRN pa in #14 tabs 09/10/24 mg tablet Allergies Allergy/AdvReac Type Severity Reaction Status Date / Time Sulfa (Sulfonamide Allergy Severe FLUSHING, Verified 09/14/24 13:19 Antibiotics) VOMITING meloxicam Allergy Mild RASH Verified 09/14/24 13:19 Review of Systems Review of Systems Systems Reviewed: All systems reviewed, normal except as documented ED Exam Narrative Physical exam: Refer to HPI above. Course Course Course Narrative: CXR is ordered for determining the etiology of shortness of breath. Quality Measures none Orders Category Date Time Status Bedside COVID-19 Antigen Test NOW Care 09/14/24 13:17 Active Bedside Influenza A&B Antigen Test NOW Care 09/14/24 13:17 Completed COVID-19 Screening Questionnaire NOW Care 09/14/24 16:56 Active Decision to Admit X1 Care 09/14/24 16:56 Completed EKG (ED ONLY) *Do not use* NOW Care 09/14/24 13:17 Completed Saline [Insert IV] NOW Care 09/14/24 13:17 Active Straight [In and Out Catheter] X1 Care 09/14/24 13:17 Active Consult to Cardiology Stat Cons 09/14/24 16:50 Ordered EKG (ED Only) Stat Exams 09/14/24 13:17 Draft XR chest 1V portable Stat Exams 09/14/24 13:17 Completed XR wrist comp RT min 3V Stat Exams 09/14/24 14:58 Completed ABG [Arterial Blood Gas] Stat Lab 09/14/24 13:57 Completed BNP [B-Type Natriuretic Peptide] Stat Lab 09/14/24 15:13 Completed Bilirubin,Direct Stat Lab 09/14/24 15:13 Completed CBC Stat Lab 09/14/24 15:13 Completed CMP [Comprehensive Metabolic Panel] Stat Lab 09/14/24 15:13 Completed D-Dimer Stat Lab 09/14/24 15:13 Completed Free T4 (Free Thyroxine) Stat Lab 09/14/24 15:13 Completed Magnesium Stat Lab 09/14/24 15:13 Completed PT [Prothrombin Time with INR] Stat Lab 09/14/24 15:13 Completed PTT [Partial Thromboplastin Time] Stat Lab 09/14/24 15:13 Completed TSH [Thyroid Stimulating Hormone] Stat Lab 09/14/24 15:13 Completed Troponin I Stat Lab 09/14/24 15:13 Completed ACETAMINOPHEN w/COD 300-30 [Tylenol w/Cod #3] Med 09/14/24 13:17 Discontinued 2 tab PO X1 ONE Aspirin Chew Med 09/14/24 16:55 Discontinued 324 mg PO X1 ONE Enoxaparin [Lovenox] Med 09/14/24 16:55 Discontinued 70 mg SC X1 ONE KCL 10% Liq UDC 15 ML Med 09/14/24 16:36 Discontinued 40 meq PO X1 ONE Vital Signs Vital signs: Vital Signs Temperature 99.2 F 09/14/24 13:07 Pulse Rate 73 09/14/24 13:07 Respiratory Rate 18 09/14/24 13:07 Blood Pressure 123/78 09/14/24 13:07 Pulse Oximetry (%) 95 09/14/24 13:07 Oxygen Delivery Method Room Air 09/14/24 13:07 Upper Respiratory Infection MDM Narrative MDM Narrative:: I, Karlee Tran, am scribing for and in the presence of Dr. Mejia. Patient data External records reviewed:: [facility] previous records (Reviwed prior ED records from 09/10/24. Patient was seen for Fracture of right wrist.) and EMS form Clinical information provided by:: patient and EMS Social determinants that could affect healthcare access:: none Patient has the following chronic illnesses:: lupus, atrial fibrillation, on Eliquis and Aspirin, Crohn's disease, leukemia, hypertension, hyperlipidemia, and hypothyroidism How is presenting disease/condition affected by chronic disease/condition?: exacerbated by Evaluation data The following diagnostics were reviewed and interpreted by me:: lab results, radiology exam(s) and EKG tracing(s) (My interpretation of the EKG is: Sinus rhythm (102 bpm) with nonspecific ST-T changes. Andres Mejia MD) Lab and/or radiology exams considered but not ordered:: none Interpretation Summary: I reviewed all diagnostic test results. My interpretation of the EKG is:?Sinus rhythm (102 bpm) with nonspecific ST-T changes. My interpretation of the chest x-ray is NAD. My interpretation of the wrist x-ray is distal radial fracture. Blood tests and urine tests remarkable for troponin 0.178 and K 3.1. Medications / Prescriptions Medications or Prescriptions considered but not ordered:: none Medication administrations:: Medication Administration History Acetaminophen (Acetaminophen 325 Mg Tablet) 650 mg PO Q6H PRN; Protocol PRN Reason: PAIN OR FEVER > 101 Stop: 10/14/24 17:02 Last Admin: 09/15/24 04:38 Dose: 650 mg Documented By: Hydrocodone Bitart/Acetaminophen (Hydrocodone/Apap 5/325 Tablet) 1 tab PO Q8HR PRN PRN Reason: PAIN SCALE 4-10(Mod-Sev Stop: 09/19/24 17:07 Last Admin: 09/15/24 19:46 Dose: 1 tab Documented By: Admin: 09/15/24 09:48 Dose: 1 tab Documented By: Admin: 09/14/24 23:55 Dose: 1 tab Documented By: Albuterol/Ipratropium (Albuterol/Ipratropium (Duoneb) Rt Dorcas 3 Ml Nebu) 3 ml INH Q6HRRT ISAAC Stop: 10/15/24 12:59 Last Admin: 09/16/24 00:55 Dose: 3 ml Documented By: Admin: 09/15/24 18:20 Dose: 3 ml Documented By: Admin: 09/15/24 12:41 Dose: 3 ml Documented By: PAULINO Aspirin (Aspirin Ec 81 Mg Tabec) 81 mg PO QDAY [facility] Stop: 10/15/24 08:59 Last Admin: 09/15/24 09:49 Dose: 81 mg Documented By: ERICA Atorvastatin Calcium (Atorvastatin Calcium 20 Mg Tablet) 40 mg PO HS [facility] Stop: 10/14/24 20:59 Last Admin: 09/15/24 20:31 Dose: 40 mg Documented By: Admin: 09/14/24 21:23 Dose: 40 mg Documented By: SHERIN Azathioprine (Azathioprine 50 Mg Tablet) 50 mg PO QDAY [facility] Stop: 10/15/24 08:59 Last Admin: 09/15/24 09:48 Dose: 50 mg Documented By: ERICA (Mesalamine [Lialda] 1.2 Gram Tablet, Delayed Release 0 ea PO QDAY [facility] Stop: 10/15/24 08:59 Last Admin: 09/15/24 11:06 Dose: Not Given Documented By: ERICA Non-Admin Reason: Medication Not Available Mesalamine 1.2 Gram Tablet, Delayed Release 0 ea PO QDAY [facility] Stop: 10/15/24 19:59 Last Admin: 09/15/24 20:32 Dose: 2 tablet Documented By: SURESH Duloxetine HCl (Duloxetine Hcl 30 Mg Capsule) 60 mg PO QDAY [facility] Stop: 10/15/24 08:59 Last Admin: 09/15/24 09:49 Dose: 60 mg Documented By: ERICA Fludrocortisone Acetate (Fludrocortisone Acetate 0.1 Mg Tablet) 0.1 mg PO BID [facility] Stop: 10/15/24 08:59 Last Admin: 09/15/24 20:31 Dose: 0.1 mg Documented By: Admin: 09/15/24 09:49 Dose: 0.1 mg Documented By: ERICA Guaifenesin (Guaifenesin Syrup 200 Mg/10 Ml Udc) 200 mg PO QID PRN; Protocol PRN Reason: COUGH OR CONGESTION Stop: 10/15/24 09:46 Last Admin: 09/15/24 19:46 Dose: 200 mg Documented By: Admin: 09/15/24 15:24 Dose: 200 mg Documented By: Admin: 09/15/24 10:21 Dose: 200 mg Documented By: ERICA Hydroxychloroquine Sulfate (Hydroxychloroquine 200 Mg Tablet) 400 mg PO QDAY [facility] Stop: 09/22/24 08:59 Last Admin: 09/15/24 11:13 Dose: 400 mg Documented By: ERICA Levothyroxine Sodium 125 mcg/ (Levothyroxine Sodium 50 mcg) 175 mcg PO ACBR [facility] Stop: 10/15/24 05:59 Last Admin: 09/15/24 05:03 Dose: 175 mcg Documented By: Metoprolol Succinate (Metoprolol Succinate Xl 25 Mg Tabcr) 25 mg PO QDAY [facility] Stop: 10/15/24 08:59 Last Admin: 09/15/24 09:49 Dose: 25 mg Documented By: ERICA Ondansetron HCl (Ondansetron Inj 2 Mg/Ml Inj 2 Ml) 4 mg IVP Q6H PRN; Protocol PRN Reason: NAUSEA OR VOMITING Stop: 10/14/24 17:02 Pantoprazole Sodium (Pantoprazole 40 Mg Tablet) 40 mg PO QDAY [facility] Stop: 10/15/24 08:59 Last Admin: 09/15/24 09:49 Dose: 40 mg Documented By: ERICA Phenol/Menthol (Phenol/Na Phenolate (Chloraseptic) Lanare 180 Ml Btl) 0 ml PO Q6HR PRN PRN Reason: MOUTH PAIN D/T COLD SORES Stop: 10/15/24 20:45 Last Admin: 09/15/24 21:44 Dose: 1 spray Documented By: SURESH Pregabalin (Pregabalin 75 Mg Capsule) 75 mg PO BID [facility] Stop: 10/14/24 20:59 Last Admin: 09/15/24 20:31 Dose: 75 mg Documented By: Admin: 09/15/24 09:49 Dose: 75 mg Documented By: Admin: 09/14/24 21:23 Dose: 75 mg Documented By: SHERIN Sacubitril/Valsartan (Sacubitril 24 Mg/Valsartan 26 Mg Tablet) 1 tab PO BID [facility] Stop: 10/14/24 20:59 Last Admin: 09/15/24 20:31 Dose: 1 tab Documented By: Admin: 09/15/24 09:49 Dose: 1 tab Documented By: Admin: 09/14/24 21:22 Dose: 1 tab Documented By: SHERIN Sennosides (Senna Tablet) 1 tab PO QDAY [facility]; Protocol Stop: 10/15/24 08:59 Last Admin: 09/15/24 09:45 Dose: 1 tab Documented By: ERICA Sertraline HCl (Sertraline Hcl 25 Mg Tablet) 100 mg PO HS [facility] Stop: 10/14/24 20:59 Last Admin: 09/15/24 20:31 Dose: 100 mg Documented By: Admin: 09/14/24 21:24 Dose: 100 mg Documented By: SHERIN Topiramate (Topiramate 25 Mg Tablet) 25 mg PO BID [facility] Stop: 10/15/24 08:59 Last Admin: 09/15/24 20:31 Dose: 25 mg Documented By: Admin: 09/15/24 09:49 Dose: 25 mg Documented By: ERICA Discontinued Medications Acetaminophen (Acetaminophen 325 Mg Tablet) 325 mg PO X1 ONE Stop: 09/15/24 20:03 Last Admin: 09/15/24 20:31 Dose: 325 mg Documented By: SURESH Acetaminophen/Codeine Phosphate (Acetaminophen W/Cod 300-30 Tablet) 2 tab PO X1 ONE Stop: 09/14/24 13:18 Last Admin: 09/14/24 13:36 Dose: 2 tab Documented By: GM Apixaban (Apixaban 2.5 Mg Tablet) 5 mg PO BID [facility] Stop: 10/14/24 20:59 Aspirin (Aspirin 81 Mg Chew) 324 mg PO X1 ONE Stop: 09/14/24 16:56 Last Admin: 09/14/24 17:50 Dose: 324 mg Documented By: GM Enoxaparin Sodium (Enoxaparin Sod Inj 80 Mg/0.8 Ml Syringe) 70 mg SC X1 ONE Stop: 09/14/24 16:56 Last Admin: 09/14/24 20:01 Dose: Not Given Documented By: DT Non-Admin Reason: discontinued Guaifenesin (Guaifenesin Syrup 200 Mg/10 Ml Udc) 200 mg PO X1 ONE; Protocol Stop: 09/15/24 04:31 Last Admin: 09/15/24 04:37 Dose: 200 mg Documented By: Magnesium Sulfate (Magnesium Sulfate Ivpb) 2 gm in 50 mls @ 25 mls/hr IV X1 ONE Stop: 09/14/24 19:14 Last Infusion: 09/14/24 20:02 Dose: Infused Documented By: Admin: 09/14/24 17:59 Dose: 25 mls/hr Documented By: HAILEY Levalbuterol HCl (Levalbuterol Rt 0.63 Mg/3 Ml Nebu) 0.63 mg INH X1 ONE Stop: 09/15/24 20:05 Last Admin: 09/15/24 20:15 Dose: 0.63 mg Documented By: AL Metoprolol Succinate (Metoprolol Succinate Xl 25 Mg Tabcr) 25 mg PO QDAY [facility] Stop: 10/15/24 08:59 Home Medication- Please Speak With Patient Caregiver To Have Rx Brought To [facility] 2.4 gm PO QDAY [facility] Stop: 10/15/24 10:44 Last Admin: 09/15/24 15:46 Dose: Not Given Documented By: ERICA Non-Admin Reason: Medication Not Available Phenol/Menthol (Phenol/Na Phenolate (Chloraseptic) [place]are 180 Ml Btl) 0 ml PO Q6HR PRN PRN Reason: SORE THROAT Stop: 10/15/24 20:45 Potassium Chloride (Potassium Chloride 10% 20 Meq/15 Ml Udc) 40 meq PO X1 ONE Stop: 09/14/24 16:37 Last Admin: 09/14/24 17:00 Dose: 40 meq Documented By: GM Potassium Chloride (Potassium Chloride 20 Meq Tabcr) 40 meq PO X1 ONE Stop: 09/14/24 17:15 Last Admin: 09/14/24 17:47 Dose: 40 meq Documented By: GM Potassium Chloride (Potassium Chloride 20 Meq Tabcr) 20 meq PO X1 ONE Stop: 09/14/24 19:31 Last Admin: 09/14/24 19:10 Dose: Not Given Documented By: GM Non-Admin Reason: Duplicate Medication on eMAR Pregabalin (Pregabalin 75 Mg Capsule) 75 mg PO QDAY [facility] Stop: 10/15/24 08:59 Treatment from me included Lovenox and oral KCl. Consultations Consultation(s) initiated? (list below): Yes Consultation #1 (Physician, Specialty, Details): I discussed the case with our performance analyst and our hospitalist.? About the presentation and exam and diagnostics and treatments here.? And need of further care in the hospital. Will accept the patient. Diagnosis Upper Respiratory Differential Diagnosis: upper respiratory infection, croup, otitis media, sinusitis, viral infection, bronchitis, influenza, pharyngitis and other (ND, PE, CHF, pneumonia) Most likely diagnosis given after review of the tests above:: Non-ST elevation ND (NSTEMI) Admission Indicated Admission indicated?: indicated Explain why admission is indicated or not indicated:: Non-ST elevation ND (NSTEMI) Admission Request Was there a request for admission?: Yes Admission Attestation Admission request attestation: Discussed case with Hospitalist service regarding admission. Discussed patients ED course, exam findings, labs, and radiology results. The Hospitalist [agrees] to accept the patient for admission. Disposition Plan Disposition Plan: Admit Discharge Plan Plan Patient Disposition: Admit Acute Care w/in Hospital Problem List Clinical Impression: Non-ST elevation ND (NSTEMI)
--- NOTE | 2024-09-14 13:17 | XR_ITS ---
Examination: AP chest single view Technique one AP portable upright chest single view Date and time: September 14, 2024 1345 hours INDICATIONS: Shortness of breath today. FINDINGS: Normal heart size Ectatic thoracic aorta. Prominent osteopenia No pneumonia or pulmonary edema IMPRESSION: No pneumonia or pulmonary edema
--- NOTE | 2024-09-14 13:17 | EKG_ITS ---
[facility] Test Date: 2024-09-14 Pat Name: HARPER DIEGO Department: Room: - Gender: Female Billet Checker: : 1945 Requested By: Andres Ibarra Order Number: [id number] Reading MD: Andres Ibarra Measurements Intervals Douglas Rate: 102 P: 79 CT: 156 QRS: -11 QRSD: 106 T: 72 QT: 349 QTc: 456 Interpretive Statements SINUS TACHYCARDIA WITH FREQUENT SUPRAVENTRICULAR PREMATURE COMPLEXES NONSPECIFIC ST & T-WAVE ABNORMALITY ABNORMAL RHYTHM ECG Compared to ECG 08/14/2024 18:13:38 Atrial flutter no longer present T-wave abnormality still present /store/S0/[id number].pdf
[2024-09-14] MEDS: ACETAMINOPHEN w/COD 300-30 TABLET 2 TAB PO (13:36)
[2024-09-14 14:01] LABS: Base Excess 4 (-3-3); HCO3 28 mEq/L (20-26); Inspired Oxygen, FIO2 21 %; O2 Saturation 95 % (91-98); PCO2 39 mmHg (32.0-48.0); PO2 64 mmHg (83-108); pH, Arterial 7.47 (7.35-7.45)
[2024-09-14 14:02] LABS: Allen Test Performed/OK; Puncture Site Left Radial
--- NOTE | 2024-09-14 14:58 | XR_ITS ---
Examination: Wrist, right 3 views Technique: Wrist AP, oblique, lateral 3 views Date and time of exam: 05/17/2024 1517 hours Comparison September 10, 2024 INDICATIONS: Acute fracture distal radial metaphysis September 10, 2024 FINDINGS: Improved alignment fracture distal radial metaphysis, especially on the lateral view compared to prior study Fracture is impacted Carpal bones intact IMPRESSION: Improved alignment impacted fracture distal radial metaphysis
[2024-09-14 15:30] LABS: Basophils % (Auto) 0 % (0-2.5); Eosinophils # (Auto) 0.1 Thou/mm3 (0.0-0.5); Eosinophils % (Auto) 1 % (0-10); Hematocrit 36.4 % (36.0-46.0); Hemoglobin 12.2 g/dL (12.0-16.0); Immature Granulocytes % (Auto) 1 % (0-0); Immature Granulocytes Auto 0.03 Thou/mm3 (0.00-0.00); Lymphocytes # (Auto) 0.6 Thou/mm3 (1.0-4.8); Lymphocytes % (Auto) 11 % (10-50); Mean Corpuscular HGB Conc 33.5 g/dl (31.0-37.0); Mean Corpuscular Hemoglobin 30.8 pg (25.0-35.0); Mean Corpuscular Volume 92 fL (80-100); Monocytes # (Auto) 0.5 Thou/mm3 (0.0-0.8); Monocytes % (Auto) 9 % (0-12); Neutrophils # (Auto) 4.4 Thou/mm3 (1.8-7.7); Neutrophils % (Auto) 78 % (37-80); Nucleated Red Blood Cell % 0 /100 WBC (0); Platelet Count 195 Thou/mm3 (140-440); RDW Standard Deviation 56.1 fL (36.4-46.3); Red Blood Count 3.96 Miln/mm3 (4.00-5.20); White Blood Count 5.7 Thou/mm3 (3.6-11.0)
[2024-09-14 15:43] LABS: Partial Thromboplastin Time 34.2 Seconds (22.0-36.0); Prothrombin Time 11.4 Seconds (9.0-12.2)
[2024-09-14 15:47] LABS: D-Dimer 477 ng/mL (<600)
[2024-09-14 15:56] LABS: Alanine Aminotransferase 15 U/L (10-49); Albumin, Serum 3.9 gm/dL (3.4-4.8); Albumin/Globulin Ratio 2.1 (1.2-2.2); Alkaline Phosphatase 64 U/L (46-116); Anion Gap 8 (7-16); Aspartate Amino Transferase 31 U/L (0-34); BUN/Creatinine Ratio 13 Ratio (12-20); Bilirubin,Direct 0.3 mg/dL (0.0-0.3); Bilirubin,Total 0.6 mg/dL (0.3-1.2); Blood Urea Nitrogen 10 mg/dL (9-23); Calcium 8.7 mg/dL (8.3-10.6); Calcium (Corrected) 8.8 mg/dL (8.5-10.1); Carbon Dioxide 28.9 mMol/L (20.0-31.0); Chloride 105 mMol/L (98-107); Creatinine (Component) 0.8 mg/dL (0.6-1.3); Estimated Creatinine Clearance 55.1 mL/min (>60); Free T4 (Free Thyroxine) 1.07 ng/dL (0.89-1.76); Globulin 1.9 gm/dL (2.3-3.5); Glucose 99 mg/dL (74-106); Magnesium 1.8 mg/dL (1.6-2.6); Osmolality,Calculated 282 (275-295); Potassium 3.1 mMol/L (3.4-5.1); Sodium 142 mMol/L (136-145); Thyroid Stimulating Hormone 12.73 uIU/mL (0.55-4.78); Total Protein 5.8 gm/dL (5.7-8.2); eGFR > 60 See Note
[2024-09-14 16:07] LABS: B-Type Natriuretic Peptide 533 pg/mL (0-100)
[2024-09-14 16:22] LABS: Troponin I 0.178 ng/mL (0.0-0.045)
--- NOTE | 2024-09-14 16:59 | PC.CC ---
Patricia GREWAL was consulted by chemical mixer Kim that patient is being admitted and [facility] needs to be notified. This ad copy writer made contact with Macy with [facility] Medical Record Number is [id number].
[2024-09-14] MEDS: POTASSIUM CHLORIDE 10% 20 MEQ/15 ML UDC 40 MEQ PO (17:00)
[2024-09-14] MEDS: POTASSIUM CHLORIDE 20 mEq TABCR 40 MEQ PO (17:47)
[2024-09-14] MEDS: ASPIRIN 81 MG CHEW 324 MG PO (17:50)
[2024-09-14] MEDS: Magnesium Sulfate 2 GM Ivpb 2 GM/50 ML BAG IV (17:59)
[2024-09-14 18:12] LABS: Collection Type, Urine Clean Catch
[2024-09-14 18:19] LABS: Bilirubin,Urine Negative (Negative); Blood,Urine Negative (Negative); Clarity,Urine Clear (Clear/Hazy); Color,Urine Lt-Yellow (Lt Yel-Yel); Glucose, Urine Negative (Negative); Ketones,Urine Negative (Negative); Leukocyte Esterase,Urine Positive (Negative); Nitrite,Urine Positive (Negative); Protein,Urine Trace (Neg - Trace); RBC,Urine 2 /hpf (0-3); Squamous Epithelial Cell,Urine < 1 /hpf (0-5); Urobilinogen,Urine Negative mg/dL (0.0-1.0); WBC,Urine 17 /hpf (0-5)
--- NOTE | 2024-09-14 18:19 | PD.RESHP ---
Documentation for date of: 09/14/24 HPI History of Present Illness History of present illness: The patient is a 78-year-old female with a past medical history of atrial fibrillation/flutter on Eliquis, systemic lupus erythematosus on DMARD therapy, hyperlipidemia, hypothyroidism, recurrent migraines, osteoporosis, and HFrEF at 35%. She presented to the emergency department on 09/14/2024 with chief complaints of severe headache, generalized weakness, and subjective fever. She had previously presented to the ED on the 09/10/24 following a mechanical fall and was diagnosed with an acute comminuted intra-articular displaced fracture of the distal radial metaphysis. At that time, she was managed symptomatically and discharged with outpatient follow-up instructions to see orthopedic surgery in [place]. Since discharge, she has been taking Tylenol and ibuprofen for her headache, with no relief. Upon re-presentation to the ED, she was hemodynamically stable but continued to report subjective fever. She denied chest pain or shortness of breath. She has chronic lower extremity swelling but noted no new changes. ED Findings: Vitals: Hemodynamically stable Laboratory Results:Hypokalemia, Hypocalcemia: 3.1,Hypomagnesemia. BNP: 533. Troponin: 0.178. TSH: 12.70 Imaging: Chest X-ray: Negative for pneumonia; notable for prominent osteopenia EKG: No acute ST changes Cardiology was consulted in the ED. The patient was admitted for management of a NSTEMI, most likely secondary to demand ischemia. Past medical history as above Past surgical history bilateral knee replacement, left breast lumpectomy 40 years ago Family history unremarkable Social history denies smoking or drinking. Coming from home. Review of Systems Review of Systems Systems Reviewed: All systems reviewed, normal except as documented Exam Vital Signs Temp Pulse Resp BP Pulse Ox O2 Del Method 99.1 F 94 19 170/90 H 96 Room Air 09/14/24 18:00 09/14/24 18:00 09/14/24 18:09/14/24 18:09/14/24 18:09/14/24 18:00 Narrative Exam Physical Exam GENERAL: NAD, AAOx3 , mildly anxious, HEENT: Moist mucosa. Eyes open, symmetrical, & clear CARDIO: Heart RRR, no obvious murmurs PULM: No noted coughing/dyspnea CTA B/L, no R/W/R 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 are skin washer touch , slight numbness on 1,2,3fingers, capilari refil ok NEURO: AAOx3, no focal neuro deficits, Results: Labs 09/15/24 05:47 09/15/24 05:47 Labs: Short CBC 09/14/24 Range/Units 15:13 WBC 5.7 (3.6-11.0) Thou/mm3 Hgb 12.2 (12.0-16.0) g/dL Hct 36.4 (36.0-46.0) % Plt Count 195 D (140-440) Thou/mm3 BMP 09/14/24 15:13 Sodium 142 Potassium 3.1 L Chloride 105 Carbon Dioxide 28.9 BUN 10 Creatinine 0.8 Glucose 99 Calcium 8.7 Cardiac Enzymes 09/14/24 09/14/24 Range/Units 15:13 17:26 Troponin I 0.178 H* 0.180 H* (0.0-0.045) ng/mL Liver Function 09/14/24 Range/Units 15:13 Total Bilirubin 0.6 (0.3-1.2) mg/dL Direct Bilirubin 0.3 (0.0-0.3) mg/dL AST 31 (0-34) U/L ALT 15 (10-49) U/L Alkaline Phosphatase 64 (46-116) U/L Albumin 3.9 (3.4-4.8) gm/dL ABG Interpretation ABG results: 09/14/24 13:57 ABG pH 7.47 H ABG pCO2 39 ABG pO2 64 L ABG HCO3 28 H ABG O2 Saturation 95 ABG Base Excess 4 H Quality Measures Quality Measures none Advance care planning discussed with:: patient Medications Home Medications and Allergies Home Medications ?Medication ?Instructions ?Recorded ?Confirmed ?Type raloxifene 60 mg tablet (Evista) 60 mg PO QDAY OSTEOPOROSIS #0 tabs 01/22/14 09/15/24 History Held on 08/17/24. Instructions: Resume on 08/24/24. Hold until you see your PCP. If you continue to have jaw pain, call your PCP or go to urgent care for an Xray atorvastatin 20 mg tablet (Lipitor) 20 mg PO HS #0 tabs 02/26/17 09/15/24 History duloxetine 60 mg capsule,delayed 60 mg PO QDAY #0 caps 02/26/17 09/15/24 History release (Cymbalta) hydroxychloroquine 200 mg tablet 400 mg PO QDAY #0 tabs 02/26/17 09/15/24 History (Plaquenil) sertraline 100 mg tablet (Zoloft) 200 mg PO HS #0 tabs 02/26/17 09/15/24 History azathioprine 50 mg tablet 50 mg PO QDAY 12/23/17 09/15/24 History mesalamine 1.2 gram tablet,delayed 2.4 g PO QDAY 12/23/17 09/15/24 History release (Lialda) sumatriptan succinate 100 mg tablet 100 mg PO Q2H PRN Migraine Headache 12/23/17 09/15/24 History aspirin 81 mg tablet,delayed 81 mg PO DAILY 04/28/24 09/15/24 History release levothyroxine 175 mcg tablet 175 mcg PO DAILY 04/28/24 09/15/24 History topiramate 25 mg tablet (Topamax) 25 mg PO BID MIGRAINE 08/14/24 09/15/24 History fludrocortisone 0.1 mg tablet 0.1 mg PO BID 08/15/24 09/15/24 History Allergies Allergy/AdvReac Type Severity Reaction Status Date / Time Sulfa (Sulfonamide Allergy Severe FLUSHING, Verified 09/14/24 13:19 Antibiotics) VOMITING meloxicam Allergy Mild RASH Verified 09/14/24 13:19 Visit Medications Acetaminophen (Acetaminophen 325 Mg Tablet) 650 mg PO Q6H PRN; Protocol PRN Reason: PAIN OR FEVER > 101 Stop: 10/14/24 17:02 Hydrocodone Bitart/Acetaminophen (Hydrocodone/Apap 5/325 Tablet) 1 tab PO Q8HR PRN PRN Reason: PAIN SCALE 4-10(Mod-Sev Stop: 09/19/24 17:07 Apixaban (Apixaban 2.5 Mg Tablet) 5 mg PO BID ISAAC Stop: 10/14/24 20:59 Atorvastatin Calcium (Atorvastatin Calcium 20 Mg Tablet) 40 mg PO HS ISAAC Stop: 10/14/24 20:59 Magnesium Sulfate (Magnesium Sulfate Ivpb) 2 gm in 50 mls @ 25 mls/hr IV X1 ONE Stop: 09/14/24 19:14 Last Admin: 09/14/24 17:59 Dose: 25 mls/hr Levothyroxine Sodium 125 mcg/ (Levothyroxine Sodium 50 mcg) 175 mcg PO ACBR ISAAC Stop: 10/15/24 05:59 Ondansetron HCl (Ondansetron Inj 2 Mg/Ml Inj 2 Ml) 4 mg IVP Q6H PRN; Protocol PRN Reason: NAUSEA OR VOMITING Stop: 10/14/24 17:02 Pantoprazole Sodium (Pantoprazole 40 Mg Tablet) 40 mg PO QDAY ISAAC Stop: 10/15/24 08:59 Potassium Chloride (Potassium Chloride 20 Meq Tabcr) 20 meq PO X1 ONE Stop: 09/14/24 19:31 Sennosides (Senna Tablet) 1 tab PO QDAY ISAAC; Protocol Stop: 10/15/24 08:59 Discontinued Medications Acetaminophen/Codeine Phosphate (Acetaminophen W/Cod 300-30 Tablet) 2 tab PO X1 ONE Stop: 09/14/24 13:18 Last Admin: 09/14/24 13:36 Dose: 2 tab Aspirin (Aspirin 81 Mg Chew) 324 mg PO X1 ONE Stop: 09/14/24 16:56 Last Admin: 09/14/24 17:50 Dose: 324 mg Enoxaparin Sodium (Enoxaparin Sod Inj 80 Mg/0.8 Ml Syringe) 70 mg SC X1 ONE Stop: 09/14/24 16:56 Potassium Chloride (Potassium Chloride 10% 20 Meq/15 Ml Udc) 40 meq PO X1 ONE Stop: 09/14/24 16:37 Last Admin: 09/14/24 17:00 Dose: 40 meq Potassium Chloride (Potassium Chloride 20 Meq Tabcr) 40 meq PO X1 ONE Stop: 09/14/24 17:15 Last Admin: 09/14/24 17:47 Dose: 40 meq Assessment & Plan Plan 78-year-old female with past medical history of A-fib on Eliquis, history of SLE on the marked, hyperlipidemia, hypertension, hypothyroidism, osteoarthritis, migraine headache was admitted for non-STEMI most likely second time demand ischemia treatment and management. #Elevated troponin DDx: Non-STEMI type I(less likely) versus non-STEMI's second type demand ischemia Patient presented with chief complaints of headache, generalized weakness, Home medication is sumatriptan which can be precipitating factor for elevated troponin, EKG did not reveal any acute ST changes, troponin was elevated 0.178, chest x-ray did not reveal any PNA/vascular congestion Patient was saturating in room air 96% upon our evaluation In ED patient was given aspirin 325 -Will start aspirin 81 mg daily -Atorvastatin 40 daily -Obtain echo to rule out any dyskinesia or hypokinesia -Trend troponin -Cardiology is on board recommendations appreciated #History of A-fib on Eliquis #HFrEF 35% Echocardiogram was done which showed Mild LVH.there is grade II diastolic dysfunction. Global LV systolic function is moderately decreased. Estimated EF 35-40%. [id number] score7 [age, sex, HTN, stroke, vascular] and HAS-Bled ; 3 points. BNP 533(Patient is in RA, sat >96, no SOB, no orthopnea, no crackels, No JVD) - Continue Entresto - Continue metoprolol - Continue Eliquis 5 twice daily - Keep potassium above 4, magnesium above 2 - Patient is negative CHF exacerbation, does not looking at overload, no need for diuretics at this point. - Will follow-up with repeat limited echo exam - Cardiology is on board recommendations appreciated. #Acute comminuted intra-articular displaced fracture distal radial metaphysis Patient presented to ED on 09/10 after mechanical fall, x-ray found above Cast was placed and patient was plan to follow-up outpatient with Ortho surgery in [place] today, however was not feeling well. Repeat x-ray revealed Improved alignment impacted fracture distal radial metaphysis - Will follow-up with CT -Orthopedic surgery is on board, will follow-up with recommendations. Chronic conditions #SLE #Hypothyroidism #Migraine #Hyperlipidemia #Hypertension #Chronic pain - Resumed home medication(pending med rec) -Continue Plaquenil -Continue azathioprine -Continue Lyrica -Continue sertraline on half dose -Will hold on sumatriptan in the setting of elevated troponin Disposition: tele DVT prophylaxis: elequise GI prophylaxis: PPI Diet: cardiac Lines: PIV CODE STATUS:DNR Patient care was discussed with attending physician Dr. Esha Sesay MD PGY-2 Attending Provider Attestation/Addendum I attest that I was physically present for the evaluation, physical examination, lab and imaging review of the patient with the residents. I discussed the case with the residents and agree with the findings and plans of care as documented above. Patient is a 78 years old female with past medical history of A-fib/a flutter on Eliquis, SLE on [address] RD, hyperlipidemia, hypothyroidism, recurrent migraines, osteoporosis, HFrEF who presented to the ED with complaint of severe headache, generalized weakness and subjective fever. She also had a mechanical fall and was found to have acute comminuted intra-articular displaced fracture of distal radial metaphysis. Patient was scheduled to have a referral to a orthopedic surgeon in [place]. In the ED, her vitals were stable except for blood pressure of 170/90. Lab results show electrolyte imbalances, BNP of 533, elevated troponin. Admission was requested for ruling out NSTEMI. On examination, patient had numbness of her 2nd and 3rd digit of right hand. Discussed with Dr Jimenez, recommended CT of the wrist and will follow the patient. After examination of the patient and review of the clinical data I feel that this patient needs admission to the hospital for further treatment/evaluation of elevated troponin, comminuted intra-articular displaced fracture of distal radial metaphysis. Started patient on aspirin and atorvastatin, echocardiography ordered. Cardiology has been contacted by ED, we will trend the troponin. Continues to be on metoprolol, Entresto and Eliquis for A-fib and HFrEF. Discussed with Dr. Jimenez, who will evaluate the patient for wrist fracture. Jessica Balbuena MD
--- NOTE | 2024-09-14 18:36 | XR_ITS ---
Examination: CT right wrist, without contrast. 2-D sagittal reconstructions. 2-D coronal reconstructions. 3-D reconstructions. Date and time of exam:September 14, 2024 at 1901 hours INDICATIONS: Patient fell today with image of the wrist and wrist pain. CTDI: vol (mGy):21 DLP: (mGycm):513 Technique: Multiple 1.25 mm axial sections of the right wrist without intravenous contrast have been obtained. 2-D sagittal and coronal reconstructions have been obtained. 3-D reconstructions have been obtained. Low dose protocols were performed. One or more of the following dose reduction techniques were used; automated exposure control, adjustment of the mA and/or KV according to patient size, use of iterative reconstruction technique. Findings: All of the images are severely degraded by patient motion Acute impacted intra-articular fracture of the distal radial metaphysis The plain film images are actually better quality and provide more information than these tomographic views IMPRESSION: Severely limited study secondary to patient motion The plain films better demonstrate the comminuted impacted intra-articular fracture distal radial metaphysis
--- NOTE | 2024-09-14 18:46 | PD.ORTHCON ---
HPI Consult details Reason for consultation narrative: Pain right wrist History of present illness: Patient is a very nice 78-year-old who flexed forward and fell on her right upper extremity. The injury occurred on Father's Day She presents today with pain in her right wrist. Past Medical History Past Medical History NEUROLOGIC: Positive Neurological Disorders, Cerebrovascular Accident, Peripheral Neuropathy and Migraine; Negative Transient Ischemic Attacks (TIA), Dementia, Alzheimer's Disease, Parkinson's Disease, Brain Tumor, Meningitis, Seizures, Epilepsy, Multiple Sclerosis, Cerebral Palsy, Amyotrophic Lateral Sclerosis (ALS/Cari Gehrig's), Guillain-Climax Syndrome, Spina Bifida, Paralysis, Farrell's Palsy, Subdural Hematoma, Head Trauma, Spinal Cord Injury or Traumatic Brain Injury CARDIAC: Positive Cardiac Disorders, Atrial Fibrillation, Hypercholesterolemia, Congestive Heart Failure, Hypertension and Hypotension; Negative Myocardial Infarction, Cardiac Arrhythmia, Angina, Heart Murmur, Coronary Artery Disease, Atherosclerotic Heart Disease, Peripheral Vascular Disease, Aneurysm, Congenital Heart Disease, Valvular Heart Disease, Rheumatic Fever, Cardiomyopathy, Edema, Pericarditis, Cellulitis, Deep Vein Thrombosis or Varicose Veins RESPIRATORY: Positive Asthma, Bronchitis and Pneumonia; Negative Chronic Obstructive Pulmonary Disease (COPD), Emphysema, Pulmonary Fibrosis, Cystic Fibrosis, Tuberculosis, Pulmonary Embolism, Pulmonary Edema or Sleep Apnea GASTROINTESTINAL: Positive Gastrointestinal Disorders, Crohn's Disease and Gastroesophageal Reflux Disease; Negative Hepatitis, Cirrhosis, Pancreatitis, Celiac Disease, Gall Bladder Disease, Gastrointestinal Bleed, Esophageal Varices, Hurley's Esophagus, Colitis, Ulcerative Colitis, Diverticulitis, Diverticulosis, Ulcer, Colorectal Cancer, Irritable Bowel, Obstructive Bowel, Hiatal Hernia, Hemorrhoids or Obesity GENITOURINARY: Negative Genitourinary Disorders, Renal Disease, Kidney Stones, Polycystic Kidney Disease, Neurogenic Bladder, Inguinal Hernia, Dialysis or Prostate Cancer REPRODUCTIVE: Negative Breast Cancer, Endometriosis, Genital Herpes, Gonorrhea, Pelvic Inflammatory Disease, Previous Pregnancies, Syphilis or Uterine Prolapse MUSCULOSKELETAL: Positive Musculoskeletal Disorders, Arthritis, Degenerative Disk Disease, Fibromyalgia, Fractures and Degenerative Joint Disease; Negative Muscular Dystrophy, Myasthenia Gravis, Marfan's Syndrome, Bone Cancer, Osteoporosis, Carpal Tunnel Syndrome, Osteomyelitis or Poliovirus ENT: Negative Cataracts, Glaucoma, Blind, Ear Infection, Deafness, Head Trauma or Eye Prosthesis ENDOCRINE: Positive Endocrine Disorders, Hypothyroidism and Systemic Lupus Erythematosus; Negative Diabetes Mellitus Type 1, Diabetes Mellitus Type 2, Hypoglycemia, Quique's Syndrome, Lancaster's Disease, Hyperthyroidism, Parathyroid Disease, Pituitary Disease, Syndrome of Inappropriate Antidiuretic Hormone (SIADH), Adrenal Disease or Graves' Disease HEMATOLOGIC: Positive Blood Disorders and Anemia; Negative Leukemia, Hemophilia, Thalassemia, Sickle Cell Disease or Clotting Problems PSYCHO/SOCIAL: Positive Psychiatric Problems, Depression and Anxiety; Negative Schizophrenia, Recreational Drug Use, Bipolar Disorder, Behavior Problems, Self-Mutilation, Attention Deficit Disorder, Attention Deficit Hyperactivity Disorder, Depression, Post Traumatic Stress Disorder or Eating Disorder OTHER HISTORY: Positive Hospitalization, Falls, Measles and Mumps; Negative Autoimmune Disease, Down Syndrome, Autism, Developmental Delay, Shingles, Blood Transfusions, Blood Transfusion Reaction, Anesthesia Reactions, Organ Transplant, Chemotherapy, Radiation Therapy, Hyperbaric Therapy, MRSA, VRSA, Vancomycin-Resistant Enterococci, Human Immunodeficiency Virus (HIV), Chicken Pox, Rubella ([place] Measles), Pertussis, Clostridium Difficile, Breast Cancer, Cervical Cancer, Colorectal Cancer, Lung Cancer, Ovarian Cancer or Prostate Cancer Family History FAMILY HISTORY: Negative Family Psychiatric Problems, Family Respiratory Disorders, Family Cardiac Disorders, Family Gastrointestinal Problems, Family Cancer, Family Surgery or Family Anesthesia Reaction Surgical History SURGICAL: Positive Hysterectomy; Negative Cardiac Surgery, Open Heart Surgery, Coronary Artery Bypass Graft, Valve Replacement, Vascular Surgery, Coronary Stent, Cardiac Catheterization, Pacemaker, Angiogram, Auto Implanted Cardiovert Defib, Carotid Endarterectomy, Endocrine Surgery, Thyroidectomy, Ear Surgery, Tympanostomy Tube, Eye Surgery, Nose Surgery, Oral Surgery, Tonsillectomy, Adenoidectomy, Cochlear Implant, Corneal Transplant, Throat Surgery, Abdominal Surgery, Tracheostomy, Gastric Bypass Surgery, Gastrostomy, Bowel Surgery, Nephrectomy, Transurethral Resection, Joint Replacement, Amputation, Open Reduction Internal Fixation, Arthroscopy, Neurologic Surgery, Brain Shunt, Mastectomy, Lumpectomy, Tubal Ligation, Section or Organ Transplant Social History SMOKING STATUS: Never smoker SUBSTANCE USE: does not use Meds Home Medications and Allergies Home Medications ?Medication ?Instructions ?Recorded ?Confirmed ?Type raloxifene 60 mg tablet (Evista) 60 mg PO QDAY OSTEOPOROSIS #0 tabs 01/22/14 08/15/24 History Held on 08/17/24. Instructions: Resume on 08/24/24. Hold until you see your PCP. If you continue to have jaw pain, call your PCP or go to urgent care for an Xray atorvastatin 20 mg tablet (Lipitor) 20 mg PO HS #0 tabs 12/01/17 05/19/25 History duloxetine 60 mg capsule,delayed 60 mg PO QDAY #0 caps 02/26/17 08/14/24 History release (Cymbalta) hydroxychloroquine 200 mg tablet 400 mg PO QDAY #0 tabs 02/26/17 08/15/24 History (Plaquenil) sertraline 100 mg tablet (Zoloft) 200 mg PO HS #0 tabs 02/26/17 08/14/24 History azathioprine 50 mg tablet 50 mg PO QDAY 12/23/17 08/15/24 History mesalamine 1.2 gram tablet,delayed 2.4 g PO QDAY 12/23/17 08/15/24 History release (Lialda) sumatriptan succinate 100 mg tablet 100 mg PO Q2H PRN Migraine Headache 12/23/17 08/15/24 History aspirin 81 mg tablet,delayed 81 mg PO DAILY 04/28/24 08/14/24 History release levothyroxine 175 mcg tablet 175 mcg PO DAILY 04/28/24 08/14/24 History topiramate 25 mg tablet (Topamax) 25 mg PO BID MIGRAINE 08/14/24 08/14/24 History fludrocortisone 0.1 mg tablet 0.1 mg PO BID 08/15/24 08/15/24 History Allergies Allergy/AdvReac Type Severity Reaction Status Date / Time Sulfa (Sulfonamide Allergy Severe FLUSHING, Verified 09/14/24 13:19 Antibiotics) VOMITING meloxicam Allergy Mild RASH Verified 09/14/24 13:19 Exam Vital Signs Temp Pulse Resp BP Pulse Ox O2 Del Method 98.6 F 91 16 170/90 H 94 L Room Air 09/14/24 18:30 09/14/24 18:30 09/14/24 18:30 09/14/24 18:30 09/14/24 18:30 09/14/24 18:00 Blood pressure 170/90. Narrative Exam Patient is alert and oriented. Her musculoskeletal complaints area involving right wrist right elbow. She has pain. Has active range of motion fingers. She does have some numbness fingertips. Injury 4 days old. Results - Ortho Labs 09/14/24 15:13 09/14/24 15:13 Labs: Short CBC 09/14/24 Range/Units 15:13 WBC 5.7 (3.6-11.0) Thou/mm3 Hgb 12.2 (12.0-16.0) g/dL Hct 36.4 (36.0-46.0) % Plt Count 195 D (140-440) Thou/mm3 BMP 09/14/24 15:13 Sodium 142 Potassium 3.1 L Chloride 105 Carbon Dioxide 28.9 BUN 10 Creatinine 0.8 Glucose 99 Calcium 8.7 Cardiac Enzymes 09/14/24 09/14/24 Range/Units 15:13 17:26 Troponin I 0.178 H* 0.180 H* (0.0-0.045) ng/mL Liver Function 09/14/24 Range/Units 15:13 Total Bilirubin 0.6 (0.3-1.2) mg/dL Direct Bilirubin 0.3 (0.0-0.3) mg/dL AST 31 (0-34) U/L ALT 15 (10-49) U/L Alkaline Phosphatase 64 (46-116) U/L Albumin 3.9 (3.4-4.8) gm/dL Urine 09/14/24 Range/Units 18:05 Urine Color Lt-Yellow (Lt Yel-Yel) Urine Clarity Clear (Clear/Hazy) Urine pH 7.0 (5.0-7.0) Ur Specific [place] 1.010 (1.001-1.035) Urine Protein Trace (Neg - Trace) Urine Glucose (UA) Negative (Negative) Potassium 3.1 ABG Interpretation ABG results: 09/14/24 13:57 ABG pH 7.47 H ABG pCO2 39 ABG pO2 64 L ABG HCO3 28 H ABG O2 Saturation 95 ABG Base Excess 4 H Assessment & Plan Additional Assessment Additional comments: Right Colles' fracture. Slight shortening. Excellent alignment on the lateral. Severe swelling digits. On Eliquis. She is in a sugar-tong cast Plan She does have some ecchymosis right elbow. Minimal swelling. When I looked at her she was in the sugar-tong's cast and was very uncomfortable. I went ahead and put padding about her elbow reapplied this splint cast. Instead of wrapping it with 6 inch Nick we wrapped it with 6 inch cut bias. This will offer some swelling. She is on aspirin and Eliquis. If she could be safely off for 3 or 4 days that would be good from an orthopedic standpoint of view it could be resumed on Wednesday. Only if it can be done safely. Not a candidate for surgery right now. Elevated troponin. I have heard from Dr. Paty Bowie that oftentimes troponin elevated with acute traumatic events. She does have a cough x 1 day. Probably safest to admit I will see her tomorrow morning.
[2024-09-14] MEDS: SACUBITRIL 24 MG/VALSARTAN 26 MG TABLET 1 TAB PO (21:22)
[2024-09-14] MEDS: PREGABALIN 75 MG CAPSULE PO (21:23)
[2024-09-14] MEDS: ATORVASTATIN CALCIUM 20 MG TABLET 40 MG PO (21:23)
[2024-09-14] MEDS: SERTRALINE HCL 25 MG TABLET 100 MG PO (21:24)
[2024-09-14] MEDS: HYDROcodone/APAP 5/325 TABLET 1 TAB PO (23:55)
[2024-09-15] VITALS (13 sets, daily range): BP systolic 125–152; BP diastolic 72–85; PULSE 75–107; RESP 16–97; TEMP 36–38.6; O2SAT 93–99; BMI 23.6; BMI 13.0
[2024-09-15 00:11] LABS: Troponin I 0.166 ng/mL (0.0-0.045)
--- NOTE | 2024-09-15 00:29 | ESCONSULT_ITS ---
RE: HARPER DIEGO : 1945 DATE OF CONSULTATION: 09/14/2024 CONSULTING PHYSICIAN: __ and Dr. Jimenez. REASON FOR CONSULTATION: Evaluation of the patient for anticoagulation status with troponin elevation, questionable _ . HISTORY OF PRESENT ILLNESS: The patient is a 78-year-old female who was just recently discharged from this hospital on 08/21/2024 and the patient was admitted to the hospital with multiple medical problems, including a history of AFib/flutter, Crohn's disease, lupus, hyperlipidemia, hypertension, hypothyroidism and migraines, admitted to the hospital for colitis. At that time, GI consult was obtained. The patient was having AFib with RVR. Ejection fraction was found to be 35%. Dr. Jeremias Bowie took care of the patient and recommended metoprolol, Entresto and started on Lasix, discharged home on apixaban as well. She has hypothyroidism, on Synthroid, and she was apparently doing fairly well until she came to the hospital with mostly with generalized fatigue and weakness and a history of generalized weakness, headache and questionable low-grade fever. She had previously presented the same day following a mechanical fall and diagnosed to have a comminuted intraarticular fracture of the distal radial metaphysis. She was managed symptomatically, discharged as an outpatient. She was seen by Dr. Jimenez, who felt that the patient has pain in her right wrist and impression of Dr. Jimenez was that the patient has Colles fracture, excellent alignment of the ligament. There was some swelling of digits, on Eliquis. Dr. Jimenez is concerned about anticoagulation as well. Incidentally, the patient was found to have slight troponin elevation of 0.17, repeated at 0.18. On previous hospitalization, she tended to run 0.14, 0.19 and various times, she has always had troponin elevation without any myocardial infarction. EKGs are unremarkable. Appears to be maintaining sinus rhythm, nonspecific ST changes and some PACs, but not in AFib anymore. Appears to be maintaining sinus rhythm for now. ALLERGIES: NONE. MEDICATIONS AT HOME: The patient is on apixaban 5 mg twice daily, aspirin 81 daily, atorvastatin 20 daily, azathioprine as well 50 mg daily, Cymbalta 60 daily,, hydrocodone for pain, hydroxychloroquine 400 mg daily for lupus, levothyroxine 175 mcg daily, Lialda 2.4 g daily for Crohn's disease ulcerative colitis, pantoprazole 40 mg daily and multiple other medications. Last echo showed ejection fraction of 35% and moderately reduced LV function, moderate mitral regurgitation and mild tricuspid regurgitation, no aortic stenosis. PAST MEDICAL HISTORY: Multiple medical problems. Hypertension, atrial flutter/fibrillation, recent hospitalization and history of congestive heart failure, reduced ejection fraction, lupus erythematosus, hypothyroidism. PHYSICAL EXAMINATION: GENERAL: The patient was in CT scan when I came to see the patient, so detailed physical examination was not performed. Per physical examination, as per Dr. Jimenez, the patient was alert and oriented x3. Rest of the exam unremarkable. EXTREMITIES: There was evidence of right wrist in the cast, bluish discoloration of the fingers in the cast. No evidence of compartment syndrome. LABORATORY DATA: As discussed, hemoglobin 12.2, white count is normal. Potassium is slightly low 3.1. Troponin is 0.17, 0.18. No delta troponin. IMPRESSION/ASSESSMENT: 1. History of paroxysmal atrial flutter/fibrillation, now in sinus rhythm, was on Eliquis. 2. Troponin elevation, possibly type 2 troponin, not due to myocardial infarction - would not treat this as non-ST elevation myocardial infarction. 3. Colles fracture of the wrist with some concerns about some issues with possible development of compartment syndrome with anticoagulation by Dr. Jimenez. 4. Collagen vascular disease system with lupus erythematosus, on medical management. 5. Heart failure, reduced ejection fraction. RECOMMENDATIONS: 1. The patient should stop the Eliquis. No anticoagulation is recommended since the patient does not present to the hospital a picture of non-ST elevation myocardial infarction. 2. Avoid anticoagulation at least short period of time, 3-4 days as recommendation from Dr. Jimenez. 3. Cardiac-castorena, the patient is quite stable now. We will have Dr. Tellez follow the patient from tomorrow since he has seen the patient in the hospitalization before. DT: 21:04:24 TT: 22:24:00 Ref: [id number] - TID: [id number] MTDD
[2024-09-15] MEDS: guaiFENesin SYRUP 200 MG/10 ML UDC PO ×4 (04:37→19:46)
[2024-09-15] MEDS: ACETAMINOPHEN 325 MG TABLET 650 MG PO (04:38)
[2024-09-15] MEDS: LEVOTHYROXINE SODIUM 125 MCG, LEVOTHYROXINE SODIUM 50 MCG 175 MCG PO (05:03)
[2024-09-15 06:41] LABS: Basophils % (Auto) 0 % (0-2.5); Eosinophils # (Auto) 0.2 Thou/mm3 (0.0-0.5); Eosinophils % (Auto) 4 % (0-10); Hematocrit 35.8 % (36.0-46.0); Hemoglobin 12.2 g/dL (12.0-16.0); Immature Granulocytes % (Auto) 0 % (0-0); Immature Granulocytes Auto 0.02 Thou/mm3 (0.00-0.00); Lymphocytes % (Auto) 18 % (10-50); Mean Corpuscular HGB Conc 34.1 g/dl (31.0-37.0); Mean Corpuscular Hemoglobin 31.4 pg (25.0-35.0); Mean Corpuscular Volume 92 fL (80-100); Monocytes # (Auto) 0.5 Thou/mm3 (0.0-0.8); Monocytes % (Auto) 9 % (0-12); Neutrophils # (Auto) 3.7 Thou/mm3 (1.8-7.7); Neutrophils % (Auto) 69 % (37-80); Nucleated Red Blood Cell % 0 /100 WBC (0); Platelet Count 184 Thou/mm3 (140-440); RDW Standard Deviation 57.1 fL (36.4-46.3); Red Blood Count 3.89 Miln/mm3 (4.00-5.20); White Blood Count 5.3 Thou/mm3 (3.6-11.0)
[2024-09-15 06:59] LABS: Sed Rate (ESR) 17 mm/hr (0-30)
[2024-09-15 07:09] LABS: Alanine Aminotransferase 14 U/L (10-49); Albumin, Serum 3.8 gm/dL (3.4-4.8); Albumin/Globulin Ratio 1.9 (1.2-2.2); Alkaline Phosphatase 64 U/L (46-116); Anion Gap 8 (7-16); Aspartate Amino Transferase 35 U/L (0-34); BUN/Creatinine Ratio 13 Ratio (12-20); Bilirubin,Total 0.6 mg/dL (0.3-1.2); Blood Urea Nitrogen 10 mg/dL (9-23); C-Reactive Protein 8.5 mg/dL (0.0-0.9); Calcium 8.7 mg/dL (8.3-10.6); Calcium (Corrected) 8.9 mg/dL (8.5-10.1); Carbon Dioxide 27.2 mMol/L (20.0-31.0); Cardiac Risk Estimate 2.1 RATIO (3.7-5.6); Chloride 105 mMol/L (98-107); Cholesterol 134 mg/dL (132-200); Creatinine (Component) 0.8 mg/dL (0.6-1.3); Estimated Creatinine Clearance 55.1 mL/min (>60); Glucose 86 mg/dL (74-106); HDL Cholesterol 64 mg/dL (40-60); LDL Cholesterol,Calculated 54 mg/dL (0-130); Magnesium 2.2 mg/dL (1.6-2.6); Osmolality,Calculated 277 (275-295); Phosphorous 2.4 mg/dL (2.4-5.1); Sodium 140 mMol/L (136-145); Total Protein 5.8 gm/dL (5.7-8.2); Triglycerides 79 mg/dL (30-150); eGFR > 60 See Note
--- NOTE | 2024-09-15 09:28 | PC.SS ---
Patient Maria Elena Damian is a 78 Year old female admitted for Nstemi. SS conducted bedside contact with the patient conduct initial assessment and to discuss discharge planning.? Patient confirmed demographic information.? Patient resides alone at home.? Patient utilizes a Rollator walker and FWW to assist with ambulation.? Patient does not utilize home oxygen.? Patient reports ability to complete ADL?s independently.? Patient identified daughter, Shanelle Maldonado ; as surrogate medical decision maker.? Patient?s PCP is Dr. Keenan, [facility].? Patient utilizes [facility] for medication services. Discharge plan is for the patient to return home.? Family will provide transportation on behalf of the patient. ?No further discharge needs identified by the patient.? No further intervention required at this time, psychiatric social worker will be available to address any further concerns.? Next of Kin: Shanelle Erica D/C Plan: Home
--- NOTE | 2024-09-15 09:31 | PD.RESPRO ---
Documentation for date of: 09/15/24 Subjective Subjective Interval history: The patient was seen and examined at bedside. There were no acute events overnight. Labs and vitals were reviewed, with troponin levels trending down. Yesterday, orthopedic surgery evaluated the patient and, due to wrist and arm ecchymosis, recommended holding Eliquis and aspirin. Cardiology was consulted and believes the patient most likely had demand ischemia related to stress of fracture. They are okay to hold Eliquis for a couple of days, likely until Wednesday. The patient worked with physical therapy and did well, but PT recommended placement in a [place] [facility] facility for short-term rehabilitation due to high fall risk and advanced osteoporosis, which puts the patient at high risk for future fractures. Home medications were resumed. The patient is aware of and agrees to the plan for SNF placement. Social work has been notified and will begin the process of SNF placement. Meanwhile, the current management plan will continue, with in-house orthopedic surgery following up as needed. Exam Vital Signs Temp Pulse Resp BP Pulse Ox O2 Del Method 97.6 F 107 H 19 130/79 98 Room Air 09/15/24 08:00 09/15/24 08:00 09/15/24 08:00 09/15/24 08:00 09/15/24 08:00 09/15/24 08:00 Narrative Exam Physical Exam GENERAL: NAD, AAOx3 , mildly anxious, HEENT: Moist mucosa. Eyes open, symmetrical, & clear CARDIO: Heart RRR, no obvious murmurs PULM: No noted coughing/dyspnea CTA B/L, no R/W/R 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 are inspector radar and electronics touch , slight numbness on 1,2,3fingers, capilari refil ok NEURO: AAOx3, no focal neuro deficits, Objective Labs 09/15/24 05:47 09/15/24 05:47 Labs: Laboratory Results - last 24 hr 09/14/24 09/14/24 09/14/24 13:57 15:13 17:26 WBC 5.7 RBC 3.96 L Hgb 12.2 Hct 36.4 MCV 92 MCH 30.8 MCHC 33.5 RDW Std Deviation 56.1 H Plt Count 195 D Neut % (Auto) 78 Lymph % (Auto) 11 Simpson % (Auto) 9 Eos % (Auto) 1 Baso % (Auto) 0 Neut # (Auto) 4.4 Lymph # (Auto) 0.6 L Simpson # (Auto) 0.5 Eos # (Auto) 0.1 Baso # (Auto) 0.0 Immature Gran # (Auto) 0.03 H Absolute Nucleated RBC 0.00 Immature Gran % 1 H Nucleated RBC % 0 ESR PT 11.4 INR 1.0 APTT 34.2 D-Dimer 477 Puncture Site Left Radial ABG pH 7.47 H ABG pCO2 39 ABG pO2 64 L ABG HCO3 28 H ABG O2 Saturation 95 ABG Base Excess 4 H FiO2 21 Sodium 142 Potassium 3.1 L Chloride 105 Carbon Dioxide 28.9 Anion Gap 8 BUN 10 Creatinine 0.8 Estim Creat Clear Calc 55.1 L eGFR > 60 BUN/Creatinine Ratio 13 Glucose 99 Calculated Osmolality 282 Calcium 8.7 Corrected Calcium 8.8 Phosphorus Magnesium 1.8 Total Bilirubin 0.6 Direct Bilirubin 0.3 AST 31 ALT 15 Alkaline Phosphatase 64 Troponin I 0.178 H* 0.180 H* C-Reactive Prot, Quant B-Natriuretic Peptide 533 H* Total Protein 5.8 Albumin 3.9 Globulin 1.9 L Albumin/Globulin Ratio 2.1 Triglycerides Cholesterol LDL Cholesterol, Calc HDL Cholesterol Cholesterol/HDL Ratio TSH 12.73 H D Free T4 1.07 Ur Collection Type Urine Color Urine Clarity Urine pH Ur Specific [place] Urine Protein Urine Glucose (UA) Urine Ketones Urine Blood Urine Nitrite Urine Bilirubin Urine Urobilinogen (Auto) Ur Leukocyte Esterase Urine RBC Urine WBC Ur Squamous Epith Cells Urine Bacteria 09/14/24 09/14/24 09/15/24 18:05 23:16 05:47 WBC 5.3 RBC 3.89 L Hgb 12.2 Hct 35.8 L MCV 92 MCH 31.4 MCHC 34.1 RDW Std Deviation 57.1 H Plt Count 184 Neut % (Auto) 69 Lymph % (Auto) 18 Simpson % (Auto) 9 Eos % (Auto) 4 Baso % (Auto) 0 Neut # (Auto) 3.7 Lymph # (Auto) 1.0 Simpson # (Auto) 0.5 Eos # (Auto) 0.2 Baso # (Auto) 0.0 Immature Gran # (Auto) 0.02 H Absolute Nucleated RBC 0.00 Immature Gran % 0 Nucleated RBC % 0 ESR 17 PT INR APTT D-Dimer Puncture Site ABG pH ABG pCO2 ABG pO2 ABG HCO3 ABG O2 Saturation ABG Base Excess FiO2 Sodium 140 Potassium 4.0 D Chloride 105 Carbon Dioxide 27.2 Anion Gap 8 BUN 10 Creatinine 0.8 Estim Creat Clear Calc 55.1 L eGFR > 60 BUN/Creatinine Ratio 13 Glucose 86 Calculated Osmolality 277 Calcium 8.7 Corrected Calcium 8.9 Phosphorus 2.4 Magnesium 2.2 Total Bilirubin 0.6 Direct Bilirubin AST 35 H ALT 14 Alkaline Phosphatase 64 Troponin I 0.166 H* 0.160 H* C-Reactive Prot, Quant 8.5 H B-Natriuretic Peptide Total Protein 5.8 Albumin 3.8 Globulin 2.0 L Albumin/Globulin Ratio 1.9 Triglycerides 79 Cholesterol 134 LDL Cholesterol, Calc 54 HDL Cholesterol 64 H Cholesterol/HDL Ratio 2.1 L TSH Free T4 Ur Collection Type Clean Catch Urine Color Lt-Yellow Urine Clarity Clear Urine pH 7.0 Ur Specific [place] 1.010 Urine Protein Trace Urine Glucose (UA) Negative Urine Ketones Negative Urine Blood Negative Urine Nitrite Positive Urine Bilirubin Negative Urine Urobilinogen (Auto) Negative Ur Leukocyte Esterase Positive Urine RBC 2 Urine WBC 17 H Ur Squamous Epith Cells < 1 Urine Bacteria None ABG Interpretation ABG results: 09/14/24 13:57 ABG pH 7.47 H ABG pCO2 39 ABG pO2 64 L ABG HCO3 28 H ABG O2 Saturation 95 ABG Base Excess 4 H Quality Measures Quality Measures none Advance care planning discussed with:: patient Assessment & Plan Assessment Current Active Medications: Generic Name Dose Route Start Last Admin Trade Name Liberty PRN Reason Stop Dose Admin Acetaminophen 650 mg 09/14/24 17:03 09/15/24 04:38 Acetaminophen 325 Mg Tablet PO 10/14/24 17:02 650 mg Q6H PRN Administration PAIN OR FEVER > 101 Protocol Hydrocodone Bitart/Acetaminophen 1 tab 09/14/24 17:08 09/14/24 23:55 Hydrocodone/Apap 5/325 Tablet PO 09/19/24 17:07 1 tab Q8HR PRN Administration PAIN SCALE 4-10(Mod-Sev Aspirin 81 mg 09/15/24 09:00 Aspirin Ec 81 Mg Tabec PO 10/15/24 08:59 QDAY ISAAC Atorvastatin Calcium 40 mg 09/14/24 21:00 09/14/24 21:23 Atorvastatin Calcium 20 Mg Tablet PO 10/14/24 20:59 40 mg HS ISAAC Administration Azathioprine 50 mg 09/15/24 09:00 Azathioprine 50 Mg Tablet PO 10/15/24 08:59 QDAY ISAAC (Mesalamine [Lialda] 0 ea 09/15/24 09:00 1.2 Gram Tablet, PO 10/15/24 08:59 Delayed Release QDAY ISAAC Duloxetine HCl 60 mg 09/15/24 09:00 Duloxetine Hcl 30 Mg Capsule PO 10/15/24 08:59 QDAY ISAAC Fludrocortisone Acetate 0.1 mg 09/15/24 09:00 Fludrocortisone Acetate 0.1 Mg Tablet PO 10/15/24 08:59 BID ISAAC Hydroxychloroquine Sulfate 400 mg 09/15/24 09:00 Hydroxychloroquine 200 Mg Tablet PO 09/22/24 08:59 QDAY ISAAC Levothyroxine Sodium 125 mcg/ 175 mcg 09/15/24 06:00 09/15/24 05:03 Levothyroxine Sodium 50 mcg PO 10/15/24 05:59 175 mcg ACBR ISAAC Administration Metoprolol Succinate 25 mg 09/15/24 09:00 Metoprolol Succinate Xl 25 Mg Tabcr PO 10/15/24 08:59 QDAY ISAAC Non-Formulary Medication 2.4 gm 09/15/24 09:00 Mesalamine [Lialda] PO 10/15/24 08:59 QDAY ISAAC Ondansetron HCl 4 mg 09/14/24 17:03 Ondansetron Inj 2 Mg/Ml Inj 2 Ml IVP 10/14/24 17:02 Q6H PRN NAUSEA OR VOMITING Protocol Pantoprazole Sodium 40 mg 09/15/24 09:00 Pantoprazole 40 Mg Tablet PO 10/15/24 08:59 QDAY ISAAC Pregabalin 75 mg 09/14/24 21:00 09/14/24 21:23 Pregabalin 75 Mg Capsule PO 10/14/24 20:59 75 mg BID ISAAC Administration Sacubitril/Valsartan 1 tab 09/14/24 21:00 09/14/24 21:22 Sacubitril 24 Mg/Valsartan 26 Mg Tablet PO 10/14/24 20:59 1 tab BID ISAAC Administration Sennosides 1 tab 09/15/24 09:00 Senna Tablet PO 10/15/24 08:59 QDAY [facility] Protocol Sertraline HCl 100 mg 09/14/24 21:00 09/14/24 21:24 Sertraline Hcl 25 Mg Tablet PO 10/14/24 20:59 100 mg HS ISAAC Administration Topiramate 25 mg 09/15/24 09:00 Topiramate 25 Mg Tablet PO 10/15/24 08:59 BID ISAAC Plan 78-year-old female with past medical history of A-fib on Eliquis, history of SLE on the marked, hyperlipidemia, hypertension, hypothyroidism, osteoarthritis, migraine headache was admitted for non-STEMI most likely second time demand ischemia treatment and management. #Elevated troponin- downtrended # non-STEMI's second type demand ischemia Patient presented with chief complaints of headache, generalized weakness, Home medication is sumatriptan which can be precipitating factor for elevated troponin, EKG did not reveal any acute ST changes, troponin was elevated 0.178, chest x-ray did not reveal any PNA/vascular congestion Patient was saturating in room air 96% upon our evaluation In ED patient was given aspirin 325 -hold aspirin 81 mg daily due to hand ecchimosis -Atorvastatin 40 daily -Obtain echo to rule out any dyskinesia or hypokinesia, taken read is pending -Cardiology is on board. continue current managment #History of A-fib on Eliquis(back to NS) #HFrEF 35% Echocardiogram was done which showed Mild LVH.there is grade II diastolic dysfunction. Global LV systolic function is moderately decreased. Estimated EF 35-40%. [id number] score7 [age, sex, HTN, stroke, vascular] and HAS-Bled ; 3 points. BNP 533(Patient is in RA, sat >96, no SOB, no orthopnea, no crackels, No JVD) - Continue Entresto - Continue metoprolol 25XL qday - Hold Eliquis 5 twice daily ( will resume on Wednesday) - Keep potassium above 4, magnesium above 2 - Patient is not on CHF exacerbation, does not looking fluid overload, no need for diuretics at this point. - Will follow-up with repeat limited echo exam - Cardiology is on board recommendations appreciated. #Acute comminuted intra-articular displaced fracture distal radial metaphysis Patient presented to ED on 09/10 after mechanical fall, x-ray found above Cast was placed and patient was plan to follow-up outpatient with Ortho surgery in [place] today, however was not feeling well. Repeat x-ray revealed Improved alignment impacted fracture distal radial metaphysis - CT hand: The plain films better demonstrate the comminuted impacted intra-articular fracture distal radial metaphysis - per Ortho recs holding elequise and Aspirin, untill Wednesday. (cardio is ok with the plan) - Orthopedic surgery is on board, will follow-up with recommendations. # High risk of fall - PT recommended SNF placement for short-term rehabilitation - Plan to discharge patient to [facility], patient is agreeable Chronic conditions #SLE #Hypothyroidism #Migraine #Hyperlipidemia #Hypertension #Chronic pain - Resumed home medication(pending med rec) -Continue Plaquenil -Continue azathioprine -Continue Lyrica -Continue sertraline on half dose -Will hold on sumatriptan in the setting of elevated troponin Disposition: tele DVT prophylaxis: elequise GI prophylaxis: PPI Diet: cardiac Lines: PIV CODE STATUS:DNR Patient care was discussed with attending physician Dr. Esha Sesay MD PGY-2 Attending Provider Attestation/Addendum I attest that I was physically present for the evaluation, physical examination, lab and imaging review of the patient with the residents. I discussed the case with the residents and agree with the findings and plans of care as documented above. At bedside today, patient states she is feeling better compared to yesterday. Troponin has down trended. Aspirin and Eliquis are on hold as per cardiology and orthopedics recommendation, patient has ecchymosis on her right hand. Continues to be on Entresto, metoprolol. Patient does not appear to be volume overloaded, we will hold off on diuretics. We will discuss with orthopedics regarding need for inpatient surgery. Awaiting echocardiography. Jessica Balbuena MD
[2024-09-15] MEDS: SENNA TABLET 1 TAB PO (09:45)
[2024-09-15] MEDS: azaTHIOprine 50 MG TABLET PO (09:48)
[2024-09-15] MEDS: HYDROcodone/APAP 5/325 TABLET 1 TAB PO ×2 (09:48→19:46)
[2024-09-15] MEDS: PANTOPRAZOLE 40 MG TABLET PO (09:49)
[2024-09-15] MEDS: FLUDROCORTISONE ACETATE 0.1 MG TABLET PO ×2 (09:49→20:31)
[2024-09-15] MEDS: SACUBITRIL 24 MG/VALSARTAN 26 MG TABLET 1 TAB PO ×2 (09:49→20:31)
[2024-09-15] MEDS: ASPIRIN EC 81 MG TABEC PO (09:49)
[2024-09-15] MEDS: METOPROLOL SUCCINATE XL 25 MG TABCR PO (09:49)
[2024-09-15] MEDS: DULoxetine HCL 30 MG CAPSULE 60 MG PO (09:49)
[2024-09-15] MEDS: PREGABALIN 75 MG CAPSULE PO ×2 (09:49→20:31)
[2024-09-15] MEDS: TOPIRAMATE 25 MG TABLET PO ×2 (09:49→20:31)
[2024-09-15] MEDS: HYDROXYCHLOROQUINE 200 MG TABLET 400 MG PO (11:13)
--- NOTE | 2024-09-15 12:31 | PC.SS ---
SS follow up note; SS was notified by Team A that patient was requesting SNF. SS met with patient at bedside to discuss SNF options, patient reports she was at [facility] for 15 days and would like to discharge to [facility]. SS contacted Swati from [facility] and she informed SS that patient could discharge to their facility, she reported patient does not need to complete 3 midn[address] anymore. SS notified DR. Balbuena and he reported that patient is pending Dr. Price's recs and it may be possible patient could discharge once Dr. Price sees the patient. SS updated patient in informed her that [facility] accepted. SS will stand by for further needs.
[2024-09-15] MEDS: ALBUTEROL/IPRATROPIUM (Duoneb) RT SOL 3 ML NEBU INH ×2 (12:41→18:20)
--- NOTE | 2024-09-15 14:41 | PD.RESPRO ---
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 Patient presented to the emergency room via EMS with a chief complaint cough. Subsequently admitted for NSTEMI with initial troponin of 0.178 and subsequently down trended to 0.160. Patient also noted to have a recent ER visit on 09/10/2024 for an acute intra-articular fracture left distal to the radial metaphysis, which patient has not been able to follow up as outpatient and appeared with increase swelling and ecchmosis noted. Dr. Jimenez, orthopedics, consulted for possible surgical intervention, recommended to hold Eliquis 3 to 4 days, requesting cardiac clearance. 09/15/2024: Patient examined at bedside. Patient denied chest pain or shortness of breath. Denied palpitations. No overnight events noted. Patient complaining of productive cough. Exam Vital Signs Temp Pulse Resp BP Pulse Ox O2 Del Method 97.3 F 90 18 125/77 99 Room Air 09/15/24 12:00 09/15/24 12:42 09/15/24 12:42 09/15/24 12:00 09/15/24 12:42 09/15/24 12:00 Narrative Exam General Appearance: Alert & Oriented X3, well-nourished female who is lying in bed in mild discomfort when left arm moved. Left arm noted to have increased swelling with ecchymosis. HEENT: Skull symmetrical and atraumatic. Conjunctivae pink and moist. Pupils equal, round, reactive to light and accommodation (PERRL). External ear without lesion or discharge. Straight, nares patient, mucosa pink, no discharge. Cardio: Normal Rate and Rhythm with S1 and S2 heart sounds. No murmurs or extra heart sounds auscultated. No bruits on carotid auscultation. No peripheral edema or cyanosis. Lungs: Symmetric with good expansion. Chest and back non-tender. Breath sounds vesicular with some wheezing noted. Abdomen: Non-tender, Non-distended, Normal Reactive Bowel Sounds Neuro: Alert, cooperative, oriented to person, place, and time. Speech clear. CN grossly intact. Upper motor strength 5/5 and Lower motor strength 5/5. Sensation intact. Objective Labs 09/16/24 05:43 09/16/24 05:43 Labs: Laboratory Results - last 24 hr 09/14/24 09/14/24 09/14/24 15:13 17:26 18:05 WBC 5.7 RBC 3.96 L Hgb 12.2 Hct 36.4 MCV 92 MCH 30.8 MCHC 33.5 RDW Std Deviation 56.1 H Plt Count 195 D Neut % (Auto) 78 Lymph % (Auto) 11 [place] % (Auto) 9 Eos % (Auto) 1 Baso % (Auto) 0 Neut # (Auto) 4.4 Lymph # (Auto) 0.6 L [place] # (Auto) 0.5 Eos # (Auto) 0.1 Baso # (Auto) 0.0 Immature Gran # (Auto) 0.03 H Absolute Nucleated RBC 0.00 Immature Gran % 1 H Nucleated RBC % 0 ESR PT 11.4 INR 1.0 APTT 34.2 D-Dimer 477 Sodium 142 Potassium 3.1 L Chloride 105 Carbon Dioxide 28.9 Anion Gap 8 BUN 10 Creatinine 0.8 Estim Creat Clear Calc 55.1 L eGFR > 60 BUN/Creatinine Ratio 13 Glucose 99 Calculated Osmolality 282 Calcium 8.7 Corrected Calcium 8.8 Phosphorus Magnesium 1.8 Total Bilirubin 0.6 Direct Bilirubin 0.3 AST 31 ALT 15 Alkaline Phosphatase 64 Troponin I 0.178 H* 0.180 H* C-Reactive Prot, Quant B-Natriuretic Peptide 533 H* Total Protein 5.8 Albumin 3.9 Globulin 1.9 L Albumin/Globulin Ratio 2.1 Triglycerides Cholesterol LDL Cholesterol, Calc HDL Cholesterol Cholesterol/HDL Ratio TSH 12.73 H D Free T4 1.07 Ur Collection Type Clean Catch Urine Color Lt-Yellow Urine Clarity Clear Urine pH 7.0 Ur Specific [place] 1.010 Urine Protein Trace Urine Glucose (UA) Negative Urine Ketones Negative Urine Blood Negative Urine Nitrite Positive Urine Bilirubin Negative Urine Urobilinogen (Auto) Negative Ur Leukocyte Esterase Positive Urine RBC 2 Urine WBC 17 H Ur Squamous Epith Cells < 1 Urine Bacteria None 09/14/24 09/15/24 23:16 05:47 WBC 5.3 RBC 3.89 L Hgb 12.2 Hct 35.8 L MCV 92 MCH 31.4 MCHC 34.1 RDW Std Deviation 57.1 H Plt Count 184 Neut % (Auto) 69 Lymph % (Auto) 18 [place] % (Auto) 9 Eos % (Auto) 4 Baso % (Auto) 0 Neut # (Auto) 3.7 Lymph # (Auto) 1.0 [place] # (Auto) 0.5 Eos # (Auto) 0.2 Baso # (Auto) 0.0 Immature Gran # (Auto) 0.02 H Absolute Nucleated RBC 0.00 Immature Gran % 0 Nucleated RBC % 0 ESR 17 PT INR APTT D-Dimer Sodium 140 Potassium 4.0 D Chloride 105 Carbon Dioxide 27.2 Anion Gap 8 BUN 10 Creatinine 0.8 Estim Creat Clear Calc 55.1 L eGFR > 60 BUN/Creatinine Ratio 13 Glucose 86 Calculated Osmolality 277 Calcium 8.7 Corrected Calcium 8.9 Phosphorus 2.4 Magnesium 2.2 Total Bilirubin 0.6 Direct Bilirubin AST 35 H ALT 14 Alkaline Phosphatase 64 Troponin I 0.166 H* 0.160 H* C-Reactive Prot, Quant 8.5 H B-Natriuretic Peptide Total Protein 5.8 Albumin 3.8 Globulin 2.0 L Albumin/Globulin Ratio 1.9 Triglycerides 79 Cholesterol 134 LDL Cholesterol, Calc 54 HDL Cholesterol 64 H Cholesterol/HDL Ratio 2.1 L TSH Free T4 Ur Collection Type Urine Color Urine Clarity Urine pH Ur Specific [place] Urine Protein Urine Glucose (UA) Urine Ketones Urine Blood Urine Nitrite Urine Bilirubin Urine Urobilinogen (Auto) Ur Leukocyte Esterase Urine RBC Urine WBC Ur Squamous Epith Cells Urine Bacteria ABG Interpretation ABG results: 09/14/24 13:57 ABG pH 7.47 H ABG pCO2 39 ABG pO2 64 L ABG HCO3 28 H ABG O2 Saturation 95 ABG Base Excess 4 H Quality Measures Quality Measures none Advance care planning discussed with:: patient Assessment & Plan Assessment Current Active Medications: Generic Name Dose Route Start Last Admin Trade Name Freq PRN Reason Stop Dose Admin Acetaminophen 650 mg 09/14/24 17:03 09/15/24 04:38 Acetaminophen 325 Mg Tablet PO 10/14/24 17:02 650 mg Q6H PRN Administration PAIN OR FEVER > 101 Protocol Hydrocodone Bitart/Acetaminophen 1 tab 09/14/24 17:08 09/15/24 09:48 Hydrocodone/Apap 5/325 Tablet PO 09/19/24 17:07 1 tab Q8HR PRN Administration PAIN SCALE 4-10(Mod-Sev Albuterol/Ipratropium 3 ml 09/15/24 13:00 09/15/24 12:41 Albuterol/Ipratropium (Duoneb) Rt Dorcas 3 Ml Nebu INH 10/15/24 12:59 3 ml Q6HRRT ISAAC Administration Aspirin 81 mg 09/15/24 09:00 09/15/24 09:49 Aspirin Ec 81 Mg Tabec PO 10/15/24 08:59 81 mg QDAY ISAAC Administration Atorvastatin Calcium 40 mg 09/14/24 21:00 09/14/24 21:23 Atorvastatin Calcium 20 Mg Tablet PO 10/14/24 20:59 40 mg HS ISAAC Administration Azathioprine 50 mg 09/15/24 09:00 09/15/24 09:48 Azathioprine 50 Mg Tablet PO 10/15/24 08:59 50 mg QDAY ISAAC Administration (Mesalamine [Lialda] 0 ea 09/15/24 09:00 09/15/24 11:06 1.2 Gram Tablet, PO 10/15/24 08:59 Not Given Delayed Release QDAY ISAAC Duloxetine HCl 60 mg 09/15/24 09:00 09/15/24 09:49 Duloxetine Hcl 30 Mg Capsule PO 10/15/24 08:59 60 mg QDAY ISAAC Administration Fludrocortisone Acetate 0.1 mg 09/15/24 09:00 09/15/24 09:49 Fludrocortisone Acetate 0.1 Mg Tablet PO 10/15/24 08:59 0.1 mg BID ISAAC Administration Guaifenesin 200 mg 09/15/24 09:47 09/15/24 10:21 Guaifenesin Syrup 200 Mg/10 Ml Udc PO 10/15/24 09:46 200 mg QID PRN Administration COUGH OR CONGESTION Protocol Hydroxychloroquine Sulfate 400 mg 09/15/24 09:00 09/15/24 11:13 Hydroxychloroquine 200 Mg Tablet PO 09/22/24 08:59 400 mg QDAY ISAAC Administration Levothyroxine Sodium 125 mcg/ 175 mcg 09/15/24 06:00 09/15/24 05:03 Levothyroxine Sodium 50 mcg PO 10/15/24 05:59 175 mcg ACBR ISAAC Administration Metoprolol Succinate 25 mg 09/15/24 09:00 09/15/24 09:49 Metoprolol Succinate Xl 25 Mg Tabcr PO 10/15/24 08:59 25 mg QDAY ISAAC Administration Home Medication- 2.4 gm 09/15/24 10:45 Please Speak With PO 10/15/24 10:44 Patient Caregiver To QDAY ISAAC Have Rx Brought To [facility] Ondansetron HCl 4 mg 09/14/24 17:03 Ondansetron Inj 2 Mg/Ml Inj 2 Ml IVP 10/14/24 17:02 Q6H PRN NAUSEA OR VOMITING Protocol Pantoprazole Sodium 40 mg 09/15/24 09:00 09/15/24 09:49 Pantoprazole 40 Mg Tablet PO 10/15/24 08:59 40 mg QDAY ISAAC Administration Pregabalin 75 mg 09/14/24 21:00 09/15/24 09:49 Pregabalin 75 Mg Capsule PO 10/14/24 20:59 75 mg BID ISAAC Administration Sacubitril/Valsartan 1 tab 09/14/24 21:00 09/15/24 09:49 Sacubitril 24 Mg/Valsartan 26 Mg Tablet PO 10/14/24 20:59 1 tab BID ISAAC Administration Sennosides 1 tab 09/15/24 09:00 09/15/24 09:45 Senna Tablet PO 10/15/24 08:59 1 tab QDAY ISAAC Administration Protocol Sertraline HCl 100 mg 09/14/24 21:00 09/14/24 21:24 Sertraline Hcl 25 Mg Tablet PO 10/14/24 20:59 100 mg HS ISAAC Administration Topiramate 25 mg 09/15/24 09:00 09/15/24 09:49 Topiramate 25 Mg Tablet PO 10/15/24 08:59 25 mg BID ISAAC Administration Plan Patient is a 78-year-old male with a past medical history of 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 # Preoperative cardiac risk evaluation # NSTEMI, likely type II, demand ischemia Troponin elevated, likely secondary to demand ischemia. No ST elevation. No chest pain. Troponin peaked at 0.180. Revised cardiac risk index for pre-operative risk: 2 points Plan -no acute intervention planned -continue to monitor Telemonitor -D/C troponin trend #Atrial Fibrillation, rate controlled Past medical history of Atrial Fibrillation. Home medication Metoprolol 50 mg XL and Eliquis 2.5 mg qday CHADSVASC 4 points HAS BLED 3 Plan -Continue Metoprolol 25 mg qday -Holding Eliquis 2.5 mg BID given, possiblilty of orth intervention # Combined systolic and diastolic congestive Heart Failure #CHF HFrEF 35% to 40% #Diastolic Dyfucntion, grade II #Global LV systolic Function # Mild to moderate PAH RSVP 43 Patient has a past medical history of of congestive heart failure with cardiomyopathy, diastolic dysfunction. EKG noted to be sinus tachycardia, no ST elevation noted. No chest pain complain, no palpitations. Troponin on admission 0.180, 0.166, and downtrended to 0.160. Cxr no vascular congrestion noted. Echo (08/15/2024): Normal LV size. Mild LVH.there is grade II diastolic dysfunction. Global LV systolic function is moderately decreased. Estimated EF 35-40%. The RV is normal in size and systolic function. Estimated RVSP moderately elevated, 43 mmHg. RAP 15.Mildly increased LA volume 36.2 mL/m?. [id number] MR. Mild TR. Moderate MAC. Mild Aortic valve sclerosis without stenosis. No pericardial effusion. TSH 12.73 Free Tf 1.07 Lipid Panel: Triglycerides 79, Cholesterol 134, LDL 54, HDL 64 NYHA Class: I Plan -Metoprolol Succinate XL 25 mg qday -Entresto 1 table BID -update echo -Please fluid restrict, sodium 2 grams -Strict In and outs -Continue to work toward GDMT #Right Colles Fracture Displaced fracture of distal radius. Holding off any intervention currently given history of Eliquis. Eliquis held. Wrist Xray Acute comminuted intra-articular displaced fracture distal radial metaphysis Plan -Holding Eliquis -Dr. Jimenez Consulted, will re-evaluate mondary -pain management #Hyperlipidemia Past medical history of hyperlipidemia. Lipid (09/15/2024): Triglycerides 79, Cholesterol 134, LDL 54, HDL 64. ASCVD: no statins recommened Plan: Resume home medication, Atorvastatin 20 mg qday #Lupus Continue home medication Plan Azathioprine 50 mg qday and Hydroxychloroquine #Hypothyroidism Home medication of Levothyroxine 175 mcg. TSH (09/14/2024) & Free T4 1.07 (09/14/2024) Plan Resume home Levothyroxine 175 mcg. #Crohn's Disease Mesalamine 1.2 gram qday Azthioprine 50 mg qday Pantoprazole 40 mg once daily #history of migraines [place] has past medical history of migraines. Patient take Sumatriptan and Topiramate as home medication Plan -resumed Topiramate 25 mg BID -Duloxetine and Sertraline both listed as active medication, use with caution given SSRI and SNRI #history of CVA (2013) Health Maintenance: Disp: Pt is currently admitted to floors for further management of FEN: cardiac diet DVT: Lovenox Code: Full - The patient's plan was discussed with attending Dr. Geoff Garcia MD PGY1 Internal Medicine Attending Provider Attestation/Addendum I have personally seen and examined the patient separately on the above date of service and discussed the plan of care with the resident. I reviewed the resident Dr. Genet Garcia consultation progress note and agree with the resident findings and plan in the note above and have also edited the documentation to reflect my findings and plan. Jeremias Tellez M.D. Interventional Cardiology
--- NOTE | 2024-09-15 14:42 | PC.PT ---
Patient is safe to ambulate to the bathroom and in her room with a FWW and 1 staff for safety due to patient is unable to use her R UE to push the FWW. RN made aware.
--- NOTE | 2024-09-15 17:03 | ECHO_ITS ---
Transthoracic Echo Report Ht (in): 66 Wt (lb): 146 Exam Location: Echo Lab Status: Inpatient Marketing Research Coordinator: Indications: Procedure Performed: BP: 146 / 85 HR: 102 Technical Quality: Adequate MEASUREMENTS (Male / Female) Normal Values 2D ECHO LV Diastolic Diameter PLAX 4.1 cm 4.2 - 5.9 / 3.9 - 5.3 cm LV Systolic Diameter PLAX 3.4 cm IVS Diastolic Thickness 0.7 cm 0.6 - 1.0 / 0.6 - 0.9 cm LVPW Diastolic Thickness 1.1 cm 0.6 - 1.0 / 0.6 - 0.9 cm LV Relative Wall Thickness 0.4 LVOT Diameter 1.7 cm LA Volume Index 35.7 cm?/m? 16 - 28 cm?/m? Ascending Aorta Diameter 3.3 cm DOPPLER AV Peak Velocity 121.0 cm/s AV Peak Gradient 5.9 mmHg LVOT Peak Velocity 101.0 cm/s LVOT Peak Gradient 4.1 mmHg AV Area Cont Eq pk 1.9 cm? PV Peak Velocity 93.7 cm/s PV Peak Gradient 3.5 mmHg FINDINGS Left Ventricle Normal left ventricular size, wall thickness, systolic function with no obvious regional wall motion abnormalities.The ejection fraction is visually estimated at 65 %. Diastology can not be determined due to E/A fused. Right Ventricle The right ventricle is normal in size and systolic function. The estimated right ventricular systolic pressure can not be determined due to innadequate Doppler signal. Left Atrium The left atrium is mildly dilated. Right Atrium The right atrium is normal by two-dimensional imaging, color flow and Doppler imaging with no structural abnormalities, no thrombus formation present. Atrial Septum The interatrial septum appears normal with no evidence of a shunt. Aorta The aorta is normal by two-dimensional, color flow and Doppler interrogation. Mitral Valve The mitral valve annulus is mildly calcified. There is trace mitral regurgitation. Aortic Valve The aortic valve is trileaflet and normal by two-dimensional, color flow and Doppler interrogation. There is no significant aortic valve regurgitation. Tricuspid Valve The tricuspid valve is normal by two-dimensional, color flow and Doppler interrogation. There is no significant tricuspid valve regurgitation. Pulmonic Valve The pulmonic valve is not well visualized. There is no significant pulmonic valve regurgitation. Vessels The pulmonary artery appears normal. The inferior vena cava pulmonary and hepatic veins appear normal. Pericardium The pericardium is normal by two-dimensional imaging. There is no significant pericardial effusion. CONCLUSIONS Indications: Elevated Troponin Normal LV size. Mild LVH. Grade I diastolic dysfunction. Low normal LV function 50-55% The RV is normal in size and systolic function. Estimated RVSP mildly elevated, 35mmHg. Mildly dialted LA. Mild MR and Mild TR. Moderate MAC Mild Aortic valve sclerosis without stenosis. No pericardial effusion. Jeremias Mendezumanmarie (Electronically Signed) Final Date: 15 September 2024 19:26
--- NOTE | 2024-09-15 20:02 | PC.NURSE ---
DR. JAMES MADE AWARE OF TEMP OF 101.4. CONTINUOUS COUGHING. ROBITUSSIN GIVEN. NEW ORDERS TO BE PLACED BY MD FOR ADDITIONAL DOSE OF TYLENOL AND BREATHING TX.
[2024-09-15] MEDS: LEVALBUTEROL RT 0.63 MG/3 ML NEBU INH (20:15)
[2024-09-15] MEDS: SERTRALINE HCL 25 MG TABLET 100 MG PO (20:31)
[2024-09-15] MEDS: ACETAMINOPHEN 325 MG TABLET PO (20:31)
[2024-09-15] MEDS: ATORVASTATIN CALCIUM 20 MG TABLET 40 MG PO (20:31)
[2024-09-15] MEDS: PHENOL/NA PHENOLATE (Chloraseptic) SPRY 180 ML BTL PO (21:44)
[2024-09-16] VITALS (15 sets, daily range): BP systolic 119–138; BP diastolic 48–81; PULSE 80–96; RESP 15–96; TEMP 35.9–37.2; O2SAT 93–100; BMI 24.3
[2024-09-16] MEDS: ALBUTEROL/IPRATROPIUM (Duoneb) RT SOL 3 ML NEBU INH ×5 (00:55→22:40)
[2024-09-16] MEDS: HYDROcodone/APAP 5/325 TABLET 1 TAB PO ×2 (05:25→21:20)
[2024-09-16] MEDS: LEVOTHYROXINE SODIUM 125 MCG, LEVOTHYROXINE SODIUM 50 MCG 175 MCG PO (05:25)
[2024-09-16] MEDS: guaiFENesin SYRUP 200 MG/10 ML UDC PO ×3 (05:26→22:20)
[2024-09-16 06:12] LABS: Basophils % (Auto) 0 % (0-2.5); Eosinophils # (Auto) 0.1 Thou/mm3 (0.0-0.5); Eosinophils % (Auto) 2 % (0-10); Hematocrit 34.7 % (36.0-46.0); Hemoglobin 11.8 g/dL (12.0-16.0); Immature Granulocytes % (Auto) 0 % (0-0); Immature Granulocytes Auto 0.01 Thou/mm3 (0.00-0.00); Lymphocytes # (Auto) 1.3 Thou/mm3 (1.0-4.8); Lymphocytes % (Auto) 23 % (10-50); Mean Corpuscular Hemoglobin 31.1 pg (25.0-35.0); Mean Corpuscular Volume 92 fL (80-100); Monocytes # (Auto) 0.6 Thou/mm3 (0.0-0.8); Monocytes % (Auto) 11 % (0-12); Neutrophils # (Auto) 3.5 Thou/mm3 (1.8-7.7); Neutrophils % (Auto) 63 % (37-80); Nucleated Red Blood Cell % 0 /100 WBC (0); Platelet Count 152 Thou/mm3 (140-440); RDW Standard Deviation 56.4 fL (36.4-46.3); Red Blood Count 3.79 Miln/mm3 (4.00-5.20); White Blood Count 5.5 Thou/mm3 (3.6-11.0)
[2024-09-16 06:36] LABS: Alanine Aminotransferase 14 U/L (10-49); Albumin, Serum 3.7 gm/dL (3.4-4.8); Albumin/Globulin Ratio 1.9 (1.2-2.2); Alkaline Phosphatase 63 U/L (46-116); Anion Gap 11 (7-16); Aspartate Amino Transferase 33 U/L (0-34); BUN/Creatinine Ratio 11 Ratio (12-20); Bilirubin,Total 0.4 mg/dL (0.3-1.2); Blood Urea Nitrogen 11 mg/dL (9-23); Calcium 8.5 mg/dL (8.3-10.6); Calcium (Corrected) 8.7 mg/dL (8.5-10.1); Carbon Dioxide 25.9 mMol/L (20.0-31.0); Chloride 106 mMol/L (98-107); Estimated Creatinine Clearance 44.1 mL/min (>60); Glucose 114 mg/dL (74-106); Magnesium 2.1 mg/dL (1.6-2.6); Osmolality,Calculated 285 (275-295); Phosphorous 3.6 mg/dL (2.4-5.1); Potassium 3.6 mMol/L (3.4-5.1); Sodium 143 mMol/L (136-145); Total Protein 5.7 gm/dL (5.7-8.2); eGFR 58 See Note
--- NOTE | 2024-09-16 08:00 | XR_ITS ---
Examination: AP chest single view Technique one AP portable upright chest single view Date and time: September 16, 2024 0810 hrs. Comparison September 14, 2024 Indications: Coughing and fever today. Findings: Normal heart size. Ectatic thoracic aorta. No pneumonia or pulmonary edema Impression: No pneumonia or pulmonary edema
[2024-09-16] MEDS: azaTHIOprine 50 MG TABLET PO (09:49)
[2024-09-16] MEDS: DULoxetine HCL 30 MG CAPSULE 60 MG PO (09:49)
[2024-09-16] MEDS: HYDROXYCHLOROQUINE 200 MG TABLET 400 MG PO (09:49)
[2024-09-16] MEDS: TOPIRAMATE 25 MG TABLET PO ×2 (09:49→21:20)
[2024-09-16] MEDS: SENNA TABLET 1 TAB PO (09:50)
[2024-09-16] MEDS: PANTOPRAZOLE 40 MG TABLET PO (09:50)
[2024-09-16] MEDS: FLUDROCORTISONE ACETATE 0.1 MG TABLET PO ×2 (09:50→21:20)
[2024-09-16] MEDS: PREGABALIN 75 MG CAPSULE PO ×2 (09:50→21:20)
[2024-09-16] MEDS: SACUBITRIL 24 MG/VALSARTAN 26 MG TABLET 1 TAB PO ×2 (09:51→21:20)
[2024-09-16] MEDS: METOPROLOL SUCCINATE XL 25 MG TABCR PO (09:51)
[2024-09-16] MEDS: PHENOL/NA PHENOLATE (Chloraseptic) SPRY 180 ML BTL PO (09:59)
[2024-09-16] MEDS: LEVOFLOXACIN 250 MG TABLET 750 MG PO (10:29)
[2024-09-16] MEDS: ACETAMINOPHEN 325 MG TABLET 650 MG PO (13:02)
--- NOTE | 2024-09-16 13:05 | PD.RESPRO ---
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 Patient presented to the emergency room via EMS with a chief complaint cough. Subsequently admitted for NSTEMI with initial troponin of 0.178 and subsequently down trended to 0.160. Patient also noted to have a recent ER visit on 09/10/2024 for an acute intra-articular fracture left distal to the radial metaphysis, which patient has not been able to follow up as outpatient and appeared with increase swelling and ecchmosis noted. Dr. Jimenez, orthopedics, consulted for possible surgical intervention, recommended to hold Eliquis 3 to 4 days, requesting cardiac clearance. 09/15/2024: Patient examined at bedside. Patient denied chest pain or shortness of breath. Denied palpitations. No overnight events noted. Patient complaining of productive cough. 09/16/2024: Patient examined at bedside. No cardiac complains. Patient does have discomfort on right upper extremity secondary to fracture but sensation intact. No arrythmias reported for patient overnight. Pending follow up with orthopedics. Exam Vital Signs Temp Pulse Resp BP Pulse Ox O2 Del Method 97.5 F 96 17 131/79 H 100 Room Air 09/16/24 11:58 09/16/24 12:41 09/16/24 12:41 09/16/24 11:58 09/16/24 12:41 09/16/24 11:58 Narrative Exam General Appearance: Alert & Oriented X3, well-nourished female who is lying in bed in mild discomfort when left arm moved. Left arm noted to have increased swelling with ecchymosis. HEENT: Skull symmetrical and atraumatic. Conjunctivae pink and moist. Pupils equal, round, reactive to light and accommodation (PERRL). External ear without lesion or discharge. Straight, nares patient, mucosa pink, no discharge. Cardio: Normal Rate and Rhythm with S1 and S2 heart sounds. No murmurs or extra heart sounds auscultated. No bruits on carotid auscultation. No peripheral edema or cyanosis. Lungs: Symmetric with good expansion. Chest and back non-tender. Breath sounds vesicular with some wheezing noted. Abdomen: Non-tender, Non-distended, Normal Reactive Bowel Sounds Neuro: Alert, cooperative, oriented to person, place, and time. Speech clear. CN grossly intact. Upper motor strength 5/5 and Lower motor strength 5/5. Sensation intact. Objective Labs 09/17/24 05:18 09/17/24 05:18 Labs: Laboratory Results - last 24 hr 09/16/24 05:43 WBC 5.5 RBC 3.79 L Hgb 11.8 L Hct 34.7 L MCV 92 MCH 31.1 MCHC 34.0 RDW Std Deviation 56.4 H Plt Count 152 D Neut % (Auto) 63 Lymph % (Auto) 23 [place] % (Auto) 11 Eos % (Auto) 2 Baso % (Auto) 0 Neut # (Auto) 3.5 Lymph # (Auto) 1.3 [place] # (Auto) 0.6 Eos # (Auto) 0.1 Baso # (Auto) 0.0 Immature Gran # (Auto) 0.01 H Absolute Nucleated RBC 0.00 Immature Gran % 0 Nucleated RBC % 0 Sodium 143 Potassium 3.6 Chloride 106 Carbon Dioxide 25.9 Anion Gap 11 BUN 11 Creatinine 1.0 Estim Creat Clear Calc 44.1 L eGFR 58 L BUN/Creatinine Ratio 11 L Glucose 114 H Calculated Osmolality 285 Calcium 8.5 Corrected Calcium 8.7 Phosphorus 3.6 Magnesium 2.1 Total Bilirubin 0.4 AST 33 ALT 14 Alkaline Phosphatase 63 Total Protein 5.7 Albumin 3.7 Globulin 2.0 L Albumin/Globulin Ratio 1.9 ABG Interpretation ABG results: 09/14/24 13:57 ABG pH 7.47 H ABG pCO2 39 ABG pO2 64 L ABG HCO3 28 H ABG O2 Saturation 95 ABG Base Excess 4 H Quality Measures Quality Measures none Advance care planning discussed with:: patient Assessment & Plan Assessment Current Active Medications: Generic Name Dose Route Start Last Admin Trade Name Freq PRN Reason Stop Dose Admin Acetaminophen 650 mg 09/14/24 17:03 09/16/24 13:02 Acetaminophen 325 Mg Tablet PO 10/14/24 17:02 650 mg Q6H PRN Administration PAIN OR FEVER > 101 Protocol Hydrocodone Bitart/Acetaminophen 1 tab 09/14/24 17:08 09/16/24 05:25 Hydrocodone/Apap 5/325 Tablet PO 09/19/24 17:07 1 tab Q8HR PRN Administration PAIN SCALE 4-10(Mod-Sev Albuterol/Ipratropium 3 ml 09/15/24 13:00 09/16/24 12:41 Albuterol/Ipratropium (Duoneb) Rt [place] 3 Ml Nebu INH 10/15/24 12:59 3 ml Q6HRRT ISAAC Administration Aspirin 81 mg 09/15/24 09:00 09/16/24 09:52 Aspirin Ec 81 Mg Tabec PO 10/15/24 08:59 Not Given QDAY ISAAC Atorvastatin Calcium 40 mg 09/14/24 21:00 09/15/24 20:31 Atorvastatin Calcium 20 Mg Tablet PO 10/14/24 20:59 40 mg HS ISAAC Administration Azathioprine 50 mg 09/15/24 09:00 09/16/24 09:49 Azathioprine 50 Mg Tablet PO 10/15/24 08:59 50 mg QDAY ISAAC Administration Budesonide 0.25 mg 09/16/24 19:00 Budesonide Rt 0.25 Mg/2 Ml Nebu INH 10/16/24 18:59 BIDRT ISAAC Mesalamine 1.2 Gram 0 ea 09/15/24 20:00 09/16/24 09:52 Tablet, Delayed PO 10/15/24 19:59 2 tablet Release QDAY ISAAC Administration Duloxetine HCl 60 mg 09/15/24 09:00 09/16/24 09:49 Duloxetine Hcl 30 Mg Capsule PO 10/15/24 08:59 60 mg QDAY ISAAC Administration Fludrocortisone Acetate 0.1 mg 09/15/24 09:00 09/16/24 09:50 Fludrocortisone Acetate 0.1 Mg Tablet PO 10/15/24 08:59 0.1 mg BID ISAAC Administration Guaifenesin 200 mg 09/15/24 09:47 09/16/24 13:01 Guaifenesin Syrup 200 Mg/10 Ml Udc PO 10/15/24 09:46 200 mg QID PRN Administration COUGH OR CONGESTION Protocol Hydroxychloroquine Sulfate 400 mg 09/15/24 09:00 09/16/24 09:49 Hydroxychloroquine 200 Mg Tablet PO 09/22/24 08:59 400 mg QDAY ISAAC Administration Levofloxacin 750 mg 09/16/24 10:00 09/16/24 10:29 Levofloxacin 250 Mg Tablet PO 09/23/24 09:59 750 mg Q48H ISAAC Administration Levothyroxine Sodium 125 mcg/ 175 mcg 09/15/24 06:00 09/16/24 05:25 Levothyroxine Sodium 50 mcg PO 10/15/24 05:59 175 mcg ACBR ISAAC Administration Metoprolol Succinate 25 mg 09/15/24 09:00 09/16/24 09:51 Metoprolol Succinate Xl 25 Mg Tabcr PO 10/15/24 08:59 25 mg QDAY ISAAC Administration Ondansetron HCl 4 mg 09/14/24 17:03 Ondansetron Inj 2 Mg/Ml Inj 2 Ml IVP 10/14/24 17:02 Q6H PRN NAUSEA OR VOMITING Protocol Pantoprazole Sodium 40 mg 09/15/24 09:00 09/16/24 09:50 Pantoprazole 40 Mg Tablet PO 10/15/24 08:59 40 mg QDAY ISAAC Administration Phenol/Menthol 0 ml 09/15/24 20:51 09/16/24 09:59 Phenol/Na Phenolate (Chloraseptic) [place] 180 Ml Btl PO 10/15/24 20:45 1 spray Q6HR PRN Administration MOUTH PAIN D/T COLD SORES Pregabalin 75 mg 09/14/24 21:00 09/16/24 09:50 Pregabalin 75 Mg Capsule PO 10/14/24 20:59 75 mg BID ISAAC Administration Sacubitril/Valsartan 1 tab 09/14/24 21:00 09/16/24 09:51 Sacubitril 24 Mg/Valsartan 26 Mg Tablet PO 10/14/24 20:59 1 tab BID ISAAC Administration Sennosides 1 tab 09/15/24 09:00 09/16/24 09:50 Senna Tablet PO 10/15/24 08:59 1 tab QDAY ISAAC Administration Protocol Sertraline HCl 100 mg 09/14/24 21:00 09/15/24 20:31 Sertraline Hcl 25 Mg Tablet PO 10/14/24 20:59 100 mg HS ISAAC Administration Topiramate 25 mg 09/15/24 09:00 09/16/24 09:49 Topiramate 25 Mg Tablet PO 10/15/24 08:59 25 mg BID ISAAC Administration Plan Patient is a 78-year-old male with a past medical history of 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 # Preoperative cardiac risk evaluation # NSTEMI, likely type II, demand ischemia Troponin elevated, likely secondary to demand ischemia. No ST elevation. No chest pain. Troponin peaked at 0.180. Revised cardiac risk index for pre-operative risk: 2 points Plan -no acute intervention planned -continue to monitor Telemonitor -D/C troponin trend #Atrial Fibrillation, rate controlled Past medical history of Atrial Fibrillation. Home medication Metoprolol 50 mg XL and Eliquis 2.5 mg qday CHADSVASC 4 points HAS BLED 3 Plan -Continue Metoprolol 25 mg qday -Holding Eliquis 2.5 mg BID given, possiblilty of orth intervention # Combined systolic and diastolic congestive Heart Failure #CHF HFrEF 35% to 40% #Diastolic Dyfucntion, grade II #Global LV systolic Function # Mild to moderate PAH RSVP 43 Patient has a past medical history of of congestive heart failure with cardiomyopathy, diastolic dysfunction. EKG noted to be sinus tachycardia, no ST elevation noted. No chest pain complain, no palpitations. Troponin on admission 0.180, 0.166, and downtrended to 0.160. Cxr no vascular congrestion noted. Echo (08/15/2024): Normal LV size. Mild LVH.there is grade II diastolic dysfunction. Global LV systolic function is moderately decreased. Estimated EF 35-40%. The RV is normal in size and systolic function. Estimated RVSP moderately elevated, 43 mmHg. RAP 15.Mildly increased LA volume 36.2 mL/m?. Eydp-ed-luhfqngy MR. Mild TR. Moderate MAC. Mild Aortic valve sclerosis without stenosis. No pericardial effusion. TSH 12.73 Free Tf 1.07 Lipid Panel: Triglycerides 79, Cholesterol 134, LDL 54, HDL 64 NYHA Class: I Plan -Metoprolol Succinate XL 25 mg qday -Entresto 1 table BID -Please fluid restrict, sodium 2 grams -Strict In and outs -Continue to work toward GDMT #Right Colles Fracture Displaced fracture of distal radius. Holding off any intervention currently given history of Eliquis. Eliquis held. Wrist Xray Acute comminuted intra-articular displaced fracture distal radial metaphysis Plan -Holding Eliquis -Dr. Jimenez Consulted, will re-evaluate Wednesday morning -pain management #Hyperlipidemia Past medical history of hyperlipidemia. Lipid (09/15/2024): Triglycerides 79, Cholesterol 134, LDL 54, HDL 64. ASCVD: no statins recommened Plan: Resume home medication, Atorvastatin 20 mg qday #Lupus Continue home medication Plan Azathioprine 50 mg qday and Hydroxychloroquine #Hypothyroidism Home medication of Levothyroxine 175 mcg. TSH (09/14/2024) & Free T4 1.07 (09/14/2024) Plan Resume home Levothyroxine 175 mcg. #Crohn's Disease Mesalamine 1.2 gram qday Azthioprine 50 mg qday Pantoprazole 40 mg once daily #history of migraines [place] has past medical history of migraines. Patient take Sumatriptan and Topiramate as home medication Plan -resumed Topiramate 25 mg BID -Duloxetine and Sertraline both listed as active medication, use with caution given SSRI and SNRI #history of CVA (2013) Health Maintenance: Disp: Pt is currently admitted to floors for further management of FEN: cardiac diet DVT: Lovenox Code: Full - The patient's plan was discussed with attending Dr. Geoff Garcia MD PGY1 Internal Medicine Attending Provider Attestation/Addendum I have personally seen and examined the patient separately on the above date of service and discussed the plan of care with the resident. I reviewed the resident Dr. Genet Garcia consultation progress note and agree with the resident findings and plan in the note above and have also edited the documentation to reflect my findings and plan. Jeremias Tellez M.D. Interventional Cardiology
--- NOTE | 2024-09-16 15:28 | PD.RESPRO ---
Documentation for date of: 09/16/24 Subjective Subjective Interval history: The patient was seen and examined at the bedside. Overnight, the patient experienced a febrile episode and complained of severe coughing. Physical exam per the panelboard tank pumper was notable for wheezing; the patient received Xopenex treatment with mild improvement. A chest X-ray was obtained in the morning and did not show evidence of pneumonia. The patient will be started on DuoNeb treatments every 4 hours, and a budesonide inhaler has been added twice daily for airway support. Urine culture returned positive for GNR, and the patient reports some urinary discomfort. Empiric antibiotic therapy with levofloxacin has been initiated. We will continue close monitoring over the next 24 hours. If the patient remains afebrile and symptoms improve, discharge is anticipated within the next 24 hours. Exam Vital Signs Temp Pulse Resp BP Pulse Ox O2 Del Method 97.5 F 96 17 131/79 H 100 Room Air 09/16/24 11:58 09/16/24 12:41 09/16/24 12:41 09/16/24 11:58 09/16/24 12:41 09/16/24 11:58 Narrative Exam Physical Exam GENERAL: NAD, AAOx3 , mildly anxious, HEENT: Moist mucosa. Eyes open, symmetrical, & clear CARDIO: Heart RRR, no obvious murmurs PULM: Lung exam reveals bilateral coarse breath sounds with mild crackles and wheezing. 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 , slight numbness on 1,2,3fingers, capilari refil ok NEURO: AAOx3, no focal neuro deficits, Objective Labs 09/16/24 05:43 09/16/24 05:43 Labs: Laboratory Results - last 24 hr 09/16/24 05:43 WBC 5.5 RBC 3.79 L Hgb 11.8 L Hct 34.7 L MCV 92 MCH 31.1 MCHC 34.0 RDW Std Deviation 56.4 H Plt Count 152 D Neut % (Auto) 63 Lymph % (Auto) 23 [place] % (Auto) 11 Eos % (Auto) 2 Baso % (Auto) 0 Neut # (Auto) 3.5 Lymph # (Auto) 1.3 [place] # (Auto) 0.6 Eos # (Auto) 0.1 Baso # (Auto) 0.0 Immature Gran # (Auto) 0.01 H Absolute Nucleated RBC 0.00 Immature Gran % 0 Nucleated RBC % 0 Sodium 143 Potassium 3.6 Chloride 106 Carbon Dioxide 25.9 Anion Gap 11 BUN 11 Creatinine 1.0 Estim Creat Clear Calc 44.1 L eGFR 58 L BUN/Creatinine Ratio 11 L Glucose 114 H Calculated Osmolality 285 Calcium 8.5 Corrected Calcium 8.7 Phosphorus 3.6 Magnesium 2.1 Total Bilirubin 0.4 AST 33 ALT 14 Alkaline Phosphatase 63 Total Protein 5.7 Albumin 3.7 Globulin 2.0 L Albumin/Globulin Ratio 1.9 ABG Interpretation ABG results: 09/14/24 13:57 ABG pH 7.47 H ABG pCO2 39 ABG pO2 64 L ABG HCO3 28 H ABG O2 Saturation 95 ABG Base Excess 4 H Quality Measures Quality Measures none Advance care planning discussed with:: patient Assessment & Plan Assessment Current Active Medications: Generic Name Dose Route Start Last Admin Trade Name Freq PRN Reason Stop Dose Admin Acetaminophen 650 mg 09/14/24 17:03 09/16/24 13:02 Acetaminophen 325 Mg Tablet PO 10/14/24 17:02 650 mg Q6H PRN Administration PAIN OR FEVER > 101 Protocol Hydrocodone Bitart/Acetaminophen 1 tab 09/14/24 17:08 09/16/24 05:25 Hydrocodone/Apap 5/325 Tablet PO 09/19/24 17:07 1 tab Q8HR PRN Administration PAIN SCALE 4-10(Mod-Sev Albuterol/Ipratropium 3 ml 09/16/24 15:00 Albuterol/Ipratropium (Duoneb) Rt [place]cas 3 Ml Nebu INH 10/16/24 14:59 Q4HRRT ISAAC Aspirin 81 mg 09/15/24 09:00 09/16/24 09:52 Aspirin Ec 81 Mg Tabec PO 10/15/24 08:59 Not Given QDAY ISAAC Atorvastatin Calcium 40 mg 09/14/24 21:00 09/15/24 20:31 Atorvastatin Calcium 20 Mg Tablet PO 10/14/24 20:59 40 mg HS ISAAC Administration Azathioprine 50 mg 09/15/24 09:00 09/16/24 09:49 Azathioprine 50 Mg Tablet PO 10/15/24 08:59 50 mg QDAY ISAAC Administration Budesonide 0.25 mg 09/16/24 19:00 Budesonide Rt 0.25 Mg/2 Ml Nebu INH 10/16/24 18:59 BIDRT ISAAC Mesalamine 1.2 Gram 0 ea 09/15/24 20:00 09/16/24 09:52 Tablet, Delayed PO 10/15/24 19:59 2 tablet Release QDAY ISAAC Administration Duloxetine HCl 60 mg 09/15/24 09:00 09/16/24 09:49 Duloxetine Hcl 30 Mg Capsule PO 10/15/24 08:59 60 mg QDAY ISAAC Administration Fludrocortisone Acetate 0.1 mg 09/15/24 09:00 09/16/24 09:50 Fludrocortisone Acetate 0.1 Mg Tablet PO 10/15/24 08:59 0.1 mg BID ISAAC Administration Furosemide 40 mg 09/16/24 18:00 Furosemide Inj 10 Mg/Ml 4ml Vial IVP 10/16/24 17:59 BIDD ISAAC Guaifenesin 200 mg 09/15/24 09:47 09/16/24 13:01 Guaifenesin Syrup 200 Mg/10 Ml Udc PO 10/15/24 09:46 200 mg QID PRN Administration COUGH OR CONGESTION Protocol Hydroxychloroquine Sulfate 400 mg 09/15/24 09:00 09/16/24 09:49 Hydroxychloroquine 200 Mg Tablet PO 09/22/24 08:59 400 mg QDAY ISAAC Administration Levofloxacin 750 mg 09/16/24 10:00 09/16/24 10:29 Levofloxacin 250 Mg Tablet PO 09/23/24 09:59 750 mg Q48H ISAAC Administration Levothyroxine Sodium 125 mcg/ 175 mcg 09/15/24 06:00 09/16/24 05:25 Levothyroxine Sodium 50 mcg PO 10/15/24 05:59 175 mcg ACBR ISAAC Administration Metoprolol Succinate 25 mg 09/15/24 09:00 09/16/24 09:51 Metoprolol Succinate Xl 25 Mg Tabcr PO 10/15/24 08:59 25 mg QDAY ISAAC Administration Ondansetron HCl 4 mg 09/14/24 17:03 Ondansetron Inj 2 Mg/Ml Inj 2 Ml IVP 10/14/24 17:02 Q6H PRN NAUSEA OR VOMITING Protocol Pantoprazole Sodium 40 mg 09/15/24 09:00 09/16/24 09:50 Pantoprazole 40 Mg Tablet PO 10/15/24 08:59 40 mg QDAY ISAAC Administration Phenol/Menthol 0 ml 09/15/24 20:51 09/16/24 09:59 Phenol/Na Phenolate (Chloraseptic) [place] 180 Ml Btl PO 10/15/24 20:45 1 spray Q6HR PRN Administration MOUTH PAIN D/T COLD SORES Pregabalin 75 mg 09/14/24 21:00 09/16/24 09:50 Pregabalin 75 Mg Capsule PO 10/14/24 20:59 75 mg BID ISAAC Administration Sacubitril/Valsartan 1 tab 09/14/24 21:00 09/16/24 09:51 Sacubitril 24 Mg/Valsartan 26 Mg Tablet PO 10/14/24 20:59 1 tab BID ISAAC Administration Sennosides 1 tab 09/15/24 09:00 09/16/24 09:50 Senna Tablet PO 10/15/24 08:59 1 tab QDAY ISAAC Administration Protocol Sertraline HCl 100 mg 09/14/24 21:00 09/15/24 20:31 Sertraline Hcl 25 Mg Tablet PO 10/14/24 20:59 100 mg HS ISAAC Administration Topiramate 25 mg 09/15/24 09:00 09/16/24 09:49 Topiramate 25 Mg Tablet PO 10/15/24 08:59 25 mg BID ISAAC Administration Plan 78-year-old female with past medical history of A-fib on Eliquis, history of SLE on the marked, hyperlipidemia, hypertension, hypothyroidism, osteoarthritis, migraine headache was admitted for non-STEMI most likely second time demand ischemia treatment and management. #Elevated troponin- downtrended # non-STEMI's second type demand ischemia Patient presented with chief complaints of headache, generalized weakness, Home medication is sumatriptan which can be precipitating factor for elevated troponin, EKG did not reveal any acute ST changes, troponin was elevated 0.178, chest x-ray did not reveal any PNA/vascular congestion Patient was saturating in room air 96% upon our evaluation In ED patient was given aspirin 325 -hold aspirin 81 mg daily due to hand ecchimosis -Atorvastatin 40 daily -Cardiology is on board. continue current managment #History of A-fib on Eliquis(back to NS) #HFrEF 35% Echocardiogram was done which showed Mild LVH.there is grade II diastolic dysfunction. Global LV systolic function is moderately decreased. Estimated EF 35-40%. [id number] score7 [age, sex, HTN, stroke, vascular] and HAS-Bled ; 3 points. BNP 533(Patient is in RA, sat >96, no SOB, no orthopnea, no crackels, No JVD) - Continue Entresto - Added Lasix 40 IV daily - Continue metoprolol 25XL qday - Hold Eliquis 5 twice daily ( will resume on Wednesday) - Keep potassium above 4, magnesium above 2 - Patient is not on CHF exacerbation, does not looking fluid overload, no need for diuretics at this point. - Cardiology is on board recommendations appreciated. #Acute comminuted intra-articular displaced fracture distal radial metaphysis Patient presented to ED on 09/10 after mechanical fall, x-ray found above Cast was placed and patient was plan to follow-up outpatient with Ortho surgery in [place] today, however was not feeling well. Repeat x-ray revealed Improved alignment impacted fracture distal radial metaphysis - CT hand: The plain films better demonstrate the comminuted impacted intra-articular fracture distal radial metaphysis - per Ortho recs holding elequise and Aspirin, untill Wednesday. (cardio is ok with the plan) - Orthopedic surgery is on board, will follow-up with recommendations. # High risk of fall - PT recommended SNF placement for short-term rehabilitation - Plan to discharge patient [facility], patient is agreeable #UTI Urine culture is positive for GNR - Started levofloxacin Chronic conditions #SLE #Hypothyroidism #Migraine #Hyperlipidemia #Hypertension #Chronic pain - Resumed home medication(pending med rec) -Continue Plaquenil -Continue azathioprine -Continue Lyrica -Continue sertraline on half dose -Will hold on sumatriptan in the setting of elevated troponin Disposition: tele DVT prophylaxis: elequise GI prophylaxis: PPI Diet: cardiac Lines: PIV CODE STATUS:DNR Patient care was discussed with attending physician Dr. Esha Sesay MD PGY-2 Attending Provider Attestation/Addendum I attest that I was physically present for the evaluation, physical examination, lab and imaging review of the patient with the residents. I discussed the case with the residents and agree with the findings and plans of care as documented above. Overnight, patient had an episode of fever of 101.4 ?F. She is also having increasing productive cough. WBC count remains stable. Chest x-ray was obtained did not show any pneumonia or pulmonary edema. Urine culture grew gram-positive cocci. Patient likely has some ongoing viral processes but fully rule out bacterial pneumonia/UTI. We will start her on Levaquin. Also added Lasix 40 IV daily as patient has history of HFrEF. If continues to be afebrile and stable tomorrow, we will plan for discharge. Jessica Balbuena MD
[2024-09-16 16:36] LABS: Respiratory Syncytial Virus Ag Negative (Negative)
[2024-09-16] MEDS: FUROSEMIDE INJ 10 MG/ML 4ML VIAL 40 MG IVP (16:41)
[2024-09-16] MEDS: BUDESONIDE RT 0.25 MG/2 ML NEBU INH (18:25)
[2024-09-16] MEDS: ATORVASTATIN CALCIUM 20 MG TABLET 40 MG PO (21:20)
[2024-09-16] MEDS: SERTRALINE HCL 25 MG TABLET 100 MG PO (21:20)
[2024-09-16] MEDS: BENZONATATE 100 MG CAPSULE PO (21:20)
[2024-09-17] VITALS (12 sets, daily range): BP systolic 97–115; BP diastolic 62–69; PULSE 70–96; RESP 16–96; TEMP 36.2–36.8; O2SAT 95–100; BMI 24.5
[2024-09-17] MEDS: ALBUTEROL/IPRATROPIUM (Duoneb) RT SOL 3 ML NEBU INH ×4 (03:30→14:32)
[2024-09-17 06:06] LABS: Basophils % (Auto) 0 % (0-2.5); Eosinophils # (Auto) 0.1 Thou/mm3 (0.0-0.5); Eosinophils % (Auto) 2 % (0-10); Hematocrit 35.2 % (36.0-46.0); Hemoglobin 11.6 g/dL (12.0-16.0); Immature Granulocytes % (Auto) 0 % (0-0); Immature Granulocytes Auto 0.02 Thou/mm3 (0.00-0.00); Lymphocytes # (Auto) 1.7 Thou/mm3 (1.0-4.8); Lymphocytes % (Auto) 30 % (10-50); Mean Corpuscular Hemoglobin 31.3 pg (25.0-35.0); Mean Corpuscular Volume 95 fL (80-100); Monocytes # (Auto) 0.7 Thou/mm3 (0.0-0.8); Monocytes % (Auto) 12 % (0-12); Neutrophils # (Auto) 3.1 Thou/mm3 (1.8-7.7); Neutrophils % (Auto) 55 % (37-80); Nucleated Red Blood Cell % 0 /100 WBC (0); Platelet Count 190 Thou/mm3 (140-440); RDW Standard Deviation 57.6 fL (36.4-46.3); Red Blood Count 3.71 Miln/mm3 (4.00-5.20); White Blood Count 5.6 Thou/mm3 (3.6-11.0)
[2024-09-17] MEDS: LEVOTHYROXINE SODIUM 125 MCG, LEVOTHYROXINE SODIUM 50 MCG 175 MCG PO (06:19)
[2024-09-17 06:31] LABS: Alanine Aminotransferase 12 U/L (10-49); Albumin, Serum 3.7 gm/dL (3.4-4.8); Albumin/Globulin Ratio 1.9 (1.2-2.2); Alkaline Phosphatase 58 U/L (46-116); Anion Gap 11 (7-16); Aspartate Amino Transferase 28 U/L (0-34); BUN/Creatinine Ratio 14 Ratio (12-20); Bilirubin,Total 0.4 mg/dL (0.3-1.2); Blood Urea Nitrogen 15 mg/dL (9-23); Calcium 8.9 mg/dL (8.3-10.6); Calcium (Corrected) 9.1 mg/dL (8.5-10.1); Carbon Dioxide 28.8 mMol/L (20.0-31.0); Chloride 102 mMol/L (98-107); Creatinine (Component) 1.1 mg/dL (0.6-1.3); Estimated Creatinine Clearance 40.1 mL/min (>60); Globulin 1.9 gm/dL (2.3-3.5); Glucose 109 mg/dL (74-106); Osmolality,Calculated 284 (275-295); Phosphorous 4.4 mg/dL (2.4-5.1); Potassium 3.6 mMol/L (3.4-5.1); Sodium 142 mMol/L (136-145); Total Protein 5.6 gm/dL (5.7-8.2); eGFR 52 See Note
[2024-09-17] MEDS: BUDESONIDE RT 0.25 MG/2 ML NEBU INH (06:31)
--- NOTE | 2024-09-17 08:00 | ESPR_ITS ---
Documentation for date of: 09/17/24 Subjective Subjective Interval history: Patient seen and examined at bedside. No new cardiac embolus. Denies any chest pain or chest pressure. Orthopedics has seen the patient and no surgery and recommended conservative treatment. Echocardiogram was performed which showed normal LV function and improved from 40% with goal later medical therapy and no regional wall motion abnormalities. No evidence of any acute coronary syndrome. Okay to discharge from cardiac standpoint. Patient recommended to follow-up in the office in the next 7 days Exam Vital Signs Temp Pulse Resp BP Pulse Ox O2 Del Method 97.2 F 95 17 113/69 96 Room Air 09/17/24 16:00 09/17/24 16:00 09/17/24 16:00 09/17/24 16:09/17/24 16:09/17/24 16:00 Narrative Exam General Appearance: Alert & Oriented X3, well-nourished female who is lying in bed in mild discomfort when left arm moved. Left arm noted to have increased swelling with ecchymosis. HEENT: Skull symmetrical and atraumatic. Conjunctivae pink and moist. Pupils equal, round, reactive to light and accommodation (PERRL). External ear without lesion or discharge. Straight, nares patient, mucosa pink, no discharge. Cardio: Normal Rate and Rhythm with S1 and S2 heart sounds. No murmurs or extra heart sounds auscultated. No bruits on carotid auscultation. No peripheral edema or cyanosis. Lungs: Symmetric with good expansion. Chest and back non-tender. Breath sounds vesicular with some wheezing noted. Abdomen: Non-tender, Non-distended, Normal Reactive Bowel Sounds Neuro: Alert, cooperative, oriented to person, place, and time. Speech clear. CN grossly intact. Upper motor strength 5/5 and Lower motor strength 5/5. Sensation intact. Objective Labs 09/17/24 05:18 09/17/24 05:18 Labs: Laboratory Results - last 24 hr 09/17/24 05:18 WBC 5.6 RBC 3.71 L Hgb 11.6 L Hct 35.2 L MCV 95 MCH 31.3 MCHC 33.0 RDW Std Deviation 57.6 H Plt Count 190 D Neut % (Auto) 55 Lymph % (Auto) 30 [place] % (Auto) 12 Eos % (Auto) 2 Baso % (Auto) 0 Neut # (Auto) 3.1 Lymph # (Auto) 1.7 [place] # (Auto) 0.7 Eos # (Auto) 0.1 Baso # (Auto) 0.0 Immature Gran # (Auto) 0.02 H Absolute Nucleated RBC 0.00 Immature Gran % 0 Nucleated RBC % 0 Sodium 142 Potassium 3.6 Chloride 102 Carbon Dioxide 28.8 Anion Gap 11 BUN 15 Creatinine 1.1 Estim Creat Clear Calc 40.1 L eGFR 52 L BUN/Creatinine Ratio 14 Glucose 109 H Calculated Osmolality 284 Calcium 8.9 Corrected Calcium 9.1 Phosphorus 4.4 Magnesium 2.0 Total Bilirubin 0.4 AST 28 ALT 12 Alkaline Phosphatase 58 Total Protein 5.6 L Albumin 3.7 Globulin 1.9 L Albumin/Globulin Ratio 1.9 ABG Interpretation ABG results: 09/14/24 13:57 ABG pH 7.47 H ABG pCO2 39 ABG pO2 64 L ABG HCO3 28 H ABG O2 Saturation 95 ABG Base Excess 4 H Assessment & Plan A&P Narrative 78-year-old male with a past medical history of 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 # Preoperative cardiac risk evaluation # NSTEMI, likely type II, demand ischemia Troponin elevated, likely secondary to demand ischemia. No ST elevation. No chest pain. Troponin peaked at 0.180. Revised cardiac risk index for pre-operative risk: 2 points Plan Orthopedics has seen the patient and no surgery and recommended conservative treatment. Echocardiogram was performed which showed normal LV function and improved from 40% with goal later medical therapy and no regional wall motion abnormalities. No evidence of any acute coronary syndrome. Okay to discharge from cardiac standpoint. Patient recommended to follow-up in the office in the next 7 days #Atrial Fibrillation, rate controlled Past medical history of Atrial Fibrillation. Home medication Metoprolol 50 mg XL and Eliquis 2.5 mg qday CHADSVASC 4 points HAS BLED 3 Plan -Continue Metoprolol 25 mg qday -Holding Eliquis 2.5 mg BID given, possiblilty of orth intervention # Combined systolic and diastolic congestive Heart Failure #CHF HFrEF 35% to 40% #Diastolic Dyfucntion, grade II #Global LV systolic Function # Mild to moderate PAH RSVP 43 Patient has a past medical history of of congestive heart failure with cardiomyopathy, diastolic dysfunction. EKG noted to be sinus tachycardia, no ST elevation noted. No chest pain complain, no palpitations. Troponin on admission 0.180, 0.166, and downtrended to 0.160. Cxr no vascular congrestion noted. Echo (08/15/2024): Normal LV size. Mild LVH.there is grade II diastolic dysfunction. Global LV systolic function is moderately decreased. Estimated EF 35-40%. The RV is normal in size and systolic function. Estimated RVSP moderately elevated, 43 mmHg. RAP 15.Mildly increased LA volume 36.2 mL/m?. Adpq-yo-dgw[place] MR. Mild TR. Moderate MAC. Mild Aortic valve sclerosis without stenosis. No pericardial effusion. TSH 12.73 Free Tf 1.07 Lipid Panel: Triglycerides 79, Cholesterol 134, LDL 54, HDL 64 NYHA Class: I Plan -Metoprolol Succinate XL 25 mg qday -Entresto 1 table BID -Please fluid restrict, sodium 2 grams -Strict In and outs -Continue to work toward GDMT #Right Colles Fracture Displaced fracture of distal radius. Holding off any intervention currently given history of Eliquis. Eliquis held. Wrist Xray Acute comminuted intra-articular displaced fracture distal radial metaphysis Plan -Holding Eliquis -Dr. Jimenez Consulted, will re-evaluate Wednesday morning -pain management #Hyperlipidemia Past medical history of hyperlipidemia. Lipid (09/15/2024): Triglycerides 79, Cholesterol 134, LDL 54, HDL 64. ASCVD: no statins recommened Plan: Resume home medication, Atorvastatin 20 mg qday #Lupus Continue home medication Plan Azathioprine 50 mg qday and Hydroxychloroquine #Hypothyroidism Home medication of Levothyroxine 175 mcg. TSH (09/14/2024) & Free T4 1.07 (09/14/2024) Plan Resume home Levothyroxine 175 mcg. #Crohn's Disease Mesalamine 1.2 gram qday Azthioprine 50 mg qday Pantoprazole 40 mg once daily #history of migraines Mahogany has past medical history of migraines. Patient take Sumatriptan and Topiramate as home medication Plan -resumed Topiramate 25 mg BID -Duloxetine and Sertraline both listed as active medication, use with caution given SSRI and SNRI #history of CVA (2013) Health Maintenance: Disp: Pt is currently admitted to floors for further management of FEN: cardiac diet DVT: Lovenox Code: Full Management of rest of the medical conditions as per primary team and other consultants. Thank you for the consult and allowing me to participate in the care of the patient. Cardiology will continue to follow. Jeremias Tellez M.D. Interventional Cardiology Time Spent With Patient Time: Total time spent is greater than 50% in coordination of care (as documented) at patient's floor/unit and/or counseling patient:
[2024-09-17] MEDS: DULoxetine HCL 30 MG CAPSULE 60 MG PO (09:00)
[2024-09-17] MEDS: METOPROLOL SUCCINATE XL 25 MG TABCR PO (09:01)
[2024-09-17] MEDS: PANTOPRAZOLE 40 MG TABLET PO (09:01)
[2024-09-17] MEDS: PREGABALIN 75 MG CAPSULE PO (09:01)
[2024-09-17] MEDS: SENNA TABLET 1 TAB PO (09:01)
[2024-09-17] MEDS: SACUBITRIL 24 MG/VALSARTAN 26 MG TABLET 1 TAB PO (09:01)
[2024-09-17] MEDS: azaTHIOprine 50 MG TABLET PO (09:01)
[2024-09-17] MEDS: FLUDROCORTISONE ACETATE 0.1 MG TABLET PO (09:01)
[2024-09-17] MEDS: FUROSEMIDE INJ 10 MG/ML 4ML VIAL 40 MG IVP (09:02)
[2024-09-17] MEDS: HYDROXYCHLOROQUINE 200 MG TABLET 400 MG PO (09:02)
[2024-09-17] MEDS: TOPIRAMATE 25 MG TABLET PO (09:04)
--- NOTE | 2024-09-17 09:44 | PD.RESDS ---
Planned Discharge Date 09/17/24 DS: Providers Provider Date of admission: 09/14/24 17:03 Primary care physician: Physician No Primary/Family Admitting Provider: Jessica Balbuena MD Attending Provider on Admission: Jessica Balbuena MD Consults: 09/14/24 16:50 Consult to Cardiology Stat Comment: Consulting Provider: Thiago Bowie Instructions: Elevated Troponin 09/14/24 17:18 Referral Physical Therapy Routine Comment: Physician Instructions: 09/14/24 18:07 Consult to Orthopedic Routine Comment: Consulting Provider: León Jimenez Attending Provider on DC: Efraín Sauceda MD Discharging Provider: Efraín Sauceda MD DS: Diagnosis Problem List Completed Was Problem List Reviewed/Reconciled?: Yes Hospital Course Hospital Course Hospital course: Maria Elena Damian is a 78-year-old female with past medical history of atrial fibrillation/flutter on Eliquis, systemic lupus erythematosus on DMARD therapy, hyperlipidemia, hypothyroidism, recurrent migraines, osteoporosis, and HFrEF (EF 35 to 40% on 07/2024) who was admitted for elevated troponins likely secondary to demand ischemia and acute comminuted intra-articular displaced fracture of the distal radial metaphysis. Troponins down trended, EKG did not show changes or T wave abnormalities and and likely demand ischemia. For her wrist fracture, patient was evaluated by orthopedic surgeon, Dr. Jimenez, who recommended holding aspirin and Eliquis for a few days to help with swelling that was noted and patient was out of tentative for surgery at this time. Cardiology was okay with holding aspirin and Eliquis for a few days and to be resumed on 09/18. Otherwise, patient was also started on antibiotics for UTI for which she will be discharged with back to her SNF. No acute events occurred throughout hospitalization, vital signs stable, CBC unremarkable, CHEM panel unremarkable. Patient to follow-up outpatient for her wrist fracture, continue antibiotics for UTI, resume Eliquis at 09/18. Diagnoses during admission: #Elevated troponin- downtrended #NSTEMI type II #History of A-fib on Eliquis #HFrEF 35% #Acute comminuted intra-articular displaced fracture distal radial metaphysis #High fall risk #UTI #SLE #Hypothyroidism #Migraine #Hyperlipidemia #Hypertension #Chronic pain Discharge instructions: ? Take levofloxacin every other day for a total of 7 days (4 pills) ? Hold taking eliquis and aspirin for today and resume taking tomorrow, 09/18 ? Hold taking raloxifene until you follow-up with your PCP ? Continue taking all other home medications as prescribed ? Follow-up with orthopedic surgeon within 1-2 weeks of discharge for wrist fracture ? Follow-up with PCP within 1-2 weeks of discharge ? If you do not have a PCP, you can follow-up at the [facility] (you can call [phone] to make an appointment) ? If you wish to follow-up with Dr. Sauceda, schedule appointment on Wednesday afternoons ? Return to ED if symptoms worsen or recur ----- Plan discussed with attending physician Dr. Esha Sauceda MD PGY-1 Internal Medicine Time Spent with Patient Time attestation: Total time spent providing and/or coordinating discharge services: Time spent: Greater than 30 minutes Exam Vital Signs Temp Pulse Resp BP Pulse Ox O2 Del Method 97.1 F 89 16 104/69 100 Room Air 09/17/24 08:00 09/17/24 09:02 09/17/24 08:00 09/17/24 09:02 09/17/24 08:00 09/17/24 08:00 Narrative Exam General: AOx3, no acute distress, able to speak full sentences, speaks clearly but slowly HEENT: NC/AT, mucous membranes moist, bilateral sclera anicteric Cardiovascular: regular rate and rhythm, S1/S2 present, no murmurs appreciated Pulmonary: clear to auscultation bilaterally, no rales/rhonchi/wheezes Abdominal: soft, non-tender, non-distended, no rebound/guarding, normal bowel sounds present Musculoskeletal: right upper extremity in cast but able to move fingers without pain or difficulty Skin: bruising of RUE around fingers but warm to touch and appropriate capillary refill Neuro: CN II-XII intact, no focal deficits Discharge Plan Plan Patient Disposition: Xfer Skilled Nsg Fac (SNF) Care Plan Goals: ? Take levofloxacin every other day for a total of 7 days (4 pills) ? Hold taking eliquis and aspirin for today and resume taking tomorrow, 09/18 ? Hold taking raloxifene until you follow-up with your PCP ? Continue taking all other home medications as prescribed ? Follow-up with orthopedic surgeon within 1-2 weeks of discharge for wrist fracture ? Follow-up with PCP within 1-2 weeks of discharge ? If you do not have a PCP, you can follow-up at the [facility] (you can call [phone] to make an appointment) ? If you wish to follow-up with Dr. Sauceda, schedule appointment on Wednesday afternoons ? Return to ED if symptoms worsen or recur Prescriptions/Referrals Prescriptions/Med Rec: New levofloxacin 750 mg tablet 750 mg PO EVERYOTHERDAY 7 Days Qty: 4 0RF guaifenesin 100 mg/5 mL liquid 200 mg PO Q6H PRN (Reason: cough) Qty: 1000 0RF ipratropium-albuterol 0.5 mg-3 mg(2.5 mg base)/3 mL Solution For Nebulization 3 ml INH Q4HRRT 30 Days Qty: 90 0RF Continued atorvastatin [Lipitor] 20 MG tablet 20 mg PO HS Qty: 0 sertraline [Zoloft] 100 MG tablet 200 mg PO HS Qty: 0 hydroxychloroquine [Plaquenil] 200 MG tablet 400 mg PO QDAY Qty: 0 duloxetine [Cymbalta] 60 MG capsule,delayed release(DR/EC) 60 mg PO QDAY Qty: 0 azathioprine 50 mg Tablet 50 mg PO QDAY mesalamine [Lialda] 1.2 gram Tablet,Delayed Release (Dr/Ec) 2.4 g PO QDAY sumatriptan succinate 100 mg Tablet 100 mg PO Q2H PRN (Reason: Migraine Headache) levothyroxine 175 mcg tablet 175 mcg PO DAILY topiramate [Topamax] 25 mg tablet 25 mg PO BID Patient Comments: TAKE 2 TAB PO IN THE MORNING AND 3 TAB IN THE EVENINGS FOR MIGRAINE PREVENTION fludrocortisone 0.1 mg tablet 0.1 mg PO BID pantoprazole 40 mg Tablet,Delayed Release (Dr/Ec) 40 mg PO QDAY 30 Days Qty: 30 0RF hydrocodone-acetaminophen 7.5-325 mg tablet 1 tab PO Q6H PRN (Reason: PAIN) 5 Days Qty: 20 0RF pregabalin 75 mg capsule 75 mg PO BID 30 Days Qty: 60 2RF Held raloxifene [Evista] 60 MG tablet 60 mg PO QDAY Qty: 0 Hold Instructions: Hold until you follow-up with your PCP aspirin 81 mg tablet,delayed release (DR/EC) 81 mg PO DAILY Hold Instructions: Hold for today and resume taking tomorrow, 09/18 Eliquis 2.5 mg Tablet 5 mg PO BID 30 Days Qty: 120 0RF Hold Instructions: Hold for today and resume taking tomorrow, 09/18 hydrocodone-acetaminophen 5-325 mg tablet 1 tab PO Q8H MDD 4 PRN (Reason: pain) Qty: 14 0RF Hold Instructions: Hold until you follow-up with your PCP Discontinued prednisone 20 mg tablet See Taper PO BID Qty: 49 0RF Taper: Prednisone Taper 15 mg TWICE A DAY for 7 Days and 0 Hour 10 mg TWICE A DAY for 7 Days and 0 Hour 5 mg TWICE A DAY for 7 Days and 0 Hour 5 mg DAILY for 7 Days Referrals: No Primary/Family,Physician [Primary Care Provider] - Patient/Caregiver Discharge Instructions Print Language: Bulgarian Stand Alone Forms: Cherie Award Info., Patient Portal Info Letter Discharge Order Discharge Orders: Discharge (Routine); Ordered 09/17/24 Ordered By: Efraín Veliz Sdjohn Quality Discharge Quality Measures none (Held in setting of ecchymosis) Attestestation MD Attestation I attest that I was physically present for the evaluation, physical examination, lab and imaging review of the patient with the residents. I discussed the case with the residents and agree with the findings and plans of care as documented above. Jessica Balbuena MD
--- NOTE | 2024-09-17 11:54 | PC.SS ---
PFS/Joseph informed that patient was ready for discharge. ZEKE met with patient [id number] to discuss discharge plan. Patient reported that she is returning to [facility]. Patient requested an ambulance transportation due to not being able to move her right arm. Patient reported unable to cover EMS fees. ZEKE completed TANIYA and it was signed by Water Main Inspector, Radha. ZEKE scheduled EMS transportation for 1600. ZEKE notified Admission Coordinator, Vita that patient will need to follow-up with ortho outside the hospital. ZEKE faxed orders to [facility]. Patient declined for ZEKE to contact any family.
[2024-09-17] MEDS: LACTULOSE SYRUP 20 GM/30 ML UDC PO (14:04)
--- NOTE | 2024-09-17 16:04 | PC.NURSE ---
CALLED REPORT TO GONZÁLEZ CHATTERJEE AT [facility]. ALL QUESTIONS ANSWERED.
== END 2024-09-17 16:13 | disposition skilled nursing facility (03) | DRG 281 ==
LOC: SERX 17:01 → SERHOLD 17:22 → S2NX 23:43
PROVIDERS: Student in an Organized Health Care Education/Training Program; Admitting Provider Student in an Organized Health Care Education/Training Program; Emergency Provider Emergency Medicine; Visit Provider Student in an Organized Health Care Education/Training Program
DX: I21.4 Non-ST elevation (NSTEMI) myocardial infarction (principal); I42.9 Cardiomyopathy, unspecified; S52.531A Colles' fracture of right radius, initial encounter for closed fracture; S52.571A Other intraarticular fracture of lower end of right radius, initial encounter for closed fracture; I48.92 Unspecified atrial flutter; I50.42 Chronic combined systolic (congestive) and diastolic (congestive) heart failure; K50.90 Crohn's disease, unspecified, without complications; N39.0 Urinary tract infection, site not specified; I25.2 Old myocardial infarction; I48.91 Unspecified atrial fibrillation; M32.9 Systemic lupus erythematosus, unspecified; E78.5 Hyperlipidemia, unspecified; E83.42 Hypomagnesemia; E83.51 Hypocalcemia; G89.29 Other chronic pain; G90.A Postural orthostatic tachycardia syndrome [POTS]; E87.6 Hypokalemia; I11.0 Hypertensive heart disease with heart failure; G43.909 Migraine, unspecified, not intractable, without status migrainosus; E03.9 Hypothyroidism, unspecified; Z66 Do not resuscitate; Z79.01 Long term (current) use of anticoagulants; Z79.82 Long term (current) use of aspirin; Z79.890 Hormone replacement therapy; Z85.6 Personal history of leukemia; I24.89 Other forms of acute ischemic heart disease; Z88.8 Allergy status to other drugs, medicaments and biological substances; Z88.2 Allergy status to sulfonamides; Z79.899 Other long term (current) drug therapy; Z86.73 Personal history of transient ischemic attack (TIA), and cerebral infarction without residual deficits; Z91.81 History of falling; M81.0 Age-related osteoporosis without current pathological fracture; I25.10 Atherosclerotic heart disease of native coronary artery without angina pectoris; W19.XXXA Unspecified fall, initial encounter; I35.8 Other nonrheumatic aortic valve disorders
CPT/HCPCS: 36415; 36600; 71045; 73110; 73200; 80053; 80061; 81001; 82248; 82803; 83735; 83880; 84100; 84439; 84443; 84484; 85025; 85379; 85610; 85652; 85730; 86140; 87077; 87086; 87186; 87400; 87634; 87811; 93005; 94640; 94664; 96365; 96366; 97162; 99285; 99308; A9270; J1938; J3475; J7500

== ENCOUNTER 2024-10-09 19:55 | Emergency (ER) | payer MEDICARE, SELFPAY ==
[2024-10-09 20:02] VITALS: PULSE 92; RESP 18; O2SAT 97; BMI 24.2
[2024-10-09 20:05] VITALS: BP 132/91; PULSE 79; RESP 18; TEMP 36.6; O2SAT 96; BMI 24.2
--- NOTE | 2024-10-09 20:10 | EKG_ITS ---
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
--- NOTE | 2024-10-09 20:17 | PD.EDFMALE ---
ED Female Urogenital RME/HPI General Chief complaint: Urogenital-Female Stated complaint: URINARY RETENTION Time Seen by Provider: 10/09/24 20:03 Arrival date/time: 10/09/24 19:55 RME / HPI RME / HPI Narrative: DR. LUNA MAIN ED EVALUATION: 78 y/o female with Hx of Crohn's Disease and Systemic Lupus Erythematosus BIBA from presents to ED c/o urinary incontinence and weakness x 3 days. Patient recently stayed at [facility] and reports symptoms began there. She states that staff had wiped her back to front. Denies fever and chills. Denies dysuria or any other pain. Related Data Home Medications ?Medication ?Instructions ?Recorded ?Confirmed raloxifene 60 mg tablet (Evista) 60 mg PO QDAY OSTEOPOROSIS #0 tabs 01/22/14 09/15/24 Held on 09/17/24. Instructions: Hold until you follow-up with your PCP atorvastatin 20 mg tablet (Lipitor) 20 mg PO HS #0 tabs 02/26/17 09/15/24 duloxetine 60 mg capsule,delayed 60 mg PO QDAY #0 caps 02/26/17 09/15/24 release (Cymbalta) hydroxychloroquine 200 mg tablet 400 mg PO QDAY #0 tabs 02/26/17 09/15/24 (Plaquenil) sertraline 100 mg tablet (Zoloft) 200 mg PO HS #0 tabs 02/26/17 09/15/24 azathioprine 50 mg tablet 50 mg PO QDAY 12/23/17 09/15/24 mesalamine 1.2 gram tablet,delayed 2.4 g PO QDAY 12/23/17 09/15/24 release (Lialda) sumatriptan succinate 100 mg tablet 100 mg PO Q2H PRN Migraine Headache 12/23/17 09/15/24 aspirin 81 mg tablet,delayed 81 mg PO DAILY 04/28/24 09/15/24 release Held on 09/17/24. Instructions: Hold for today and resume taking tomorrow, 09/18 levothyroxine 175 mcg tablet 175 mcg PO DAILY 04/28/24 09/15/24 topiramate 25 mg tablet (Topamax) 25 mg PO BID MIGRAINE 08/14/24 09/15/24 fludrocortisone 0.1 mg tablet 0.1 mg PO BID 08/15/24 09/15/24 Previous Rx's ?Medication ?Instructions ?Recorded hydrocodone 7.5 mg-acetaminophen 1 tab PO Q6H PRN PAIN 5 days #20 08/17/24 325 mg tablet tabs pregabalin 75 mg capsule 75 mg PO BID 30 days #60 caps 08/17/24 hydrocodone 5 mg-acetaminophen 325 1 tab PO Q8H PRN pain #14 tabs 09/10/24 mg tablet Held on 09/17/24. Instructions: Hold until you follow-up with your PCP guaifenesin 100 mg/5 mL oral liquid 200 mg (10 mL) PO Q6H PRN cough 09/17/24 #1,000 mL ipratropium 0.5 mg-albuterol 3 mg 3 ml INH Q4HRRT 30 days #90 mL 09/17/24 (2.5 mg base)/3 mL nebulization soln Allergies Allergy/AdvReac Type Severity Reaction Status Date / Time Sulfa (Sulfonamide Allergy Severe FLUSHING, Verified 10/09/24 20:01 Antibiotics) VOMITING meloxicam Allergy Mild RASH Verified 10/09/24 20:01 Review of Systems Review of Systems Systems Reviewed: All systems reviewed, normal except as documented Past Medical History Past Medical History NEUROLOGIC: Positive Neurological Disorders, Cerebrovascular Accident, Peripheral Neuropathy and Migraine CARDIAC: Positive Cardiac Disorders, Atrial Fibrillation, Hypercholesterolemia, Congestive Heart Failure, Hypertension and Hypotension RESPIRATORY: Positive Asthma, Bronchitis and Pneumonia GASTROINTESTINAL: Positive Gastrointestinal Disorders, Crohn's Disease and Gastroesophageal Reflux Disease MUSCULOSKELETAL: Positive Musculoskeletal Disorders, Arthritis, Degenerative Disk Disease, Fractures and Degenerative Joint Disease ENDOCRINE: Positive Endocrine Disorders, Hypothyroidism and Systemic Lupus Erythematosus HEMATOLOGIC: Positive Blood Disorders and Anemia PSYCHO/SOCIAL: Positive Psychiatric Problems, Depression and Anxiety OTHER HISTORY: Positive Hospitalization, Falls, Measles and Mumps Surgical History SURGICAL: Positive Hysterectomy ED Exam Narrative Physical exam: GENERAL APPEARANCE: alert and oriented x 4, well-developed, well-nourished, no acute distress VITALS: All vitals were reviewed and the pulse ox is 96% on room air, which is normal according to my interpretation. HEENT: Normocephalic, atraumatic; pupils equal, round, reactive to light; EOMI; mucous membranes pink, moist; oropharynx clear NECK: Supple LUNGS: CTABL; no wheezes, no rales, no rhonchi HEART: Regular rate, regular rhythm; normal S1, S2; no murmurs ABDOMEN: non distended; normal BS; soft, no tenderness, no guarding, no rebound; no masses, no organomegaly, no hernia BACK: no CVA tenderness EXTREMITIES: atraumatic; no edema; right arm in splint and shoulder sling NEUROLOGIC: awake; alert and oriented x4; cranial nerves II-XII grossly intact; no focal sensory or motor deficits PSYCHIATRIC: appropriate mood and affect SKIN: warm, dry, normal color; no rashes Course Quality Measures none Orders Category Date Time Status Bedside COVID-19 Antigen Test NOW Care 10/09/24 20:11 Active Bedside Influenza A&B Antigen Test NOW Care 10/09/24 20:11 Completed EKG (ED ONLY) *Do not use* NOW Care 10/09/24 20:10 Completed EKG (ED Only) Stat Exams 10/09/24 20:10 Draft CBC Stat Lab 10/09/24 20:32 Completed Comprehensive Metabolic Panel Stat Lab 10/09/24 20:32 Completed Magnesium Stat Lab 10/09/24 20:32 Completed Troponin I Stat Lab 10/09/24 20:32 Completed Troponin I Stat Lab 10/09/24 23:48 Completed UA, C/S IF [Urinalysis, C/S if Indicated] Stat Lab 10/09/24 21:02 Completed HYDROcodone*/APAP 5/325 [Severn 5/325] Med 10/10/24 01:03 Discontinued 1 tab PO X1 ONE KCL 10% Liq UDC 15 ML Med 10/09/24 21:52 Discontinued 40 meq PO X1 ONE Magnesium Sulfate 2 GM Ivpb [Magnesium Sulfate Ivpb] Med 10/09/24 21:53 Discontinued 2 gm in 50 ml IV X1 POTASSIUM CHL 10 mEq IVPB [Kcl Ivpb] Med 10/09/24 21:53 Discontinued 10 meq in 100 ml IV Q1H Sodium Chloride 0.9% 1000 ml [Ns] 1,000 ml Med 10/09/24 21:52 Discontinued IV 999 mls/hr Vital Signs Vital signs: Vital Signs Temperature 97.8 F 10/09/24 20:05 Pulse Rate 79 10/09/24 20:05 Respiratory Rate 18 10/09/24 20:05 Blood Pressure 132/91 H 10/09/24 20:05 Pulse Oximetry (%) 96 10/09/24 20:05 Oxygen Delivery Method Room Air 10/09/24 20:05 Urogenital - Female MDM Narrative MDM Narrative:: Scribe Attestation: I, Rachel Harrison, am scribing for and in the presence of Dr. Luna. Provider Notation: Although this document has been carefully reviewed, there may still be some phonetic and other typographical errors.? These errors are purely grammatical due to imperfections in the software program and should not be construed in any way to? compromise the substance of the patient's medical care during this visit. Patient data External records reviewed:: [facility] previous records (Reviewed prior ED records from 09/14/24. Patient was seen for Non-ST elevation [place] (NSTEMI).) and EMS form Clinical information provided by:: patient and EMS Social determinants that could affect healthcare access:: none Patient has the following chronic illnesses:: Cerebrovascular Accident, Peripheral Neuropathy, Migraine, Atrial Fibrillation, Hypercholesterolemia, Congestive Heart Failure, Hypertension, Hypotension, Asthma, Bronchitis, Crohn's Disease, Gastroesophageal Reflux Disease, Arthritis, Degenerative Disk Disease, Degenerative Joint Disease, Hypothyroidism, Systemic Lupus Erythematosus, Anemia, Depression and Anxiety How is presenting disease/condition affected by chronic disease/condition?: exacerbated by Evaluation data The following diagnostics were reviewed and interpreted by me:: lab results and EKG tracing(s) (EKG manual reading, my interpretation: sinus rhythm, rate: 72 bpm, no ST elevation, no acute ischemic changes, interpreted as normal.) Lab and/or radiology exams considered but not ordered:: None Interpretation Summary: SEROLOGY COVID/Influenza: Negative. LABS Troponin I: 0.088 ng/mL Repeat Troponin I: 0.071 ng/mL Medications / Prescriptions Medications or Prescriptions considered but not ordered:: None Medication administrations:: Medication Administration History Discontinued Medications Hydrocodone Bitart/Acetaminophen (Hydrocodone/Apap 5/325 Tablet) 1 tab PO X1 ONE Stop: 10/10/24 01:04 Last Admin: 10/10/24 01:23 Dose: 1 tab Documented By: PAGE Potassium Chloride (Kcl Ivpb) 10 meq in 100 mls @ 100 mls/hr IV Q1H ISAAC Stop: 10/10/24 01:52 Last Admin: 10/10/24 00:39 Dose: 80 mls/hr Documented By: Infusion: 10/10/24 00:39 Dose: Infused Documented By: Admin: 10/09/24 23:25 Dose: 80 mls/hr Documented By: Infusion: 10/09/24 23:15 Dose: Infused Documented By: Admin: 10/09/24 22:15 Dose: 100 mls/hr Documented By: PAGE Sodium Chloride (Ns) 1,000 mls @ 999 mls/hr IV .Q1H1M ONE Stop: 10/09/24 22:52 Last Infusion: 10/09/24 23:29 Dose: Infused Documented By: Admin: 10/09/24 22:12 Dose: 999 mls/hr Documented By: PAGE Magnesium Sulfate (Magnesium Sulfate Ivpb) 2 gm in 50 mls @ 25 mls/hr IV X1 ONE Stop: 10/09/24 23:52 Last Infusion: 10/10/24 00:17 Dose: Infused Documented By: Admin: 10/09/24 22:13 Dose: 25 mls/hr Documented By: PAGE Potassium Chloride (Potassium Chloride 10% 20 Meq/15 Ml Udc) 40 meq PO X1 ONE Stop: 10/09/24 21:53 Last Admin: 10/09/24 22:15 Dose: 40 meq Documented By: PAGE See above Consultations Consultation(s) initiated? (list below): No Diagnosis Urogenital Female Differential Diagnosis: urinary tract infection, cervicitis, ovarian cyst, cystitis and other (Pyelonephritis) Most likely diagnosis given after review of the tests above:: Hypokalemia, Urinary incontinence Admission Indicated Admission indicated?: not indicated Explain why admission is indicated or not indicated:: Patient does not meet admission criteria. Admission Request Was there a request for admission?: No Disposition Plan Disposition Plan: Discharge Discharge Attestation Discharge Attestation: The patient and all family members were given an opportunity to ask questions and understood the discharge instructions. Discharge instructions specifically effects, indications for sooner follow up or return to the emergency department, and the expected course of current diagnosis. Patient condition: Stable Discharge Plan Plan Patient Disposition: HOME (Self Care) Prescriptions/Referrals Prescriptions/Med Rec: No Action raloxifene [Evista] 60 MG tablet 60 mg PO QDAY Qty: 0 atorvastatin [Lipitor] 20 MG tablet 20 mg PO HS Qty: 0 sertraline [Zoloft] 100 MG tablet 200 mg PO HS Qty: 0 hydroxychloroquine [Plaquenil] 200 MG tablet 400 mg PO QDAY Qty: 0 duloxetine [Cymbalta] 60 MG capsule,delayed release(DR/EC) 60 mg PO QDAY Qty: 0 azathioprine 50 mg Tablet 50 mg PO QDAY mesalamine [Lialda] 1.2 gram Tablet,Delayed Release (Dr/Ec) 2.4 g PO QDAY sumatriptan succinate 100 mg Tablet 100 mg PO Q2H PRN (Reason: Migraine Headache) levothyroxine 175 mcg tablet 175 mcg PO DAILY aspirin 81 mg tablet,delayed release (DR/EC) 81 mg PO DAILY topiramate [Topamax] 25 mg tablet 25 mg PO BID Patient Comments: TAKE 2 TAB PO IN THE MORNING AND 3 TAB IN THE EVENINGS FOR MIGRAINE PREVENTION fludrocortisone 0.1 mg tablet 0.1 mg PO BID hydrocodone-acetaminophen 7.5-325 mg tablet 1 tab PO Q6H PRN (Reason: PAIN) 5 Days Qty: 20 0RF pregabalin 75 mg capsule 75 mg PO BID 30 Days Qty: 60 2RF hydrocodone-acetaminophen 5-325 mg tablet 1 tab PO Q8H MDD 4 PRN (Reason: pain) Qty: 14 0RF guaifenesin 100 mg/5 mL liquid 200 mg PO Q6H PRN (Reason: cough) Qty: 1000 0RF ipratropium-albuterol 0.5 mg-3 mg(2.5 mg base)/3 mL Solution For Nebulization 3 ml INH Q4HRRT 30 Days Qty: 90 0RF Referrals: No Primary/Family,Physician [Primary Care Provider] - In 1 week Problem List Clinical Impression: Urinary incontinence, Hypokalemia Patient/Caregiver Discharge Instructions Education Materials: Treating Incontinence in Women ..., ED Hypokalemia Print Language: Macanese Stand Alone Forms: [employer] Award Info., Patient Portal Info Letter
[2024-10-09 20:54] LABS: Basophils # (Auto) 0.0 Thou/mm3 (0.0-0.2); Basophils % (Auto) 1 % (0-2.5); Eosinophils # (Auto) 0.1 Thou/mm3 (0.0-0.5); Eosinophils % (Auto) 3 % (0-10); Hematocrit 35.6 % (36.0-46.0); Hemoglobin 11.8 g/dL (12.0-16.0); Immature Granulocytes Auto 0.01 Thou/mm3 (0.00-0.00); Lymphocytes # (Auto) 1.2 Thou/mm3 (1.0-4.8); Lymphocytes % (Auto) 27 % (10-50); Mean Corpuscular HGB Conc 33.1 g/dl (31.0-37.0); Mean Corpuscular Hemoglobin 31.6 pg (25.0-35.0); Mean Corpuscular Volume 95 fL (80-100); Monocytes # (Auto) 0.5 Thou/mm3 (0.0-0.8); Monocytes % (Auto) 11 % (0-12); Neutrophils # (Auto) 2.5 Thou/mm3 (1.8-7.7); Neutrophils % (Auto) 59 % (37-80); Nucleated Red Blood Cell # 0.00 Thou/mm3 (0.00-0.00); Nucleated Red Blood Cell % 0 /100 WBC (0); Platelet Count 228 Thou/mm3 (140-440); RDW Standard Deviation 57.7 fL (36.4-46.3); Red Blood Count 3.73 Miln/mm3 (4.00-5.20); White Blood Count 4.3 Thou/mm3 (3.6-11.0)
[2024-10-09 21:08] LABS: Collection Type, Urine Catheter; Squamous Epithelial Cell,Urine 0 /hpf (0-5)
[2024-10-09 21:10] VITALS: BP 120/74; PULSE 91; RESP 21; TEMP 37; O2SAT 100
[2024-10-09 21:21] LABS: Alanine Aminotransferase 14 U/L (10-49); Albumin, Serum 4.0 gm/dL (3.4-4.8); Albumin/Globulin Ratio 1.7 (1.2-2.2); Alkaline Phosphatase 86 U/L (46-116); Anion Gap 8 (7-16); Aspartate Amino Transferase 36 U/L (0-34); BUN/Creatinine Ratio 13 Ratio (12-20); Bilirubin,Total 0.6 mg/dL (0.3-1.2); Blood Urea Nitrogen 13 mg/dL (9-23); Calcium 9.2 mg/dL (8.3-10.6); Calcium (Corrected) 9.2 mg/dL (8.5-10.1); Carbon Dioxide 26.8 mMol/L (20.0-31.0); Chloride 108 mMol/L (98-107); Creatinine (Component) 1.0 mg/dL (0.6-1.3); Estimated Creatinine Clearance 44.1 mL/min (>60); Globulin 2.3 gm/dL (2.3-3.5); Glucose 99 mg/dL (74-106); Magnesium 1.6 mg/dL (1.6-2.6); Osmolality,Calculated 285 (275-295); Potassium 2.9 mMol/L (3.4-5.1); Sodium 143 mMol/L (136-145); Total Protein 6.3 gm/dL (5.7-8.2); eGFR 58 See Note
[2024-10-09 21:23] LABS: Troponin I 0.088 ng/mL (0.0-0.045)
[2024-10-09 21:35] LABS: Bilirubin,Urine Negative (Negative); Blood,Urine Negative (Negative); Clarity,Urine Clear (Clear/Hazy); Color,Urine Lt-Yellow (Lt Yel-Yel); Culture Indicated,Urine Not Indicated; Glucose, Urine Negative (Negative); Hyaline Casts,Urine < 1 /hpf (0-1); Ketones,Urine Negative (Negative); Leukocyte Esterase,Urine Negative (Negative); Nitrite,Urine Negative (Negative); PH,Urine 7.0 (5.0-7.0); Protein,Urine Trace (Neg - Trace); RBC,Urine 1 /hpf (0-3); Specific Gravity,Urine 1.009 (1.001-1.035); Urobilinogen,Urine Negative mg/dL (0.0-1.0); WBC,Urine 2 /hpf (0-5)
[2024-10-09] MEDS: SODIUM CHLORIDE 0.9% 1000 ML 1,000 ML 999 ML IV (22:12)
[2024-10-09] MEDS: Magnesium Sulfate 2 GM Ivpb 2 GM/50 ML BAG IV (22:13)
[2024-10-09] MEDS: POTASSIUM CHL 10 mEq IVPB 10 MEQ/100 ML BAG 100 MEQ IV (22:15)
[2024-10-09] MEDS: POTASSIUM CHLORIDE 10% 20 MEQ/15 ML UDC 40 MEQ PO (22:15)
[2024-10-09] MEDS: POTASSIUM CHL 10 mEq IVPB 10 MEQ/100 ML BAG 80 MEQ IV (23:25)
[2024-10-10 00:25] VITALS: BP 181/84; PULSE 74; RESP 20; TEMP 37.1; O2SAT 95
[2024-10-10] MEDS: POTASSIUM CHL 10 mEq IVPB 10 MEQ/100 ML BAG 80 MEQ IV ×2 (00:39→01:59)
[2024-10-10 00:53] LABS: Troponin I 0.071 ng/mL (0.0-0.045)
[2024-10-10] MEDS: HYDROcodone/APAP 5/325 TABLET 1 TAB PO (01:23)
[2024-10-10 02:17] VITALS: BP 150/99; PULSE 76; RESP 16; TEMP 37.2; O2SAT 98
== END 2024-10-10 02:21 | disposition home or self-care (01) ==
PROVIDERS: Emergency Provider Emergency Medicine
DX: R32 Unspecified urinary incontinence (principal); E87.6 Hypokalemia; I25.2 Old myocardial infarction; M32.9 Systemic lupus erythematosus, unspecified; K50.90 Crohn's disease, unspecified, without complications
CPT/HCPCS: 36415; 80053; 81001; 83735; 84484; 85025; 87400; 87811; 93005; 96365; 96366; 99284; J3475; J3480; J7030; A9270

== ENCOUNTER → 2024-10-16 | Outpatient (CLI) | payer MEDICARE, BC, SELFPAY ==
[2024-10-16 13:07] LABS: Basophils # (Auto) 0.0 Thou/mm3 (0.0-0.2); Basophils % (Auto) 1 % (0-2.5); Eosinophils # (Auto) 0.2 Thou/mm3 (0.0-0.5); Eosinophils % (Auto) 6 % (0-10); Hematocrit 33.6 % (36.0-46.0); Hemoglobin 11.0 g/dL (12.0-16.0); Immature Granulocytes Auto 0.00 Thou/mm3 (0.00-0.00); Lymphocytes # (Auto) 1.0 Thou/mm3 (1.0-4.8); Lymphocytes % (Auto) 31 % (10-50); Mean Corpuscular HGB Conc 32.7 g/dl (31.0-37.0); Mean Corpuscular Hemoglobin 31.7 pg (25.0-35.0); Mean Corpuscular Volume 97 fL (80-100); Monocytes # (Auto) 0.4 Thou/mm3 (0.0-0.8); Monocytes % (Auto) 11 % (0-12); Neutrophils # (Auto) 1.8 Thou/mm3 (1.8-7.7); Neutrophils % (Auto) 52 % (37-80); Nucleated Red Blood Cell # 0.00 Thou/mm3 (0.00-0.00); Nucleated Red Blood Cell % 0 /100 WBC (0); Platelet Count 245 Thou/mm3 (140-440); RDW Standard Deviation 57.1 fL (36.4-46.3); Red Blood Count 3.47 Miln/mm3 (4.00-5.20); White Blood Count 3.4 Thou/mm3 (3.6-11.0)
[2024-10-16 13:13] LABS: B-Type Natriuretic Peptide 164 pg/mL (0-100); Glucose Estimated Average 88 mg/dL (80-131); Hemoglobin A1C 4.7 % Hgb (4.8-6.0)
[2024-10-16 13:25] LABS: Cardiac Risk Estimate 2.6 RATIO (3.7-5.6); Cholesterol 124 mg/dL (132-200); Free T4 (Free Thyroxine) 0.89 ng/dL (0.89-1.76); HDL Cholesterol 48 mg/dL (40-60); LDL Cholesterol,Calculated 58 mg/dL (0-130); Magnesium 1.4 mg/dL (1.6-2.6); Thyroid Stimulating Hormone 11.16 uIU/mL (0.55-4.78); Triglycerides 92 mg/dL (30-150)
[2024-10-16 15:14] LABS: Collection Type, Urine Clean Catch; Squamous Epithelial Cell,Urine 0 /hpf (0-5)
[2024-10-16 15:46] LABS: Bilirubin,Urine Negative (Negative); Blood,Urine Negative (Negative); Clarity,Urine Clear (Clear/Hazy); Color,Urine Lt-Yellow (Lt Yel-Yel); Culture Indicated,Urine Not Indicated; Glucose, Urine Negative (Negative); Hyaline Casts,Urine < 1 /hpf (0-1); Ketones,Urine Negative (Negative); Leukocyte Esterase,Urine Negative (Negative); Nitrite,Urine Negative (Negative); PH,Urine 6.0 (5.0-7.0); Protein,Urine Negative (Neg - Trace); RBC,Urine 2 /hpf (0-3); Specific Gravity,Urine 1.012 (1.001-1.035); Urobilinogen,Urine Negative mg/dL (0.0-1.0); WBC,Urine 1 /hpf (0-5)
== END | disposition home or self-care (01) ==
LOC: COPL 11:44
PROVIDERS: PCP Student in an Organized Health Care Education/Training Program; Referring Provider Student in an Organized Health Care Education/Training Program; Visit Provider Student in an Organized Health Care Education/Training Program
DX: E03.9 Hypothyroidism, unspecified (principal); E78.5 Hyperlipidemia, unspecified; I10 Essential (primary) hypertension; I50.20 Unspecified systolic (congestive) heart failure
CPT/HCPCS: 36415; 80061; 81001; 83036; 83735; 83880; 84439; 84443; 85025

== ENCOUNTER → 2024-10-19 | Outpatient (CLI) | payer MEDICARE, BC, SELFPAY ==
--- NOTE | 2024-10-19 12:29 | XR_ITS ---
Examination: Wrist, right 3 views Technique: Wrist AP, oblique, lateral 3 views Date and time of exam: October 19, 2024 1316 hours Comparison September 14, 2024 INDICATIONS: Acute wrist fracture September 20, 2024 FINDINGS: Partial healing impacted fracture distal radial metaphysis On the lateral view the distal radial fracture fragment appears more dorsally displaced compared to the lateral film September 14, 2024, clinical correlation advised IMPRESSION: Partial healing impacted fracture distal radial metaphysis as above
== END | disposition home or self-care (01) ==
LOC: CDIM 12:10
PROVIDERS: PCP Student in an Organized Health Care Education/Training Program; Referring Provider Orthopaedic Surgery; Visit Provider Orthopaedic Surgery
DX: S52.531A Colles' fracture of right radius, initial encounter for closed fracture (principal); X58.XXXA Exposure to other specified factors, initial encounter
CPT/HCPCS: 73110

== ENCOUNTER → 2024-10-20 | Outpatient (CLI) | payer BC, SELFPAY ==
[2024-10-20 13:19] LABS: Basophils # (Auto) 0.0 Thou/mm3 (0.0-0.2); Basophils % (Auto) 1 % (0-2.5); Eosinophils # (Auto) 0.2 Thou/mm3 (0.0-0.5); Eosinophils % (Auto) 3 % (0-10); Hematocrit 32.3 % (36.0-46.0); Hemoglobin 10.6 g/dL (12.0-16.0); Immature Granulocytes Auto 0.02 Thou/mm3 (0.00-0.00); Lymphocytes # (Auto) 1.5 Thou/mm3 (1.0-4.8); Lymphocytes % (Auto) 34 % (10-50); Mean Corpuscular HGB Conc 32.8 g/dl (31.0-37.0); Mean Corpuscular Hemoglobin 32.2 pg (25.0-35.0); Mean Corpuscular Volume 98 fL (80-100); Monocytes # (Auto) 0.5 Thou/mm3 (0.0-0.8); Monocytes % (Auto) 11 % (0-12); Neutrophils # (Auto) 2.2 Thou/mm3 (1.8-7.7); Neutrophils % (Auto) 50 % (37-80); Nucleated Red Blood Cell # 0.00 Thou/mm3 (0.00-0.00); Nucleated Red Blood Cell % 0 /100 WBC (0); Platelet Count 232 Thou/mm3 (140-440); RDW Standard Deviation 57.2 fL (36.4-46.3); Red Blood Count 3.29 Miln/mm3 (4.00-5.20); White Blood Count 4.4 Thou/mm3 (3.6-11.0)
[2024-10-20 13:35] LABS: Alanine Aminotransferase 14 U/L (10-49); Albumin, Serum 3.9 gm/dL (3.4-4.8); Albumin/Globulin Ratio 2.0 (1.2-2.2); Alkaline Phosphatase 80 U/L (46-116); Anion Gap 9 (7-16); Aspartate Amino Transferase 38 U/L (0-34); BUN/Creatinine Ratio 10 Ratio (12-20); Bilirubin,Total 0.3 mg/dL (0.3-1.2); Blood Urea Nitrogen 9 mg/dL (9-23); Calcium 9.0 mg/dL (8.3-10.6); Calcium (Corrected) 9.1 mg/dL (8.5-10.1); Carbon Dioxide 27.7 mMol/L (20.0-31.0); Chloride 106 mMol/L (98-107); Creatinine (Component) 0.9 mg/dL (0.6-1.3); Globulin 2.0 gm/dL (2.3-3.5); Glucose 87 mg/dL (74-106); Osmolality,Calculated 282 (275-295); Potassium 3.8 mMol/L (3.4-5.1); Sodium 143 mMol/L (136-145); Total Protein 5.9 gm/dL (5.7-8.2); eGFR > 60 See Note
[2024-10-20 13:36] LABS: Ferritin 80 ng/mL (7.3-270.7); Iron 51 mcg/dL (50-170); Percent Iron Saturation 21 % (20-55); Total Iron Binding Capacity 242 mcg/dL (250-425); Unsaturated Iron Binding 191 (225-295)
[2024-10-20 13:42] LABS: Folate 12.97 ng/mL (>5.38); Vitamin B12 571 pg/mL (211-911)
== END | disposition home or self-care (01) ==
LOC: COPL 12:05
PROVIDERS: PCP Family Medicine; Referring Provider Student in an Organized Health Care Education/Training Program; Visit Provider Student in an Organized Health Care Education/Training Program
DX: D64.9 Anemia, unspecified (principal); I50.20 Unspecified systolic (congestive) heart failure
CPT/HCPCS: 36415; 80053; 82607; 82728; 82746; 83540; 83550; 85025

== ENCOUNTER → 2024-11-16 | Outpatient (CLI) | payer BC, SELFPAY ==
[2024-11-16 17:31] LABS: Basophils # (Auto) 0.0 Thou/mm3 (0.0-0.2); Basophils % (Auto) 1 % (0-2.5); Eosinophils # (Auto) 0.1 Thou/mm3 (0.0-0.5); Eosinophils % (Auto) 2 % (0-10); Hematocrit 37.2 % (36.0-46.0); Hemoglobin 11.9 g/dL (12.0-16.0); Immature Granulocytes Auto 0.01 Thou/mm3 (0.00-0.00); Lymphocytes # (Auto) 1.2 Thou/mm3 (1.0-4.8); Lymphocytes % (Auto) 29 % (10-50); Mean Corpuscular HGB Conc 32.0 g/dl (31.0-37.0); Mean Corpuscular Hemoglobin 31.9 pg (25.0-35.0); Mean Corpuscular Volume 100 fL (80-100); Monocytes # (Auto) 0.4 Thou/mm3 (0.0-0.8); Monocytes % (Auto) 10 % (0-12); Neutrophils # (Auto) 2.3 Thou/mm3 (1.8-7.7); Neutrophils % (Auto) 58 % (37-80); Nucleated Red Blood Cell # 0.00 Thou/mm3 (0.00-0.00); Nucleated Red Blood Cell % 0 /100 WBC (0); Platelet Count 221 Thou/mm3 (140-440); RDW Standard Deviation 51.5 fL (36.4-46.3); Red Blood Count 3.73 Miln/mm3 (4.00-5.20); White Blood Count 3.9 Thou/mm3 (3.6-11.0)
[2024-11-16 17:42] LABS: Alanine Aminotransferase 15 U/L (10-49); Aspartate Amino Transferase 36 U/L (0-34); C-Reactive Protein < 0.5 mg/dL (0.0-0.9); Creatinine (Component) 0.9 mg/dL (0.6-1.3); Free T4 (Free Thyroxine) 1.57 ng/dL (0.89-1.76); Thyroid Stimulating Hormone 0.74 uIU/mL (0.55-4.78); eGFR > 60 See Note
[2024-11-16 18:16] LABS: Sed Rate (ESR) 5 mm/hr (0-30)
[2024-11-16 19:44] LABS: RA Screen Negative (Negative)
[2024-11-20 07:06] LABS: Hexagonal Phase Confirm NEGATIVE (NEGATIVE); PTT-LA Screen 41 seconds (< OR = 40); dRVVT Screen 42 seconds (< OR = 45)
[2024-11-24 22:06] LABS: Cardiolipin Ab (IgA) <2.0 APL-U/mL; Cardiolipin Ab (IgG) <2.0 GPL-U/mL; Sjogren's antibody (SS-A) <1.0 NEG AI (<1.0 NEGATIVE); Sm Antibody <1.0 NEG AI (<1.0 NEGATIVE)
[2024-11-28 06:55] LABS: ANA Pattern NUCLEAR, HOMOGENEOUS; ANA Screen, IFA POSITIVE (NEGATIVE); ANA Titer 1:320 titer; Complement Component C3* 174 mg/dL (83-193); DNA (ds) Antibody* 1 IU/mL; Sjogren's Antibody (SS-B) <1.0 NEG AI (<1.0 NEGATIVE); T3,Total* 76 ng/dL (76-181); Thyroglobulin Antibodies* 1 IU/mL (< OR = 1)
[2024-11-28 06:56] LABS: B2-Glycoprotein I Ab IgA <2.0 U/mL; B2-Glycoprotein I Ab IgG <2.0 U/mL; B2-Glycoprotein I Ab IgM <2.0 U/mL; CCP Antibody (IgG)* <16 Units; Cardiolipin Ab (IgM) <2.0 MPL-U/mL; Complement Component C4c* 34 mg/dL (15-57); Sm/RNP Antibody <1.0 NEG AI (<1.0 NEGATIVE); Thyroid Peroxidase Antibodies* 2 IU/mL (<9)
== END | disposition home or self-care (01) ==
LOC: COPL 16:10
PROVIDERS: PCP Student in an Organized Health Care Education/Training Program; Referring Provider Internal Medicine Rheumatology; Visit Provider Internal Medicine Rheumatology
DX: M32.9 Systemic lupus erythematosus, unspecified (principal)
CPT/HCPCS: 36415; 82565; 82570; 84156; 84439; 84443; 84450; 84460; 84480; 85025; 85613; 85652; 85730; 86038; 86140; 86146; 86147; 86160; 86200; 86225; 86235; 86376; 86430; 86800

== ENCOUNTER → 2024-12-01 | Outpatient (CLI) | payer BC, SELFPAY ==
[2024-12-01 14:08] LABS: Creatinine,Random Urine 64 mg/dL (30-125); Protein Total, Random Urine 29 mg/dL (1-14)
== END | disposition home or self-care (01) ==
LOC: SLDO 12:25
PROVIDERS: PCP Internal Medicine Rheumatology; Referring Provider Internal Medicine Rheumatology; Visit Provider Internal Medicine Rheumatology
DX: M32.9 Systemic lupus erythematosus, unspecified (principal)
CPT/HCPCS: 82570; 84156